=== PATIENT | female | born 1960 | race Two or more races ===

== ENCOUNTER 2024-06-13 15:48 | Outpatient (AMB) | payer MEDICARE, SELFPAY ==
--- NOTE | 2024-06-13 16:17 | A.OFFPC_ITS ---
Vital Signs 06/13/24 16:30 Height 5 ft 3 in Weight 149 lb 8 oz BMI 26.5 BP 120/72 Blood Pressure Location Lt brachial Position Sitting Pulse 75 Pulse Source Pulse Oximeter Pulse Oximetry (%) 99 Oxygen Delivery Method Room Air Intake Visit Reasons: pnp Regular Visit Rib Trim Separator Required: No Accompanied by: Self / Same As Patient Allergies clopidogrel [From Plavix] Allergy (Severe, Verified 06/13/24 16:54) Rash milnacipran [From Savella] Adverse Reaction (Severe, Verified 06/13/24 16:57) tachycardia promethazine [From Phenergan] Adverse Reaction (Severe, Verified 06/13/24 16:56) tachycardia Medication List - Last Reconciled 06/13/24 by Maurilio Burgess MD acetaminophen ER (Tylenol 8 Hour) 650 mg PO Q12H apremilast (Otezla) 30 mg PO BID aspirin 81 mg PO DAILY cetirizine (Zyrtec) 10 mg PO DAILY PRN fluticasone propionate 50 mcg/actuation 1 spray intranasal DAILY memantine 10 mg PO BID metformin 500 mg PO BID nateglinide 120 mg PO TID nortriptyline 10 mg PO BEDTIME PRN pantoprazole 40 mg PO DAILY pravastatin 40 mg PO DAILY pregabalin 75 mg PO BID rimegepant (Nurtec ODT) 75 mg PO Q OTHER DAY simethicone (Gas Relief (simethicone)) 125 mg PO BID-QID PRN tizanidine 4 mg PO BID PRN topiramate 100 mg PO BID tramadol 50 mg PO BID PRN Tobacco use date assessed: 06/13/24 Dental Screening Dental Screen Date: 06/13/24 Did you have a dental visit in the last 12 months?: No Did you have a dental problem in the last 6 months where you did not have access to dental care?: No Was dental information given to patient?: No HPI pnp Regular Visit HPI Details Patient comes in today to establish care - is a new patient to the practice Previous PCP was [place] at [facility] in [place] States that she had to switch doctors because she moved here to [facility] about 3 months ago and now lives here with her son She reports having multiple chronic health conditions, including RA, DM, migraine, chronic anemia, hyperlipidemia, brain aneurysm, psoriasis and chronic pain She is currently on Otezla for her RA and on Pregabalin for her chronic pain She is also on Topiramate and Nortriptyline and although patient is not sure why she is on these, we assume that they are likely for prophylactic Tx of her migraine headaches; she is also on Nurtec ODT for migraine She takes Nateglinide and Metformin for her diabetes She also reports (+) chronic anemia and that she's had a slow bleed in her small intestines that come and go States that there was an attempt to localize and cauterize the bleeding a couple of years ago wherein she was under anesthesia and intubated but no active bleeding was detected at the time of the procedure She also underwent surgery back in 2015 at [facility] in [place], [place] for a brain aneurysm and currently has another aneurysm of about 8 mm in size that was being monitored closely by [place] Dr. [place] until she moved her to [facility] She will currently need a referral to another specialist to help monitor her aneurysm regularly Patient states that she currently feels okay She denies any headaches or dizziness lately Denies any chest pains, no shortness of breath No nausea/vomiting, no abdominal pain No change in bowel habits noted Relates that she has noticed some discharge from her breasts over the past few days that is slightly more prominent on the left side She has not noticed any breast mass or lesions [facility] Medical History (Updated 06/15/24 @ 03:01 by Maurilio Burgess MD) Rheumatoid arthritis Psoriasis Migraine Brain aneurysm Chronic anemia Overweight (BMI 25.0-29.9) Chronic pain Allergic rhinitis GERD without esophagitis Diabetes mellitus Pure hypercholesterolemia Cardiac murmur Surgical History (Updated 06/15/24 @ 00:42 by Maurilio Burgess MD) History of abdominoplasty S/P brachioplasty History of appendectomy History of cholecystectomy History of colon resection History of reduction mammoplasty History of rotator cuff surgery History of gastric bypass History of carpal tunnel surgery of right wrist History of carpal tunnel surgery of left wrist Hx of brain surgery Family History Other Breast cancer Diabetes Schizophrenia Social History Housing: Apartment Patient Tobacco Use Status: Former Tobacco user e-Cigarette/Vaping Use: Never Used Second Hand Smoke Exposure: No service: No Current occupational status: retired Current occupational exposures/hazards: No Cognitive needs: No Hearing needs: No Vision needs: No Questionnaire PHQ-9 Over the last 2 weeks, how often have you been bothered by any of the following problems? 1. Little interest or pleasure in doing things: not at all 2. Feeling down, depressed, or hopeless: several days 3. Trouble falling or staying asleep, or sleeping too much: more than half the days 4. Feeling tired or having little energy: more than half the days 5. Poor appetite or overeating: more than half the days 6. Feeling bad about yourself - or that you are a failure or have let yourself or your family down: more than half the days 7. Trouble concentrating on things, such as reading the newspaper or watching television: more than half the days 8. Moving or speaking so slowly that other people could have noticed. Or the opposite - being so fidgety or restless that you have been moving around a lot more than usual: more than half the days 9. Thoughts that you would be better off or of hurting yourself in some way: not at all Total score: 13 Depression Screening Interpretation: Positive Depression Screening Follow-up: Existing condition and In treatment Depression Screening Done: Yes 30862 - PHQ-9 Billing: Yes Source: Developed by Drs. Johan Espino, Marlen River, Cory De Jesus and colleagues, with an educational corona from [employer]. Thrive Questionnaire Date Thrive assessed: 06/13/24 I am a: Patient What is your living situation today?: I have a steady place to live Within the past 12 months, did the food you bought not last and you didn't have the money to get more?: Sometimes True Within the past 12 months, did you worry whether your food would run out before you got money to buy more?: Sometimes True Do you have trouble paying for medicines?: No Do you have trouble getting transportation to medical appointments?: No Do you have trouble paying your heating and electricity bill?: No Do you have trouble taking care of your child, family member or friend?: No Do you have trouble with day-to-day activities such as bathing, preparing meals, shopping, managing finances, etc.?: No Are you currently unemployed and looking for a job?: No Are you interested in more education?: No Please select the resources that you would like help with: None Currently or been in a relationship where the following occur: No concerns reported THRIVE Score: 2 AUDIT C Alcohol Use Questionnaire (AUDIT-C) 1. How often do you have a drink containing alcohol?: Never 3. How often do you have six or more drinks on one occasion?: Never Total Score: 0 Score Reviewed/Action Taken: Yes CHANA-7 AMB Questionnaire CHANA-7 Date CHANA - 7 assessed: 06/13/24 Feeling nervous, anxious, or on edge: 2 = More than half the days Not being able to stop or control worryin = More than half the days Worrying too much about different things: 2 = More than half the days Trouble relaxin = More than half the days Being so restless that it is hard to sit still: 2 = More than half the days Becoming easily annoyed or irritable: 2 = More than half the days Feeling afraid as if something awful might happen: 0 = Not at all Total CHANA-7 score (0-4 normal; 5-9 mild; 10-14 moderate; 15-21 severe): 12 Source: Developed by Drs. Johan Espino, Marlen River, Cory De Jesus and colleagues, with an educational corona from [employer]. Review of Systems Const Denies chills, Reports fatigue, Denies fever(s) and Denies headache(s) ENT Denies dysphagia, Denies dizziness, Denies otalgia, Denies headache(s), Denies neck pain, Denies odynophagia and Denies sore throat Card Denies chest pain, Denies palpitations and Denies dyspnea Resp Denies chest congestion, Denies cough and Denies dyspnea GI Denies abdominal pain, Denies constipation, Denies dysphagia, Denies heartburn, Denies diarrhea, Denies nausea, Denies odynophagia and Denies vomiting Denies difficulty voiding, Denies nocturia, Reports nipple discharge (bilateral, L>R), Denies dysuria and Denies urinary urgency Musc Denies abnormal gait, Reports arthralgias and Denies neck pain Skin/Breast Details: (+) scaling rash over the extensor surface of both forearms Denies breast pain, Denies breast mass and Reports nipple discharge (bilateral, L>R) Neuro Denies abnormal gait, Denies dizziness and Denies headache(s) Endo Reports fatigue and Denies palpitations Physical exam (Primary Care) Vital Signs: Last Vital Signs Pulse 75 06/13/24 16:30 BP 120/72 06/13/24 16:30 Pulse Ox 99 06/13/24 16:30 Oxygen Delivery Method Room Air 06/13/24 16:30 BMI result Body Mass Index 26.5 Tobacco/Smoking Status: Tobacco use Status Tobacco use date assessed 06/13/24 06/13/24 16:46 Patient Tobacco Use Status Former Tobacco user 06/13/24 16:46 e-Cigarette/Vaping Use Never Used 06/13/24 16:46 PHQ-9: PHQ-9 Score PHQ-9: Total score 13 06/14/24 09:55 Depression Screening Interpretation: Positive Depression Screening Follow-up: Existing condition and In treatment Thrive Assessment: Date of Thrive Assessment Date Thrive assessed 06/13/24 06/13/24 16:46 Currently or been in a relationship where the following occur: No concerns reported Const General: no acute distress and alert HENMT Ears: TM's normal bilaterally and EAC's normal Throat: Yes posterior oropharynx normal and Yes tonsils normal (no TP congestion) Neck Neck: Yes supple and No lymphadenopathy Thyroid: Thyroid normal Resp Auscultation: clear to auscultation bilaterally, no rales and no wheezes Cardio Rate: regular rate Rhythm: regular rhythm Heart sounds: Murmur heart sound present GI Palpation (GI): Soft to palpation and nontender Auscultation: normal bowel sounds General: Yes no CVA tenderness Back/Spine/Pelvis Back: no CVA tenderness Thoracic/Lumbar Spine: No lumbar spinal tenderness Skin Other: (+) scaling rash over the extensor surface of both forearms Extrem General: Yes no clubbing, cyanosis or edema Coding Level of Care Code New Pt Level 5 (16203) Diagnoses Psoriasis L40.9 Rheumatoid arthritis, involving unspecified site, unspecified whether rheumatoid factor present M06.9 Rheumatoid arthritis location: unspecified site Rheumatoid factor presence: unspecified presence Migraine without status migrainosus, not intractable, unspecified migraine type G43.909 Migraine type: unspecified Status migrainosus presence: without status migrainosus Intractability: not intractable Brain aneurysm I67.1 Pure hypercholesterolemia E78.00 Type 2 diabetes mellitus without complication, without long-term current use of insulin E11.9 Diabetes mellitus type: type 2 Diabetes mellitus middle or intermediate school principal insulin use: without middle or intermediate school principal use Diabetes mellitus complication status: without complication Chronic anemia D64.9 Small intestinal hemorrhage K92.2 GERD without esophagitis K21.9 Discharge from breast N64.52 Allergic rhinitis, unspecified seasonality, unspecified trigger J30.9 Allergic rhinitis trigger: unspecified Allergic rhinitis seasonality: unspecified Other chronic pain G89.29 Chronic pain type: other chronic pain Overweight (BMI 25.0-29.9) E66.3 Cervical cancer screening Z12.4 Additional Codes PHQ-9 - 89479 - PHQ-9 Billing: Yes ([id number]) Time Spent (min) 45 Assessment & Plan Assessment & Plan (1) Psoriasis: Code(s): L40.9 - Psoriasis, unspecified Category: Medical Plan: Continue Otezla 30 mg BID Will refer patient to dermatology for continuing management of her psoriasis (2) Rheumatoid arthritis: Code(s): M06.9 - Rheumatoid arthritis, unspecified Category: Medical Qualifiers: Rheumatoid arthritis location: unspecified site Rheumatoid factor presence: unspecified presence Qualified Code(s): M06.9 - Rheumatoid arthritis, unspecified Plan: Will refer her to rheumatology for continuing management of her RA Will recheck her labs, including sed rate, CRP and rheumatoid factor in 3 months (3) Migraine: Code(s): G43.909 - Migraine, unspecified, not intractable, without status migrainosus Category: Medical Qualifiers: Migraine type: unspecified Status migrainosus presence: without status migrainosus Intractability: not intractable Qualified Code(s): G43.909 - Migraine, unspecified, not intractable, without status migrainosus Plan: Discussed avoidance of any potential migraine triggers Continue Topiramate 100 mg BID, Nortriptyline 10 mg Q HS and Nurtec ODT 75 mg every other day Per request, will refer her to neurology for continuing management (4) Brain aneurysm: Comment: s/p surgical repair in 2014 in [place], [place] Code(s): I67.1 - Cerebral aneurysm, nonruptured Category: Medical Plan: Patient currently has another aneurysm of about 8 mm in size that was being monitored closely by [place] Dr[place] until she moved her to [facility] Will refer her to neurosurgery for continuing surveillance and management Patient has had some cognitive impairment ever since her brain surgery in 2014 Continue Memantine 10 mg BID (5) Pure hypercholesterolemia: Code(s): E78.00 - Pure hypercholesterolemia, unspecified Category: Medical Plan: Discussed / reinforced low cholesterol diet Continue Pravastatin 40 mg QD Will recheck her labs and fasting lipids in 3 months (6) Diabetes mellitus: Code(s): E11.9 - Type 2 diabetes mellitus without complications Category: Medical Qualifiers: Diabetes mellitus type: type 2 Diabetes mellitus middle or intermediate school principal insulin use: without [facility] use Diabetes mellitus complication status: without complication Qualified Code(s): E11.9 - Type 2 diabetes mellitus without complications Plan: Discussed diabetic diet - goal is HgbA1c of at least <7.0% Discussed diabetic diet Continue Nateglinide 120 mg TID and Metformin 500 mg BID (7) Chronic anemia: Code(s): D64.9 - Anemia, unspecified Category: Medical Plan: Will recheck her CBC KISHA for follow up Will also recheck her labs in 3 months and continue to monitor her CBC regularly Will refer her as well to hematology for continuing management (8) Small intestinal hemorrhage: Code(s): K92.2 - Gastrointestinal hemorrhage, unspecified Category: Medical Plan: Patient reportedly had a slow bleed in her small intestines that comes and goes for a while now States that there was an attempt to localize and cauterize the bleeding a couple of years ago wherein she was under anesthesia and intubated but no active bleeding was detected at the time of the procedure Will refer her to GI here for continuing management (9) GERD without esophagitis: Code(s): K21.9 - Gastro-esophageal reflux disease without esophagitis Category: Medical Plan: Dietary restrictions discussed Continue Pantoprazole 40 mg QD (10) Discharge from breast: Code(s): N64.52 - Nipple discharge Category: Medical Plan: Will send her for urgent mammography for further evaluation (11) Allergic rhinitis: Code(s): J30.9 - Allergic rhinitis, unspecified Category: Medical Qualifiers: Allergic rhinitis trigger: unspecified Allergic rhinitis seasonality: unspecified Qualified Code(s): J30.9 - Allergic rhinitis, unspecified Plan: Continue Cetirizine 10 mg QD PRN and Fluticasons 50 mcg nasal spray QD PRN (12) Chronic pain: Code(s): G89.29 - Other chronic pain Category: Medical Qualifiers: Chronic pain type: other chronic pain Qualified Code(s): G89.29 - Other chronic pain Plan: Continue Pregabalin 75 mg BID, Tramadol 50 mg TID PRN and Tizanidine 4 mg BID PRN (Rx refilled) (13) Overweight (BMI 25.0-29.9): Code(s): E66.3 - Overweight Category: Medical Plan: Discussed diet/exercise as tolerated/lose weight (14) Cervical cancer screening: Code(s): Z12.4 - Encounter for screening for malignant neoplasm of cervix Category: Medical Plan: Will refer her to [facility] for her annual gynecology exam and pap smear Plan Follow up in 3 months Orders: Orders 2 MM tomosynthesis diagnostic BI 06/13/24 N64.52 - Nipple discharge Comprehensive Berry. Panel Fast 3 Months E78.00 - Pure hypercholesterolemia, uns pecified Lipid Panel 3 Months E78.00 - Pure hypercholesterolemia, unspecified TSH reflex Free T4 3 Months E78.00 - Pure hypercholesterolemia, unspecified Vitamin D 25-OH Total 3 Months E55.9 - Vitamin D deficiency, unspecified Complete Blood Count Auto Diff 06/13/24 D64.9 - Anemia, unspecified IRON PROFILE 06/13/24 D50.9 - Iron deficiency anemia, unspecified, D64.9 - Anemia, unspecified Complete Blood Count Auto Diff 3 Months D64.9 - Anemia, unspecified UA CC w/rflx Micro + Cult 3 Months R30.0 - Dysuria Vitamin B12 and Folate 3 Months E53.8 - Deficiency of other specified B group vitamins Microalbumin, Random (w Creat) 3 Months E11.9 - Type 2 diabetes mellitus without complications Hemoglobin A1c 3 Months E11.9 - Type 2 diabetes mellitus without complications C Reactive Protein 3 Months M06.9 - Rheumatoid arthritis, unspecified Erythrocyte Sedimentation Rate 3 Months M06.9 - Rheumatoid arthritis, unspecified, M79.7 - Fibromyalgia Rheumatoid Factor 3 Months M06.9 - Rheumatoid arthritis, unspecified KARLA Reflex Titer and Pattern 3 Months M06.9 - Rheumatoid arthritis, unspecified Comprehensive Met. Panel 06/13/24 D64.9 - Anemia, unspecified Vitamin B12 and Folate 06/13/24 D64.9 - Anemia, unspecified, E53.8 - Deficiency of other specified B group vitamins Referrals Dermatology Referral L40.9 - Psoriasis, unspecified Neurology Referral G43.909 - Migraine, unspecified, not intractable, without status migrainosus GLASS GRINDER Referral Z12.4 - Encounter for screening for malignant neoplasm of cervix Rheumatology Referral M06.9 - Rheumatoid arthritis, unspecified Neurosurgery Referral I67.1 - Cerebral aneurysm, nonruptured Gastroenterology Referral K92.2 - Gastrointestinal hemorrhage, unspecified Hematology & Oncology Referral D64.9 - Anemia, unspecified Medications: New tizanidine 4 mg PO BID PRN 60 caps 5RF muscle spasms/neck pain
[2024-06-13 16:30] VITALS: BP 120/72; PULSE 75; O2SAT 99; BMI 26.5
--- OUTSIDE RECORDS SUMMARY | 2024-06-13 16:42 | XMS_ITS ---
Author Name [facility] Organization Unknown Results Test Name/Text Value Interpretation Date Range Source IRON BINDING CAPACITY,TOTAL 445ug/dL Normal [id number] 250 - 450 [facility] %SATURATION, IRON 40% Normal [id number] 20 - 55 [facility] IRON 177ug/dL Above high normal [id number] 50 - 170 [facility] FERRITIN 7ng/mL Below low normal [id number] 8 - 252 [facility] WBC 13.6K/uL Above high normal [id number] 3.7 - 10. 3 [facility] ABSOLUTE GRANULOCYTES 11.2K/uL Above high normal [id number] 2.2 - 7.3 [facility] ABSOLUTE BASO 0.1K/uL Normal [id number] 0 - 0.2 [facility] IMMATURE GRANULOCYTES 0% Normal [id number] 0 - 0 .45 [facility] NUCLEATED RBC 0% Normal [id number] 0 - 0.2 [facility] MCH 27PG Normal [id number] 27 - 34 [facility] MONOCYTES 6% Normal [id number] 0 - 12 [facility] ABSOLUTE IMMATURE GRANULOCYTES 0K/uL Normal [id number] 0 - 0.3 [facility] HGB 10.9g/dL Below low normal [id number] 12.1 - 15. 7 [facility] RBC 4.03M/uL Normal [id number] 4 - 5.4 [facility] EOSINOPHILS 1% Normal [id number] 0 - 6 [facility] MPV 12fL Normal [id number] 8 - 12 [facility] ABSOLUTE MONOS 0.8K/uL Normal [id number] 0.2 - 1.5 [facility] BASOPHILS 1% Normal [id number] 0 - 2 [facility] MCV 89fL Normal [id number] 83 - 102 [facility] HCT 35.7% Below low normal [id number] 36 - 46 [facility] ABSOLUTE LYMPHS 1.4K/uL Below low normal [id number] 1.5 - 4.9 [facility] GRANULOCYTES 82% Above high normal [id number] 23 - 7 8 [facility] ABSOLUTE EOS 0.1K/uL Normal [id number] 0 - 0.7 [facility] LYMPHS 10% Below low normal [id number] 16 - 50 [facility] RDW 13.6% Above high normal [id number] 11.1 - 13 .3 [facility] PLATELET COUNT 327K/uL Normal [id number] 150 - 480 [facility] MCHC 30.5g/dL Below low normal [id number] 31 - 36 [facility] ABSOLUTE NUCLEATED RBC 0K/uL Normal [id number] 0 - 0.012 [facility] COMMENT * Normal [id number] [facility] FERRITIN 11ng/mL Normal [id number] 8 - 252 [facility] IRON BINDING CAPACITY,TOTAL 399ug/dL Normal [id number] 250 - 450 [facility] %SATURATION, IRON 25% Normal [id number] 20 - 55 [facility] IRON 100ug/dL Normal [id number] 50 - 170 [facility] WBC 7.5K/uL Normal [id number] 3.7 - 10.3 [facility] ABSOLUTE GRANULOCYTES 5.6K/uL Normal [id number] 2.2 - 7.3 [facility] ABSOLUTE BASO 0K/uL Normal [id number] 0 - 0.2 [facility] IMMATURE GRANULOCYTES 0% Normal [id number] 0 - 0 .45 [facility] NUCLEATED RBC 0% Normal [id number] 0 - 0.2 [facility] MCH 29PG Normal [id number] 27 - 34 [facility] MONOCYTES 6% Normal [id number] 0 - 12 [facility] ABSOLUTE IMMATURE GRANULOCYTES 0K/uL Normal [id number] 0 - 0.3 [facility] HGB 12.2g/dL Normal [id number] 12.1 - 15.7 [facility] MMH RBC 4.23M/uL Normal [id number] 4 - 5.4 [facility] EOSINOPHILS 2% Normal [id number] 0 - 6 [facility] MMH MPV 11fL Normal [id number] 8 - 12 [facility] ABSOLUTE MONOS 0.4K/uL Normal [id number] 0.2 - 1.5 [facility] BASOPHILS 1% Normal [id number] 0 - 2 [facility] MCV 89fL Normal [id number] 83 - 102 [facility] HCT 37.6% Normal [id number] 36 - 46 [facility] ABSOLUTE LYMPHS 1.3K/uL Below low normal [id number] 1.5 - 4.9 [facility] GRANULOCYTES 74% Normal [id number] 23 - 78 [facility] ABSOLUTE EOS 0.2K/uL Normal [id number] 0 - 0.7 [facility] LYMPHS 17% Normal [id number] 16 - 50 [facility] RDW 14.2% Above high normal [id number] 11.1 - 13 .3 [facility] PLATELET COUNT 274K/uL Normal [id number] 150 - 480 [facility] MCHC 32.4g/dL Normal [id number] 31 - 36 [facility] ABSOLUTE NUCLEATED RBC 0K/uL Normal [id number] 0 - 0.012 [facility] COMMENT * Normal [id number] [facility] FERRITIN 157ng/mL Normal [id number] 8 - 252 [facility] IRON BINDING CAPACITY,TOTAL 342ug/dL Normal [id number] 250 - 450 [facility] %SATURATION, IRON 24% Normal [id number] 20 - 55 [facility] IRON 83ug/dL Normal [id number] 50 - 170 [facility] WBC 9.4K/uL Normal [id number] 3.7 - 10.3 [facility] ABSOLUTE GRANULOCYTES 7K/uL Normal [id number] 2.2 - 7.3 [facility] ABSOLUTE BASO 0.1K/uL Normal [id number] 0 - 0.2 [facility] IMMATURE GRANULOCYTES 0% Normal 0 - 0 .45 [facility] NUCLEATED RBC 0% Normal 0 - 0.2 [facility] MCH 27PG Normal 27 - 34 [facility] MONOCYTES 7% Normal [id number] 0 - 12 [facility] ABSOLUTE IMMATURE GRANULOCYTES 0K/uL Normal [id number] 0 - 0.3 [facility] HGB 12.1g/dL Normal 12.1 - 15.7 [facility] COMMENT * Normal [facility] RBC 4.41M/uL Normal [id number] 4 - 5.4 [facility] EOSINOPHILS 2% Normal 0 - 6 [facility] MMH MPV 11fL Normal [id number] 8 - 12 [facility] ABSOLUTE MONOS 0.7K/uL Normal [id number] 0.2 - 1.5 [facility] BASOPHILS 1% Normal 0 - 2 [facility] MCV 87fL Normal 83 - 102 [facility] HCT 38.3% Normal 36 - 46 [facility] ABSOLUTE LYMPHS 1.5K/uL Normal 1.5 - 4.9 [facility] GRANULOCYTES 75% Normal 23 - 78 [facility] ABSOLUTE EOS 0.2K/uL Normal 0 - 0.7 [facility] LYMPHS 16% Normal 16 - 50 [facility] RDW 16.8% Above high normal 11.1 - 13 .3 [facility] PLATELET COUNT 289K/uL Normal 150 - 480 [facility] MCHC 31.6g/dL Normal 31 - 36 [facility] ABSOLUTE NUCLEATED RBC 0K/uL Normal 0 - 0.012 [facility] APTT TIME PPP 32sec Normal [id number] 22 - 35 [facility] FERRITIN 6ng/mL Below low normal [id number] 8 - 252 [facility] IRON BINDING CAPACITY,TOTAL 429ug/dL Normal 250 - 450 [facility] %SATURATION, IRON 14% Below low normal [id number] 20 - 55 [facility] IRON 59ug/dL Normal 50 - 170 [facility] WBC 9.7K/uL Normal 3.7 - 10.3 [facility] ABSOLUTE GRANULOCYTES 7K/uL Normal 2.2 - 7.3 [facility] ABSOLUTE BASO 0K/uL Normal 0 - 0.2 [facility] IMMATURE GRANULOCYTES 0% Normal 0 - 0 .45 [facility] NUCLEATED RBC 0% Normal 0 - 0.2 [facility] MCH 26PG Below low normal 27 - 34 [facility] MONOCYTES 9% Normal 0 - 12 [facility] ABSOLUTE IMMATURE GRANULOCYTES 0K/uL Normal 0 - 0.3 [facility] HGB 10.1g/dL Below low normal 12.1 - 15. 7 [facility] COMMENT * Normal [facility] RBC 3.88M/uL Below low normal 4 - 5.4 [facility] EOSINOPHILS 1% Normal 0 - 6 [facility] MMH MPV 10fL Normal 8 - 12 [facility] ABSOLUTE MONOS 0.8K/uL Normal 0.2 - 1.5 [facility] BASOPHILS 0% Normal 0 - 2 [facility] MCV 85fL Normal 83 - 102 [facility] HCT 33% Below low normal 36 - 46 [facility] ABSOLUTE LYMPHS 1.7K/uL Normal 1.5 - 4.9 [facility] GRANULOCYTES 72% Normal 23 - 78 [facility] ABSOLUTE EOS 0.1K/uL Normal 0 - 0.7 [facility] LYMPHS 18% Normal 16 - 50 [facility] RDW 14.6% Above high normal 11.1 - 13 .3 [facility] PLATELET COUNT 373K/uL Normal 150 - 480 [facility] MCHC 30.6g/dL Below low normal 31 - 36 [facility] ABSOLUTE NUCLEATED RBC 0K/uL Normal 0 - 0.012 [facility] PT TIME PPP 10.5sec Normal 10.5 - 13.3 [facility] INR PPP 0.9 Normal 0.8 - 1.1 [facility] CREAT SERPL MCNC 0.6mg/dL Normal 0.5 - 1 [facility] SODIUM SERPL SCNC 144mmol/L Normal 135 - 145 [facility] GLUCOSE SERPL MCNC 160mg/dL Normal 70 - 199 [facility] Glomerular filtration rate/1.73 sq M. predicted 102 Normal 60 - [facility] CHLORIDE SERPL SCNC 108mmol/L Above high normal 98 - 107 [facility] HCO3 SER SCNC 24mmol/L Normal 24 - 32 [facility] POTASSIUM SERPL SCNC 3.9mmol/L Normal [id number] 3.5 - 5.1 [facility] ANION GAP SERPL SCNC 12mmol/L Normal [id number] 5 - 14 [facility] BUN SERPL MCNC 10mg/dL Normal 7 - 17 [facility] CALCIUM SERPL MCNC 9mg/dL Normal [id number] 8.4 - 10 .2 [facility] DIFFERENTIAL TYPE AUTOMATED Normal [facility] NEUTROPHILS NFR BLD AUTO 73.9% Normal 44 - 74 [facility] BASOPHILS NFR BLD AUTO 0.4% Normal [id number] 0 - 2 [facility] MONOCYTES NFR BLD AUTO 8.1% Normal [id number] 2 - 12 [facility] HCT VFR BLD AUTO 31.6% Below low normal 37 - 47 [facility] MONOCYTES NO. BLD AUTO 0.6K/uL Normal [id number] 0 - 0.8 [facility] RDW RBC AUTO RTO 15.4% Normal [id number] 12.1 - 16. 2 [facility] PLATELET NO. BLD AUTO 349K/uL Normal [id number] 150 - 450 [facility] EOSINOPHIL NO. BLD AUTO 0.1K/uL Normal [id number] 0 - 0.5 [facility] RBC NO. BLD AUTO 3.8M/uL Below low normal [id number] 4.2 - 5.4 [facility] MCH RBC QN AUTO 26.3pg Normal [id number] 25 - 33 [facility] MCHC RBC AUTO MCNC 31.5g/dL Below low normal [id number] 3 2 - 36 [facility] HGB BLD MCNC 10g/dL Below low normal [id number] 12.5 - 16 [facility] BASOPHILS IN BLOOD BY AUTOMATED COUNT 0K/uL Normal [id number] 0 - 0.2 [facility] WBC NO. BLD AUTO 7.9K/uL Normal [id number] 4 - 10.5 [facility] EOSINOPHIL NFR BLD AUTO 1.6% Normal [id number] 0 - 6 [facility] LYMPHOCYTES NFR BLD AUTO 16% Below low normal 20 - 48 [facility] MCV RBC AUTO 83.3fL Normal [id number] 78 - 100 [facility] NEUTROPHILS NO. BLD AUTO 5.8K/uL Normal [id number] 1.8 - 7.8 [facility] LYMPHOCYTES NO. BLD AUTO 1.3K/uL Normal [id number] 1 - 3.2 [facility] PMV BLD AUTO 9.8fL Normal [id number] 7.4 - 11.4 [facility] History of Medication Use Medication Directions Dispensed Refills Start Date End Date Stat Iron Chews 15 mg =, Oral, Daily, 0 Refill(s) 07/09/2023 Ordered nateglinide Oral, TID(AC), 0 Refill(s) 07/09/2023 Ordered fluticasone-vilanter ol (BREO ELLIPTA) 100-25 MCG/INH inhaler Inhale 1 puff daily. 08/30/2022 acti ve Aspirin 81 MG Cap Take by mouth. 08/30/2022 active memantine 10 mg oral tablet 1 tab, Oral, BID, # 60 tab, 0 Refill(s) 07/09/2023 Ordered PANTOprazole (PROTONIX) 40 MG EC tablet Take 1 tablet (40 mg total) by mouth daily. 08/30/2022 active traMADol 50 mg oral tablet 1 tab, Oral, every 12 hr, PRN as needed for pain, 0 Refill(s) 07/09/2023 Ordered Topamax 100 mg oral tablet 1 tab, Oral, BID, # 180 tab, 0 Refill(s) 07/09/2023 Ordered pantoprazole 40 mg oral delayed release tablet 1 tab, Oral, BID, # 60 tab, 0 Refill(s) 07/09/2023 Ordered Otezla 30 mg =, Oral, BID, 0 Refill(s) 07/09/2023 Ordered memantine (NAMENDA) 10 MG tablet TAKE 1 TABLET BY MOUTH TWICE A DAY 08/30/2022 active traMADol (ULTRAM) 50 MG tablet 2 (two) times a day. 100 mg bid 08/30/2022 active furosemide (LASIX) 20 MG tablet Take 1 tablet (20 mg total) by mouth as needed. 02/05/2023 active nortriptyline (PAMELOR) 10 MG capsule 1 cap po qhs x 1 week then increase each week by 1 cap up to 3 caps po qhs 02/08/2023 active Glucophage 500 mg oral tablet 1 tab, Oral, BID, # 180 tab, 0 Refill(s) 07/09/2023 Ordered Apremilast (OTEZLA) 30 MG tablet Take 30 mg by mouth 2 (two) times a day. 12/30/2022 active butalbital-acetamino phen-caffeine (FioriCET, ESGIC) 50-325-40 mg tablet Take 1 tablet by mouth 4 times daily (every 6 hours) as needed for headaches. Max: 6 capsules/tablets in 24 hours 08/30/2022 active furosemide (LASIX) 20 MG tablet Take 1 tablet (20 mg total) by mouth as needed. 02/05/2023 active nortriptyline (PAMELOR) 10 MG capsule 1 cap po qhs x 1 week then increase each week by 1 cap up to 3 caps po qhs 02/08/2023 active Glucophage 500 mg oral tablet 1 tab, Oral, BID, # 180 tab, 0 Refill(s) 07/09/2023 Ordered clobetasol (TEMOVATE) 0.05 % cream Apply topically. 08/30/2022 active benzonatate (TESSALON) 200 MG capsule Take 1 capsule (200 mg total) by mouth 3 (three) times a day as needed for cough. 09/21/2022 active Aspirin 81 MG Cap Take by mouth every morning. 12/30/2022 active nateglinide (STARLIX) 120 MG tablet 2 (two) times a day. 08/30/2022 acti ve acetaminophen (TYLENOL) 650 MG CR tablet Take 650 mg by mouth 3 times daily (every 8 hours) as needed for mild pain. 12/30/2022 active albuterol (Ventolin HFA) 108 (90 Base) MCG/ACT inhaler 2 puffs every 4 (four) hours. 08/30/2022 active metFORMIN (GLUCOPHAGE) 500 MG tablet 2 (two) times a day. 08/30/2022 acti ve tiZANidine (ZANAFLEX) 4 MG tablet TAKE 1 TABLET (4 MG TOTAL) BY MOUTH EVERY 8 (EIGHT) HOURS NEEDED FOR UP TO 30 DAYS. 08/30/2022 active ondansetron (ZOFRAN) 4 MG tablet Take 1 tablet (4 mg total) by mouth 3 times daily (every 8 hours) as needed for nausea or vomiting. 08/30/2022 active Suprep Bowel Prep Kit oral liquid 360 mL, Oral, As Directed, X 1 doses, # 1 EA, 0 Refill(s), Pharmacy: [facility]/pharmacy #[id number] 04/29/2023 Ordered Cetirizine HCl (ZYRTEC ALLERGY PO) Take by mouth every morning. 08/30/2022 active fluticasone-vilanter ol (Breo Ellipta) 100-25 MCG/INH inhaler INHALE 1 PUFF DAILY 08/30/2022 activ e pravastatin (PRAVACHOL) 40 MG tablet every evening after dinner. 08/30/2022 active Suprep Bowel Prep Kit oral liquid 360 mL, Oral, As Directed, X 1 doses, # 1 EA, 0 Refill(s), Pharmacy: [facility]/pharmacy #[id number] 07/09/2023 Ordered rimegepant (Nurtec) 75 mg disintegrating tablet Take 1 tablet (75 mg total) by mouth once as needed for migraine. Maximum: 75 mg/24 hours 02/08/2023 active polyethylene glycol (GoLYTELY) 236 g solution Take as directed for Colonoscopy/GI Procedure. See administration instructions. 01/11/2023 active pregabalin (LYRICA) 75 MG capsule TAKE 1 CAPSULE BY MOUTH TWICE A DAY 08/30/2022 active aspirin 81 mg oral capsule 1 cap, Oral, Daily, do not exceed 48 capsules in 24 hours, # 30 cap, 0 Refill(s) 07/09/2023 Ordered pravastatin 40 mg oral tablet 1 tab, Oral, Daily, # 30 tab, 0 Refill(s) 07/09/2023 Ordered topiramate (TOPAMAX) 100 MG tablet 2 (two) times a day. 08/30/2022 a ctive Lyrica Oral, 0 Refill(s) 07/09/2023 Ord ered tiZANidine 4 mg oral capsule 1 cap, Oral, TID, # 90 cap, 0 Refill(s) 07/09/2023 Ordered fluticasone (FloNASE) 50 mcg/spray nasal spray 1-2 SPRAYS DAILY BY NASAL ROUTE FOR 7 DAYS INDICATIONS: RHINITIS 12/30/2022 active Allergies Allergen Reaction Severity Comment Documented Date Source Statu s SAVELLA Tachycardia (finding) [facility] PHENERGAN Tachycardia (finding) [facility] PLAVIX Eruption of skin (disorder) [facility] Problems Problem Status Onset Date Problem Type Date of Resoluti on Source Depressive disorder (disorder) active ProblemAct [facility] Gastroesophageal reflux disease with esophagitis (disorder) active ProblemAct [facility] Gastroesophageal reflux disease active 2019-04-15 ProblemAct [facility] Anemia (disorder) active ProblemAct [facility] Intracranial aneurysm (disorder) active ProblemAct [facility] Diabetes mellitus type 2 (disorder) active ProblemAct [facility] Fibromyalgia (disorder) active ProblemAct [facility] Nausea & vomiting active 2020-09-08 ProblemAct [facility] Iron deficiency anemia active 2019-04-15 ProblemAct [facility] Personal history of colonic polyps active 2019-04-15 ProblemAct [facility] Rheumatoid arthritis (disorder) active ProblemAct [facility] Hematemesis active 2019-04-15 ProblemAct [facility]
== END 2024-06-13 17:33 | disposition home or self-care (01) ==
PROVIDERS: PCP Internal Medicine; Visit Provider Internal Medicine
DX: E11.9 Type 2 diabetes mellitus without complications (principal); M06.9 Rheumatoid arthritis, unspecified; L40.9 Psoriasis, unspecified; G43.909 Migraine, unspecified, not intractable, without status migrainosus; I67.1 Cerebral aneurysm, nonruptured; E78.00 Pure hypercholesterolemia, unspecified; D64.9 Anemia, unspecified; K92.2 Gastrointestinal hemorrhage, unspecified; K21.9 Gastro-esophageal reflux disease without esophagitis; N64.52 Nipple discharge; J30.9 Allergic rhinitis, unspecified; G89.29 Other chronic pain

== ENCOUNTER → 2024-06-13 15:48 | Outpatient (BNVA) | payer MEDICARE, SELFPAY | PROVIDERS: PCP Internal Medicine; Visit Provider Internal Medicine | DX: L40.9 Psoriasis, unspecified (principal); G43.909 Migraine, unspecified, not intractable, without status migrainosus; I67.1 Cerebral aneurysm, nonruptured; E78.00 Pure hypercholesterolemia, unspecified; E11.9 Type 2 diabetes mellitus without complications; D64.9 Anemia, unspecified; K92.2 Gastrointestinal hemorrhage, unspecified; K21.9 Gastro-esophageal reflux disease without esophagitis; N64.52 Nipple discharge; J30.9 Allergic rhinitis, unspecified; E66.3 Overweight; G89.29 Other chronic pain | CPT/HCPCS: 96127; 99202 ==

== ENCOUNTER 2024-06-16 07:31 | Outpatient (REF) | payer MEDICARE, SELFPAY ==
[2024-06-16 10:22] LABS: MANUAL DIFF FLAG NO
[2024-06-16 10:30] LABS: Basophils Absolute Auto 0.1 X10*3/uL (0.0-0.2); Basophils Percent Auto 0.9 % (0-2); Eosinophils Absolute Auto 0.2 X10*3/uL (0.0-0.4); Eosinophils Percent Auto 2.8 % (0-4); Hematocrit 30.5 % (37.0-47.0); Hemoglobin 8.5 g/dl (12.0-16.0); Imm Gran Abs Auto 0.03 X10*3/uL (0.00-0.03); Imm Gran Pct Auto 0.3 % (0.0-0.4); Lymphocytes Absolute Auto 1.2 X10*3/uL (1.2-4.9); Lymphocytes Percent Auto 13.6 % (20-40); Mean Corpuscular HGB Conc 27.9 g/dl (31.0-35.0); Mean Corpuscular Hemoglobin 21.7 pg (27.0-33.0); Mean Platelet Volume 11.5 fL (9.4-12.3); Monocytes Absolute Auto 0.5 X10*3/uL (0.1-1.2); Monocytes Percent Auto 5.9 % (2-11); Neutrophils Absolute Auto 6.6 x10*3/uL (2.0-8.3); Neutrophils Percent Auto 76.5 % (45-73); Platelet Count 408 X10*3/uL (160-400); Red Blood Count 3.91 X10*6/uL (4.20-5.50); Red Cell Distribution Width 17.5 % (11.0-16.0); White Blood Count 8.7 X10*3/uL (4.8-10.8)
[2024-06-16 11:05] LABS: Alanine Aminotransferase 18 U/L (0-31); Albumin Level 4.4 g/dL (3.5-5.0); Alkaline Phosphatase 115 U/L (39-117); Anion Gap 12 (12-20); Aspartate Amino Transferase 26 U/L (5-31); Bilirubin Total 0.3 mg/dL (0.0-1.0); Blood Urea Nitrogen 10 mg/dL (9-16); Calcium 9.1 mg/dL (8.4-10.2); Carbon Dioxide 23 mmol/L (22-29); Chloride 109 mmol/L (96-108); Estimated Glomerular Filt Rate > 60; Glucose Random 210 mg/dL (60-115); Iron 16 mcg/dL (30-160); Percent Iron Saturation 4 % (15-50); Potassium 3.5 mmol/L (3.3-5.1); Sodium 140 mmol/L (135-145); Total Iron Binding Capacity 356 mcg/dL (228-428); Total Protein 7.5 g/dL (6.5-8.0); Unsaturated Iron Binding 340 ug/dL
[2024-06-16 12:24] LABS: Vitamin B12 453 pg/mL (200-900)
== END 2024-06-16 07:32 | disposition home or self-care (01) ==
LOC: HO.HMGCLDS 07:31
PROVIDERS: PCP Internal Medicine; Visit Provider Internal Medicine
DX: D64.9 Anemia, unspecified (principal); D50.9 Iron deficiency anemia, unspecified; E53.8 Deficiency of other specified B group vitamins
CPT/HCPCS: 36415; 80053; 82607; 82746; 83540; 85025

== ENCOUNTER → 2024-07-09 10:53 | Outpatient (BNV) | payer MEDICARE, SELFPAY | PROVIDERS: PCP Internal Medicine; Referring Provider Internal Medicine; Visit Provider Nurse Practitioner Family | DX: D64.9 Anemia, unspecified (principal) | CPT/HCPCS: 99202; 99204 ==

== ENCOUNTER 2024-07-30 10:14 | Outpatient (REF) | payer MEDICARE, SELFPAY ==
--- NOTE | ~2024-07-30 | MM_ITS ---
EXAMINATION: MM DIAGNOSTIC DIGITAL BREAST TOMOSYNTHESIS, BILATERAL Bilateral Limited ultrasound. CLINICAL INFORMATION: Bilateral brown nipple discharge. Family history of breast cancer including patient's sister age 50. History of bilateral reduction mammoplasty with implants and explantation. COMPARISON: Mammography: Comparison is made with relevant prior exams. TECHNIQUE: Digital breast mammography with tomosynthesis is performed in both the craniocaudal and mediolateral oblique views along with computer-aided detection (CAD). Bilateral Limited ultrasound. FINDINGS: The breasts are heterogeneously dense, which may obscure small masses (ACR BI-RADS breast composition Category c). Left: Focal asymmetry upper outer quadrant anterior middle and posterior depth could represent a patch of dense normal fibroglandular breast tissue. Asymmetry lower breast on MLO view middle depth. No suspicious calcifications or other abnormal findings. Targeted color Doppler ultrasound in the left breast scanning from 9- 3:00 and 3-9 o'clock demonstrates normal fibroglandular breast tissue. There is a hypoechoic oval circumscribed than wide solid mass at 3:00 5 cm from nipple measuring 6 x 5 x 7 mm. Right: Focal asymmetry upper central to slightly outer breast anterior middle depth. No suspicious calcifications or other abnormal findings. Targeted color Doppler ultrasound scanning in the retroareolar region demonstrates normal fibroglandular breast tissue. Targeted color Doppler ultrasound scanning from 9-3 o'clock and 3-9 o'clock demonstrates normal fibroglandular breast tissue. Results are provided to the patient at time of visit by the technologist. MM/MM tomosynthesis diagnostic BI IMPRESSION: Left: 1. Solid mass at 3:00 5 cm from nipple. Recommend histology with ultrasound-guided core needle biopsy at this time. The findings and recommendations were discussed with the patient the procedure will be scheduled. 2. Focal asymmetry in the upper outer breast and lower breast on MLO view without sonographic correlate. Recommend 6 month follow-up mammography for further evaluation of stability. Right: 1. Focal asymmetry in the upper central slightly outer breast without sonographic correlate. Recommend 6 month follow-up for further evaluation of stability. Bilateral brown nipple discharge without retroareolar sonographic findings or mammographic abnormality. Breast MRI should be considered at this time after the recommended biopsy for further evaluation. Breast MRI needs to be ordered by the patient's providing clinician. ASSESSMENT: BI-RADS BI-RADS 4 - Suspicious finding RECOMMENDATION: Biopsy recommended This patient's information was entered into a reminder system with a target due date for their next mammogram. Electronically signed by: Janneth Rosado DO 07/30/2024 11:51 AM SHERRI
--- OUTSIDE RECORDS SUMMARY | 2024-07-30 10:47 | XMS_ITS | Encounter Summary ---
Author Organization [facility] Address [address] [place] [address] Care Team Providers Care Heating Equipment Installer Name Role Phone Sabrina Redd Primary Care Provider [phone] Encounter Details Date Type Department Care Team (Late st Contact Info) Description 07/14/2019 Scanned Document [facility] [address] [facility] [address] [place] [address] Provider, Historical . Social History Tobacco Use Types Packs/Day Years Used Date Smoking Tobacco: Former Cigarettes 1 18 1 - 2012 Smokeless Tobacco: Never Alcohol Use Standard Drinks/Week Comments Yes 0 (1 standard drink = 0.6 oz pur e alcohol) Socially Comments Unknown Sex and Gender Information Value Date Recorded Sex Assigned at Not on file Legal Sex Female 3:01 PM EDT Gender Identity Not on file Sexual Orientation Not on file documented as of this encounter Plan of Treatment Not on file documented as of this encounter Procedures Procedure Name Priority Date/Time Associated Diagnosis Comments IR RESULT SCAN Routine 07/10/2019 documented in this encounter Results * IR Result Scan (07/10/2019) us Historical Provider IMG SCAN REPORTS Final Resul t documented in this encounter Visit Diagnoses Not on filedocumented in this encounter Care Teams Heating Equipment Installer Relationship Specialty Start Date End Date Sabrina Redd PA [address] [place] [address] PCP - General 07/12/22 documented as of this encounter
--- OUTSIDE RECORDS SUMMARY | 2024-07-30 10:47 | XMS_ITS | Patient Health Record ---
Author Organization [employer] Address [address] [place], [place] [id number] Care Team Providers Care Director Of Medical Review Name Role Phone No, PCP Primary Care Provider Ebony Basurto Unavailable [phone] Cinthya Gautam Unavailable [phone] Barron Noel Unavailable [phone] Reason For Referral No Information Social History Sex Assigned At : Social History Observation Description Sex Assigned At Female Encounters Encounter Location Date Provider Diagnosis [facility] [address] [place] [address] [phone] 08/20/2023 Barron Noel [facility] [address] [place] [address] [phone] 08/22/2023 Barron Noel [facility] [address] [place] [address] [phone] 08/31/2023 Barron Noel [facility] [address] [place] [address] [phone] 09/03/2023 Barron Noel [facility] [address] [place] [address] [phone] 09/07/2023 Barron Noel [facility] [address] [place] [address] [phone] 10/10/2023 Barron Noel [facility] [address] [place] [address] [phone] 10/23/2023 Barron Noel [facility] [address] [place] [address] [id number] 01/01/2024 Ebony Reyes [facility] [address] [place] [address] [phone] 01/08/2024 Ebony Reyes [facility] [address] [place] [address] [phone] 01/28/2024 Ebony YooBobo [facility] [address] [place] [address] [phone] 02/04/2024 Ebony Reyes [facility] [address] [place] [address] [id number] 03/04/2024 Ebony Reyes [facility] [address] [place] [address] [phone] 03/25/2024 Ebony YooBobo [facility] [address] [place] [address] [phone] 04/17/2024 Ebony Reyes [facility] [address] [place] [address] [phone] 05/27/2024 Ebony Collins-Bobo [facility] [address] [place] [address] [phone] 05/30/2024 Ebony YooBobo [place] [place], [place] [phone] 08/29/2023 Cinthya Gautam Plan Of Treatment Next Appt Details Provider Name:Ebony Hilliard, 08/12/2024 10:00:00 AM, [facility], [address] [place] [address], [phone], Insurance Providers Payer Name Payer Address Payer Phone Subscriber Number Group Number Insured Name Patient Relationship to Insured Coverage Start Date Coverage End Date [place] Medicare Part A [employer] [facility] [address] [place] [address] [id number] Graciela andres Jazmine Self - patient is the insured 4 [employer] [address] [address] [place], [place] [id number] Graciela andres Jazmine Self - patient is the insured 4
--- OUTSIDE RECORDS SUMMARY | 2024-07-30 10:47 | XMS_ITS | Clinical Summary ---
Author Organization [address] [facility] Address [address] [place] [address] Phone Care Team Providers Care Stripper Apprentice Name Role Phone Maurilio Burgess MD Primary Care Provider Allergies Active Allergy Reactions Criticality Noted Date Comments Clopidogrel Rash Low 11/01/2022 Milnacipran Palpitations,Unknown Medium 02/12/2019 Other Reaction(s): Other (See Comments) Tachycardia Tachicardia Tachycardia Tachicardia Salvella is another name Tachicardia Salvella is another name Promethazine Other,Palpitations,U nkn own Medium 04/10/2012 Other Reaction(s): Other (See Comments) Tachycardia 180/min - she had to be taken to ER. Tachicardia 180/min - she had to be taken to ER. Tachycardia 180/min - she had to be taken to ER. Other reaction(s): Not available Tachicardia 180/min - she had to be taken to ER. Medications traMADoL (ULTRAM) 50 mg tablet Take 1 tablet (50 mg total) by mouth 2 (two) times a day if needed. Active topiramate (TOPAMAX) 100 mg tablet Take 1 tablet (100 mg total) by mouth 2 (two) times a day. Active tiZANidine (ZANAFLEX) 4 mg capsule TAKE 1 CAPSULE BY MOUTH TWICE DAILY NEEDED FOR MUSCLE SPASMS OR NECK PAIN 5 Active Nurtec 75 mg dispersible tablet DISSOLVE 1 TABLET ON THE TONGUE EVERY OTHER DAY NEEDED FOR MIGRAINE HEADACHE Active pregabalin (LYRICA) 75 mg capsule Take 1 capsule (75 mg total) by mouth 2 (two) times a day. Active pravastatin (PRAVACHOL) 40 mg tablet Take 1 tablet (40 mg total) by mouth 1 (one) time each day. 5 Active pantoprazole (PROTONIX) 40 mg EC tablet Take 1 tablet (40 mg total) by mouth 1 (one) time each day. Active nortriptyline (PAMELOR) 10 mg capsule Take 1 capsule (10 mg total) by mouth. at bedtime Active nateglinide (STARLIX) 120 mg tablet TAKE 1 TABLET BY MOUTH DAILY THREE TIMES DAILY BEFORE MEALS Active metFORMIN (GLUCOPHAGE) 500 mg tablet Take 1 tablet (500 mg total) by mouth 2 (two) times a day. Active memantine (NAMENDA) 10 mg tablet Take 1 tablet (10 mg total) by mouth 2 (two) times a day. Active fluticasone propionate (FLONASE) 50 mcg/actuation nasal spray USE 1 SRPAY INTO EACH NOSTRIL DAILY NEEDED FOR ALLERGY SYMPTONS. Active blood-glucose meter (OneTouch Ultra2 Meter) [facility] [place] [place] 0 Active OneTouch Ultra Test test strip USE DIRECTED TO TEST BLOOD SUGAR EVERY DAY Active aspirin 81 mg capsule Take by mouth daily. 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 Gilberto Knox in [place]. 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 She has chronic left eye vision loss and balance difficulty, chronic headaches and memory problems, patient states this has been since her craniotomy. She was seeing Dr. Patricio in neurosurgery at [place], [place]. She has since moved to [place], is looking to get follow-up CTA of the head locally. She denies family history of polycystic kidney disease, aneurysms, denies history of hypertension. She states she stopped smoking >20 years ago, but smoked for approximately 20 years prior to that. She currently is vaping, does not think there is any nicotine products, just THC, her son buys it for her for her diffuse body pains, which she rates 6-8/10. She states she has had pain throughout her body for 30 years. S/p hysterectomy without oophorectomy. Has history of neuropathy from diabetes, rheumatoid arthritis, fibromyalgia. 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 Patient's most recent brain imaging was CTA head with and without contrast 07/10/2023, she had residual 5 x 4 x 4 mm left superior cerebellar artery aneurysm at the site of prior clipping, patent left superficial temporal artery to superior cerebellar bypass. No new aneurysms or vascular malformation noted. Patient had cerebral angiography 07/10/2019 that showed residual mid left superior cerebellar artery aneurysm with slow filling, neck measured 4.5 mm. Ms. Caldera has residual left superior cerebellar artery aneurysm, is due for her 1 year follow-up imaging, will order CTA head with and without contrast and call her with results. Patient was also complaining of shortness of breath, occasionally needing her inhaler, history of asthma, may need referral to pulmonology, will discuss with PCP. She also complained of blurred vision and burning/scratchy sensation left eye, will refer to ophthalmology, she states she is gone for eye exams in the past for prescription glasses, but has not seen an deputy fire chief. All questions answered, will call with any additional questions or concerns. Encounters Date Type Department Care Team Description 07/14/2024 1:18 PM EST - 07/14/2024 11:59 PM EST Hospital Encounter [facility] CT Scan [address] [place] [address] Cerebral aneurysm, nonruptured Discharge Disposition: Home or Self Care 07/09/2024 Telephone Neurosurgery [facility] [address] [place] [address] Laurel David [place] App[facility] [id number] for Head CT scheduled for 07/14/24 @ 1:30pm at [facility]. Pt aware) 07/03/2024 9:30 AM EST Consult Neurosurgery [address] [place] [address] Loan Sidhu PA Cerebral aneurysm, nonruptured (Primary Dx); Blurred vision, left eye from Last 3 Months Surgical History Surgery Date Site/Laterality Comments CEREBRAL ANEURYSM REPAIR 02/2016 :Dr. Knox at [facility] GASTRIC BYPASS 08/30/2009 OTHER SURGICAL HISTORY EXCESSIVE THIGH / HIP / BUTTOCK / FLANK SKIN EXCISION;COMMENT:following gastric bypass COLONOSCOPY 2016 COLONOSCOPY 2014 tubular adenoma HYSTERECTOMY 12/16/2010 UPPER GASTROINTESTINAL ENDOSCOPY 01/02/2018 Dr. Santacruz ([place]) OPEN ANTERIOR SHOULDER RECONSTRUCTION 04/14/2013 left shoulder reconstruction, Dr. Chisholm ([place]) SECTION UPPER GASTROINTESTINAL ENDOSCOPY 05/11/2020 N/A UPPER ENDOSCOPY-EGD; Surgeon: Pito Diaz MD; Location: [facility] END[facility]COPY; Service: Gastroenterology; Laterality: N/A; COLONOSCOPY 05/12/2020 N/A Surgeon: Tino Lang MD; Location: [facility] END[facility]COPY; Service: Gastroenterology; Laterality: N/A; UPPER GASTROINTESTINAL ENDOSCOPY 09/13/2020 N/A EGD Surgeon: Maynor Rojas MD; Location: [facility] END[facility]COPY; Service: Gastroenterology; Laterality: N/A; BREAST SURGERY REDUCTION MAMMAPLASTY;:with lift/ implants COLONOSCOPY 02/02/2021 N/A Surgeon: Tino Lang MD; Location: [facility] END[facility]COPY; Service: Gastroenterology; Laterality: N/A; OTHER SURGICAL HISTORY Patient reports history of colon resection required after gastric bypass, bladder surgery and appendectomy CARPAL TUNNEL RELEASE Bilateral Medical History Medical History Date Comments Aneurysm (CMS/HCC) 2014 GI bleed Tubular adenoma of colon 2014 Syncope completed cardia c work up (tilt table, echo, stress jason, holter) Psoriasis Mild dementia (CMS/HCC) occasion al memory loss Steatosis of liver 12/03/2017 fatty liver s een on US per past records. History of Papanicolaou smear of cervix 10/2017 History of mammogram 01/25/2018 negative Ovarian cyst Fibromyalgia, primary Anemia Anxiety GERD (gastroesophageal reflux disease) Depression Arthritis Migraine headache Visual impairment Obesity s/p GBP Diabetes ([facility]) Hyperlipidemia Asthma Acid reflux Rheumatoid arthritis ([facility]) Family History Medical History Relation Name Comments Arthritis Father Diabetes Father Heart attack Father Diabetes Half-Brother 1 Alvaro Heart disease Half-Brother 1 Alvaro Hyperlipidemia Half-Brother 1 Alvaro No Known Problems Half-Brother 2 No Known Problems Half-Brother 3 Arthritis Half-Sister 1 wilma Depression Half-Sister 1 wilma Diabetes Half-Sister 1 wilma Hyperlipidemia Half-Sister 1 wilma Hypertension Half-Sister 1 wilma Macular degeneration Half-Sister 1 wilma Breast cancer Half-Sister 2 Ovarian cancer Half-Sister 3 No Known Problems Half-Sister 4 No Known Problems Half-Sister 5 Diabetes Mother Heart disease Mother No Known Problems Son Gabriel Relation Name Status Comments Father Half-Brother 1 Alvaro Alive Half-Brother 2 Alive Half-Brother 3 Alive Half-Sister 1 wilma Alive Half-Sister 2 Half-Sister 3 Half-Sister 4 Alive Half-Sister 5 Alive Half-Sister 6 Alive Half-Sister 7 Alive Mother Son Gabriel Alive Social History Tobacco Use Types Packs/Day Years Used Date Smoking Tobacco: Former Cigarettes 1 34 0 06/11/1978 - 06/11/2012 Smokeless Tobacco: Never Tobacco Cessation:Counseling Given: Not Answered Alcohol Use Standard Drinks/Week Comments No 0 (1 standard drink = 0.6 oz pur e alcohol) Comments Unknown Sex and Gender Information Value Date Recorded Sex Assigned at Female 07/10/2024 9:49 AM EST Legal Sex Female 9:13 AM EST Gender Identity Female 07/10/2024 9:49 AM EST Sexual Orientation Straight 07/10/2024 9: 49 AM EST Obstetrics History Last Filed Vital Signs Vital Sign Reading Time Taken Comments Blood Pressure - - Pulse - - Temperature - - Respiratory Rate - - Oxygen Saturation - - Inhaled Oxygen Concentration - - Weight 66.7 kg (147 lb) 07/03/2024 9:53 AM EST Height 157.5 cm (5' 2 ) 07/03/2024 9:53 AM EST Body Mass Index 26.89 07/03/2024 9:53 AM EST Plan of Treatment Upcoming Encounters Date Type Department Care Team (Late st Contact Info) Description 08/26/2024 9:00 AM EDT Office Visit [address] [place] [address] Saleem Quigley MD [address] [facility] [place] [address] Health Maintenance Due Date Last Done Comments DTaP,Tdap,and Td Vaccines (1 - Tdap) 1981 Cervical Cancer Screening: P ap Smear 1983 Pneumococcal Vaccine: 50+ Years (1 of 1 - PCV) 02/20/2012 Zoster Vaccines (1 of 2) 02/20/2012 COVID-19 Vaccine (3 - Modern a risk series) 12/03/2020 11/05/2020, 10/08/2020 Breast Cancer Screening 05/13/2022 05/13/2020 Colorectal Cancer Screening: Colonoscopy 05/14/2022 Depression Screening 05/14/2022 HIV Screening 05/14/2022 Hepatitis C Screening 05/14/2022 Lung Cancer Screening (Low Dose CT) 05/14/2022 Medicare Annual Wellness Visit 05/14/2022 Social Influencers of Health Screening 05/14/2022 Influenza Vaccine (#1) 2024 RSV Immunization Patients 60 + Years Old (1 - 1-dose 75+ series) 2037 HIB Vaccines Aged Out No longer eligi ble based on patient's age to complete this topic HPV Vaccines Aged Out No longer eligi ble based on patient's age to complete this topic Hepatitis A Vaccines Aged Out No long er eligible based on patient's age to complete this topic Hepatitis B Vaccines Aged Out No long er eligible based on patient's age to complete this topic IPV Vaccines Aged Out No longer eligi ble based on patient's age to complete this topic MMR Vaccines Aged Out No longer eligi ble based on patient's age to complete this topic Meningococcal ACWY Vaccine Aged Out N o longer eligible based on patient's age to complete this topic Meningococcal B Vacine Aged Out No lo nger eligible based on patient's age to complete this topic Pneumococcal Vaccine: Pediatrics (0 to 5 Years) and At-Risk Patients (6 to 64 Years) Aged Out No longer eligible b ased on patient's age to complete this topic RSV Immunization Patients Under 20 months Aged Out No longer eligible b ased on patient's age to complete this topic Varicella Vaccines Aged Out No longer eligible based on patient's age to complete this topic Procedures Procedure Name Priority Date/Time Associated Diagnosis Comments CT ANGIO HEAD WO AND/OR W CONTRAST Routine 07/14/2024 2:37 PM EST Cerebral aneurysm, nonruptured MAMMOGRAM SCREENING BILATERAL 3D NICOLLE WITH CAD Routine 05/13/2020 12:24 PM EST Encounter for screening mammogram for malignant neoplasm of breast from Last 3 Months or Most Recently Relevant to Health Maintenance Results * CT Angio Head wo and/or w Contrast (07/14/2024 2:37 PM EST) Anatomical Region Laterality Modality Head and Neck Computed Tomogra phy 07/16/2024 10:1 0 AM EST Impressions 07/16/2024 10:58 AM EST 1. ??Stable 5 x 4 x 4 mm left superior cerebellar artery aneurysm. 2. ??Layering fluid and debris in the maxillary antra. ??This is nonspecific but could represent acute sinusitis in the appropriate clinical setting. -------- FINAL REPORT -------- Dictated By: Alexei Guadalupe Dictated Date: 07/16/2024 10:10 ET Assigned Physician: Alexei Guadalupe Reviewed and Electronically Signed By: Alexei Guadalupe Signed Date: 07/16/2024 10:58 ET Workstation ID: [id number] Transcribed By: Self Edit Transcribed Date: 07/16/2024 10:11 ET Narrative 07/16/2024 10:58 AM EST PROCEDURE: Noncontrast head CT and CT angiogram of the [place]. 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 Gilberto Knox in [place]. 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 COMPARISON: Outside images dated 07/10/2023. TECHNIQUE: Noncontrast head CT followed by contrast-enhanced CT angiogram of the [place], with coronal and sagittal reformats. IV contrast dose: 95 mL ISOVUE-370. Dose length product: 2252 mGy-cm. FINDINGS: Brain: No hemorrhage, edema, mass, or extra-axial fluid collection. ??No CT evidence of an acute large vessel infarct. ??Ventricles and sulci are age commensurate. ??There is an area of encephalomalacia along the inferior left temporal pole. ??Aneurysm clip in the posterior left supraclinoid region. CTA: Visualized portions of both vertebral arteries are normal. ??The basilar artery and both posterior cerebral arteries are widely patent. Saccular aneurysm measuring 5 x 4 x 4 mm arising from the left superior cerebellar artery. ??It is located immediately anteromedial to the above noted aneurysm clip. There is a small caliber left and moderate caliber right posterior communicating artery. Mild atherosclerotic calcifications of the carotid siphons without an associated stenosis. ??The anterior and middle cerebral arteries are widely patent. The dural venous sinuses are patent. Orbits: Normal. Sinuses/mastoids: Mild mucosal thickening and a small amount of layering fluid/debris in both maxillary antra. ??Moderate diffuse mucosal thickening in the ethmoids. ??Trace bubbly debris in the right sphenoid sinus. ??Frontal sinuses are not pneumatized. Calvarium: Mild hyperostosis frontalis interna. ??Left pterional craniotomy changes. Other: The skull base soft tissues are normal. Procedure Note Alexei Guadalupe MD - 07/16/2024 PROCEDURE: Noncontrast head CT and CT angiogram of the [place]. HISTORY: Cerebral aneurysm, follow-up history of unruptured left superior cerebellar artery aneurysm treated bycraniotomy and trapping/bypass on May 05, [address] Gilberto Garzon [place]. 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 COMPARISON: Outside images dated 07/10/2023. TECHNIQUE: Noncontrast head CT followed by contrast-enhanced CT [place]ogramof the [place], with coronal and sagittal reformats. IV contrast dose: 95 mL ISOVUE-370. Dose length product: 2252 mGy-cm. FINDINGS: Brain: No hemorrhage, edema, mass, or extra-axial fluid collection. No CTevidence of an acute large vessel infarct. Ventricles and sulci are agecommensurate. There is an area of encephalomalacia along the inferiorleft temporal pole. Aneurysm clip in the posterior left supraclinoidregion. CTA: Visualized portions of both vertebral arteries are normal. Thebasilar artery and both posterior cerebral arteries are widely patent. Saccular aneurysm measuring 5 x 4 x 4 mm arising from the left superiorcerebellar artery. It is located immediately anteromedial to the abovenoted aneurysm clip. There is a small caliber left and moderate caliber right posteriorcommunicating artery. Mild atherosclerotic calcifications of the carotid siphons without anassociated stenosis. The anterior and middle cerebral arteries are widelypatent. The dural venous sinuses are patent. Orbits: Normal. Sinuses/mastoids: Mild mucosal thickening and a small amount of layeringfluid/debris in both maxillary antra. Moderate diffuse mucosal thickeningin the ethmoids. Trace bubbly debris in the right sphenoid sinus.Frontal sinuses are not pneumatized. Calvarium: Mild hyperostosis frontalis interna. Left pterional craniotomychanges. Other: The skull base soft tissues are normal. IMPRESSION: 1. Stable 5 x 4 x 4 mm left superior cerebellar artery aneurysm. 2. Layering fluid and debris in the maxillary antra. This is nonspecificbut could represent acute sinusitis in the appropriate clinical setting. -------- FINAL REPORT -------- Dictated By: Alexei Guadalupe Dictated Date: 07/16/2024 10:10 ET Assigned Physician: Alexei Guadalupe Reviewed and Electronically Signed By: Alexei Guadalupe Signed Date: 07/16/2024 10:58 ET Workstation ID: [id number] Transcribed By: Self Edit Transcribed Date: 07/16/2024 10:11 ET us Loan LEON IMG CT PROCEDURES Final Re sult * MAMMOGRAM SCREENING BILATERAL 3D NICOLLE WITH CAD (05/13/2020 12:24 PM EST) Anatomical Region Laterality Modality Mammography 04/26/2020 10:0 6 AM EST Narrative 05/13/2020 4:27 PM EST This is a summary report. The complete report is available in the patient's medical record. If you cannot access the medical record, please contact the sending organization for a detailed fax or copy. MAMMOGRAM SCREENING BILATERAL 3D NICOLLE WITH CAD TECHNIQUE: Full field digital mammography synthesized (2-D) and Tomosynthesis (3-D) was performed using standard CC and MLO projections. COMPARISON: None HISTORY: Screening FINDINGS: CC and MLO views of bilateral breasts demonstrate scattered fibroglandular densities within the breast parenchyma (25-50% fibroglandular tissue). ?? No dominant masses, lesions, areas of architectural distortion or suspicious calcifications were identified. Typically benign calcifications present bilaterally. There are no secondary signs for malignancy. CAD was utilized. IMPRESSION: 1. No mammographic evidence of malignancy. 2. Recommend routine mammographic screening in one year. BI-RADS 2: Benign findings. 3342 F The patient has been informed about her breast density by a letter containing a plain language report , as required by [place] [id number]. Session: Separate session. Report reviewed and signed by : Dr. Matthew Serrato MD on 05/13/2020 4:27 PM. Workstation Name - [id number] Procedure Note Matthew Serrato MD - 06/02/2022 This is a summary report. The complete report is available in thepatient's medical record. If you cannot access the medical record, pleasecontact the sending organization for a detailed fax or copy. MAMMOGRAM SCREENING BILATERAL 3D NICOLLE WITH CAD TECHNIQUE: Full field digital mammography synthesized (2-D) andTomosynthesis (3- D) was performed using standard CC and MLO projections. COMPARISON: None HISTORY: Screening FINDINGS: CC and MLO views of bilateral breasts demonstrate scattered fibroglandulardensities within the breast parenchyma (25-50% fibroglandular tissue). No dominant masses, lesions, areas of architectural distortion orsuspicious calcifications were identified. Typically benign calcificationspresent bilaterally. There are no secondary signs for malignancy. CAD wasutilized. IMPRESSION: 1. No mammographic evidence of malignancy. 2. Recommend routine mammographic screening in one year. BI-RADS 2: Benign findings. 3342 F The patient has been informed about her breast density by a lettercontaining a plain language report , as required by [place] [id number]. Session: Separate session. Report reviewed and signed by : Dr. Matthew Serrato MD on 05/13/2020 4:27 PM.Workstation Name - [id number] us Moise Palomino MD IMG BI PROCEDURES Final Resul t from Last 3 Months or Most Recently Relevant to Health Maintenance Insurance [employer] MEDICARE ADVANTAGE MEDICAID - [place] Care Teams Stripper Apprentice Relationship Specialty Start Date End Date Maurilio Burgess MD [address] [place] [address] Cassandra [address] KIMMIE Elkins PCP - General Internal Medicine 06/17/24
--- OUTSIDE RECORDS SUMMARY | 2024-07-30 10:47 | XMS_ITS ---
Author Organization [facility] Address [address] [place], [place] [id number] Care Team Providers Care Surgical Orderly Name Role Phone No, PCP Primary Care Provider Ebony Basurto Unavailable Social History Sex Assigned At : Social History Observation Description Sex Assigned At Female Encounters Encounter Location Date Provider Diagnosis [facility] [address] [place] [phone] 05/30/2024 Ebony Reyes Plan Of Treatment Next Appt Details Provider Name:Ebony Hilliard, 08/12/2024 10:00:00 AM, [facility], [address] [place] [address], [phone], Progress Notes * Jazmine CALDERADOB:[birth year] (64 yo F)Acc No.[id number]:05/30/2024 Case Management Patient:?Jazmine CALDERA Provider:?Ebony Reyes :1960???Age:64 Y???Sex:Female D ate:05/30/2024 Address: [address], [facility] Pcp:PCP No Subjective: * Chief Complaints: * ??? * HPI: ???Social Service:?Date of encounter?Date:05/30/2024.?Referral Source?walk-in, self, returning client.?Interpretation for medical provider?Hygiene items/DENTAL.?Advocacy?Phone call to DTA, Phone call(s) for community resources/ CALLS TO [facility]?.?Follow-up Required:?yes.?Pt comprehension?Pt agrees with plan.?Action taken (old)?Items given to client, item obtained.? Pt new appt provided, no mail today, once again today [facility] explained that i was suppose to receive a listing of dental offices in the area for the Pt, and that i never received it, not in spam either. Computer Programming Manager did check and seen there was a previous call made and apologized for the lack of information requested. Computer Programming Manager resubmitted the information via Email. Printed provided to the Pt, made copy for future reference in file. Informed client to start calling these offices within the next few days and if she runs into issues do not hesitate to contact me again. HAPPY HOLIDAYS!!!. * Medical History:? Objective: * Vitals:? Assessment: Plan: * Treatment: * Images: Billing Information: * Visit Code:? * Procedure Codes:? Care Plan Details* * Sign off status: Completed true * Provider:?Ebony Reyes Date:? Generated for Carri ferrell/Timothy/eTransmmonica on:?07/30/2024 10:47 AM EST History and Physical Notes * HPI (History of Present Illness) Category Sub-Category Detail Notes Social Service Referral Source walk-in, self, r eturning client Interpretation for medical provider Hygi gaye items/DENTAL Action taken (old) Items given to jeremy t, item obtained Advocacy Phone call to David GONZALEZ call(s) for community resources/ CALLS TO [facility] Follow-up Required: yes Pt comprehension Pt agrees with plan Date of encounter Date:05/30/2024
--- OUTSIDE RECORDS SUMMARY | 2024-07-30 10:47 | XMS_ITS | Encounter Summary ---
Author Organization Formerly [facility] Address [address] [place] [address] Care Team Providers Care [employer] Social Science Teacher Name Role Phone Steffi Escalera APRN Primary Care Provider Myesha Hwang MD Unavailable [phone] Encounter Details Date Type Department Care Team (Late st Contact Info) Description 02/06/2023 Scanned Document [facility] [address] [address] [place] [address] Social History Tobacco Use Types Packs/Day Years Used Date Smoking Tobacco: Former Smokeless Tobacco: Never Alcohol Use Standard Drinks/Week Comments Not Currently 0 (1 standard drink = 0.6 oz pur e alcohol) AUDIT-C Answer Date Recorded Q1: How often do you have a drink containing alcohol? Never 01/17/2023 Q2: How many drinks containi ng alcohol do you have on a typical day when you are drinking? Patient does not drink Q3: How often do you have si x or more drinks on one occasion? Never 01/17/2023 PHQ-2 Answer Date Recorded PHQ-2 Total Score 4 02/06/2023 Physical Activity Answer Date Recorded On average, how many days pe r week do you engage in moderate to strenuous exercise (like a brisk walk)? 2 02/06/2023 On average, how many minutes do you exercise per day at this level? 60 02/06/2023 Sex and Gender Information Value Date Recorded Sex Assigned at Female 01/19/2023 6:21 AM EDT Gender Identity Female 01/19/2023 6:21 AM EDT Sexual Orientation Heterosexual (straight) 01/19 6:21 AM EDT documented as of this encounter Plan of Treatment Not on file documented as of this encounter Visit Diagnoses Not on filedocumented in this encounter Care Teams [employer] Social Science Teacher Relationship Specialty Start Date End Date Steffi Escalera APRN [address] [facility] [address] [place] [address] PCP - General 01/15/23 Myesha Hwang MD [address] [place] [address] Gastroenterology 04/09/23 documented as of this encounter
--- OUTSIDE RECORDS SUMMARY | 2024-07-30 10:47 | XMS_ITS | Encounter Summary ---
Author Organization [facility] Address [address] [place] [address] Care Team Providers Care Vinyl Dipper Name Role Phone Marina Reddy TURNER Primary Care Provider [phone] Lucas Wen APRN Primary Care Provider + Steffi Escalera APRN Primary Care Provider Myesha Hwang MD Unavailable [phone] Encounter Details Date Type Department Care Team (Late st Contact Info) Description 09/29/2022 Scanned Document [facility] [address] [place] [id number] Chris Sood MD [address] [place] [address] [address] [place], [place] [id number] Social History Tobacco Use Types Packs/Day Years Used Date Smoking Tobacco: Former Smokeless Tobacco: Never Alcohol Use Standard Drinks/Week Comments Not Currently 0 (1 standard drink = 0.6 oz pur e alcohol) Sex and Gender Information Value Date Recorded Sex Assigned at Female 01/19/2023 6:21 AM EDT Gender Identity Female 01/19/2023 6:21 AM EDT Sexual Orientation Heterosexual (straight) 01/19 6:21 AM EDT COVID-19 Exposure Response Date Recorded In the last 10 days, have yo u been in contact with someone who was confirmed or suspected to have Coronavirus/COVID-19? Unable to assess 09/19/2022 1:10 PM EDT documented as of this encounter Plan of Treatment Not on file documented as of this encounter Visit Diagnoses Not on filedocumented in this encounter Care Teams Vinyl Dipper Relationship Specialty Start Date End Date Marina Reddy APRN [address] [phone] PCP - General Adult Health - PA/APNP/CONSUMER ELECTRONICS MERCHANDISER/DEPUTY FIRE MARSHAL 03/03/19 10/19/22 Lucas Wen APRN [address] [id number] PCP - General Adult Health - PA/APNP/CONSUMER ELECTRON[employer] MERCHANDISER/DEPUTY FIRE MARSHAL 10/20/22 01/14/23 Steffi Escalera APRN [address] [address] PCP - General 01/15/23 Myesha Hwang MD [address] [place] [address] Gastroenterology 04/09/23 documented as of this encounter
--- OUTSIDE RECORDS SUMMARY | 2024-07-30 10:47 | XMS_ITS | Encounter Summary ---
Author Organization [facility] Address [address] [place] [address] Care Team Providers Care [employer] Stores [employer] Supervisor Name Role Phone Sabrina Redd Primary Care Provider [phone] Encounter Details Date Type Department Care Team (Late st Contact Info) Description 06/20/2019 Scanned Document [facility] [address] [place] [address] Antoni Patricio MD [address] [place] [phone] Social History Tobacco Use Types Packs/Day Years [...] on filedocumented in this encounter Care Teams [employer] Supervisor Relationship Specialty Start Date End Date Sabrina Redd PA [address] [place] [address] PCP - General 07/12/22 documented as of this encounter
--- OUTSIDE RECORDS SUMMARY | 2024-07-30 10:47 | XMS_ITS | Encounter Summary ---
Author Organization [facility] Address [address] [place] [address] Care Team Providers Care Dictionary Editor Name Role Phone Maurilio Burgess MD Primary Care Provider [phone] Reason for Referral * Imaging (Routine) - Authorized Specialty Diagnoses / Procedures Referred By Scott montero Referred To Contact Radiology Diagnoses Cerebral aneurysm, nonruptured Procedures CT Angio Head wo and/or w Contrast Loan Sidhu PA [address] [facility], [address] [place] [address] Phone: tel: fax: [facility] CT Scan [address] [place] [address] Phone: tel: Referral ID Status Reason Start Date Expiration Date V isits Requested Visits Authorized [id number] Authorized 07/03/2024 07/03/2025 1 1 * Consultation (Routine) - Pending Review Specialty Diagnoses / Procedures Referred By Scott montero Referred To Contact Ophthalmology Diagnoses Blurred vision, left eye Loan Sidhu PA [address] [facility], [address] [place] [address] Phone: tel: fax: Referral ID Status Reason Start Date Expiration Date Visits Requested Visits Authorized [id number] Pending Review Specialty Services Required 07/03/2024 07/03/2025 1 1 Reason for Visit * Reason Comments Brain Aneurysm * Consultation (Routine) - Closed Specialty Diagnoses / Procedures Referred By Scott t Referred To Contact Neurosurgery Diagnoses Cerebral aneurysm, nonruptured Maurilio Burgess MD [address] [place] [address] Phone: tel: Sangeeta Garcia MD [address] [place] [address] Phone: tel: fax: Referral ID Status Reason Start Date Expiration Date V isits Requested Visits Authorized [id number] Closed Specialty Services Required 06/17/2024 06/17/2025 1 1 Encounter Details Date Type Department Care Team ([facility] Contact Info) Description 07/03/2024 9:30 AM EST Consult Neurosurgery [place] [facility] [address] [phone] Loan Sidhu PA [address] [facility], [address] [address] Cerebral aneurysm, nonruptured (Primary Dx); Blurred vision, left eye Social History Tobacco Use Types Packs/Day Years [...] Orientation Straight 07/10/2024 9: 49 AM EST documented as of this encounter Last Filed Vital Signs Vital Sign Reading Time Taken Comments Blood Pressure - - Pulse - - Temperature - - Respiratory Rate - - Oxygen Saturation - - Inhaled Oxygen Concentration - - Weight 66.7 kg (147 lb) 07/03/2024 9:53 AM EST Height 157.5 cm (5' 2 ) 07/03/2024 9:53 AM EST Body Mass Index 26.89 07/03/2024 9:53 AM EST documented in this encounter Progress Notes * EDWARD Hylton - 07/03/2024 1:06 PM ESTAssociated Problem(s): Cerebral aneurysm, nonruptured Patient has 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 Gilberto Knox in [place]. 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 She has chronic left eye vision loss and balance difficulty, chronic headaches and memory problems, patient states this has been sinceher craniotomy. She was seeing Dr. Patricio in neurosurgery at [place], [place]. She has since moved to [place], is looking to get follow-up CTA of [...] at the site of prior clipping, patent leftsuperficial temporal artery to superior cerebellar bypass. No [...] and call her with results. Patient was alsocomplaining of shortness of breath, occasionally needing her inhaler, history of asthma, may need referral to pulmonology, will discuss with PCP. She also complained of blurred vision and burning/scratchy sensation left eye, will refer to ophthalmology, she states she is gone for eye exams in the past for prescription glasses, but has not seen an hat binder. All questions answered, will callwith any additional questions or concerns. * EDWARD Hylton - 07/03/2024 9:30 AM EST NEW PATIENT CONSULTATION Date of Visit: 07/03/2024 Referring Physician: Maurilio Burgess MD Primary Care Physician: Maurilio Burgess MD RE: Jazmine Caldera : 1960 Chief Complaint Patient presents with Brain Aneurysm Dear Maurilio Bemrudez MD Thank you for referring Verenice to our office today. Jazmine Caldera is a 64 y.o. 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 Gilberto Knox in [place]. She had residual 6mm left superior cerebellar artery aneurysm that was followed with imaging. She has chronic left eye vision loss and balance difficulty, chronic headaches and memory problems, patient states this hasbeen since her craniotomy. She was seeing Dr. Patricio in neurosurgery at [place], [place]. She has since moved to [place], is looking to get follow-up CTA of [...] her diffuse body pains, which she rates 6- 8/10. She states she has had pain throughout her body for 30 years. S/p hysterectomy without oophorectomy. Has history of neuropathy from diabetes, rheumatoid arthritis, fibromyalgia. 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 While patient was here, she got teary describing some of her social/housing situation, she cannot stay in her current apartment with her 2 dogs, cannot find a new place to live. She is [facility] today at 2:00 to try to help her find housing. Her 22-year-old son currently is living and working in [place]. Past Medical History: Diagnosis Date Acid reflux Anemia Aneurysm (CMS/HCC) 2015 Anxiety Arthritis Asthma Depression Diabetes (CMS/HCC) Fibromyalgia, primary GERD (gastroesophageal reflux disease) GI bleed History of mammogram 01/25/2018 negative History of Papanicolaou smear of cervix 10/2017 Hyperlipidemia Migraine headache Mild dementia (CMS/HCC) occasional memory loss Obesity s/p GBP Ovarian cyst Psoriasis Rheumatoid arthritis (CMS/HCC) Steatosis of liver 12/03/2017 fatty liver seen on US per past records. Syncope completed cardiac work up (tilt table, echo, stress jason, holter) Tubular adenoma of colon 2015 Visual impairment Past Surgical History: Procedure Laterality Date BREAST SURGERY REDUCTION MAMMAPLASTY;:with lift/ implants CARPAL TUNNEL RELEASE Bilateral CEREBRAL ANEURYSM REPAIR 02/2016 :Dr. Knox at [facility] SECTION COLONOSCOPY 2016 COLONOSCOPY 2014 tubular adenoma COLONOSCOPY N/A 05/12/2020 Surgeon: Tino Lang MD; Location: [facility]; Service: Gastroenterology; Laterality: N/A; COLONOSCOPY N/A 02/02/2021 Surgeon: Tino Lang MD; Location: [facility]; Service: Gastroenterology; Laterality: N/A; GASTRIC BYPASS 08/30/2009 HYSTERECTOMY 12/16/2010 OPEN ANTERIOR SHOULDER RECONSTRUCTION 04/14/2013 left shoulder reconstruction, Dr. Chisholm ([place]) OTHER SURGICAL HISTORY EXCESSIVE THIGH / HIP / BUTTOCK / FLANK SKIN EXCISION;COMMENT:following gastric bypass OTHER SURGICAL HISTORY Patient reports history of colon resection required after gastric bypass, bladder surgery and appendectomy UPPER GASTROINTESTINAL ENDOSCOPY 01/02/2018 Dr. Santacruz ([place]) UPPER GASTROINTESTINAL ENDOSCOPY N/A 05/11/2020 UPPER ENDOSCOPY-EGD; Surgeon: Pito Diaz MD; Location: [facility]; Service: Gastroenterology; Laterality: N/A; UPPER GASTROINTESTINAL ENDOSCOPY N/A 09/13/2020 EGD Surgeon: Maynor Rojas MD; Location: [facility]; Service: Gastroenterology; Laterality: N/A; Allergies Allergen Reactions Milnacipran Palpitations and Unknown Other Reaction(s): Other (See Comments) Tachycardia Tachicardia Tachycardia Tachicardia Salvella is another name Tachicardia Salvella is another name Promethazine Other, Palpitations and Unknown Other Reaction(s): Other (See Comments) Tachycardia 180/min - she had to be taken to ER. Tachicardia 180/min - she had to be taken to ER. Tachycardia 180/min - she had to be taken to ER. Other reaction(s): Not available Tachicardia 180/min - she had to be taken to ER. Clopidogrel Rash Current Outpatient Medications Medication Instructions albuterol HFA (PROAIR HFA ; PROVENTIL HFA ; VENTOLIN HFA) 90 mcg/actuation inhaler INHALE 1 PUFF INTO THE LUNGS EVERY 4 HOURS NEEDED aspirin 81 mg capsule oral, Daily blood-glucose meter (MaistorPlusTouch Ultra2 Meter) misc fluticasone propionate (FLONASE) 50 mcg/actuation nasal spray USE 1 SRPAY INTO EACH NOSTRIL DAILY NEEDED FOR ALLERGY SYMPTONS. memantine (NAMENDA) 10 mg, oral, 2 times daily metFORMIN (GLUCOPHAGE) 500 mg, oral, 2 times daily nateglinide (STARLIX) 120 mg tablet TAKE 1 TABLET BY MOUTH DAILY THREE TIMES DAILY BEFORE MEALS nortriptyline (PAMELOR) 10 mg Nurtec 75 mg dispersible tablet DISSOLVE 1 TABLET ON THE TONGUE EVERY OTHER DAY NEEDED FOR MIGRAINE HEADACHE OneTouch Ultra Test test strip USE DIRECTED TO TEST BLOOD SUGAR EVERY DAY Otezla 30 mg tablet TAKE 1 BY MOUTH TWICE DAILY pantoprazole (PROTONIX) 40 mg, oral, Daily pravastatin (PRAVACHOL) 40 mg, oral, Daily pregabalin (LYRICA) 75 mg, oral, 2 times daily tiZANidine (ZANAFLEX) 4 mg capsule TAKE 1 CAPSULE BY MOUTH TWICE DAILY NEEDED FOR MUSCLE SPASMS OR NECK PAIN topiramate (TOPAMAX) 100 mg, oral, 2 times daily traMADoL (ULTRAM) 50 mg, oral, 2 times daily PRN Social History Tobacco Use Smoking status: Former Current packs/day: 0.00 Average packs/day: 1 pack/day for 34.0 years (34.0 ttl pk-yrs) Types: Cigarettes Start date: 06/11/1978 Quit date: 06/11/2012 Years since quittin.0 Smokeless tobacco: Never Substance Use Topics Alcohol use: No Drug use: Yes Types: Marijuana/Cannabis Social History Social History Narrative Living at home with her half brother and 16yr old son. 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 Family History Problem Relation Name Age of Onset Diabetes Mother Heart disease Mother Diabetes Father Heart attack Father Arthritis Father Depression Half-Sister wilma Diabetes Half-Sister wilma Macular degeneration Half-Sister wilma Arthritis Half-Sister wilma Hyperlipidemia Half-Sister wilma Hypertension Half-Sister wilma Heart disease Half-Brother Alvaro Hyperlipidemia Half-Brother Alvaro Diabetes Half-Brother Alvaro Breast cancer Half-Sister Ovarian cancer Half-Sister No Known Problems Half-Sister No Known Problems Half-Sister No Known Problems Half-Brother No Known Problems Half-Brother No Known Problems Son Gabriel Review of Systems + Memory concentration and balance issues, depression, anemia, bleeding tendencies, diabetes, excessive urination, joint pain, diffuse body pain and arthritis (RA), wears glasses, cataracts, hearing loss, epistaxis, inability to smell, sinus problems, heart murmur, shortness of breath with exertion, asthma, abdominal pain, psoriasis, breast pain. Physical Exam Pt is awake and alert. Speech and comprehension is intact. Respirations are unlabored, heart has regular rate. Motor exam reveals 5/5 strength to resistence bilaterally in UE's and Le's with exception mild decreased left shoulder range of motion s/p left shoulder surgery, no pronator drift,. Cranial nerves grossly intact with exception left facial sensation decreased/numbness to light touch compared with the right in V1, V2, V3 distributions. Pt reports chronic left eye vision loss postop. Reflexes are WNL, no hyperreflexia, Gee's or clonus. Pt is ambulating independently. Imaging Full report scanned into media section, see below. 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 Gilberto Knox in [place]. 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 She has chronic left eye vision loss and balance difficulty, chronic headaches and memory problems, patient states this has been sinceher craniotomy. She was seeing Dr. Patricio in neurosurgery at [place], [place]. She has since moved to [place], is looking to get follow-up CTA of [...] at the site of prior clipping, patent leftsuperficial temporal artery to superior cerebellar bypass. No [...] and call her with results. Patient was alsocomplaining of shortness of breath, occasionally needing her inhaler, history of asthma, may need referral to pulmonology, will discuss with PCP. She also complained of blurred vision and burning/scratchy sensation left eye, will refer to ophthalmology, she states she is gone for eye exams in the past for prescription glasses, but has not seen an hat binder. All questions answered, will callwith any additional questions or concerns. Relevant Orders CT Angio Head wo and/or w Contrast Other Visit Diagnoses Blurred vision, left eye Relevant Orders Ambulatory referral to Ophthalmology Thank you for allowing us to care for your patient. The total time spent was 60 minutes, time spent includes reviewing history, outside notes, imaging,plan, patient counseling. We talked about other medical issues, including possible musculoskeletal syndrome of menopause. EDWARD Hylton on 07/03/2024 at 1:25 PM EST CC: Maurilio Burgess MD Kenneth Aquilino, MD [facility] Neurosurgical [place] documented in this encounter Plan of Treatment Upcoming Encounters Date Type Department Care Team (Late st Contact Info) Description 08/26/2024 9:00 AM EDT Office Visit Neurosurgery [place] [address] [place] [phone] Saleem Quigley MD [address] [place] [address] Scheduled Referrals Name Type Priority Associated Diagnoses Order Schedule Ambulatory referral to Ophthalmology Outpatient Referral Routine Blurred vision, left eye Expected: 07/03/2024, Expires: 07/03/2025 documented as of this encounter Results * CT Angio Head wo and/or [...] Signed Date: 07/16/2024 10:58 ET Workstation ID: [id number] Transcribed By: Self Edit Transcribed Date: 07/16/2024 10:11 ET Narrative 07/16/2024 10:58 AM EST PROCEDURE: Noncontrast head CT and CT angiogram of [place]. 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 Gilberto Knox in [place]. 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 COMPARISON: Outside images dated 07/10/2023. TECHNIQUE: Noncontrast head CT followed by contrast-enhanced CT angiogram of [place], with coronal and sagittal reformats. [...] head CT and CT angiogram of [place]. HISTORY: Cerebral aneurysm, follow-up history of unruptured left superior cerebellar artery aneurysm treated bycraniotomy and trapping/bypass on May 05, [address] Gilberto Dao. 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 COMPARISON: Outside images dated 07/10/2023. TECHNIQUE: Noncontrast head CT followed by contrast-enhanced [place], with coronal and sagittal reformats. [...] Signed Date: 07/16/2024 10:58 ET Workstation ID: [id number] Transcribed By: Self Edit Transcribed Date: 07/16/2024 10:11 ET [address] IMG CT PROCEDURES Final Re sult documented in this encounter Visit Diagnoses Diagnosis Cerebral aneurysm, nonruptured- Primary Blurred vision, left eye Other specified visual disturbances Cerebral aneurysm, nonruptured documented in this encounter Historical Medications * This list may reflect changes made after this encounter. Otezla 30 mg tablet TAKE 1 BY MOUTH TWICE DAILY albuterol HFA (PROAIR HFA ; PROVENTIL HFA ; VENTOLIN HFA) 90 mcg/actuation inhaler INHALE 1 PUFF INTO THE LUNGS EVERY 4 HOURS NEEDED aspirin 81 mg capsule Take by mouth daily. OneTouch Ultra Test test strip USE DIRECTED TO TEST BLOOD SUGAR EVERY DAY blood-glucose meter (OneTouch Ultra2 Meter) [facility] 04/29/2020 fluticasone propionate (FLONASE) 50 mcg/actuation nasal spray USE 1 SRPAY INTO EACH NOSTRIL DAILY NEEDED FOR ALLERGY SYMPTONS. memantine (NAMENDA) 10 mg tablet Take 1 tablet (10 mg total) by mouth 2 (two) times a day. metFORMIN (GLUCOPHAGE) 500 mg tablet Take 1 tablet (500 mg total) by mouth 2 (two) times a day. nateglinide (STARLIX) 120 mg tablet TAKE 1 TABLET BY MOUTH DAILY THREE TIMES DAILY BEFORE MEALS nortriptyline (PAMELOR) 10 mg capsule Take 1 capsule (10 mg total) by mouth. at bedtime pantoprazole (PROTONIX) 40 mg EC tablet Take 1 tablet (40 mg total) by mouth 1 (one) time each day. pravastatin (PRAVACHOL) 40 mg tablet Take 1 tablet (40 mg total) by mouth 1 (one) time each day. 06/24/2024 pregabalin (LYRICA) 75 mg capsule Take 1 capsule (75 mg total) by mouth 2 (two) times a day. Nurtec 75 mg dispersible tablet DISSOLVE 1 TABLET ON THE TONGUE EVERY OTHER DAY NEEDED FOR MIGRAINE HEADACHE tiZANidine (ZANAFLEX) 4 mg capsule TAKE 1 CAPSULE BY MOUTH TWICE DAILY NEEDED FOR MUSCLE SPASMS OR NECK PAIN 06/13/2024 topiramate (TOPAMAX) 100 mg tablet Take 1 tablet (100 mg total) by mouth 2 (two) times a day. traMADoL (ULTRAM) 50 mg tablet Take 1 tablet (50 mg total) by mouth 2 (two) times a day if needed. added in this encounter Orders Outpatient Referral Count Last Ordered Date st Ordered Date AMB REFERRAL TO NEUROSURGERY 1 07/03/2024 documented in this encounter Care Teams Dictionary Editor Relationship Specialty Start Date End Date Maurilio Burgess MD [address] [place] [address] Dr [address] KIMMIE Elkins PCP - General Internal Medicine 06/17/24 documented as of this encounter
--- OUTSIDE RECORDS SUMMARY | 2024-07-30 10:47 | XMS_ITS | Encounter Summary ---
Author Organization [facility] Address [address] [place] [address] Care Team Providers Care Maintenance Technician Name Role Phone Maurilio Burgess MD Primary Care Provider [phone] Reason for Visit * Reason Onset Date Comments Appointment 07/09/2024 [facility] Auth # [id number] for Head CT scheduled for 07/14/24 @ 1:30pm at [facility]. Pt aware Encounter Details Date Type Department Care Team (Late st Contact Info) Description 07/09/2024 Telephone Neurosurgery [place] [address] [place] [address] Laurel David [place] Appointment [facility] # [id number] for Head CT scheduled for 07/14/24 @ 1:30pm at [facility]. Pt aware) Social History Tobacco Use Types Packs/Day Years Used Date Smoking Tobacco: Former Cigarettes 1 34 0 06/11/1978 - 06/11/2012 Smokeless Tobacco: Never Alcohol Use Standard Drinks/Week Comments No 0 (1 standard drink = 0.6 oz pur e alcohol) Comments Unknown Sex and Gender Information Value Date Recorded Sex Assigned at Female 07/10/2024 9:49 AM EST Legal Sex Female 9:13 AM EST Gender Identity Female 07/10/2024 9:49 AM EST Sexual Orientation Straight 07/10/2024 9: 49 AM EST documented as of this encounter Plan of Treatment Upcoming Encounters Date Type Department Care Team (Late st Contact Info) Description 08/26/2024 9:00 AM EDT Office Visit Neurosurgery [place] [facility] [address] [facility] [address] [place] [address] Saleem Quigley MD [address] [facility] [address] [place] [address] documented as of this encounter Visit Diagnoses Not on filedocumented in this encounter Care Teams Maintenance Technician Relationship Specialty Start Date End Date Maurilio Burgess MD [address] [place] [address] [address] [place], [place] PCP - General Internal Medicine 06/17/24 documented as of this encounter
--- OUTSIDE RECORDS SUMMARY | 2024-07-30 10:47 | XMS_ITS | Encounter Summary ---
Author Organization [facility] Address [address] [place] [address] Care Team Providers Care Accountant Controller Name Role Phone Sabrina Redd Primary Care Provider [phone] Encounter Details Date Type Department Care Team (Late st Contact Info) Description 07/13/2019 Abstract [facility] [address] [place] [address] Antoni Patricio MD [address] [place] [phone] Social History Tobacco Use Types Packs/Day Years [...] on filedocumented in this encounter Care Teams Accountant Controller Relationship Specialty Start Date End Date Sabrina Redd PA [address] [place] [address] PCP - General 07/12/22 documented as of this encounter
--- OUTSIDE RECORDS SUMMARY | 2024-07-30 10:47 | XMS_ITS | Encounter Summary ---
Author Organization [facility] Address [address] [place] [address] Care Team Providers Care Community Education Coordinator Name Role Phone Lucas Wen APRN Primary Care Provider + Steffi Escalera APRN Primary Care Provider Myesha Hwang MD Unavailable [phone] Encounter Details Date Type Department Care Team (Late st Contact Info) Description 10/26/2022 Scanned Document [facility] - [address] [phone] Chris Sood MD [address] [place] [address] Social History Tobacco Use Types Packs/Day Years [...] on filedocumented in this encounter Care Teams Community Education Coordinator Relationship Specialty Start Date End Date Lucas Wen APRN PCP - General Adult Health - EDWARD/SABAS/PSYCHIATRIC SOCIAL WORKER/ANIMAL WARDEN 10/20/22 01/14/23 Steffi Escalera APRN [address] [address] PCP - General 01/15/23 Myesha Hwang MD [address] [place] [address] Gastroenterology 04/09/23 documented as of this encounter
--- OUTSIDE RECORDS SUMMARY | 2024-07-30 10:47 | XMS_ITS | Encounter Summary ---
Author Organization [facility] Address [address] [place] [address] Care Team Providers Care Golf Course Manager Name Role Phone Steffi Escalera APRN Primary Care Provider Myesha Hwang MD Unavailable [phone] Encounter Details Date Type Department Care Team ([facility] st Contact Info) Description 02/01/2023 Scanned Document [facility] 113 [facility] [address] [place] [phone] Marina Davis PA 113 [facility] 301 [place] [address] Social History Tobacco Use Types Packs/Day Years [...] more drinks on one occasion? Never 01/17/2023 Sex and Gender Information Value Date Recorded Sex Assigned at Female 01/19/2023 6:21 AM EDT Gender Identity Female 01/19/2023 6:21 AM EDT Sexual Orientation Heterosexual (straight) 01/19 6:21 AM EDT documented as of this encounter Plan of Treatment Not on file documented as of this encounter Visit Diagnoses Not on filedocumented in this encounter Care Teams Golf Course Manager Relationship Specialty Start Date End Date Steffi Escalera APRN 12 [address] [facility] 110 [place] [address] PCP - General 01/15/23 Myesha Hwang MD [address] [place] [address] Gastroenterology 04/09/23 documented as of this encounter
--- OUTSIDE RECORDS SUMMARY | 2024-07-30 10:47 | XMS_ITS | Encounter Summary ---
Author Organization [facility] and [facility] Address [address] [place] [address] Care Team Providers Care Rn Residential Name Role Phone Sabrina Redd Primary Care Provider [phone] Encounter Details Date Type Department Care Team (Late st Contact Info) Description 07/12/2020 Scanned Document [facility] [address] [place], [place] [address] Antoni Patricio MD [address] [place] [address] Social History Tobacco Use Types Packs/Day Years Used Date Smoking Tobacco: Former Cigarettes 1 18 1 5 - 2012 Smokeless Tobacco: Never Alcohol Use [...] on filedocumented in this encounter Care Teams Rn Residential Relationship Specialty Start Date End Date Sabrina Redd PA [address] [place] [address] PCP - General 07/12/22 documented as of this encounter
--- OUTSIDE RECORDS SUMMARY | 2024-07-30 10:47 | XMS_ITS | Encounter Summary ---
Author Organization [facility] and [facility] Address [address] [place] [address] Care Team Providers Care Vb Developer Name Role Phone Sabrina Redd Primary Care Provider [phone] Encounter Details Date Type Department Care Team (Late st Contact Info) Description 04/11/2019 Scanned Document [facility] [address] [facility] 800 [facility] [place] [address] Provider, Historical . Social History Tobacco Use Types Packs/Day Years Used Date Smoking Tobacco: Never Assessed Comments Unknown Sex and Gender Information Value Date Recorded Sex Assigned at Not on file Legal Sex Female 3:01 PM EDT Gender Identity Not on file Sexual Orientation Not on file documented as of this encounter Plan of Treatment Not on file documented as of this encounter Procedures Procedure Name Priority Date/Time Associated Diagnosis Comments CT RESULT SCAN Routine 06/03/2018 documented in this encounter Results * CT Result Scan (06/03/2018) us Historical Provider IMG SCAN REPORTS Final Resul t documented in this encounter Visit Diagnoses Not on filedocumented in this encounter Care Teams Vb Developer Relationship Specialty Start Date End Date Sabrina Redd PA [address] [place] [address] PCP - General 07/12/22 documented as of this encounter
--- OUTSIDE RECORDS SUMMARY | 2024-07-30 10:47 | XMS_ITS | Encounter Summary ---
Author Organization [facility] Address [address] [place] [address] Care Team Providers Care Buccaro Name Role Phone Marina Reddy APRN Primary Care Provider [phone] Lucas Wen APRN Primary Care Provider + Steffi Escalera APRN Primary Care Provider Myesha Hwang MD Unavailable [phone] Reason for Visit * Reason Comments Medication Refill Encounter Details Date Type Department Care Team (Late st Contact Info) Description 08/25/[address] [facility]ARE [address] [address] Dominic Narvaez MD [address] [place] [address] Social History Tobacco Use Types Packs/Day Years [...] on filedocumented in this encounter Care Teams Buccaro Relationship Specialty Start Date End Date Marina Reddy APRN 15 [facility] 13 [place] [address] PCP - General Adult Health - PA/APNP/SPINNING LATHE OPERATOR/SALES APPOINTMENT COORDINATOR 03/03/19 10/19/22 Lucas Wen APRN 15 [facility] 13 [place] [id number] PCP - General Adult Health - PA/APNP/SPINNING LATHE OPERATOR/SALES APPOINTMENT COORDINATOR 10/20/22 01/14/23 Steffi Escalera APRN [address] [place] [address] PCP - General 01/15/23 Myesha Hwang MD [address] [place] [id number] Gastroenterology 04/09/23 documented as of this encounter
--- OUTSIDE RECORDS SUMMARY | 2024-07-30 10:47 | XMS_ITS | Encounter Summary ---
Author Organization [facility] Address [address] [place] [address] Care Team Providers Care Library Media Assistant Name Role Phone Steffi Escalera APRN Primary Care Provider Myesha Hwang MD Unavailable [phone] Encounter Details Date Type Department Care Team (Late st Contact Info) Description 02/06/2023 Scanned Document [facility] [address] [address] [place] [address] Social History Tobacco Use Types [...] on filedocumented in this encounter Care Teams Library Media Assistant Relationship Specialty Start Date End Date Steffi Escalera APRN 12 [address] [facility] 110 [place] [address] PCP - General 01/15/23 Myesha Hwang MD [address] [place] [address] Gastroenterology 04/09/23 documented as of this encounter
--- OUTSIDE RECORDS SUMMARY | 2024-07-30 10:47 | XMS_ITS | Encounter Summary ---
Author Organization [facility] and [facility] Address [address] [place] [address] Care Team Providers Care Director Hydrogen Storage Engineering Name Role Phone Sabrina Redd Primary Care Provider [phone] Encounter Details Date Type Department Care Team (Late st Contact Info) Description 04/09/2019 Abstract [facility] [address] [facility] [address] [facility] [place] [address] Antoni Patricio MD [address] [place] [phone] Social History Tobacco Use Types Packs/Day Years [...] on filedocumented in this encounter Care Teams Director Hydrogen Storage Engineering Relationship Specialty Start Date End Date Sabrina Redd PA [address] [place] [address] PCP - General 07/12/22 documented as of this encounter
--- OUTSIDE RECORDS SUMMARY | 2024-07-30 10:47 | XMS_ITS | Encounter Summary ---
Author Organization [facility] Address [address] [place] [address] Care Team Providers Care Surgery Consultant Name Role Phone Marina Reddy APRN Primary Care Provider [phone] Lucas Wen APRN Primary Care Provider + Steffi Escalera APRN Primary Care Provider Myesha Hwang MD Unavailable [phone] Reason for Visit * Reason Comments Medication Refill Encounter Details Date Type Department Care Team (Late st Contact Info) Description 10/06/2020 Refill [facility] URGENT CARE [address] [address] Dominic Narvaez MD [address] [place] [address] Social History Tobacco Use Types Packs/Day Years [...] on filedocumented in this encounter Care Teams Surgery Consultant Relationship Specialty Start Date End Date Marina Reddy APRN 15 [facility] 13 [place] [address] PCP - General Adult Health - PA/APNP/DIRECTOR OF TESTING/CURRICULUM WRITER 03/03/19 10/19/22 Lucas Wen APRN 15 [facility] 13 [place] [phone] PCP - General Adult Health - PA/APNP/DIRECTOR OF TESTING/CURRICULUM WRITER 10/20/22 01/14/23 Steffi Escalera APRN [address] [place] [address] PCP - General 01/15/23 Myesha Hwang MD [address] [place] [phone] Gastroenterology 04/09/23 documented as of this encounter
--- OUTSIDE RECORDS SUMMARY | 2024-07-30 10:47 | XMS_ITS | Encounter Summary ---
Author Organization [facility] and [facility] Address [address] [place] [address] Care Team Providers Care Tours Captain Name Role Phone Sabrina Redd Primary Care Provider [phone] Encounter Details Date Type Department Care Team (Late st Contact Info) Description 06/17/2019 Scanned Document [facility] [address] [place] [address] Provider, [facility] [place] . Social History Tobacco Use Types Packs/Day Years Used Date Smoking Tobacco: Former Cigarettes 2012 Smokeless Tobacco: Never Alcohol Use Standard [...] Associated Diagnosis Comments CT RESULT SCAN Routine 02/25/2016 CT RESULT SCAN Routine 08/27/2015 documented in this encounter Results * CT Result Scan (02/25/2016) Historical Provider IMG SCAN REPORTS Final Resul t * CT Result Scan (08/27/2015) Historical Provider IMG SCAN REPORTS Final Resul t documented in this encounter Visit Diagnoses Not on filedocumented in this encounter Care Teams Tours Captain Relationship Specialty Start Date End Date Sabrina Redd PA [address] [place] [address] PCP - General 07/12/22 documented as of this encounter
--- OUTSIDE RECORDS SUMMARY | 2024-07-30 10:47 | XMS_ITS | Encounter Summary ---
Author Organization [facility] Address [address] [place] [address] Care Team Providers Care Bricklayer Name Role Phone Sabrina Redd Primary Care Provider [phone] Encounter Details Date Type Department Care Team (Late st Contact Info) Description 07/02/2019 Scanned Document [facility] [address] [place] [address] Antoni Patricio MD [address] [place] [phone] Social History Tobacco Use Types Packs/Day Years [...] on filedocumented in this encounter Care Teams Bricklayer Relationship Specialty Start Date End Date Sabrina Redd PA [address] [place] [address] PCP - General 07/12/22 documented as of this encounter
--- OUTSIDE RECORDS SUMMARY | 2024-07-30 10:47 | XMS_ITS | Encounter Summary ---
Author Organization [facility] Address [address] [place] [address] Care Team Providers Care Ice Cream Server Name Role Phone Sabrina Redd Primary Care Provider [phone] Encounter Details Date Type Department Care Team (Late st Contact Info) Description 06/27/2019 Scanned Document [facility] [address] [place] [address] Antoni Patricio MD [address] [place] [phone] Social History Tobacco Use Types Packs/Day Years [...] on filedocumented in this encounter Care Teams Ice Cream Server Relationship Specialty Start Date End Date Sabrina Redd PA [address] [place] [address] PCP - General 07/12/22 documented as of this encounter
--- OUTSIDE RECORDS SUMMARY | 2024-07-30 10:47 | XMS_ITS | Encounter Summary ---
Author Organization [facility] Address [address] [place] [address] Care Team Providers Care Rn Postpartum Name Role Phone Maurilio Burgess MD Primary Care Provider [phone] Reason for Referral * Imaging (Routine) - Authorized Specialty Diagnoses / Procedures Referred By Scott montero Referred To Contact Radiology Diagnoses Cerebral aneurysm, nonruptured Procedures CT Angio Head wo and/or w Contrast Loan Sidhu PA 175 [facility], [address] [address] Phone: tel: fax: [facility] CT Scan [address] [place] [address] Phone: tel: Referral ID Status Reason Start Date Expiration Date V isits Requested Visits Authorized [id number] Authorized 07/03/2024 07/03/2025 1 1 Reason for Visit * Imaging (Routine) - Authorized Specialty Diagnoses / Procedures Referred By Scott montero Referred To Contact Radiology Diagnoses Cerebral aneurysm, nonruptured Procedures CT Angio Head wo and/or w Contrast Loan Sidhu PA 175 [facility], [address] [place] [address] Phone: tel: fax: [facility] CT Scan [address] [place] [address] Phone: tel: Referral ID Status Reason Start Date Expiration Date V isits Requested Visits Authorized [id number] Authorized 07/03/2024 07/03/2025 1 1 Encounter Details Date Type Department Care Team (Latest Contact Info) Description 07/14/2024 1:18 PM EST - 07/14/2024 11:59 PM EST Hospital Encounter [facility] CT Scan [address] [place] [address] Cerebral aneurysm, nonruptured Discharge Disposition: Home or Self Care Social History Tobacco Use Types Packs/Day Years [...] AM EST documented as of this encounter Medications at Time of Discharge albuterol HFA (PROAIR HFA ; PROVENTIL HFA ; VENTOLIN HFA) 90 mcg/actuation inhaler INHALE 1 PUFF INTO THE LUNGS EVERY 4 HOURS NEEDED aspirin 81 mg capsule Take by mouth daily. blood-glucose meter (OneTouch Ultra2 Meter) [facility] 04/29/2020 fluticasone propionate (FLONASE) 50 mcg/actuation nasal [...] (10 mg total) by mouth. at bedtime Nurtec 75 mg dispersible tablet DISSOLVE 1 TABLET ON THE TONGUE EVERY OTHER DAY NEEDED FOR MIGRAINE HEADACHE OneTouch Ultra Test test strip USE DIRECTED TO TEST BLOOD SUGAR EVERY DAY Otezla 30 mg tablet TAKE 1 BY MOUTH TWICE DAILY pantoprazole (PROTONIX) 40 mg EC tablet Take 1 tablet (40 mg total) by mouth 1 (one) time each day. pravastatin (PRAVACHOL) 40 mg tablet Take 1 tablet (40 mg total) by mouth 1 (one) time each day. 06/24/2024 pregabalin (LYRICA) 75 mg capsule Take 1 capsule (75 mg total) by mouth 2 (two) times a day. tiZANidine (ZANAFLEX) 4 mg capsule TAKE 1 CAPSULE BY MOUTH TWICE DAILY NEEDED FOR MUSCLE SPASMS OR NECK PAIN 06/13/2024 topiramate (TOPAMAX) 100 mg tablet Take 1 tablet (100 mg total) by mouth 2 (two) times a day. traMADoL (ULTRAM) 50 mg tablet Take 1 tablet (50 mg total) by mouth 2 (two) times a day if needed. documented as of this encounter Discharge Disposition Disposition Code Departure Means Destination Home or Self Care documented in this encounter Plan of Treatment Upcoming Encounters Date Type Department Care Team (Late st Contact Info) Description 08/26/2024 9:00 AM EDT Office Visit Neurosurgery [address] [place] [address] Saleem [facility]igley MD [facility] [address] [place] [address] documented as of this encounter Procedures Procedure Name Priority Date/Time Associated Diagnosis Comments CT ANGIO HEAD WO AND/OR W CONTRAST Routine 07/14/2024 2:37 PM EST Cerebral aneurysm, nonruptured documented in this encounter Results * CT Angio Head [...] Signed Date: 07/16/2024 10:58 ET Workstation ID: [id number] Transcribed By: Self Edit Transcribed Date: 07/16/2024 10:11 ET Narrative 07/16/2024 10:58 AM EST PROCEDURE: Noncontrast head CT and CT angiogram of [place]. 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 Gilberto Knox in [place]. 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 COMPARISON: Outside images dated 07/10/2023. TECHNIQUE: Noncontrast head CT followed by contrast-enhanced CT angiogram of [place], with coronal and sagittal reformats. [...] and CT angiogram of [place]. HISTORY: Cerebral aneurysm, follow-up history of unruptured left superior cerebellar artery aneurysm treated bycraniotomy and trapping/bypass on May 05, [address] Gilberto Dao. 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 COMPARISON: Outside images dated 07/10/2023. TECHNIQUE: Noncontrast head CT followed by contrast-enhanced CT [place], with coronal and sagittal reformats. [...] Signed Date: 07/16/2024 10:58 ET Workstation ID: [id number] Transcribed By: Self Edit Transcribed Date: 07/16/2024 10:[address] PROCEDURES Final Re sult documented in this encounter Visit Diagnoses Diagnosis Cerebral aneurysm, nonruptured documented in this encounter Administered Medications Inactive Administered Medications - up to 3 most recent administrations Medication Order MAR Action Action Date Dose Rate Site iopamidoL (ISOVUE-370) 370 mg iodine /mL (76 %) injection 100 mL 100 mL, intravenous, Once in imaging, Starting on Sun07/14/24 at 1406, For 1 dose Given 07/14/2024 2:08 PM EST 95 mL sodium chloride 0.9 % flush 10 mL 10 mL, intravenous, Once, On Sun07/14/24 at 1430, For 1 dose Given 07/14/2024 2:08 PM EST 10 mL documented in this encounter Care Teams Rn Postpartum Relationship Specialty Start Date End Date Maurilio Burgess MD [address] [address] [address] [place], [place] PCP - General Internal Medicine 06/17/24 documented as of this encounter
--- OUTSIDE RECORDS SUMMARY | 2024-07-30 10:48 | XMS_ITS | Encounter Summary ---
Author Organization [facility] Address [address] [place] [address] Care Team Providers Care Frog Catcher Name Role Phone Steffi Escalera APRN Primary Care Provider Myesha Hwang MD Unavailable [phone] Encounter Details Date Type Department Care Team (Late st Contact Info) Description 05/22/2024 Telephone [facility] [address] [place] [phone] Rafiq Rice [address] [place], [place] [phone] Social History Tobacco Use Types Packs/Day Years [...] AM EDT documented as of this encounter Miscellaneous Notes * Telephone Encounter - Rafiq Rice - 05/22/2024 11:07 AM EST Left voice mail documented in this encounter Plan of Treatment Not on file documented as of this encounter Visit Diagnoses Not on filedocumented in this encounter Care Teams Frog Catcher Relationship Specialty Start Date End Date Steffi Escalera APRN [address] [address] PCP - General 01/15/23 Myesha Hwang MD [address] [place] [address] Gastroenterology 04/09/23 documented as of this encounter
--- OUTSIDE RECORDS SUMMARY | 2024-07-30 10:48 | XMS_ITS | Encounter Summary ---
Author Organization [facility] Address [address] [place] [address] Care Team Providers Care Medical Accounts Receivable Specialist Name Role Phone Steffi Escalera APRN Primary Care Provider Myesha Hwang MD Unavailable [phone] Encounter Details Date Type Department Care Team (Late st Contact Info) Description 07/16/2023 Telephone [facility]GI [facility] [address] [facility] [place] [address] Tino Lang MD [address] [facility] [address] [place] [address] Social History Tobacco Use Types Packs/Day Years [...] encounter Miscellaneous Notes * Telephone Encounter - Glory Grey MA - 07/17/2023 10:13 AM EST I left pt message to call me back at my ext * Telephone Encounter - Chiquita Sultana - 07/16/2023 1:29 PM EST Patient called looking for a call regarding the results of her double balloon procedure. I advised that this was done through a different specialist, but patient states she was told to contact us regarding the procedure, and would like someone from Dr. Lang's team to call her to discuss. Pt is unable to make an OV at this time, as she is moving next month and there is not availability in that time frame. Please contact Jazmine at [phone] documented in this encounter Plan of Treatment Not on file documented as of this encounter Visit Diagnoses Not on filedocumented in this encounter Care Teams Medical Accounts Receivable Specialist Relationship Specialty Start Date End Date Steffi Escalera APRN [address] [facility] [address] [place] [address] PCP - General 01/15/23 Myesha Hwang MD [address] [place] [id number] Gastroenterology 04/09/23 documented as of this encounter
--- OUTSIDE RECORDS SUMMARY | 2024-07-30 10:48 | XMS_ITS | Clinical Summary ---
Author Organization [facility] Address [address] [place] [address] Care Team Providers Care Farm Operations Manager Name Role Phone Steffi Escalera APRN Primary Care Provider Myesha Hwang MD Unavailable [phone] Allergies Active Allergy Reactions Criticality Noted Date Comments Milnacipran Palpitations,Unknown /Pat ient and Family Unable to Define Medium 02/12/2019 Tachicardia Salvella is another name Clopidogrel Rash/Dermatitis Low 01/17/2023 Promethazine Unknown/Patient and Family Unable to Define,Other (See Comments),Palpitations Medium 04/10/2012 Tachicardia 180/min - she had to be taken to ER. Medications Medication Sig Dispensed Refills Start Date End Date Status metFORMIN (GLUCOPHAGE) 500 MG tablet 2 (two) times a day. 04/07/2019 Active nateglinide (STARLIX) 120 MG tabletIndications:Ty pe 2 Diabetes Mellitus 2 (two) times a day. 04/07/2019 Active pravastatin (PRAVACHOL) 40 MG tablet every evening after dinner. 03/14/2019 Active traMADol (ULTRAM) 50 MG tablet 2 (two) times a day. 100 mg bid 03/14/2019 Active topiramate (TOPAMAX) 100 MG tablet 2 (two) times a day. 04/07/2019 Active butalbital-acetamino phen-caffeine (FioriCET, ESGIC) 50-325-40 mg tablet Take 1 tablet by mouth 4 times daily (every 6 hours) as needed for headaches. Max: 6 capsules/tablets in 24 hours Active ondansetron (ZOFRAN) 4 MG tabletIndications:Na usea, vomiting, and diarrhea Take 1 tablet (4 mg total) by mouth 3 times daily (every 8 hours) as needed for nausea or vomiting. 12 tablet 12/31/2019 Active PANTOprazole (PROTONIX) 40 MG EC tabletIndications:Ga stroesophageal reflux disease, unspecified whether esophagitis present Take 1 tablet (40 mg total) by mouth daily. 90 tablet 3 10/05/2020 Active Additional Information Patient taking differently:40 mg OralEvery morning, Reason: Other, Informant: Self, Reported on 04/06/2023 Aspirin 81 MG Cap Take by mouth every morning. Active albuterol (Ventolin HFA) 108 (90 Base) MCG/ACT inhaler 2 puffs every 4 (four) hours. Active clobetasol (TEMOVATE) 0.05 % cream Apply topically. 12/23/2020 Active memantine (NAMENDA) 10 MG tablet TAKE 1 TABLET BY MOUTH TWICE A DAY 01/16/2021 Active tiZANidine (ZANAFLEX) 4 MG tablet TAKE 1 TABLET (4 MG TOTAL) BY MOUTH EVERY 8 (EIGHT) HOURS NEEDED FOR UP TO 30 DAYS. 02/13/2021 Active pregabalin (LYRICA) 75 MG capsule TAKE 1 CAPSULE BY MOUTH TWICE A DAY 03/27/2021 Active Apremilast (OTEZLA) 30 MG tablet Take 30 mg by mouth 2 (two) times a day. Active fluticasone (FloNASE) 50 mcg/spray nasal spray 1-2 SPRAYS DAILY BY NASAL ROUTE FOR 7 DAYS INDICATIONS: RHINITIS 04/18/2022 Active Cetirizine HCl (ZYRTEC ALLERGY PO) Take by mouth every morning. Active furosemide (LASIX) 20 MG tablet Take 1 tablet (20 mg total) by mouth as needed. 11/15/2022 Active nortriptyline (PAMELOR) 10 MG capsuleIndications:C hronic migraine without aura with status migrainosus, not intractable 1 cap po qhs x 1 week then increase each week by 1 cap up to 3 caps po qhs 90 capsule 3 02/06/2023 Active rimegepant (Nurtec) 75 mg disintegrating tabletIndications:Mi graine with aura and with status migrainosus, not intractable Take 1 tablet (75 mg total) by mouth once as needed for migraine. Maximum: 75 mg/24 hours 18 tablet 5 05/09/2023 Active Custom CompoundIndications: Migraine with aura and with status migrainosus, not intractable Lidocaine 4% nasal spray instill 1-2 sprays intranasally every 4-6 hours if needed for headache 120 mL 3 05/09/2023 Active Active Problems Problem Noted Date Diagnosed Date Chronic migraine without aur a with status migrainosus, not intractable 05/09/2023 Migraine with aura and with status migrainosus, not intractable 05/09/2023 Adjustment disorder with depressed mood 05/09/20 23 Nausea & vomiting 09/08/2020 Assessment & Plan (03/30/2021 7:38 AM EDT): Now resolved s/p EGD in 09/2020, large bezoar removed at that time Continue to eat small meals/pieces of food Follow clinically Assessment & Plan (12/27/2020 1:27 PM EDT): Now resolved s/p EGD in 09/2020, large bezoar removed at that time Continue to eat small meals/pieces of food Follow clinically Assessment & Plan (10/05/2020 4:34 PM EDT): Has nearly resolved since having EGD on 09/09 Pt to follow-up with bariatric surgery next month to discuss further due to recent food bezoar removal from stomach Follow up in 3 months Assessment & Plan (09/08/2020 4:23 PM EDT): Prior history of nausea and vomiting s/p gastric bypass surgery >10 years ago Recent EGD performed in 05/2020 positive for dev treated with fluconazole Will schedule repeat EGD due to significant nausea/vomiting/weight loss Continue with zofan as needed for nausea. Will recheck BMP for electrolyte imbalances due to nausea/vomiting for several weeks prior to scheduling procedure. Future consideration of CT scan of abdomen/pelvis pending above. Follow-up after endoscopy and lab studies. Gastroesophageal reflux disease 04/15/2019 Assessment & Plan (12/28/2022 12:43 PM EDT): Continue pantoprazole 40 mg daily Avoid/limit tobacco, alcohol, chocolate, peppermint, caffeine, greasy foods, spicy foods, and acidic foods such as citrus and tomato. Eat smaller, more frequent meals, and do not eat within 2 hours of bedtime. If you have night-time symptoms, elevate the head of the bed 6 to 12 inches. Assessment & Plan (03/30/2021 7:37 AM EDT): Continue pantoprazole 40 mg daily Avoid/limit tobacco, alcohol, chocolate, peppermint, caffeine, greasy foods, spicy foods, and acidic foods such as citrus and tomato. Eat smaller, more frequent meals, and do not eat within 2 hours of bedtime. If you have night-time symptoms, elevate the head of the bed 6 to 12 inches. We discussed the minimal potential risk with emt intermediate PPI use. Based on AGA expert review the quality of evidence behind fci kidney disease, dementia, bone fractures, and infection with PPI use is low. The current data suggests that fci PPI use does not require routine screening or monitoring of bone density, kidney function, magnesium, or vitamin B levels. There is no clinical evidence to suggest routine intake of calcium, vitamin b12 or magnesium, with PPI use, beyond recommended dietary allowance. Assessment & Plan (12/27/2020 1:26 PM EDT): Continue pantoprazole 40 mg daily Avoid/limit tobacco, alcohol, chocolate, peppermint, caffeine, greasy foods, spicy foods, and acidic foods such as citrus and tomato. Eat smaller, more frequent meals, and do not eat within 2 hours of bedtime. If you have night-time symptoms, elevate the head of the bed 6 to 12 inches. We discussed the minimal potential risk with emt intermediate PPI use. Based on AGA expert review the quality of evidence behind emt intermediate kidney disease, dementia, bone fractures, and infection with PPI use is low. The current data suggests that fci PPI use does not require routine screening or monitoring of bone density, kidney function, magnesium, or vitamin B levels. There is no clinical evidence to suggest routine intake of calcium, vitamin b12 or magnesium, with PPI use, beyond recommended dietary allowance. Assessment & Plan (10/05/2020 4:34 PM EDT): During hospital admission, pt was changed to pantoprazole 40 mg daily. Will continue. Continue to eat/drink foods as tolerated--emphasized eating small pieces of food. Avoid/limit tobacco, alcohol, chocolate, peppermint, caffeine, greasy foods, spicy foods, and acidic foods such as citrus and tomato. Eat smaller, more frequent meals, and do not eat within 2 hours of bedtime. If you have night-time symptoms, elevate the head of the bed 6 to 12 inches. Assessment & Plan (09/08/2020 3:01 PM EDT): Continue with omeprazole 40 mg daily. Continue to eat/drink foods as tolerated with nausea/vomiting. Avoid/limit tobacco, alcohol, chocolate, peppermint, caffeine, greasy foods, spicy foods, and acidic foods such as citrus and tomato. Eat smaller, more frequent meals, and do not eat within 2 hours of bedtime. If you have night-time symptoms, elevate the head of the bed 6 to 12 inches. Assessment & Plan (04/15/2019 2:58 PM EST): LSM / diet re GERD. Controlled with omeprazole 20mg daily daily, continue this. We discussed the minimal potential risk with fci PPI use. Based on AGA expert review the quality of evidence behind emt intermediate kidney disease, dementia, bone fractures, and infection with PPI use is low. The current data suggests that emt intermediate PPI use does not require routine screening or monitoring of bone density, kidney function, magnesium, or vitamin B levels. There is no clinical evidence to suggest routine intake of calcium, vitamin b12 or magnesium, with PPI use, beyond recommended dietary allowance. Follow clinically. Personal history of colonic polyps 04/15/2019 Assessment & Plan (04/06/2023 10:29 AM EDT): Colon 02/2022 ([place] - no polyps noted Would due recall exam in 2026 given prior hx of polyps Assessment & Plan (12/28/2022 12:44 PM EDT): Colon 02/2022 ([place]) - no polyps noted Assessment & Plan (03/30/2021 7:39 AM EDT): High fiber diet. Adenoma-carcinoma sequence discussed. Last colon: 01/2021--fair prep, 3 year recall Recall colonoscopy due:01/2024 Assessment & Plan (12/27/2020 8:03 AM EDT): High fiber diet. Adenoma-carcinoma sequence discussed. Last colon: 05/12/2020--poor prep despite 2 day prep, 3 year recall, no abnormalities found Recall colonoscopy due: 05/2023 Assessment & Plan (10/05/2020 4:34 PM EDT): High fiber diet. Adenoma-carcinoma sequence discussed. Last colon: 05/12/2020--poor prep despite 2 day prep, 3 year recall, no abnormalities found Recall colonoscopy due: 05/2023 Assessment & Plan (09/08/2020 2:59 PM EDT): High fiber diet. Adenoma-carcinoma sequence discussed. Last colon: 05/12/2020--poor prep despite 2 day prep, 3 year recall, no abnormalities found Recall colonoscopy due: 05/2023 Assessment & Plan (04/15/2019 2:59 PM EST): Adenoma carcinoma sequence discussed High fiber diet Last colon: 2016 per pcp Await formal records for review Recall colonoscopy due: likely due 2021 Hematemesis 04/15/2019 Assessment & Plan (04/15/2019 3:01 PM EST): No recent episodes, none in last year No reports of melena Continue PPI Call with recurrent symtpoms Will get old records from prior GI Iron deficiency anemia 04/15/2019 Assessment & Plan (04/06/2023 10:31 AM EDT): 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 Plan: 1. Will have patient see Dr. Hwang in [place] for double balloon enteroscopy- this was recommended after 2021 capsule in [place] and recent capsule also suggests that best chance to evaluate the AVMs will be via double balloon. 2. 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 She is following up with Hematology again in April. Will place empiric set of AYAKA labs for 06/2023 prior to our next follow up. 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 No overt GI bleeding, has needed multiple transfusions as well as iron infusions Work up here in 2020, then recently in [place] with unremarkable EGD/Colon 02/2022 - unclear what pill cam showed Will order updated CBC and iron panel If lower H/H consider pillcam with placement due to history of gastric bypass for further evaluation due to continued iron deficiency anemia and heme positive stool If H/H low to where she needs transfusion, suggested her go to tertiary care center where m2a +/- spiral enteroscopy could be performed as needed Otherwise she should follow closely with hematology for routine blood work Plan pending labs Assessment & Plan (03/30/2021 7:40 AM EDT): Currently followed by hematology S/p iron infusion on 03/11/21 Will order updated CBC and iron panel Last H&H on 02/16 was 9.9/31.9 Recent colonoscopy negative for signs of bleeding EGD in 09/2020 negative for signs of bleeding with large food bezoar removed Will order pillcam with placement due to history of gastric bypass for further evaluation due to continued iron deficiency anemia and heme positive stool Assessment & Plan (12/27/2020 1:28 PM EDT): Recent H&H of 7.8/26.4 on 12/16 Will order updated CBC and iron panel Pt trying to schedule follow-up with hematology this week Pt denies having black stools or rectal bleeding Follow-up in 3 months Assessment & Plan (04/15/2019 3:02 PM EST): Continue oral iron Need old records for review Pt was followed by [facility] in [place], will need f/u care here also Encounters Date Type Department Care Team Description 05/22/2024 Telephone [facility] [address] [place] [address] Rafiq Rice from Last 3 Months Family History Medical History Relation Name Comments Hypertension Brother Arthritis Father Diabetes Father Heart attack Father Hypertension Father Diabetes Mother Heart disease Mother Breast cancer Sister 1 Cancer Sister 1 Colon cancer Sister 2 Relation Name Status Comments Brother Father Mother Sister 1 Sister 2 Social History Tobacco Use Types Packs/Day Years Used Date Smoking Tobacco: Former Smokeless Tobacco: Never Tobacco Cessation:Counseling Given: Not Answered Alcohol Use Standard Drinks/Week Comments Not Currently [...] Orientation Heterosexual (straight) 01/19 6:21 AM EDT Last Filed Vital Signs Vital Sign Reading Time Taken Comments Blood Pressure 140/78 11/27/2023 3:09 PM EDT Pulse 88 11/27/2023 3:09 PM EDT Temperature 36.1 ??C (97 ??F) 04/06/2023 10:00 AM EDT Respiratory Rate 14 05/09/2023 11:11 AM EST Oxygen Saturation 94% 05/09/2023 11:11 AM EST Inhaled Oxygen Concentration - - Weight 65.8 kg (145 lb) 11/27/2023 3:09 PM EDT Height 160 cm (5' 3 ) 11/27/2023 3:09 PM EDT Body Mass Index 25.69 11/27/2023 3:09 PM EDT Plan of Treatment Health Maintenance Due Date Last Done Comments Hepatitis C Virus Screening 1960 Pneumococcal Vaccine: Pediatric (0-5 Years) and At-Risk Patients (6 to 49 Years) (1 of 2 - PCV) 02/20/1968 HIV Screening 1975 DTaP/Tdap/Td Vaccines (1 - Tdap) 1981 Pneumococcal Vaccines 50+ (1 of 2 - PCV) 1981 Zoster (Shingles) Vaccine (1 of 2) 1981 Pap Smear (Ages 21-65) 1983 Mammogram 2002 RSV Vaccine 60 years and older and Patients (1 - Risk 60-74 years 1-dose series) 2022 Influenza Vaccine 01/10/2024 COVID-19 Vaccine ( season) 2024 08/01/2023, 05/31/2021, 11/05/2020, Additional history exists Colonoscopy 02/02/2031 02/02/2021, 09/13/2020 Hemoglobin A1C Discontinued 01/26/2023, 08/09, 09/09/2020, Additional history exists Hepatitis B Vaccines Aged Out No long er eligible based on patient's age to complete this topic Procedures Procedure Name Priority Date/Time Associated Diagnosis Comments COLONOSCOPY (CC) Routine 09/13/2020 from Last 3 Months or Most Recently Relevant to Health Maintenance Results * COLONOSCOPY (CC) (09/13/2020) Nihal Rojas MD AMB ORDERABLE PERFOR LEOPOLDO from Last 3 Months or Most Recently Relevant to Health Maintenance Care Teams Farm Operations Manager Relationship Specialty Start Date End Date Steffi Escalera APRN [address] [facility] [address] [place] [address] PCP - General 01/15/23 Myesha Hwang MD [address] [place] [address] Gastroenterology 04/09/23
--- OUTSIDE RECORDS SUMMARY | 2024-07-30 10:48 | XMS_ITS | Clinical Summary ---
Author Organization [facility] [address] [employer] Address [address] [place] [address] Care Team Providers Care Enrichment Director Name Role Phone Sabrina Redd Primary Care Provider [phone] Allergies Active Allergy Reactions Criticality Noted Date Comments Aluminum Aspirin Unknown 08/29/2007 Clopidogrel Rash Low 11/01/2022 Milnacipran Unknown,Palpitations Medium 02/12/2019 Tachicardia Tachycardia Tachicardia Salvella is another name Promethazine Other (See Comments),Unknown,Tachy cardia,Palpitations Medium 04/10/2012 Tachicardia 180/min - she had to be taken to ER. Tachycardia 180/min - she had to be taken to ER. Other reaction(s): Not available Medications butalbital-acet aminophen-caffe ine (FIORICET, ESGIC) 50-325-40 mg per tablet Take 1 tablet by mouth Every 6 hours as needed. Active aspirin 81 mg EC delayed release tablet Take 1 tablet (81 mg total) by mouth daily. Active albuterol sulfate 90 mcg/actuation HFA aerosol inhaler Inhale 1 puff into the lungs every 4 (four) hours as needed. 0 Active ONETOUCH ULTRA BLUE TEST STRIP test strips 1 Active ONETOUCH ULTRA2 METER device 0 Active pantoprazole (PROTONIX) 40 mg tablet 0 Active pregabalin (LYRICA) 75 mg capsule 1 Active memantine (NAMENDA) 10 mg immediate release tablet TAKE 1 TABLET BY MOUTH TWICE A DAY 0 Active metFORMIN (GLUCOPHAGE) 500 mg Immediate Release tablet TAKE 1 TABLET BY MOUTH TWICE A DAY WITH MEALS 1 Active nateglinide (STARLIX) 120 mg tablet TAKE 1 TABLET BY MOUTH 2 TIMES A DAY. 1 Active tiZANidine (ZANAFLEX) 4 mg tablet TAKE 1 TABLET BY MOUTH EVERY DAY 1 Active topiramate (TOPAMAX) 100 mg tablet TAKE 1 TABLET BY MOUTH TWICE A DAY 0 Active traMADoL (ULTRAM) 50 mg tablet TAKE 1 TABLET BY MOUTH TWICE A DAY 1 Active fluticasone propionate (FLONASE) 50 mcg/actuation nasal spray 1-2 SPRAYS DAILY BY NASAL ROUTE FOR 7 DAYS INDICATIONS: RHINITIS 2 Active simvastatin (ZOCOR) 40 mg tablet TAKE 1 TABLET BY MOUTH EVERY DAY IN THE EVENING 2 Active apremilast (OTEZLA) 30 mg tablet Take 1 tablet (30 mg total) by mouth 2 (two) times daily (0800, 1800). Active multivitamin with iron-mineral tablet Take by mouth. Activ e nortriptyline (PAMELOR) 10 mg capsule PLEASE SEE ATTACHED FOR DETAILED DIRECTIONS 3 Active pravastatin (PRAVACHOL) 40 mg tablet Take 1 tablet (40 mg total) by mouth daily. 4 Active NURTEC ODT 75 mg TbDL TAKE 1 TABLET (75 MG TOTAL) BY MOUTH NEEDED FOR MIGRANE MAX 75MG/24 HOURS 4 Active Active Problems Problem Noted Date Diagnosed Date Adjustment disorder with depressed mood 05/09/2007/20/2023 Migraine with aura and with status migrainosus, not intractable 05/09/2023 07/20/2023 Absolute anemia 12/29/2020 Nausea & vomiting 01/03/2020 Overview (08/11/2022): Last Assessment & Plan: Now resolved s/p EGD in 09/2020, large bezoar removed at that time Continue to eat small meals/pieces of food Follow clinically Last Assessment & Plan: Prior history of nausea and vomiting s/p [...] above. Follow-up after endoscopy and lab studies. Last Assessment & Plan: Has nearly resolved since having EGD on 09/09 Pt to follow-up with bariatric surgery next month to discuss further due to recent food bezoar removal from stomach Follow up in 3 months Psoriatic arthritis 12/25/2019 Moderate persistent asthma with acute exacerbati on 09/02/2019 Personal history of colonic polyps 04/15/2019 Overview (03/11/2024): Last Assessment & Plan: Adenoma carcinoma sequence discussed High fiber diet Last colon: 2017 per pcp Await formal records for review Recall colonoscopy due: likely due 2021 Last Assessment & Plan: Adenoma carcinoma sequence discussed High fiber diet Last colon: 2017 per pcp Await formal records for review Recall colonoscopy due: likely due 2021 Last Assessment & Plan: High fiber diet. Adenoma-carcinoma sequence discussed. Last colon: 01/2021--fair prep, 3 year recall Recall colonoscopy due:01/2024 Last Assessment & Plan: Adenoma carcinoma sequence discussed High fiber diet Last colon: 2016 per pcp Await formal records for review Recall colonoscopy due: likely due 2021 Overview: Last Assessment & Plan: Adenoma carcinoma sequence discussed High fiber diet Last colon: 2017 per pcp Await formal records for review Recall colonoscopy due: likely due 2021 Last Assessment & Plan: Adenoma carcinoma sequence discussed High fiber diet Last colon: 2017 per pcp Await formal records for review Recall colonoscopy due: likely due 2021 Last Assessment & Plan: High fiber diet. Adenoma-carcinoma sequence discussed. Last colon: 01/2021--fair prep, 3 year recall Recall colonoscopy due:01/2024 Last Assessment & Plan: High fiber diet. Adenoma-carcinoma sequence discussed. Last colon: 05/12/2020--poor prep despite 2 day prep, 3 year recall, no abnormalities found Recall colonoscopy due: 05/2023 Last Assessment & Plan: High fiber diet. Adenoma-carcinoma sequence discussed. Last colon: 05/12/2020--poor prep despite 2 day prep, 3 year recall, no abnormalities found Recall colonoscopy due: 05/2023 Last Assessment & Plan: Colon 02/2022 ([place]) - no polyps noted Would due recall exam in 2026 given prior hx of polyps Replacement diagnosis for those inactivated after 03/11 regulatory import Chronic migraine without aur a with status migrainosus, not intractable 02/12/2019 Anemia 02/12/2019 Recurrent major depressive d isorder, in full remission (HC Code) (HC CODE) 02/12/2019 Reflux esophagitis 02/12/2019 S/P gastric bypass 02/12/2019 Type 2 diabetes mellitus wit hout complication, without long-term current use of insulin (HC Code) (HC CODE) 02/12/2019 Overview (07/19/2020): 07/2018: A1c 6.7% Cerebral aneurysm, nonruptured 02/12/2019 Overview (07/19/2020): CTA of brain 05/2018: stable 4mm aneurysm left superior cerebral artery. Stable possible 1mm aneurysm at the lateral margin of the left cavernous carotid artery. Left temporal to superior cerebral artery bypass graft distal to the aneurysm and aneurysm clip appears to be patent. Overview: unruptured left SCA aneurysm s/p trapping/bypass by Dr. Colin in [place] in 04/2015 Cobalamin deficiency 10/26/2018 History of GI bleed 10/26/2018 Tubular adenoma of colon 10/26/2018 Overview (07/20/2023): colonoscopy in 2015: Hyperplastic polyps COLON POLYPS 9 : ADENOMATOUS POLYP .. History of syncope 10/24/2018 Overview (07/20/2023): SYNCOPE MULTIPLE 3 EPISODES IN MAY 2010 AND HAD MRI BRAIN , STRESS TEST , EEG AND TILT TABLE WERE NL. WEL NICS AND ECHO. EPISODE 5-2010 / ECHO , HOLTER NL EVENT MONITOR -2011 NL ( DR ROBERSON) / NICS R INTERNAL 1-15%, L INTERNAL 16-49% (12/2014). Eczema 04/01/2018 Psoriasis 04/01/2018 Upper gastrointestinal bleeding 01/02/2018 Overview (07/20/2023): Last Assessment & Plan: No recent episodes, none in last year No reports of melena Continue PPI Call with recurrent symtpoms Will get old records from prior GI Last Assessment & Plan: No recent episodes, none in last year No reports of melena Continue PPI Call with recurrent symtpoms Will get old records from prior GI Last Assessment & Plan: No recent episodes, none in last year No reports of melena Continue PPI Call with recurrent symtpoms Will get old records from prior GI Overview: Last Assessment & Plan: No recent episodes, none in last year No reports of melena Continue PPI Call with recurrent symtpoms Will get old records from prior GI Last Assessment & Plan: No recent episodes, none in last year No reports of melena Continue PPI Call with recurrent symtpoms Will get old records from prior GI Last Assessment & Plan: No recent episodes, none in last year No reports of melena Continue PPI Call with recurrent symtpoms Will get old records from prior GI Headache 12/21/2017 Overview (07/20/2023): On topiramate. Generalized anxiety disorder 12/21/2017 History of surgery for cerebral aneurysm 018 Overview (07/20/2023): CEREBELLAR ARTERY ANEURYSM S/P CEREBELLAR ARTERY BYPASS / CTA CEREBRAL IN FEB 2016 (DR BROWNING, [facility]) Proximal left superior cerebellar artery aneurysm decrease in size from prior exam status post clipping. No additional aneurysms of the [place] of [place] identified. 2. Post surgcal changes consistent with left superficial temporal artery to superior cerebellar artery bypass. The graft is patent.CTA of brain 11/2017 and 0.5 cm proximal left superior cerebellar artery aneurysm. Moderate major depression (HC Code) (HC CODE) Overview (07/20/2023): Dr Harjit López in [place] Mild dementia 12/21/2017 Overview (07/20/2023): symptoms worse since aneurysm clipping in 2014 forgets names and condensation have slowly progressed. Steatosis of liver 12/03/2017 Overview (07/20/2023): fatty liver seen on ultrasound 11/2017 Diabetic sensory polyneuropathy (HC Code) (HC CO DE) 07/29/2017 Overview (07/20/2023): decrease sensation to mid forefoot b/L Gastroesophageal reflux disease 07/29/2017 Overview (07/20/2023): Last Assessment & Plan: LSM / diet re GERD. Controlled with omeprazole 20mg daily daily, continue this. We discussed the minimal potential risk with supervisor intermediates PPI use. Based on AGA expert review the quality of evidence behind senior care kidney disease, dementia, bone fractures, and infection with PPI use is low. The current data suggests that senior care PPI use does not require routine screening or monitoring of bone density, kidney function, magnesium, or vitamin B levels. There is no clinical evidence to suggest routine intake of calcium, vitamin b12 or magnesium, with PPI use, beyond recommended dietary allowance. Follow clinically. Last Assessment & Plan: LSM / diet re GERD. Controlled with omeprazole 20mg daily daily, continue this. We discussed the minimal potential risk with supervisor intermediates PPI use. Based on AGA expert review the quality of evidence behind senior care kidney disease, dementia, bone fractures, and infection with PPI use is low. The current data suggests that supervisor intermediates PPI use does not require routine screening or monitoring of bone density, kidney function, magnesium, or vitamin B levels. There is no clinical evidence to suggest routine intake of calcium, vitamin b12 or magnesium, with PPI use, beyond recommended dietary allowance. Follow clinically. Last Assessment & Plan: Continue pantoprazole 40 mg daily Avoid/limit tobacco, alcohol, chocolate, peppermint, caffeine, greasy foods, spicy foods, and acidic foods such as citrus and tomato. Eat smaller, more frequent meals, and do not eat within 2 hours of bedtime. If you have night-time symptoms, elevate the head of the bed 6 to 12 inches. We discussed the minimal potential risk with supervisor intermediates PPI use. Based on AGA expert review the quality of evidence behind senior care kidney disease, dementia, bone fractures, and infection with PPI use is low. The current data suggests that supervisor intermediates PPI use does not require routine screening or monitoring of bone density, kidney function, magnesium, or vitamin B levels. There is no clinical evidence to suggest routine intake of calcium, vitamin b12 or magnesium, with PPI use, beyond recommended dietary allowance. Last Assessment & Plan: LSM / diet re GERD. Controlled with omeprazole 20mg daily daily, continue this. We discussed the minimal potential risk with senior care PPI use. Based on AGA expert review the quality of evidence behind senior care kidney disease, dementia, bone fractures, and infection with PPI use is low. The current data suggests that senior care PPI use does not require routine screening or monitoring of bone density, kidney function, magnesium, or vitamin B levels. There is no clinical evidence to suggest routine intake of calcium, vitamin b12 or magnesium, with PPI use, beyond recommended dietary allowance. Follow clinically. Overview: Last Assessment & Plan: LSM / diet re GERD. Controlled with omeprazole 20mg daily daily, continue this. We discussed the minimal potential risk with senior care PPI use. Based on AGA expert review the quality of evidence behind supervisor intermediates kidney disease, dementia, bone fractures, and infection with PPI use is low. The current data suggests that senior care PPI use does not require routine screening or monitoring of bone density, kidney function, magnesium, or vitamin B levels. There is no clinical evidence to suggest routine intake of calcium, vitamin b12 or magnesium, with PPI use, beyond recommended dietary allowance. Follow clinically. Last Assessment & Plan: LSM / diet re GERD. Controlled with omeprazole 20mg daily daily, continue this. We discussed the minimal potential risk with supervisor intermediates PPI use. Based on AGA expert review the quality of evidence behind senior care kidney disease, dementia, bone fractures, and infection with PPI use is low. The current data suggests that senior care PPI use does not require routine screening or monitoring of bone density, kidney function, magnesium, or vitamin B levels. There is no clinical evidence to suggest routine intake of calcium, vitamin b12 or magnesium, with PPI use, beyond recommended dietary allowance. Follow clinically. Last Assessment & Plan: Continue with omeprazole 40 mg daily. Continue to eat/drink foods as tolerated with nausea/vomiting. Avoid/limit tobacco, alcohol, chocolate, peppermint, caffeine, greasy foods, spicy foods, and acidic foods such as citrus and tomato. Eat smaller, more frequent meals, and do not eat within 2 hours of bedtime. If you have night-time symptoms, elevate the head of the bed 6 to 12 inches. Last Assessment & Plan: During hospital admission, pt was changed to [...] of the bed 6 to 12 inches. Last Assessment & Plan: Continue pantoprazole 40 mg daily Avoid/limit tobacco, alcohol, chocolate, peppermint, caffeine, greasy foods, spicy foods, and acidic foods such as citrus and tomato. Eat smaller, more frequent meals, and do not eat within 2 hours of bedtime. If you have night-time symptoms, elevate the head of the bed 6 to 12 inches. EGD -2008 : MILD GASTRITIS 2010 EGD : DR MENDIOLA. Iron deficiency anemia 07/29/2017 Overview (07/20/2023): Last Assessment & Plan: Continue oral iron Need old records for review Pt was followed by heme in [place], will need f/u care here also Last Assessment & Plan: Continue oral iron Need old records for review Pt was followed by heme in [place], will need f/u care here also Last Assessment & Plan: Currently followed by hematology S/p iron infusion [...] iron deficiency anemia and heme positive stool Last Assessment & Plan: Continue oral iron Need old records for review Pt was followed by heme in [place], will need f/u care here also Overview: Last Assessment & Plan: Continue oral iron Need old records for review Pt was followed by heme in [place], will need f/u care here also Last Assessment & Plan: Continue oral iron Need old records for review Pt was followed by heme in [place], will need f/u care here also Last Assessment & Plan: Continue oral iron Need old records for review Pt was followed by heme in [place], will need f/u care here also Last Assessment & Plan: Longstanding AYAKA in setting of gastric bypass No overt GI bleeding, has needed multiple transfusions as well as iron infusions Work up here in 2020, then in [place] with unremarkable EGD/Colon 02/2022 Repeat capsule done [...] Will have patient see Dr. Hwang in [place] for double balloon enteroscopy- this was recommended after 2021 capsule in [place] and recent capsule also suggests that best [...] 06/2023 prior to our next follow up. requiring intermittent IV iron infusion completed 6 cycles of IV InFeD in April 2017 and is on oral iron supplementation at this time ( Dr Castano hematology) ANEMIA POSS DUE TO COLONIC AVMs ? COLONOSCOPY ( DR TOSCANO) / FE INFUSSION X 6 DOSES 08/2014 ( DR CASTANO) Mixed hyperlipidemia 07/29/2017 History of gastric bypass 07/29/2017 Overview (07/20/2023): GASTRITIS S-P GASTRIC BYPASS Hubertus EGD NL , H PYELORI NEG, ANASTAMOSIS NL. Uncontrolled type 2 diabetes mellitus 07/29/2017 Inflammatory polyarthropathy (HC Code) (HC CODE) 07/29/2017 07/20/2023 Leukocytosis 07/29/2017 07/20/2023 Overview (07/20/2023): CHR LEUCOCYTOSIS initially seen by Dr. Bland on 01/05/09 for evaluation of leukocytosis, When Dr. Bland saw her on 01/05/09 he noted that she had chronic leukocytosis, dating at least to 7 years prior. WBC count had been in the 14,000 range and it was down to 12,000 (9800 neutrophils) on day of evaluation. She had a complete workup that was negative for malignancy. FISH bcr/abl on 03/30/09 was negative. It was felt the leukocytosis was related to smoking and hydradenitis. Her WBC was normal on most recent labs from Dr. Lopez on 02/11/16. WBC normal today 8.O. . Mental disorder 01/25/2017 07/20/2023 Intracranial aneurysm 02/18/2015 Overview (07/20/2023): CTA brain 05/2018: Stable 4 mm aneurysm of the left superior cerebellar artery, stable possible 1 mm aneurysm at the lateral margin of the left cavernous carotid artery, left temporal to superior cerebellar artery bypass graft distal to the aneurysm and appears to be patent. CEREBRAL ANEURYSM LEFT SUPERIOR CEREBELLAR ART 9MM X 8 MM ( ). Memory impairment 11/24/2014 Acute on chronic cholecystitis 06/20/2013 0 07/20/2023 Abdominal pain 06/20/2013 07/20/2023 Fibromyalgia 04/24/2013 Primary fibromyalgia syndrome 04/24/2013 Overview (07/20/2023): FIBROMYALGIA KARLA RA ANTI SM ANTI SSA ANTI CLOTH SHEARER AB NEG SR / CRP NL ( ) DR HERNANDEZ. History of hysterectomy 12/16/2010 Pain in pelvis 09/11/2007 07/20/2023 Diabetes mellitus 08/29/2007 07/20/2023 Cerebral aneurysm, nonruptured Overview (05/26/2019): unruptured left SCA aneurysm s/p trapping/bypass by Dr. Colin in [place] in 04/2015 Encounters Date Type Department Care Team Description 06/24/2024 Telephone [facility] at [address] [phone] Antoni Patricio MD Other from Last 3 Months Family History Medical History Relation Name Comments Diabetes Brother Heart disease Brother High cholesterol Brother Arthritis Father Diabetes Father Heart attack Father Diabetes Mother Heart disease Mother Arthritis Sister Breast cancer Sister Depression Sister Diabetes Sister High cholesterol Sister Hypertension Sister Macular degen Sister Ovarian cancer Sister Relation Name Status Comments Brother Father Mother Sister Social History Tobacco Use Types Packs/Day Years Used Date Smoking Tobacco: Former Cigarettes 1 18 1 2012 Smokeless Tobacco: Never Alcohol Use Standard Drinks/Week Comments Yes 0 (1 standard drink = 0.6 oz pur e alcohol) Socially Interpersonal Safety Answer Date Record ed Is there anyone in your life that is hurting or threatening you in anyway? Not on file 08/11/2022 Physical Indicators of Abuse No evidence of phys ical abuse 08/11/2022 Comments No Sex and Gender Information Value Date Recorded Sex Assigned at Not on file Legal Sex Female 3:01 PM EDT Gender Identity Not on file Sexual Orientation Not on file Last Filed Vital Signs Vital Sign Reading Time Taken Comments Blood Pressure 133/74 07/20/2023 1:37 PM EST Pulse 96 07/20/2023 1:37 PM EST Temperature 36.4 ??C (97.6 ??F) 07/20/2023 1:37 PM ES T Respiratory Rate - - Oxygen Saturation 97% 07/20/2023 1:37 PM EST Inhaled Oxygen Concentration - - Weight 65.3 kg (144 lb) 07/20/2023 1:37 PM EST Height 157.5 cm (5' 2 ) 07/20/2023 1:37 PM EST Body Mass Index 26.34 07/20/2023 1:37 PM EST Plan of Treatment Health Maintenance Due Date Last Done Comments Pneumococcal Vaccine (2 - 49 years) (1 of 2 - PCV) 02/20/1968 Pneumococcal Vaccine (50+ years) (1 of 2 - PCV) 02/20/1968 Diabetic eye exam 02/20/1972 LDL monitoring 02/20/1972 Urine Microalbumin 02/20/1972 HIV screening 1975 Hepatitis C screening 02/20/1980 Tetanus adult (Td q 10,TDAP once) 1982 Cervical cancer screening 1983 Shingles vaccine (Shingrix) (1 of 2 - Shingrix (RZV) 2 Dose Standard Series) 02/20/2012 Diabetic foot exam 04/01/2019 04/01/2018, 04/01/2018 RSV Discussion (1 - Risk 60-74 years 1-dose series) 2022 Hemoglobin A1C 07/29/2023 01/26/2023, 0312/2022, 12/27/2020, Additional history exists Influenza vaccine 01/10/2024 Covid-19 vaccine series ( season) 2024 11/05/2020, 10/08/2020 Colon cancer screening, Colonoscopy 02/02/2031 02/02/2021, 05/12/2020 Meningococcal Vaccine Aged Out No chaya wesley eligible based on patient's age to complete this topic Insurance [place]ID [place] [employer] [facility] [place] Care Teams Enrichment Director Relationship Specialty Start Date End Date Sabrina Redd PA [address] [facility] [place] [address] PCP - General 07/12/22
--- OUTSIDE RECORDS SUMMARY | 2024-07-30 10:48 | XMS_ITS | Encounter Summary ---
Author Organization [facility] Address [address] [place] [address] Care Team Providers Care Qa Reviewer Name Role Phone Steffi Escalera APRN Primary Care Provider Myesha Hwang MD Unavailable [phone] Encounter Details Date Type Department Care Team (Late st Contact Info) Description 08/23/2023 Scanned Document [facility] NEUROLOGY SCAN Neurology, Scan Social History Tobacco Use Types Packs/Day Years [...] on filedocumented in this encounter Care Teams Qa Reviewer Relationship Specialty Start Date End Date Steffi Escalera APRN [address] [address] PCP - General 01/15/23 Myesha Hwang MD [address] [place] [id number] Gastroenterology 04/09/23 documented as of this encounter
--- OUTSIDE RECORDS SUMMARY | 2024-07-30 10:48 | XMS_ITS ---
Author Organization [facility] Address [address], [place] [id number] Care Team Providers Care Job Estimator Name Role Phone No, PCP Primary Care Provider Ebony Basurto Unavailable Social History Sex Assigned At : Social History Observation Description Sex Assigned At Female Encounters Encounter Location Date Provider Diagnosis [facility] [address] [place] [phone] 05/27/2024 Ebony Reyes Plan Of Treatment Next Appt Details Provider Name:Ebony Hilliard, 08/12/2024 10:00:00 AM, [facility], [address] [place] [address], [phone], Progress Notes * Jazmine CALDERADOB:[birth year] (64 yo F)Acc No.[id number]:05/27/2024 Case Management Patient:?Jazmine CALDERA Provider:?Ebony Reyes :1960???Age:64 Y???Sex:Female D ate:05/27/2024 Address:[address], [facility] Pcp:PCP No Subjective: * Chief Complaints: * ??? * HPI: ???Social Service:?Date of encounter?Date:05/27/2024.?Referral Source?walk-in, self, returning client.?Interpretation for medical provider?Mail flower buncher or picker, Benefits/DENTAL.?Action Taken?[facility]?Access to healthcare Called to speak to auto service representative regarding dental offices in Pt area..?Advocacy?Phone call to DTA.?Follow-up Required:?yes.?Pt comprehension?Pt agrees with plan.?Action taken (old)?item obtained.? Pt needs immediate attention for dental, she has several teeth that are actually implants and they are loose, and one seems infected with puffiness around the tooth is very red, and is causing bad pain. I contacted [facility] for dental. I spoke to auto service representative Augusta, explained the situation, had the Pt on line, requested assistance where Pt can get immediate care. Augusta stated the Pt has [employer] Program, and has information for General dentistry along with the Oral surgeons as well. Pt is housed in [facility], needs dental care [facility]. Ms. Deras is sending email with the nearby offices for Pt to call/contact and ask for appointment. If she has any issues to call back and infrom them. * Medical History:? Objective: * Vitals:? Assessment: Plan: * Treatment: * Images: Billing Information: * Visit Code:? * Procedure Codes:? Care Plan Details* * Sign off status: Completed true * Provider:?Ebony Reyes Date:? Generated for Carri ferrell/Timothy/Ericasmitting on:?07/30/2024 10:48 AM EST History and Physical Notes * HPI (History of Present Illness) Category Sub-Category Detail Notes Social Service Referral Source walk-in, self, r eturning client Interpretation for medical provider Mail flower buncher or picker, Benefits/DENTAL Action taken (old) item obtained Advocacy Phone call to DTA Follow-up Required: yes Pt comprehension Pt agrees with plan Action Taken [facility] : Access to healthcare Called to speak to auto service representative regarding dental offices in Pt area. Date of encounter Date:05/27/2024
--- OUTSIDE RECORDS SUMMARY | 2024-07-30 10:48 | XMS_ITS | Clinical Summary ---
Author Organization [facility] Address [address] [place] [address] Care Team Providers Care Centrifugal Separator Name Role Phone Lucas Wen APRN Primary Care Provider Sina lopez Allergies Active Allergy Reactions Criticality Noted Date Comments Milnacipran Palpitations,Other ( See Comments) Medium 02/12/2019 Tachycardia Clopidogrel Rash Low 11/01/2022 Promethazine Palpitations,Other ( See Comments) Medium 04/10/2012 Tachycardia 180/min - she had to be taken to ER. Medications Medication Sig Dispensed Refills Start Date End Date Status SfYvz-KrSapr-BR-B Cmp-C-Biot (INTEGRA PLUS) CAPS Take 1 tablet by mouth daily. 90 capsule 1 08/06/2019 Active albuterol (PROVENTIL HFA;VENTOLIN HFA) 108 (90 Base) MCG/ACT inhaler Inhale 1 puff into the lungs every 4 (four) hours as needed. 0 01/11/2020 Active Lancets (ONETOUCH ULTRASOFT) lancetsIndications:Ty pe 2 diabetes mellitus without complication, without long-term current use of insulin (HCC) Test one to two times daily as directed 100 each 3 04/29/2020 Active glucose blood test stripIndications:Type 2 diabetes mellitus without complication, without long-term current use of insulin ([facility]) Test one to two times daily as directed 100 each 3 04/29/2020 Active Apremilast (OTEZLA PO) Take 1 tablet by mouth 2 (two) times a day. 0 Active ondansetron (ZOFRAN-ODT) 4 MG disintegrating tablet Take 1 tablet (4 mg total) by mouth every 8 (eight) hours as needed for nausea. 15 tablet 0 08/03/2020 Active pantoprazole (PROTONIX) 40 MG tablet Take 1 tablet (40 mg total) by mouth every morning on an empty stomach. 30 tablet 1 09/13/2020 Active butalbital-acetaminop hen-caffeine 50-325-40 MG per tabletIndications:Chr onic migraine without aura without status migrainosus, not intractable Take 1 tablet by mouth every 4 (four) hours as needed for headaches. 30 tablet 1 09/28/2020 Active Glucose Blood (OneTouch Ultra) STRPIndications:Type 2 diabetes mellitus without complication, without long-term current use of insulin (HCC) 1 EACH BY IN VITRO ROUTE 2 (TWO) TIMES A DAY. TEST ONE TO TWO TIMES DAILY 100 strip 3 11/19/2020 Active clobetasol (TEMOVATE) 0.05 % cream Apply topically 2 (two) times a day. 30 g 2 12/23/2020 Active traMADol (ULTRAM) 50 MG tabletIndications:Art hritis,Fibromyalgia TAKE 1 TABLET BY MOUTH TWICE A DAY 60 tablet 0 03/27/2021 Active pregabalin (LYRICA) 75 MG capsule TAKE 1 CAPSULE BY MOUTH TWICE A DAY 60 capsule 0 03/27/2021 Active topiramate (TOPAMAX) 100 MG tabletIndications:Chr onic migraine without aura without status migrainosus, not intractable Take 1 tablet (100 mg total) by mouth 2 (two) times a day. 180 tablet 0 04/05/2021 Active pravastatin (PRAVACHOL) tablet 40 mg Take 1 tablet (40 mg total) by mouth daily. 90 tablet 0 04/05/2021 Active nateglinide (STARLIX) tablet 120 mgIndications:Type 2 diabetes mellitus without complication, without long-term current use of insulin (HCC) Take 1 tablet (120 mg total) by mouth 2 (two) times a day. 180 tablet 0 04/05/2021 Active metFORMIN (GLUCOPHAGE) tablet 500 mgIndications:Type 2 diabetes mellitus without complication, without long-term current use of insulin (HCC) Take 1 tablet (500 mg total) by mouth 2 (two) times a day with meals. 180 tablet 0 04/05/2021 Active memantine (NAMENDA) 10 MG tabletIndications:Mem ory difficulty Take 1 tablet (10 mg total) by mouth 2 (two) times a day. 180 tablet 0 04/05/2021 Active fluticasone-vilantero l (Breo Ellipta) 100-25 MCG/INH inhalerIndications:Mo derate persistent asthma with (acute) exacerbation INHALE 1 PUFF DAILY 1 each 1 04/05/2021 Active tiZANidine (ZANAFLEX) 4 MG tabletIndications:Fib romyalgia TAKE 1 TABLET (4 MG TOTAL) BY MOUTH EVERY 8 (EIGHT) HOURS NEEDED FOR UP TO 30 DAYS. 90 tablet 1 06/22/2021 Active Active Problems Problem Noted Date Diagnosed Date Anemia 11/01/2022 Absolute anemia 12/29/2020 Nausea & vomiting 01/03/2020 Overview: Last Assessment & Plan: Prior history of [...] persistent asthma with acute exacerbati on 09/02/2019 History of colonic polyps 04/15/2019 Overview: Last Assessment & Plan: Adenoma carcinoma [...] prep, 3 year recall Recall colonoscopy due:01/2024 Iron deficiency anemia 04/15/2019 Overview: Last Assessment & Plan: Continue oral iron Need old records for review Pt was followed by [facility] in [place], will need f/u care here also Overview: Last Assessment & Plan: Continue oral iron Need old records for review Pt was followed by [facility] in [place], will need f/u care here also Last Assessment & Plan: Continue oral iron Need old records for review Pt was followed by [facility] in [place], will need f/u care here also Last Assessment & Plan: Continue oral iron Need old records for review Pt was followed by [facility] in [place], will need f/u care here also Hematemesis 04/15/2019 Overview: Last Assessment & Plan: No recent [...] Will get old records from prior GI Gastroesophageal reflux disease 04/15/2019 Overview: Last Assessment & Plan: LSM / diet re GERD. Controlled with omeprazole 20mg daily daily, continue this. We discussed the minimal potential risk with terminal carman PPI use. Based on AGA expert review the quality of evidence behind mcc kidney disease, dementia, bone fractures, and infection with PPI use is low. The current data suggests that mcc PPI use does not require routine screening [...] We discussed the minimal potential risk with mcc PPI use. Based on AGA expert review the quality of evidence behind mcc kidney disease, dementia, bone fractures, and infection with PPI use is low. The current data suggests that mcc PPI use does not require routine screening [...] We discussed the minimal potential risk with terminal carman PPI use. Based on AGA expert review the quality of evidence behind terminal carman kidney disease, dementia, bone fractures, and infection with PPI use is low. The current data suggests that mcc PPI use does not require routine screening [...] of the bed 6 to 12 inches. History of colonic polyps 04/15/2019 Overview: Last Assessment & Plan: High fiber diet. Adenoma-carcinoma sequence discussed. Last colon: 05/12/2020--poor prep despite 2 day prep, 3 year recall, no abnormalities found Recall colonoscopy due: 05/2023 Last Assessment & Plan: High fiber diet. Adenoma-carcinoma sequence discussed. Last colon: 05/12/2020--poor prep despite 2 day prep, 3 year recall, no abnormalities found Recall colonoscopy due: 05/2023 Type 2 diabetes mellitus wit hout complication, without long-term current use of insulin 02/12/2019 Overview: 07/2018: A1c 6.7% Fibromyalgia 02/12/2019 Cerebral aneurysm, nonruptured 02/12/2019 Overview: CTA of brain 05/2018: stable 4mm aneurysm left superior cerebral artery. Stable possible 1mm aneurysm at the lateral margin of the left cavernous carotid artery. Left temporal to superior cerebral artery bypass graft distal to the aneurysm and aneurysm clip appears to be patent. Overview: unruptured left SCA aneurysm s/p trapping/bypass by Dr. Colin in [place] in 04/2015 Chronic migraine without aur a without status migrainosus, not intractable 02/12/2019 Recurrent major depressive disorder, in full rem ission 02/12/2019 Chronic anemia 02/12/2019 Memory difficulty 02/12/2019 History of gastric bypass 02/12/2019 History of GI bleed 02/12/2019 Mixed hyperlipidemia 02/12/2019 Reflux esophagitis 02/12/2019 BMI 28.0-28.9,adult 02/12/2019 Cobalamin deficiency 10/26/2018 Tubular adenoma of colon 10/26/2018 History of syncope 10/24/2018 Eczema 04/01/2018 Psoriasis 04/01/2018 Generalized anxiety disorder 12/21/2017 History of surgery for cerebral aneurysm 018 Moderate major depression 12/21/2017 Steatosis of liver 12/03/2017 Diabetic sensory polyneuropathy 07/29/2017 Uncontrolled type 2 diabetes mellitus 07/29/2017 Primary fibromyalgia syndrome 04/24/2013 History of hysterectomy 12/16/2010 Resolved Problems Problem Noted Date Diagnosed Date Resolved Date Gastric outlet obstruction 09/28/2020 0 09/28/2020 Nausea & vomiting 09/11/2020 09/28/2020 Vomiting 09/09/2020 09/28/2020 Immunizations Name Administration Dates Next Due Covid-19 (Moderna 12+) 100mcg/0.5mL dosage 11/05,10/08/2020 Family History Medical History Relation Name Comments Arthritis Father Diabetes Father Heart attack Father Diabetes Half-Brother 1 Alvaro Heart disease Half-Brother 1 Alvaro Hyperlipidemia Half-Brother 1 Alvaro No Sig Med Hx Half-Brother 2 No Sig Med Hx Half-Brother 3 Arthritis Half-Sister 1 wilma Depression Half-Sister 1 wilma Diabetes Half-Sister 1 wilma Hyperlipidemia Half-Sister 1 wilma Hypertension Half-Sister 1 wilma Macular degeneration Half-Sister 1 wilma Breast cancer Half-Sister 2 Ovarian cancer Half-Sister 3 No Sig Med Hx Half-Sister 4 No Sig Med Hx Half-Sister 5 Diabetes Mother Heart disease Mother No Sig Med Hx Son Gabriel Relation Name Status Comments Father Half-Brother 1 Alvaro Alive Half-Brother 2 Alive Half-Brother 3 Alive Half-Sister 1 wilma Alive Half-Sister 2 Half-Sister 3 Half-Sister 4 Alive Half-Sister 5 Alive Half-Sister 6 Alive Half-Sister 7 Alive Mother Son Gabriel Alive Social History Tobacco Use Types Packs/Day Years Used Date Smoking Tobacco: Former Cigarettes 1 18 2012 Smokeless Tobacco: Never Alcohol Use Standard Drinks/Week Comments No 0 (1 standard drink = 0.6 oz pur e alcohol) Sex and Gender Information Value Date Recorded Sex Assigned at Female 02/17/2019 2:37 PM EDT Gender Identity Female 08/03/2020 2:18 PM EST Sexual Orientation Not on file Job Start Date Occupation Industry Not on file Not on file Not on file Last Filed Vital Signs Vital Sign Reading Time Taken Comments Blood Pressure 116/57 11/02/2022 7:20 AM EDT Pulse 71 11/02/2022 7:20 AM EDT Temperature 37 ??C (98.6 ??F) 11/02/2022 7:20 AM EDT Respiratory Rate 18 11/02/2022 7:20 AM EDT Oxygen Saturation 100% 11/02/2022 7:20 AM EDT Inhaled Oxygen Concentration - - Weight 60.3 kg (133 lb) 11/01/2022 7:40 PM EDT Height 160 cm (5' 3 ) 11/01/2022 7:40 PM EDT Body Mass Index 23.56 11/01/2022 7:40 PM EDT Plan of Treatment Health Maintenance Due Date Last Done Comments Pneumococcal Vaccine (1 of 2 - PCV) 02/20/1968 Diabetes: Foot Exam 02/20/1980 Shingrix-Zoster Vaccine (2 of 2) 05/12/2019 03/17/2019 (Declined) Diabetes: Microalbumin Test 03/03/2020 03/03/2019 Depression Screening 08/07/2020 08/07/2019 Cervical Cancer Screening (Pap Smear) 10/09/2020 10/09/2017 Diabetes: Eye Exam (No Retinopathy) 03/17/2021 03/17/2019 (Pt Reported - Need documentation) Preventative Health Evaluation 07/27/2021 07/27/2020, 08/07/2019, 08/07/2019 BMI Counseling 09/16/2021 09/16/2020, 04/11, 01/22/2020, Additional history exists Breast Cancer Screening (Mammogram) 05/13/2022 05/13/2020, 01/25/2018 Hemoglobin A1C Due 07/29/2023 01/26/2023, 0 08/25/2022, 12/27/2020, Additional history exists Colon Cancer Screening (Colonoscopy) 02/03/2024 02/02/2021, 07/30/2014 COVID-19 Vaccine ( season) 2024 11/05/2020, 10/08/2020 Influenza Vaccine (#1) 2024 DTap / Tdap / Td (2 - Td or Tdap) 03/17/2029 03/17/2019 (Declined) RSV Adult > 60+ Yrs or (1 - 1-dose 75+ series) 2037 Hepatitis C Screening Completed 03/03/2019 Hepatitis B Vaccines Aged Out No long er eligible based on patient's age to complete this topic RSV Ped < 20 months Aged Out No longe r eligible based on patient's age to complete this topic Goals Goal Patient Goal Type Associated Problems Recent Progress Patient-Stated? Author Patient will be complaint with medical appointments and orders Chronic Care Management No Johan Bang, RN Patient will adhere to treatment plan Chronic Care Management No Johan Bang RN Advance Directives For more information, please contact: [phone] Latest Code Status on File Code Status Date Activated Date Inactivated Comments Full Code 11/01/2022 7:14 PM 11/02/2022 8:52 PM This code status was ascertained in the following way: TBD . Code Status History Code Status Date Activated Date Inactivated Comments Full Code 09/09/2020 2:35 PM 09/13/2020 11:32 PM This c ode status was ascertained in the following way: Paitent. . Full Code 05/11/2020 9:41 AM 05/11/2020 8:37 PM This code status was ascertained in the following way: discussion with patient. Full Code 01/03/2020 7:25 PM 01/06/2020 7:55 PM Care Teams Centrifugal Separator Relationship Specialty Start Date End Date Lucas Wen APRN PCP - General Cardiology 11/01/22
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
--- OUTSIDE RECORDS SUMMARY | 2024-07-30 10:48 | XMS_ITS ---
Author Organization [facility] Address [address], [place] [id number] Care Team Providers Care Medical Sales Representative Name Role Phone No, PCP Primary Care Provider Ebony Basurto Unavailable Social History Sex Assigned At : Social History Observation Description Sex Assigned At Female Encounters Encounter Location Date Provider Diagnosis [facility] [address] [place] [phone] 04/17/2024 Ebony Reyes Plan Of Treatment Next Appt Details Provider Name:Ebony Hilliard, 08/12/2024 10:00:00 AM, [facility], [address] [place] [address], [phone], Progress Notes * Jazmine CALDERADOB:[birth year] (64 yo F)Acc No.[id number]:04/17/2024 Case Management Patient:?Jazmine CALDERA Provider:?Ebony Reyes :1960???Age:64 Y???Sex:Female D ate:04/17/2024 Address:[address], [facility] Pcp:PCP No Subjective: * Chief Complaints: * ??? * HPI: ???Social Service:?Date of encounter?Date:, 04/17/2024.?Referral Source?walk-in, self, returning client.?Interpretation for medical provider?housing, Mail orange picker.?Action Taken?Housing?Application [employer] application filled out, copies made for Pt/ and file as well, (mailed out today)[employer] application filled out, copy in file and provided to client (mailed out today).?Follow-up Required:?yes.?Pt comprehension Pt agrees with plan.?Action taken (old)?form completion, Items given to client.?New appointment provided to client, client maybe moving out of state, not sure as of yet but will keep me posted. Mail orange picker and given to pt. * Medical History:? Objective: * Vitals:? Assessment: Plan: * Treatment: * Images: Billing Information: * Visit Code:? * Procedure Codes:? Care Plan Details* * Sign off status: Completed true * Provider:?Ebony Reyes Date:? Generated for Carri ferrell/Timothy/eTransmitting on:?07/30/2024 10:48 AM EST History and Physical Notes * HPI (History of Present Illness) Category Sub-Category Detail Notes Social Service Referral Source walk-in, self, r eturning client Interpretation for medical provider housing, Mail orange picker Action taken (old) form completion, Ite ms given to client Follow-up Required: yes Pt comprehension Pt agrees with plan Action Taken Housing: Application [employer] application filled out, copies made for Pt/ and file as well, (mailed out today) [employer] application filled out, copy in file and provided to client (mailed out today) Date of encounter Date:, 04/17/2024
== END 2024-07-30 10:15 | disposition home or self-care (01) ==
LOC: HO.MAMMO 10:14
PROVIDERS: PCP Internal Medicine; Visit Provider Internal Medicine
DX: N64.52 Nipple discharge (principal); N64.89 Other specified disorders of breast; R92.323 Mammographic fibroglandular density, bilateral breasts; N63.21 Unspecified lump in the left breast, upper outer quadrant
CPT/HCPCS: 76642; 77062; 77066

== ENCOUNTER → 2024-07-30 10:30 | Outpatient (BNV) | payer MEDICARE, SELFPAY | PROVIDERS: PCP Internal Medicine; Visit Provider Internal Medicine | DX: N64.52 Nipple discharge (principal) | CPT/HCPCS: 76642; 77066; G0279 ==

== ENCOUNTER 2024-08-12 08:29 | Outpatient (AMB) | payer MEDICARE, MEDICAID, SELFPAY ==
--- NOTE | 2024-08-12 08:33 | MHC.OFFVIS ---
Vital Signs 08/12/24 08:48 Height 5 ft 3 in Weight 143 lb 4 oz BMI 25.4 BP 142/64 H Blood Pressure Location Lt brachial Position Sitting Pulse 80 Intake Visit Reasons: Lt Breast Ultrasound Biopsy Intake Note: Patient is seen in office for ultrasound biopsy CONSULT, left breast 3 o'clock mass. Pt c/o: reports she feels lump left breast, reports bilateral nipple discharge, reports no change in size or shape of the breasts. Bx sched:08/27/24 @ 8am Bulbs Farmworker Required: No Accompanied by: Self / Same As Patient Allergies clopidogrel [From Plavix] Allergy (Severe, Verified 08/12/24 08:49) Rash milnacipran [From Savella] Adverse Reaction (Severe, Verified 08/12/24 08:49) tachycardia promethazine [From Phenergan] Adverse Reaction (Severe, Verified 08/12/24 08:49) tachycardia HPI Comments Details: 64-year-old female patient presenting following a recent diagnostic mammogram performed on 07/30/2024 along with a left breast ultrasound. This revealed a left breast solid oval circumscribed mass in the 03:00 o'clock location approximately 5 cm from the nipple. The lesion measured 6 x 5 x 7 mm by ultrasound. Lesion was felt to be suspicious for malignancy an ultrasound-guided core biopsy is recommended. She is scheduled for this biopsy at the [facility] on 08/27/2024. She previously underwent a bilateral breast reduction following gastric bypass surgery. Her family history is significant for a sister with breast cance at the age of 53; she the following year of the disease. The patient denies any palpable mass but did recently no discharge from the nipples. Her menarche was age 14, she is with 1 miscarriage. Her 1st child was born when she was 42. She denied hormone replacement therapy. She denies any previous breast biopsies. Her breast density score was C. PFSH Medical History Rheumatoid arthritis Psoriasis Migraine Brain aneurysm Chronic anemia Overweight (BMI 25.0-29.9) Chronic pain Allergic rhinitis GERD without esophagitis Diabetes mellitus Pure hypercholesterolemia Cardiac murmur Surgical History History of abdominoplasty S/P brachioplasty History of appendectomy History of cholecystectomy History of colon resection History of reduction mammoplasty History of rotator cuff surgery History of gastric bypass History of carpal tunnel surgery of right wrist History of carpal tunnel surgery of left wrist Hx of brain surgery Family History Sister Breast cancer Other Diabetes Schizophrenia Social History Housing: Apartment Patient Tobacco Use Status: Former Tobacco user e-Cigarette/Vaping Use: Never Used Second Hand Smoke Exposure: No service: No Current occupational status: retired Current occupational exposures/hazards: No Cognitive needs: No Hearing needs: No Vision needs: No Female Reproductive History Menstrual Age of Menarche: 14 Total pregnancies: 2 Number of Living Children: 1 Review of Systems Const All systems reviewed & are unremarkable except as noted in HPI and below Denies chills, Denies fever(s), Denies headache(s), Denies poor appetite and Denies weakness ENT Denies headache(s) Card Denies chest pain, Denies irregular heart rhythm, Denies palpitations and Denies dyspnea Resp Denies cough, Denies excessive phlegm production and Denies dyspnea GI Denies abdominal pain, Denies bloating, Denies change in bowel habits, Denies constipation, Denies heartburn, Denies diarrhea, Denies nausea and Denies vomiting Denies urinary frequency Musc Denies back pain, Denies muscle weakness and Denies numbness Skin/Breast Denies changing lesions and Denies unusual bruising Neuro Denies headache(s), Denies numbness, Denies paresthesias and Denies weakness Psych Denies anxiety and Denies depression Endo Denies palpitations Keyon/Lymph Denies lymphadenopathy Physical Exam Const General: cooperative and no acute distress Nutritional Appearance: well nourished Orientation/consciousness: patient oriented x3 Limitations: no limitations HEENT Other: Left side craniotomy incision Ears: hearing grossly normal bilaterally Chest Other: Left breast: No skin change, no nipple retraction, no nipple discharge, no palpable mass, no enlarged lymph nodes. Right breast: No skin change, no nipple retraction, no nipple discharge, no palpable mass, no enlarged lymph nodes Resp Effort & Inspection: normal respiratory effort, no audible wheezes, no cough and no respiratory distress Cardio Jugular venous distension: no JVD GI Inspection: Yes normal to inspection Skin Other: Warm, dry, no rash Neuro General: patient oriented x3 Extrem General: Yes no clubbing, cyanosis or edema Assessment & Plan Assessment & Plan (1) Abnormal ultrasound of breast: Code(s): R92.8 - Other abnormal and inconclusive findings on diagnostic imaging of breast Category: Medical (2) Discharge from breast: Code(s): N64.52 - Nipple discharge Category: Medical Plan 64-year-old female patient presenting with a recent history of bilateral nipple discharge found on a diagnostic mammogram to have a density in the left breast at the 3 o'clock position approximately 5 cm from the nipple. This was felt to be suspicious for malignancy an ultrasound-guided core biopsy recommended. She is scheduled for this procedure on 08/27/2024. Examination today revealed no suspicious findings throughout the breast although there is thickened breast tissue in the upper outer quadrants of both breasts. She also has previously undergone bilateral breast reductions and this may be the result of subsequent scar tissue. I recommended she return approximately 1 week following the biopsy to review the pathology results and discuss treatment options. Orders: Orders US breast ndl core biopsy LT Today N64.52 - Nipple discharge, R92.8 - Other abnormal and inconclusive findings on diagnostic imaging of breast Coding Level of Care Code New Pt Level 4 (49213) Diagnoses Abnormal ultrasound of breast R92.8 Discharge from breast N64.52
[2024-08-12 08:48] VITALS: BP 142/64; PULSE 80; BMI 25.4
--- OUTSIDE RECORDS SUMMARY | 2024-08-12 08:54 | XMS_ITS | Encounter Summary ---
Author Organization [facility] Address [address] [place] [address] Care Team Providers Care Merchandising Stock Associate Name Role Phone Sabrina Redd Primary Care Provider [phone] Encounter Details Date Type Department Care Team (Late st Contact Info) Description 04/09/2019 Abstract [facility] [address] [facility] [address] [facility] [place] [address] Antoni Patricio MD [address] [place] [id number] Social History Tobacco Use Types Packs/Day Years [...] on filedocumented in this encounter Care Teams Merchandising Stock Associate Relationship Specialty Start Date End Date Sabrina Redd PA [address] [place] [address] PCP - General 07/12/22 documented as of this encounter
--- OUTSIDE RECORDS SUMMARY | 2024-08-12 08:54 | XMS_ITS ---
Author Organization [facility] Address [address] [place], [place] [id number] Care Team Providers Care Pit Laborer Name Role Phone No, PCP Primary Care Provider Ebony Basurto Unavailable Social History Sex Assigned At : Social History Observation Description Sex Assigned At Female Encounters Encounter Location Date Provider Diagnosis [facility] [address] [place] [phone] 05/30/2024 Ebony Reyes Plan Of Treatment Next Appt Details Provider Name:Ebony Hilliard, 08/19/2024 09:00:00 AM, [facility] It Application Development Manager, [address] [place] [address], [phone], Progress Notes * Jazmine CALDERADOB:[birth year] (64 yo F)Acc No.[id number]:05/30/2024 Case Management Patient:?Jazmine CALDERA Provider:?Ebony Reyes :1960???Age:64 Y???Sex:Female D ate:05/30/2024 Address: [address], [facility] Pcp:PCP No Subjective: * Chief Complaints: * ??? * HPI: ???Social Service:?Date of encounter?Date:05/30/2024.?Referral Source?walk-in, self, returning client.?Interpretation for medical provider?Hygiene items/DENTAL.?Advocacy?Phone call to DTA, Phone call(s) for community resources/ CALLS TO ALICE App PROGRAM?.?Follow-up Required:?yes.?Pt comprehension?Pt agrees with plan.?Action taken (old)?Items given to client, item obtained.? Pt new appt provided, no mail today, once again today [facility] explained that i was suppose to receive a listing of dental offices in the area for the Pt, and that i never received it, not in spam either. Assembly Riveter did check and seen there was a previous call made and apologized for the lack of information requested. Assembly Riveter resubmitted the information via Email. Printed provided [...] * Provider:?Ebony Reyes Date:? Generated for Carri ferrell/Timothy/eTreba on:?08/12/2024 08:54 AM EST History and Physical Notes * HPI (History of Present Illness) Category Sub-Category Detail Notes Social Service Referral Source walk-in, self, r eturning client Interpretation for medical provider Hygi gaye items/DENTAL Action taken (old) Items given to jeremy t, item obtained Advocacy Phone call to David GONZALEZ call(s) for community resources/ CALLS TO ALICE App PROGRAM Follow-up Required: yes Pt comprehension Pt agrees with plan Date of encounter Date:05/30/2024
--- OUTSIDE RECORDS SUMMARY | 2024-08-12 08:54 | XMS_ITS | Encounter Summary ---
Author Organization [facility] Address [address] [place] [address] Care Team Providers Care Apprentice Embalmer Name Role Phone Steffi Escalera APRN Primary Care Provider Myesha Hwang MD Unavailable [phone] Encounter Details Date Type Department Care Team ([facility] st Contact Info) Description 02/01/2023 Scanned Document [facility] [address] [facility] [address] [place] [phone] Marina Davis PA 113 [facility] [address] [place] [address] Social History Tobacco Use Types Packs/Day Years [...] on filedocumented in this encounter Care Teams Apprentice Embalmer Relationship Specialty Start Date End Date Steffi Escalera APRN [address] [facility] [address] [place] [address] PCP - General 01/15/23 Myesha Hwang MD [address] [place] [address] Gastroenterology 04/09/23 documented as of this encounter
--- OUTSIDE RECORDS SUMMARY | 2024-08-12 08:54 | XMS_ITS | Patient Health Record ---
Author Organization [facility] Address [address] [place], [place] [id number] Care Team Providers Care Senior Writer Name Role Phone No, PCP Primary Care Provider Ebony Basurto Unavailable [phone] Cinthya Gautam Unavailable [phone] Barron Noel Unavailable [phone] Reason For Referral No Information Social History Sex Assigned At : Social History Observation Description Sex Assigned At Female Encounters Encounter Location Date Provider Diagnosis [facility] [address] [place] [id number] 08/20/2023 Barron Noel [facility] [address] [place] [address] [id number] 08/22/2023 Barron Noel [facility] [address] [place] [address] [id number] 08/31/2023 Barron Noel [facility] [address] [place] [address] [id number] 09/03/2023 Barron Noel [facility] [address] [place] [address] [id number] 09/07/2023 Barron Noel [facility] [address] [place] [address] [id number] 10/10/2023 Barron Noel [facility] [address] [place] [address] [id number] 10/23/2023 Barron Noel [facility] [address] [place] [address] [id number] 01/01/2024 Ebony Reyes [facility] [address] [place] [address] [id number] 01/08/2024 Ebony Reyes [facility] [address] [place] [address] [id number] 01/28/2024 Ebony Reyes [facility] [address] [place] [address] [id number] 02/04/2024 Ebony Reyes [facility] [address] [place] [address] [id number] 03/04/2024 Ebony Reyes [facility] [address] [place] [address] [id number] 03/25/2024 Ebony YooBobo [facility] [address] [place] [address] [id number] 04/17/2024 Ebony Reyes [facility] [address] [place] [address] [id number] 05/27/2024 Ebony YooBobo [facility] [address] [place] [address] [id number] 05/30/2024 Ebony YooBobo [place] [id number] [place] [id number] 08/29/2023 Cinthya Gautam Plan Of Treatment Next Appt Details Provider Name:Ebony Hilliard, 08/19/2024 09:00:00 AM, [facility], [address] [place] [address], [id number], Insurance Providers Payer Name Payer Address Payer Phone Subscriber Number Group Number Insured Name Patient Relationship to Insured Coverage Start Date Coverage End Date [place] Medicare [place] En[employer] Services [facility] [address] [place] [address] [id number] Graciela andres Jazmine Self - patient is the insured 4 [employer] [address] [address] [place], [place] [id number] Graciela andres Jazmine Self - patient is the insured 4
--- OUTSIDE RECORDS SUMMARY | 2024-08-12 08:54 | XMS_ITS | Encounter Summary ---
Author Organization [facility] Address [address] [place] [address] Care Team Providers Care Manager Perioperative Name Role Phone Steffi Escalera APRN Primary Care Provider Myesha Hwang MD Unavailable [phone] Encounter Details Date Type Department Care Team (Late st Contact Info) Description 02/06/2023 Scanned Document [facility] [address] [address] [place] [address] Social History Tobacco Use Types [...] on filedocumented in this encounter Care Teams Manager Perioperative Relationship Specialty Start Date End Date Steffi Escalera APRN [address] [facility] [address] [place] [address] PCP - General 01/15/23 Myesha Hwang MD [address] [place] [address] Gastroenterology 04/09/23 documented as of this encounter
--- OUTSIDE RECORDS SUMMARY | 2024-08-12 08:54 | XMS_ITS | Encounter Summary ---
Author Organization [facility] Address [address] [place] [address] Care Team Providers Care Diagrammer Name Role Phone Sabrina Redd Primary Care Provider [phone] Encounter Details Date Type Department Care Team (Late st Contact Info) Description 04/11/2019 Scanned Document [facility] [address] [facility] [address] [facility] [place] [address] Provider, Historical . Social History Tobacco Use [...] on filedocumented in this encounter Care Teams Diagrammer Relationship Specialty Start Date End Date Sabrina Redd PA [address] [place] [address] PCP - General 07/12/22 documented as of this encounter
--- OUTSIDE RECORDS SUMMARY | 2024-08-12 08:54 | XMS_ITS | Encounter Summary ---
Author Organization [facility] Address [address] [place] [address] Care Team Providers Care Prefitter Name Role Phone Maurilio Burgess MD Primary Care Provider [phone] Reason for Referral * Imaging (Routine) - Authorized Specialty Diagnoses / Procedures Referred By Scott montero Referred To Contact Radiology Diagnoses Cerebral aneurysm, nonruptured Procedures CT Angio Head wo and/or w Contrast Loan Sidhu PA [address] [facility], [address] [address] Phone: tel: fax: [facility] CT Scan [address] [place] [address] Phone: tel: Referral ID Status Reason Start Date Expiration Date V isits Requested Visits Authorized [id number] Authorized 07/03/2024 07/03/2025 1 1 Reason for Visit * Imaging (Routine) - Authorized Specialty Diagnoses / Procedures Referred By Scott montero Referred To Contact Radiology Diagnoses Cerebral aneurysm, nonruptured Procedures CT Angio Head wo and/or w Contrast Loan Sidhu PA [address] [facility], [address] [place] [address] Phone: tel: fax: [facility] CT Scan [address] [place] [address] Phone: tel: Referral ID Status Reason Start Date Expiration Date V isits Requested Visits Authorized [id number] Authorized 07/03/2024 07/03/2025 1 1 Encounter Details Date Type Department Care Team (Latest Contact Info) Description 07/14/2024 1:18 PM EST - 07/14/2024 11:59 PM EST Hospital Encounter [facility] CT Scan [address] [place] [address] Cerebral aneurysm, nonruptured Discharge Disposition: [...] mouth daily. blood-glucose meter (OneTouch Ultra2 Meter) [facility] 04/29/2020 fluticasone propionate (FLONASE) 50 mcg/actuation nasal [...] 08/26/2024 9:00 AM EDT Office Visit Neurosurgery [address] [place] [address] Saleem Quigley MD [facility] [address] [place] [address] documented as of this encounter Procedures Procedure [...] Signed Date: 07/16/2024 10:58 ET Workstation ID: [id number] Transcribed By: Self Edit Transcribed Date: 07/16/2024 10:11 ET Narrative 07/16/2024 10:58 AM EST PROCEDURE: Noncontrast head CT and CT angiogram of the [place]. 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 Gilberto Knox in [place]. 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 COMPARISON: Outside images dated 07/10/2023. TECHNIQUE: Noncontrast head CT followed by contrast-enhanced CT angiogram of the [place], with coronal and sagittal reformats. [...] head CT and CT angiogram of the [place]. HISTORY: Cerebral aneurysm, follow-up history of unruptured left superior cerebellar artery aneurysm treated bycraniotomy and trapping/bypass on May 05, [address] Gilberto Dao. 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 COMPARISON: Outside images dated 07/10/2023. TECHNIQUE: Noncontrast head CT followed by contrast-enhanced CT angiogramof the [place], with coronal and sagittal reformats. [...] Signed Date: 07/16/2024 10:58 ET Workstation ID: [id number] Transcribed By: Self Edit Transcribed Date: 07/16/2024 [...] mL documented in this encounter Care Teams Prefitter Relationship Specialty Start Date End Date Maurilio Burgess MD [address] [place] [address] Dr [address] [place], [place] PCP - General Internal Medicine 06/17/24 documented as of this encounter
--- OUTSIDE RECORDS SUMMARY | 2024-08-12 08:54 | XMS_ITS | Encounter Summary ---
Author Organization [facility] Address [address] [place] [address] Care Team Providers Care Director Of Public Safety Name Role Phone Lucas Wen APRN Primary Care Provider + Steffi Escalera APRN Primary Care Provider Myesha Hwang MD Unavailable [phone] Encounter Details Date Type Department Care Team (Late st Contact Info) Description 10/26/2022 Scanned Document [facility] - [address] [phone] Chris Sood MD [address] [place] [address] Social History Tobacco Use Types Packs/Day Years [...] filedocumented in this encounter Care Teams Director Of Public Safety Relationship Specialty Start Date End Date Lucas Wen APRN PCP - General Adult Health - EDWARD/SABAS/CLOTH DRIER/SLIVER LAP TENDER 10/20/22 01/14/23 Steffi Escalera APRN [address] [address] PCP - General 01/15/23 Myesha Hwang MD [address] [place] [address] Gastroenterology 04/09/23 documented as of this encounter
--- OUTSIDE RECORDS SUMMARY | 2024-08-12 08:54 | XMS_ITS | Encounter Summary ---
Author Organization [facility] Address [address] [place] [address] Care Team Providers Care Airline Attendant Name Role Phone Steffi Escalera APRN Primary Care Provider Myesha Hwang MD Unavailable [phone] Encounter Details Date Type Department Care Team (Late st Contact Info) Description 02/06/2023 Scanned Document [facility] [place] [facility] [address] [address] [place] [address] Social History Tobacco Use Types [...] on filedocumented in this encounter Care Teams Airline Attendant Relationship Specialty Start Date End Date Steffi Escalrea APRN [address] [facility] [address] [place] [address] PCP - General 01/15/23 Myesha Hwang MD [address] [place] [address] Gastroenterology 04/09/23 documented as of this encounter
--- OUTSIDE RECORDS SUMMARY | 2024-08-12 08:54 | XMS_ITS | Encounter Summary ---
Author Organization [facility] Address [address] [place] [address] Care Team Providers Care President And Chief Operating Officer Name Role Phone Sabrina Redd Primary Care Provider [phone] Encounter Details Date Type Department Care Team (Late st Contact Info) Description 07/14/2019 Scanned Document [facility] [address] [place] [address] Provider, Historical . Social History Tobacco Use [...] on filedocumented in this encounter Care Teams President And Chief Operating Officer Relationship Specialty Start Date End Date Sabrina Redd PA [address] [place] [address] PCP - General 07/12/22 documented as of this encounter
--- OUTSIDE RECORDS SUMMARY | 2024-08-12 08:55 | XMS_ITS ---
Author Organization [facility] Address [address] [place], [place] [id number] Care Team Providers Care Paint Grinder Name Role Phone No, PCP Primary Care Provider Ebony Basurto Unavailable REASON FOR VISIT housing Social History Sex Assigned At : Social History Observation Description Sex Assigned At Female Encounters Encounter Location Date Provider Diagnosis [facility] [address] [place] [id number] 08/12/2024 Ebony Reyes Plan Of Treatment Next Appt Details Provider Name:Ebony Hilliard, 08/19/2024 09:00:00 AM, [facility] Senior Staff Psychologist, [address] [place] [address], [phone], Progress Notes * Jazmine CALDERADOB:[birth year] (64 yo F)Acc No.[id number]:08/12/2024 Case Management Patient:?Jazmine CALDERA Provider:?Ebony Reyes :1960???Age:64 Y???Sex:Female D ate:08/12/2024 Address:[address], [facility] Pcp:PCP No Subjective: * Chief Complaints: * ???1. Housing. * Medical History:? Objective: Assessment: Plan: * Treatment: * Images: Billing Information: * Visit Code:? * Procedure Codes:? Care Plan Details* * Electronic signature of Jeffrey Reyes on 08/12/2024 at 08:54 AM EST Sign off status: Pending * Provider:?Ebony Reyes Date:? Generated for Carri ferrell/Timothy/Beny on:?08/12/2024 08:54 AM EST
--- OUTSIDE RECORDS SUMMARY | 2024-08-12 08:55 | XMS_ITS | Encounter Summary ---
Author Organization [facility] Address [address] [place] [address] Care Team Providers Care Interventional Technologist Name Role Phone Sabrina Redd Primary Care Provider [phone] Reason for Referral * Imaging (Routine) - Closed Specialty Diagnoses / Procedures Referred By Contac t Referred To Contact Diagnostic Radiology Procedures CTA Head w and/or wo IV Contrast Antoni Patricio MD [address] [place] [address] Phone: tel: fax: Referral ID Status Reason Start Date Expiration Date Visits Re quested Visits Authorized [id number] Closed 07/11/2023 07/10/2024 1 1 Encounter Details Date Type Department Care Team (Late st Contact Info) Description 07/11/2023 Scanned Document [facility] SCHEDULING [address] [place], [place] [phone] Antoni Patricio MD [address] [place] [address] Social History Tobacco Use Types [...] on filedocumented in this encounter Care Teams Interventional Technologist Relationship Specialty Start Date End Date Sabrina Redd PA [address] [place] [address] PCP - General 07/12/22 documented as of this encounter
--- OUTSIDE RECORDS SUMMARY | 2024-08-12 08:55 | XMS_ITS | Encounter Summary ---
Author Organization [facility] and [facility] Address [address] [place] [address] Care Team Providers Care Wool Washing Machine Operator Name Role Phone Sabrina Redd Primary Care Provider [phone] Encounter Details Date Type Department Care Team (Late st Contact Info) Description 07/13/2019 Abstract [facility] [address] [place] [address] Antoni Patricio MD [address] [place] [phone] Social History Tobacco Use Types Packs/Day Years [...] on filedocumented in this encounter Care Teams Wool Washing Machine Operator Relationship Specialty Start Date End Date Sabrina Redd PA [address] [place] [address] PCP - General 07/12/22 documented as of this encounter
--- OUTSIDE RECORDS SUMMARY | 2024-08-12 08:55 | XMS_ITS | Encounter Summary ---
Author Organization [facility] Address [address] [place] [address] Care Team Providers Care Embalmer Apprentice Name Role Phone Marina Reddy APRN Primary Care Provider [phone] Lucas Wen APRN Primary Care Provider + Steffi Escalera APRN Primary Care Provider Myesha Hwang MD Unavailable [phone] Reason for Visit * Reason Comments Medication Refill Encounter Details Date Type Department Care Team (Late st Contact Info) Description 10/06/2020 Refill [facility] [address] [address] Dominic Narvaez MD [address] [place] [address] Social History Tobacco Use Types Packs/Day Years [...] on filedocumented in this encounter Care Teams Embalmer Apprentice Relationship Specialty Start Date End Date Marina Reddy APRN [facility] 13 [place] [address] PCP - General Adult Health - PA/APNP/AUDIOLOGY DIRECTOR/PRODUCTION MACHINE SHOP SUPERVISOR 03/03/19 10/19/22 Lucas Wen APRN 15 [facility] 13 [place] [phone] PCP - General Adult Health - PA/APNP/AUDIOLOGY DIRECTOR/PRODUCTION MACHINE SHOP SUPERVISOR 10/20/22 01/14/23 Steffi Escalera APRN [address] [place] [address] PCP - General 01/15/23 Myesha Hwang MD [address] [place] [phone] Gastroenterology 04/09/23 documented as of this encounter
--- OUTSIDE RECORDS SUMMARY | 2024-08-12 08:55 | XMS_ITS | Encounter Summary ---
Author Organization [facility] Address [address] [place] [address] Care Team Providers Care Authorization Rep Name Role Phone Sabrina Redd Primary Care Provider [phone] Encounter Details Date Type Department Care Team (Late st Contact Info) Description 06/17/2019 Scanned Document [facility] [address] [place] [address] Provider, [facility] . Social History Tobacco Use Types Packs/Day [...] on filedocumented in this encounter Care Teams Authorization Rep Relationship Specialty Start Date End Date Sabrina Redd PA [address] [place] [address] PCP - General 07/12/22 documented as of this encounter
--- OUTSIDE RECORDS SUMMARY | 2024-08-12 08:55 | XMS_ITS ---
Author Organization [facility] Address [address] [place], [place] [address] Care Team Providers Care Book Sorter Name Role Phone No, PCP Primary Care Provider Ebony Basurto Unavailable Social History Sex Assigned At : Social History Observation Description Sex Assigned At Female Encounters Encounter Location Date Provider Diagnosis [facility] [address] [place] [phone] 05/27/2024 Ebony Reyes Plan Of Treatment Next Appt Details Provider Name:Ebony Hilliard, 08/19/2024 09:00:00 AM, [facility] Offset Platemaker, [address] [place] [address], [phone], Progress Notes * Jazmine CALDERADOB:[birth year] (64 yo F)Acc No.[id number]:05/27/2024 Case Management Patient:?Jazmine CALDERA Provider:?Ebony Reyes :1960???Age:64 Y???Sex:Female D ate:05/27/2024 Address:[address], [facility] Pcp:PCP No Subjective: * Chief Complaints: * ??? * HPI: ???Social Service:?Date of encounter?Date:05/27/2024.?Referral Source?walk-in, self, returning client.?Interpretation for medical provider?Mail machine operator picker, Benefits/DENTAL.?Action Taken?[facility]?Access to healthcare Called to speak to airline security representative regarding dental offices in Pt area..?Advocacy?Phone call to DTA.?Follow-up Required:?yes.?Pt comprehension?Pt agrees with plan.?Action taken (old)?item obtained.? Pt needs immediate attention for dental, she has several teeth that are actually implants and they are loose, and one seems infected with puffiness around the tooth is very red, and is causing bad pain. I contacted [facility] for dental. I spoke to airline security representative Augusta, explained the situation, had the Pt on line, requested assistance where Pt can get immediate care. Augusta stated the Pt has [employer] Safety Net Program, and has information for General dentistry along with the Oral surgeons as well. Pt is housed in [facility], needs dental care [facility]. Ms. Deras is sending email with the [...] * Provider:?Ebony Reyes Date:? Generated for Carri ferrell/Timothy/Mónicaitting on:?08/12/2024 08:55 AM EST History and Physical Notes * HPI (History of Present Illness) Category Sub-Category Detail Notes Social Service Referral Source walk-in, self, r eturning client Interpretation for medical provider Mail machine operator picker, Benefits/DENTAL Action taken (old) item obtained Advocacy Phone call to DTA Follow-up Required: yes Pt comprehension Pt agrees with plan Action Taken [facility] : Access to healthcare Called to speak to airline security representative regarding dental offices in Pt area. Date of encounter Date:05/27/2024
--- OUTSIDE RECORDS SUMMARY | 2024-08-12 08:55 | XMS_ITS | Encounter Summary ---
Author Organization [facility] Address [address] [place] [address] Care Team Providers Care Event Sales Manager Name Role Phone Sabrina Redd Primary Care Provider [phone] Encounter Details Date Type Department Care Team (Late st Contact Info) Description 06/20/2019 Scanned Document [facility] [address] [place] [address] Antoni Patricio MD [address] [place] [phone] Social History Tobacco Use Types Packs/Day Years [...] on filedocumented in this encounter Care Teams Event Sales Manager Relationship Specialty Start Date End Date Sabrina Redd PA [address] [place] [address] PCP - General 07/12/22 documented as of this encounter
--- OUTSIDE RECORDS SUMMARY | 2024-08-12 08:55 | XMS_ITS | Encounter Summary ---
Author Organization [facility] Address [address] [place] [address] Care Team Providers Care Counter Former Name Role Phone Marina Reddy APRN Primary Care Provider [phone] Lucas Wen APRN Primary Care Provider + Steffi Escalera APRN Primary Care Provider Myesha Hwang MD Unavailable [phone] Reason for Visit * Reason Comments Medication Refill Encounter Details Date Type Department Care Team (Late st Contact Info) Description 08/25/2020 Refill [facility] [address] [address] Dominic Narvaez MD [address] [place] [address] Social History Tobacco Use Types Packs/Day Years [...] on filedocumented in this encounter Care Teams Counter Former Relationship Specialty Start Date End Date Marina Reddy APRN 15 [facility] 13 [place] [address] PCP - General Adult Health - PA/APNP/LABORER SYRUP MACHINE/ROLL SCALE WORKER 03/03/19 10/19/22 Lucas Wen APRN 15 [facility] 13 [place] [phone] PCP - General Adult Health - PA/APNP/LABORER SYRUP MACHINE/ROLL SCALE WORKER 10/20/22 01/14/23 Steffi Escalera APRN [address] [place] [address] PCP - General 01/15/23 Myesha Hwang MD [address] [place] [phone] Gastroenterology 04/09/23 documented as of this encounter
--- OUTSIDE RECORDS SUMMARY | 2024-08-12 08:55 | XMS_ITS | Clinical Summary ---
Author Organization [facility] Address [address] [place] [address] Care Team Providers Care Rn First Assistant Name Role Phone Lucas Wen APRN Primary Care Provider Sina lopez Allergies Active Allergy Reactions Criticality Noted Date Comments Milnacipran Palpitations,Other ( See Comments) Medium 02/12/2019 Tachycardia Clopidogrel Rash Low 11/01/2022 Promethazine Palpitations,Other ( See Comments) Medium 04/10/2012 Tachycardia 180/min - she had to be taken to ER. Medications Medication Sig Dispensed Refills Start Date End Date Status KqEyu-[id number]-[id number] Cmp-C-Biot (INTEGRA PLUS) CAPS Take 1 tablet [...] complication, without long-term current use of insulin ([facility]) Test one to two times daily as [...] records for review Pt was followed by [facility] in [place], will need f/u care here also Overview: Last Assessment & Plan: Continue oral iron Need old records for review Pt was followed by [facility] in [place], will need f/u care here also Last Assessment & Plan: Continue oral iron Need old records for review Pt was followed by [facility] in [place], will need f/u care here also Last Assessment & Plan: Continue oral iron Need old records for review Pt was followed by [facility] in [place], will need f/u care here also Hematemesis [...] We discussed the minimal potential risk with racecourse barrier attendant PPI use. Based on AGA expert review the quality of evidence behind mcc kidney disease, dementia, bone fractures, and infection with PPI use is low. The current data suggests that racecourse barrier attendant PPI use does not require routine screening [...] is low. The current data suggests that racecourse barrier attendant PPI use does not require routine screening [...] aneurysm s/p trapping/bypass by Dr. Colin in [place] in 04/2015 Chronic migraine without aur a [...] Advance Directives For more information, please contact: [phone] Latest Code Status on File Code Status [...] 7:25 PM 01/06/2020 7:55 PM Care Teams Rn First Assistant Relationship Specialty Start Date End Date Lucas Wen APRN PCP - General Cardiology 11/01/22
--- OUTSIDE RECORDS SUMMARY | 2024-08-12 08:55 | XMS_ITS | Clinical Summary ---
Author Organization [facility] Address [address] [place] [address] Phone Care Team Providers Care Inspector Machine Parts Name Role Phone Maurilio Burgess MD Primary [...] SYMPTONS. Active blood-glucose meter (OneTouch Ultra2 Meter) [facility] 0 Active OneTouch Ultra Test test strip [...] 05, [address] Gilberto Knox in [place]. 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 She has chronic left eye vision loss and balance difficulty, chronic headaches and memory problems, patient states this has been since her craniotomy. She was seeing Dr. Patricio in neurosurgery at [place], [place]. She has since moved to [place], is looking to get follow-up CTA of [...] prescription glasses, but has not seen an stucco mason. All questions answered, will call with any additional questions or concerns. Encounters Date Type Department Care Team Description 07/14/2024 1:18 PM EST - 07/14/2024 11:59 PM EST Hospital Encounter [facility] CT Scan [address] [place] [address] Cerebral aneurysm, nonruptured Discharge Disposition: Home or Self Care 07/09/2024 Telephone Neurosurgery [facility] [address] [facility] [address] [place] [address] Laurel David [place] Appointment ([facility] Auth # [id number] for Head CT scheduled for 07/14/24 @ 1:30pm at [facility]. Pt aware) 07/03/2024 9:30 AM EST Consult Neurosurgery [address] [place] [address] Loan Sidhu PA Cerebral aneurysm, nonruptured (Primary Dx); Blurred vision, left eye from Last 3 Months Surgical History Surgery Date Site/Laterality Comments CEREBRAL ANEURYSM REPAIR 02/2016 :Dr. Knox at [facility] GASTRIC BYPASS 08/30/2009 OTHER SURGICAL HISTORY EXCESSIVE THIGH / HIP / BUTTOCK / FLANK SKIN EXCISION;COMMENT:following gastric bypass COLONOSCOPY 2016 COLONOSCOPY 2014 tubular adenoma HYSTERECTOMY 12/16/2010 UPPER GASTROINTESTINAL ENDOSCOPY 01/02/2018 Dr. Santacruz ([place]) OPEN ANTERIOR SHOULDER RECONSTRUCTION 04/14/2013 left shoulder reconstruction, Dr. Chisholm ([place]) SECTION UPPER GASTROINTESTINAL ENDOSCOPY 05/11/2020 N/A UPPER ENDOSCOPY-EGD; Surgeon: Pito Diaz MD; Location: [facility] END[facility]; Service: Gastroenterology; Laterality: N/A; COLONOSCOPY 05/12/2020 N/A Surgeon: Tino Lang MD; Location: [facility] END[facility]; Service: Gastroenterology; Laterality: N/A; UPPER GASTROINTESTINAL ENDOSCOPY 09/13/2020 N/A EGD Surgeon: Maynor Rojas MD; Location: [facility]; Service: Gastroenterology; Laterality: N/A; BREAST SURGERY REDUCTION MAMMAPLASTY;:with lift/ implants COLONOSCOPY 02/02/2021 N/A Surgeon: Tino Lang MD; Location: [facility] END[facility]; Service: Gastroenterology; Laterality: N/A; OTHER SURGICAL [...] headache Visual impairment Obesity s/p GBP Diabetes ([facility]) Hyperlipidemia Asthma Acid reflux Rheumatoid arthritis ([facility]) Family History Medical History Relation Name Comments [...] Description 08/26/2024 9:00 AM EDT Office Visit [address] [place] [address] Saleem Quigley MD [address] [facility] [place] [address] Health Maintenance Due Date Last Done Comments [...] Signed Date: 07/16/2024 10:58 ET Workstation ID: [id number] Transcribed By: Self Edit Transcribed Date: 07/16/2024 10:11 ET Narrative 07/16/2024 10:58 AM EST PROCEDURE: Noncontrast head CT and CT angiogram of the [place]. 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 Gilberto Knox in [place]. 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 COMPARISON: Outside images dated 07/10/2023. TECHNIQUE: Noncontrast head CT followed by contrast-enhanced CT angiogram of the [place], with coronal and sagittal reformats. [...] head CT and CT angiogram of the [place]. HISTORY: Cerebral aneurysm, follow-up history of unruptured left superior cerebellar artery aneurysm treated bycraniotomy and trapping/bypass on May 05, [address] Gilberto Garzon [place]. 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 COMPARISON: Outside images dated 07/10/2023. TECHNIQUE: Noncontrast head CT followed by contrast-enhanced CT [place]ogram[place] the [place], with coronal and sagittal reformats. [...] Signed Date: 07/16/2024 10:58 ET Workstation ID: [id number] Transcribed By: Self Edit Transcribed Date: 07/16/2024 [...] plain language report , as required by [place] [id number]. Session: Separate session. Report reviewed and signed by : Dr. Matthew Serrato MD on 05/13/2020 4:27 PM. Workstation Name - [id number] Procedure Note Matthew Serrato MD - 06/02/2022 [...] plain language report , as required by [place] [id number]. Session: Separate session. Report reviewed and signed by : Dr. Matthew Serrato MD on 05/13/2020 4:27 PM.Workstation Name - [id number] us Moise Palomino MD IMG BI PROCEDURES Final Resul t from Last 3 Months or Most Recently Relevant to Health Maintenance Insurance [employer] MEDICARE ADVANTAGE MEDICAID - [place] Care Teams Inspector Machine Parts Relationship Specialty Start Date End Date Maurilio Burgess MD [address] [place] [address] [address]IMMI[address] [place] PCP - General Internal Medicine 06/17/24
--- OUTSIDE RECORDS SUMMARY | 2024-08-12 08:55 | XMS_ITS | Encounter Summary ---
Author Organization [facility] Address [address] [place] [address] Care Team Providers Care Lidar Technician Name Role Phone Sabrina Redd Primary Care Provider [phone] Encounter Details Date Type Department Care Team (Late st Contact Info) Description 07/12/2020 Scanned Document [facility] [address] [place], [place] [address] Antoni Patricio MD [address] [place] [address] Social History Tobacco Use Types [...] on filedocumented in this encounter Care Teams Lidar Technician Relationship Specialty Start Date End Date Sabrina Redd PA [address] [place] [address] PCP - General 07/12/22 documented as of this encounter
--- OUTSIDE RECORDS SUMMARY | 2024-08-12 08:55 | XMS_ITS | Encounter Summary ---
Author Organization [facility] Address [address] [place] [address] Care Team Providers Care Warehouse And Receiving Supervisor Name Role Phone Marina Reddy TURNER Primary Care Provider [phone] Lucas Wen APRN Primary Care Provider + Steffi Escalera APRN Primary Care Provider Myesha Hwang MD Unavailable [phone] Encounter Details Date Type Department Care Team (Late st Contact Info) Description 09/29/2022 Scanned Document [facility] - [address] [place] [address] Chris Sood MD [address] [place] [address] [address] [place], [place] [phone] Social History Tobacco Use Types Packs/Day Years [...] on filedocumented in this encounter Care Teams Warehouse And Receiving Supervisor Relationship Specialty Start Date End Date Marina Reddy APRN [address] [place] [phone] PCP - General Adult Health - PA/APNP/COTTONSEED MEAT PRESSER/ENGINEERING LAB TECHNICIAN 03/03/19 10/19/22 Lucas Wen APRN [address] [place] [phone] PCP - General Adult Health - PA/APNP/COTTONSEED MEAT PRESSER/ENGINEERING LAB TECHNICIAN 10/20/22 01/14/23 Steffi Escalera APRN [address] [address] PCP - General 01/15/23 Myesha Hwang MD [address] [place] [address] Gastroenterology 04/09/23 documented as of this encounter
--- OUTSIDE RECORDS SUMMARY | 2024-08-12 08:55 | XMS_ITS | Encounter Summary ---
Author Organization [facility] Address [address] [place] [address] Care Team Providers Care Roller Name Role Phone Sabrina Redd Primary Care Provider [phone] Encounter Details Date Type Department Care Team (Late st Contact Info) Description 07/02/2019 Scanned Document [facility] [address] [place] [address] Antoni Patricio MD [address] [place] [address] Social History Tobacco Use Types Packs/Day Years [...] on filedocumented in this encounter Care Teams Roller Relationship Specialty Start Date End Date Sabrina Redd PA [address] [place] [address] PCP - General 07/12/22 documented as of this encounter
--- OUTSIDE RECORDS SUMMARY | 2024-08-12 08:55 | XMS_ITS | Encounter Summary ---
Author Organization [facility] Address [address] [place] [address] Care Team Providers Care Document Improvement Specialist Name Role Phone Sabrina Redd Primary Care Provider [phone] Encounter Details Date Type Department Care Team (Late st Contact Info) Description 06/27/2019 Scanned Document [facility] [address] [place] [address] Antoni Patricio MD [address] [place] [address] Social History Tobacco Use Types Packs/Day Years [...] on filedocumented in this encounter Care Teams Document Improvement Specialist Relationship Specialty Start Date End Date Sabrina Redd PA [address] [place] [address] PCP - General 07/12/22 documented as of this encounter
--- OUTSIDE RECORDS SUMMARY | 2024-08-12 08:56 | XMS_ITS | Encounter Summary ---
Author Organization [facility] Address [address] [place] [address] Care Team Providers Care Tack Cutter Name Role Phone Steffi Escalera APRN Primary Care Provider Myesha Hwang MD Unavailable [phone] Encounter Details Date Type Department Care Team (Late st Contact Info) Description 05/22/2024 Telephone [facility] [address] [place] [phone] Rafiq Rice [address] [place], [place] [phone] Social History Tobacco Use Types Packs/Day Years [...] on filedocumented in this encounter Care Teams Tack Cutter Relationship Specialty Start Date End Date Steffi Escalera APRN [address] [address] PCP - General 01/15/23 Myesha Hwang MD [address] [place] [address] Gastroenterology 04/09/23 documented as of this encounter
--- OUTSIDE RECORDS SUMMARY | 2024-08-12 08:56 | XMS_ITS | Clinical Summary ---
Author Organization [facility] Address [address] [place] [address] Care Team Providers Care Vocal Music Instructor Name Role Phone Steffi Escalera APRN Primary Care Provider Myesha Hwang MD Unavailable [phone] Allergies Active Allergy Reactions Criticality Noted Date [...] We discussed the minimal potential risk with longterm PPI use. Based on AGA expert review the quality of evidence behind longterm kidney disease, dementia, bone fractures, and infection with PPI use is low. The current data suggests that longterm PPI use does not require routine screening [...] We discussed the minimal potential risk with longterm PPI use. Based on AGA expert review the quality of evidence behind termite technician kidney disease, dementia, bone fractures, and infection with PPI use is low. The current data suggests that longterm PPI use does not require routine screening [...] We discussed the minimal potential risk with termite technician PPI use. Based on AGA expert review the quality of evidence behind termite technician kidney disease, dementia, bone fractures, and infection with PPI use is low. The current data suggests that termite technician PPI use does not require routine screening or monitoring of bone density, kidney function, magnesium, or vitamin B levels. There is no clinical evidence to suggest routine intake of calcium, vitamin b12 or magnesium, with PPI use, beyond recommended dietary allowance. Follow clinically. Personal history of colonic polyps 04/15/2019 Assessment & Plan (04/06/2023 10:29 AM EDT): Colon 02/2022 ([place]) - no polyps noted Would due recall exam in 2026 given prior hx of polyps Assessment & Plan (12/28/2022 12:44 PM EDT): Colon 02/2022 ([place]) - no polyps noted Assessment & Plan [...] Work up here in 2020, then in [place] with unremarkable EGD/Colon 02/2022 Repeat capsule done [...] Will have patient see Dr. Hwang in [place] for double balloon enteroscopy- this was recommended after 2021 capsule in [place] and recent capsule also suggests that best [...] up here in 2020, then recently in [place] with unremarkable EGD/Colon 02/2022 - unclear what [...] review Pt was followed by [facility] in [place], will need f/u care here also Encounters Date Type Department Care Team Description 05/22/2024 Telephone [facility]GI [facility] [address] [place] [address] Rafiq Rice from Last 3 [...] Recently Relevant to Health Maintenance Care Teams Vocal Music Instructor Relationship Specialty Start Date End Date Steffi Escalera APRN [address] [facility] [address] [place] [address] PCP - General 01/15/23 Myesha Hwang MD [address] [place] [address] Gastroenterology 04/09/23
--- OUTSIDE RECORDS SUMMARY | 2024-08-12 08:56 | XMS_ITS | Clinical Summary ---
Author Organization [facility] [address] Address [address] [place] [address] Care Team Providers Care Vice President Integrated Name Role Phone Sabrina Redd Primary Care Provider [phone] Allergies Active Allergy Reactions Criticality Noted Date [...] 05/2023 Last Assessment & Plan: Colon 02/2022 ([place]) - no polyps noted Would due recall [...] aneurysm s/p trapping/bypass by Dr. 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 No additional aneurysms of the [place] of [place] identified. 2. Post surgcal changes [...] We discussed the minimal potential risk with shelter PPI use. Based on AGA expert review the quality of evidence behind shelter kidney disease, dementia, bone fractures, and infection with PPI use is low. The current data suggests that shelter PPI use does not require routine screening [...] We discussed the minimal potential risk with shelter PPI use. Based on AGA expert review the quality of evidence behind shelter kidney disease, dementia, bone fractures, and infection with PPI use is low. The current data suggests that terminal operations supervisor PPI use does not require routine screening [...] discussed the minimal potential risk with terminal operations supervisor PPI use. Based on AGA expert review the quality of evidence behind shelter kidney disease, dementia, bone fractures, and infection with PPI use is low. The current data suggests that terminal operations supervisor PPI use does not require routine screening [...] We discussed the minimal potential risk with shelter PPI use. Based on AGA expert review the quality of evidence behind terminal operations supervisor kidney disease, dementia, bone fractures, and infection with PPI use is low. The current data suggests that shelter PPI use does not require routine screening [...] We discussed the minimal potential risk with shelter PPI use. Based on AGA expert review the quality of evidence behind terminal operations supervisor kidney disease, dementia, bone fractures, and infection with PPI use is low. The current data suggests that terminal operations supervisor PPI use does not require routine screening [...] discussed the minimal potential risk with terminal operations supervisor PPI use. Based on AGA expert review the quality of evidence behind shelter kidney disease, dementia, bone fractures, and infection with PPI use is low. The current data suggests that shelter PPI use does not require routine screening [...] review Pt was followed by [facility] in [place], will need f/u care here also Last Assessment & Plan: Continue oral iron Need old records for review Pt was followed by heme in [place], will need f/u care here also Last [...] review Pt was followed by [facility] in [place], will need f/u care here also Overview: Last Assessment & Plan: Continue oral iron Need old records for review Pt was followed by [facility] in [place], will need f/u care here also Last Assessment & Plan: Continue oral iron Need old records for review Pt was followed by [facility] in [place], will need f/u care here also Last Assessment & Plan: Continue oral iron Need old records for review Pt was followed by [facility] in [place], will need f/u care here also Last Assessment & Plan: 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 History of hysterectomy 12/16/2010 Pain in pelvis 09/11/2007 07/20/2023 Diabetes mellitus 08/29/2007 07/20/2023 Cerebral aneurysm, nonruptured Overview (05/26/2019): unruptured left SCA aneurysm s/p trapping/bypass by Dr. Colin in [place] in 04/2015 Encounters Date Type Department Care Team Description 06/24/2024 Telephone [facility] [address] [phone] Antoni Patricio MD Other from Last 3 [...] age to complete this topic Insurance [place] [employer] [facility] [facility]GD [place] [facility] [place] [facility] MGD Care Teams Vice President Integrated Relationship Specialty Start Date End Date Sabrina Redd PA [address] [facility] [address] PCP - General 07/12/22
--- OUTSIDE RECORDS SUMMARY | 2024-08-12 08:56 | XMS_ITS | Encounter Summary ---
Author Organization [facility] Address [address] [place] [address] Care Team Providers Care Sales Order Clerk Name Role Phone Steffi Escalera APRN Primary Care Provider Myesha Hwang MD Unavailable Encounter Details Date Type Department Care Team (Late st Contact Info) Description 07/16/2023 Telephone [facility] [address] [facility] [address] [place] [address] Tino Lang MD [address] [facility] [address] [place] [address] Social History Tobacco Use Types Packs/Day Years [...] that time frame. Please contact Jazmine at [phone] documented in this encounter Plan of Treatment Not on file documented as of this encounter Visit Diagnoses Not on filedocumented in this encounter Care Teams Sales Order Clerk Relationship Specialty Start Date End Date Steffi Escalera APRN [address] [facility] [address] [place] [address] PCP - General 01/15/23 Myesha Hwang MD [address] [place] [address] Gastroenterology 04/09/23 documented as of this encounter
--- OUTSIDE RECORDS SUMMARY | 2024-08-12 08:56 | XMS_ITS | Encounter Summary ---
Author Organization [facility] Address [address] [place] [address] Care Team Providers Care Button Maker Name Role Phone Steffi Escalera APRN Primary Care Provider Myesha Hwang MD Unavailable [phone] Encounter Details Date Type Department Care Team (Late st Contact Info) Description 08/23/2023 Scanned Document [facility] NEUROLOGY SCAN Neurology, Scan Social History Tobacco [...] on filedocumented in this encounter Care Teams Button Maker Relationship Specialty Start Date End Date Steffi Escalera APRN [address] [address] PCP - General 01/15/23 Myesha Hwang MD [address] [place] [address] Gastroenterology 04/09/23 documented as of this encounter
== END 2024-08-12 09:09 | disposition home or self-care (01) ==
PROVIDERS: PCP Internal Medicine; Visit Provider Surgery
DX: R92.8 Other abnormal and inconclusive findings on diagnostic imaging of breast (principal); N64.52 Nipple discharge
CPT/HCPCS: 99204

== ENCOUNTER → 2024-08-12 08:29 | Outpatient (BNVA) | payer MEDICARE, SELFPAY | PROVIDERS: PCP Internal Medicine; Visit Provider Surgery | DX: R92.8 Other abnormal and inconclusive findings on diagnostic imaging of breast (principal); N64.52 Nipple discharge | CPT/HCPCS: 99202 ==

== ENCOUNTER 2024-08-27 07:28 | Outpatient (REF) | payer MEDICARE, MEDICAID, SELFPAY ==
--- NOTE | ~2024-08-27 | US_ITS ---
PROCEDURE: ULTRASOUND-GUIDED LEFT BREAST BIOPSY CLINICAL INFORMATION: Mass in the left breast at 3:00 on ultrasound. Additionally bilateral asymmetries for which six-month follow-up mammogram is recommended. COMPARISON: Prior examinations on PACS. TECHNIQUE: The details of the procedure, as well as the risks, benefits, and alternatives to the procedure were explained to the patient in detail and all of her questions were answered, after which, written informed consent was obtained. PROCEDURE: Prior to the procedure, sonography revealed solid mass at 3:00 in the left breast. A time-out was performed, the lesion intended for biopsy was targeted and the skin of the left breast was then prepped and draped in the usual sterile fashion. Using sonographic guidance, sterile technique, and 1% lidocaine without epinephrine for local anesthesia, a total of 4 cores were obtained through the targeted area with a 14-gauge biopsy device. At the completion of tissue sampling, a single butterfly-shaped metallic clip was deposited at the biopsy site. An appropriate sample was obtained. The postprocedure 2-view direct digital mammogram reveals satisfactory positioning of the biopsy clip. The patient tolerated the procedure well and, after assuring adequate hemostasis, was discharged in good condition after reviewing postbiopsy breast care instructions. Final pathology results are pending. US/US breast ndl core biopsy LT IMPRESSION: 1. Uncomplicated sonographically-guided core biopsy of the left breast. The 2-view direct digital postprocedure mammogram reveals satisfactory positioning of the biopsy clip. 2. Final pathology results are pending. A separate report with final recommendations will be issued once these results are made available. 3. Recommend 6 month follow-up mammography for bilateral asymmetries. Electronically signed by: Janneth Rosado DO 08/27/2024 09:31 AM EDElian
[2024-08-27] MEDS: Sodium Bicarbonate 8.4% 50 MEQ/50 ML VIAL SUBCUT (08:35)
[2024-08-27] MEDS: Lidocaine HCl 1 % 20 ML VIAL 9 ML SUBCUT (08:36)
== END 2024-08-27 07:29 | disposition home or self-care (01) ==
LOC: HO.MAMMO 07:28
PROVIDERS: PCP Internal Medicine; Visit Provider Surgery
DX: N60.02 Solitary cyst of left breast (principal); N63.25 Unspecified lump in the left breast, overlapping quadrants; N64.52 Nipple discharge; R92.8 Other abnormal and inconclusive findings on diagnostic imaging of breast
CPT/HCPCS: 19083; 77061; 77065; 88305; A4648; J2003

== ENCOUNTER → 2024-08-27 08:00 | Outpatient (BNV) | payer MEDICARE, MEDICAID, SELFPAY | PROVIDERS: PCP Internal Medicine; Visit Provider Internal Medicine | DX: N64.52 Nipple discharge (principal); R92.8 Other abnormal and inconclusive findings on diagnostic imaging of breast | CPT/HCPCS: 19083; 77065 ==

== ENCOUNTER 2024-09-04 09:07 | Outpatient (AMB) | payer MEDICARE, MEDICAID, SELFPAY ==
--- NOTE | 2024-09-04 09:09 | A.OFFVIS_ITS ---
Vital Signs 09/04/24 09:18 Height 5 ft 3 in Weight 143 lb BMI 25.3 BP 115/55 L Blood Pressure Location Lt brachial Position Sitting Pulse 76 Intake Visit Reasons: s/p Lt Breast Ultrasound Biopsy Intake Note: Patient is seen in office for ultrasound biopsy RESULTS, left breast 3 o'clock mass. Pt c/o: denies any concerns here for results Underground Supervisor Required: No Accompanied by: Self / Same As Patient Allergies clopidogrel [From Plavix] Allergy (Severe, Verified 09/04/24 09:10) Rash milnacipran [From Savella] Adverse Reaction (Severe, Verified 09/04/24 09:10) tachycardia promethazine [From Phenergan] Adverse Reaction (Severe, Verified 09/04/24 09:10) tachycardia Medication List - Last Reconciled 09/04/24 by aHns Villafana MD acetaminophen ER (Tylenol 8 Hour) 650 mg PO Q12H PRN 90 days apremilast (Otezla) 30 mg PO BID 30 days aspirin 81 mg PO DAILY 90 days cetirizine (Zyrtec) 10 mg PO DAILY PRN 90 days fluticasone propionate 50 mcg/actuation 1 spray intranasal DAILY PRN 90 days memantine 10 mg PO BID 90 days metformin 500 mg PO BID 90 days nateglinide 120 mg PO TID 90 days nortriptyline 10 mg PO BEDTIME 90 days pantoprazole 40 mg PO DAILY 90 days pravastatin 40 mg PO DAILY 90 days pregabalin 75 mg PO BID 30 days rimegepant (Nurtec ODT) 75 mg PO Q OTHER DAY PRN 30 days simethicone (Gas Relief (simethicone)) 125 mg PO BID-QID PRN 90 days tizanidine 4 mg PO BID PRN topiramate 100 mg PO BID 90 days tramadol 50 mg PO BID PRN MDD yes HPI Comments Details: 64-year-old female patient presenting following a recent diagnostic mammogram performed on 07/30/2024 along with a left breast ultrasound. This revealed a left breast solid oval circumscribed mass in the 03:00 o'clock location approximately 5 cm from the nipple. The lesion measured 6 x 5 x 7 mm by ultrasound. Lesion was felt to be suspicious for malignancy an ultrasound- guided core biopsy is recommended. She was scheduled for this biopsy at the [facility] on 08/27/2024. She previously underwent a bilateral breast reduction following gastric bypass surgery. Her family history is significant for a sister with breast cance at the age of 53; she the following year of the disease. The patient denies any palpable mass but did recently no discharge from the nipples. Her menarche was age 14, she is with 1 miscarriage. Her 1st child was born when she was 42. She denied hormone replacement therapy. She denies any previous breast biopsies. Her breast density score was C. She underwent the ultrasound-guided core biopsy on 08/27/2024. Pathology revealed benign cyst with hyalinized fibrosis and scant benign breast tissue. This was felt to be concordant with the radiologic studies and a six-month follow-up mammogram recommended for follow-up of bilateral breast asymmetries. The patient tolerated the procedure well and denies any ongoing breast symptoms. She reports that she was undergoing a procedure for brain aneurysm soon. [facility] Medical History Rheumatoid arthritis Psoriasis Migraine Brain aneurysm Chronic anemia Overweight (BMI 25.0-29.9) Chronic pain Allergic rhinitis GERD without esophagitis Diabetes mellitus Pure hypercholesterolemia Cardiac murmur Surgical History History of abdominoplasty S/P brachioplasty History of appendectomy History of cholecystectomy History of colon resection History of reduction mammoplasty History of rotator cuff surgery History of gastric bypass History of carpal tunnel surgery of right wrist History of carpal tunnel surgery of left wrist Hx of brain surgery Family History Sister Breast cancer Other Diabetes Schizophrenia Social History Housing: Apartment Patient Tobacco Use Status: Former Tobacco user e-Cigarette/Vaping Use: Never Used Second Hand Smoke Exposure: No service: No Current occupational status: retired Current occupational exposures/hazards: No Cognitive needs: No Hearing needs: No Vision needs: No Female Reproductive History Menstrual Age of Menarche: 14 Review of Systems Const All systems reviewed & are unremarkable except as noted in HPI and below Denies chills, Denies fever(s), Denies headache(s), Denies poor appetite and Denies weakness ENT Denies headache(s) Card Denies chest pain, Denies irregular heart rhythm, Denies palpitations and Denies dyspnea Resp Denies cough, Denies excessive phlegm production and Denies dyspnea GI Denies abdominal pain, Denies bloating, Denies change in bowel habits, Denies constipation, Denies heartburn, Denies diarrhea, Denies nausea and Denies vomiting Denies urinary frequency Musc Denies back pain, Denies muscle weakness and Denies numbness Skin/Breast Denies changing lesions and Denies unusual bruising Neuro Denies headache(s), Denies numbness, Denies paresthesias and Denies weakness Psych Denies anxiety and Denies depression Endo Denies palpitations [place]/Lymph Denies lymphadenopathy Physical Exam Vital Signs: Last Vital Signs Pulse 76 09/04/24 09:18 BP 115/55 L 09/04/24 09:18 BMI result Body Mass Index 25.3 Const General: cooperative and no acute distress Nutritional Appearance: well nourished Orientation/consciousness: patient oriented x3 Limitations: no limitations HEENT Other: Left side craniotomy incision Ears: hearing grossly normal bilaterally Chest Other: Exam deferred Resp Effort & Inspection: normal respiratory effort, no audible wheezes, no cough and no respiratory distress Cardio Jugular venous distension: no JVD GI Inspection: Yes normal to inspection Skin Other: Warm, dry, no rash Neuro General: patient oriented x3 Extrem General: Yes no clubbing, cyanosis or edema Assessment & Plan Assessment & Plan (1) Abnormal ultrasound of breast: Code(s): R92.8 - Other abnormal and inconclusive findings on diagnostic imaging of breast Category: Medical (2) Discharge from breast: Code(s): N64.52 - Nipple discharge Category: Medical Plan 64-year-old female patient presenting with a recent history of bilateral nipple discharge found on a diagnostic mammogram to have a density in the left breast at the 3 o'clock position approximately 5 cm from the nipple. This was felt to be suspicious for malignancy an ultrasound-guided core biopsy recommended. She underwent the ultrasound-guided core biopsy on 08/27/2024 which revealed a benign cyst with hyalinized fibrosis and scant benign breast tissue. Follow-up mammogram is recommended in 6 months. I reviewed this with the patient and the study has been requested. She will follow up in 6 months following the repeat mammogram. Orders: Orders MM diagnostic mammo BI 03/02/25 R92.8 - Other abnormal and inconclusive findings on diagnostic imaging of breast Coding Level of Care Code Est Pt Level 3 (92521) Diagnoses Abnormal ultrasound of breast R92.8 Discharge from breast N64.52
[2024-09-04 09:18] VITALS: BP 115/55; PULSE 76; BMI 25.3
--- OUTSIDE RECORDS SUMMARY | 2024-09-04 10:34 | XMS_ITS ---
Author Organization [facility] Address [address] [place], [place] [id number] Care Team Providers Care Auto Body Repairer Name Role Phone No, PCP Primary Care Provider Ebony Basurto Unavailable Social History Sex Assigned At : Social History Observation Description Sex Assigned At Female Encounters Encounter Location Date Provider Diagnosis [facility] [address] [place], [place] [phone] 05/30/2024 Ebony Reyes Plan Of Treatment No Information Progress Notes * Jazmine CALDERADOB:[birth year] (64 yo F)Acc No.[id number]:05/30/2024 Case Management Patient:?Jazmine CALDERA Provider:?Ebony Reyes :1960???Age:64 Y???Sex:Female D ate:05/30/2024 Address:[facility] [address] [place], [place] [address] Pcp:PCP No Subjective: * Chief Complaints: * ??? * HPI: ???Social Service:?Date of encounter?Date:05/30/2024.?Referral Source?walk-in, self, returning client.?Interpretation for medical provider?Hygiene items/DENTAL.?Advocacy?Phone call to DTA, Phone call(s) for community resources/ CALLS TO [employer]?.?Follow-up Required:?yes.?Pt comprehension?Pt agrees with plan.?Action taken (old)?Items given to client, item obtained.? Pt new appt provided, no mail today, once again today we contacted the DTA/[facility], explained that i was suppose to receive a listing of dental offices in the area for the Pt, and that i never received it, not in spam either. Director Check did check and seen there was a previous call made and apologized for the lack of information requested. Director Check resubmitted the information via Email. Printed provided [...] Provider:?Ebony Reyes Date:? Generated for Carri ferrell/Timothy/eTransmitting on:?09/04/2024 10:34 AM EDT History and Physical Notes * HPI (History of Present Illness) Category Sub-Category Detail Notes Social Service Referral Source walk-in, self, r eturning client Interpretation for medical provider Hygi gaye items/DENTAL Action taken (old) Items given to jeremy montero, item obtained Advocacy Phone call to David GONZALEZ call(s) for community resources/ CALLS TO [employer] PROGRAM Follow-up Required: yes Pt comprehension Pt agrees with plan Date of encounter Date:05/30/2024
--- OUTSIDE RECORDS SUMMARY | 2024-09-04 10:34 | XMS_ITS | Encounter Summary ---
Author Organization [facility] Address [address] [place] [address] Care Team Providers Care Cruise Guide Name Role Phone Sabrina Redd Primary Care Provider [phone] Encounter Details Date Type Department Care Team (Late st Contact Info) Description 06/20/2019 Scanned Document [facility] [address] [place] [address] Antoni Patricio MD [address] [place] [phone] Social History Tobacco Use Types Packs/Day Years [...] on filedocumented in this encounter Care Teams Cruise Guide Relationship Specialty Start Date End Date Sabrina Redd PA [address] [place] [address] PCP - General 07/12/22 documented as of this encounter
--- OUTSIDE RECORDS SUMMARY | 2024-09-04 10:34 | XMS_ITS | Patient Health Record ---
Author Organization [facility] Address [address] [place], [place] [id number] Care Team Providers Care Supervisor Diagnostic Name Role Phone No, PCP Primary Care Provider Ebony Basurto Unavailable Barron Noel Unavailable [phone] Reason For Referral No Information Social History Sex Assigned At : Social History Observation Description Sex Assigned At Female Encounters Encounter Location Date Provider Diagnosis [facility] [address] [place], [place] [phone] 09/07/2023 Barron Noel [facility] [address] [place] [id number] 10/10/2023 Barron Noel [facility] [address] [place] [id number] 10/23/2023 Barron Noel [facility] [address] [place] [id number] 01/01/2024 Ebony Collins-Bobo [facility] [address] [place], [place] [phone] 01/08/2024 Ebony Collins-Bobo [facility] [address] [place], [place] [phone] 01/28/2024 Ebony Collins-Bobo [facility] [address] [place], [place] [phone] 02/04/2024 Ebony Collins-Bobo [facility] [address] [place], [place] [phone] 03/04/2024 Ebony Collins-Bobo [facility] [address] [place] [phone] 03/25/2024 Ebony Collins-Bobo [facility] [address] [place] [phone] 04/17/2024 Ebony Eric [facility] [address] [place] [phone] 05/27/2024 Ebony SlaughteraceLuz ElenaBobo [facility] [address] [place], [place] [phone] 05/30/2024 Ebony Eric Plan Of Treatment No Information Insurance Providers Payer Name Payer Address Payer Phone Subscriber Number Group Number Insured Name Patient Relationship to Insured Coverage Start Date Coverage End Date [place] Medicare Part A [facility] [address] [place] [address] [id number] Jazmine Schulz Self - patient is the insured 4 [employer] [address] [address] [place], [place] [id number] Jazmine Schulz Self - patient is the insured 4
--- OUTSIDE RECORDS SUMMARY | 2024-09-04 10:34 | XMS_ITS | Encounter Summary ---
Author Organization [facility] Address [address] [place] [address] Care Team Providers Care Manager Product Design Name Role Phone Steffi Escalera APRN Primary Care Provider Myesha Hwang MD Unavailable [phone] Encounter Details Date Type Department Care Team (Late st Contact Info) Description 02/06/2023 Scanned Document [facility] [address] [address] [place] [address] Social History Tobacco Use Types [...] filedocumented in this encounter Care Teams Manager Product Design Relationship Specialty Start Date End Date Steffi Escalera APRN 12 N [facility] [address] [place] [address] PCP - General 01/15/23 Myesha Hwang MD [address] [place] [address] Gastroenterology 04/09/23 documented as of this encounter
--- OUTSIDE RECORDS SUMMARY | 2024-09-04 10:34 | XMS_ITS | Encounter Summary ---
Author Organization [facility] Address [address] [place] [address] Care Team Providers Care Spinning Mule Tender Name Role Phone Steffi Escalera APRN Primary Care Provider Myesha Hwang MD Unavailable [phone] Encounter Details Date Type Department Care Team ([facility] st Contact Info) Description 02/01/2023 Scanned Document [facility] 113 [facility] [address] [place] [phone] Marina Davis PA 113 [facility] [address] [place] [address] Social History Tobacco Use Types Packs/Day Years [...] on filedocumented in this encounter Care Teams Spinning Mule Tender Relationship Specialty Start Date End Date Steffi Escalera APRN 12 N [facility] 110 [place] [address] PCP - General 01/15/23 Myesha Hwang MD [address] [place] [address] Gastroenterology 04/09/23 documented as of this encounter
--- OUTSIDE RECORDS SUMMARY | 2024-09-04 10:34 | XMS_ITS | Encounter Summary ---
Author Organization [facility] Address [address] [place] [address] Care Team Providers Care Inspector Materials And Processes Name Role Phone Sabrina eRdd Primary Care Provider [phone] Encounter Details Date Type Department Care Team (Late st Contact Info) Description 04/09/2019 Abstract [facility] 800 [facility] [place] [address] Antoni Patricio MD [address] [place] [phone] Social History Tobacco Use Types Packs/Day Years [...] on filedocumented in this encounter Care Teams Inspector Materials And Processes Relationship Specialty Start Date End Date Sabrina Redd PA [address] [place] [address] PCP - General 07/12/22 documented as of this encounter
--- OUTSIDE RECORDS SUMMARY | 2024-09-04 10:34 | XMS_ITS | Encounter Summary ---
Author Organization [facility] Address [address] [place] [address] Care Team Providers Care Land Clearer Name Role Phone Marina Reddy TURNER Primary Care Provider [phone] Lucas Wen APRN Primary Care Provider + Steffi Escalera APRN Primary Care Provider Myesha Hwang MD Unavailable [phone] Encounter Details Date Type Department Care Team (Late st Contact Info) Description 09/29/2022 Scanned Document [facility] - [address] [place] [address] Chris Sood MD [address] [place] [address] [address] [place], [place] [phone] Social History Tobacco Use Types Packs/Day Years [...] on filedocumented in this encounter Care Teams Land Clearer Relationship Specialty Start Date End Date Marina Reddy APRN [address] [place] [id number] PCP - General Adult Health - PA/APNP/NATURAL SCIENCE CURATOR/MEDICAL TRANSCRIPTION 03/03/19 10/19/22 Lucas Wen APRN [address] [id number] PCP - General Adult Health - PA/APNP/NATURAL SCIENCE CURATOR/MEDICAL TRANSCRIPTION 10/20/22 01/14/23 Steffi Escalera APRN [address] [address] PCP - General 01/15/23 Myesha Hwang MD [address] [place] [address] Gastroenterology 04/09/23 documented as of this encounter
--- OUTSIDE RECORDS SUMMARY | 2024-09-04 10:34 | XMS_ITS | Encounter Summary ---
Author Organization [facility] Address [address] [place] [address] Care Team Providers Care Beer Cooler Name Role Phone Lucas Wen APRN Primary Care Provider + Steffi Escalera APRN Primary Care Provider Myesha Hwang MD Unavailable [phone] Encounter Details Date Type Department Care Team (Late st Contact Info) Description 10/26/2022 Scanned Document [facility] - [address] [phone] Chris Sood MD [address] [place] [address] Social History Tobacco Use Types Packs/Day Years [...] on filedocumented in this encounter Care Teams Beer Cooler Relationship Specialty Start Date End Date Lucas Wen APRN PCP - General Adult Health - EDWARD/SABAS/ORNAMENT STAPLER/BROKE WORKER 10/20/22 01/14/23 Steffi Escalera APRN [address] [address] PCP - General 01/15/23 Myesha Hwang MD [address] [place] [address] Gastroenterology 04/09/23 documented as of this encounter
--- OUTSIDE RECORDS SUMMARY | 2024-09-04 10:34 | XMS_ITS | Encounter Summary ---
Author Organization [facility] Address [address] [place] [address] Care Team Providers Care Director Apparel Name Role Phone Sabrina Redd Primary Care Provider [phone] Encounter Details Date Type Department Care Team (Late st Contact Info) Description 07/12/2020 Scanned Document [facility] [address] [place], [place] [address] Antoni Patricio MD [address] [place] [address] Social History Tobacco Use Types [...] filedocumented in this encounter Care Teams Director Apparel Relationship Specialty Start Date End Date Sabrina Redd PA [address] [place] [address] PCP - General 07/12/22 documented as of this encounter
--- OUTSIDE RECORDS SUMMARY | 2024-09-04 10:34 | XMS_ITS | Encounter Summary ---
Author Organization [facility] Address [address] [place] [address] Care Team Providers Care Credit Director Name Role Phone Steffi Escalera APRN Primary Care Provider Myesha Hwang MD Unavailable [phone] Encounter Details Date Type Department Care Team (Late st Contact Info) Description 02/06/2023 Scanned Document [facility] [address] [address] [place] [address] Social History Tobacco Use Types [...] on filedocumented in this encounter Care Teams Credit Director Relationship Specialty Start Date End Date Steffi Escalera APRN 12 [address] [facility] [address] [place] [address] PCP - General 01/15/23 Myesha Hwang MD [address] [place] [address] Gastroenterology 04/09/23 documented as of this encounter
--- OUTSIDE RECORDS SUMMARY | 2024-09-04 10:34 | XMS_ITS | Encounter Summary ---
Author Organization [facility] Address [address] [place] [address] Care Team Providers Care Disease Control Inspector Name Role Phone Sabrina Redd Primary Care Provider Encounter Details Date Type Department Care Team (Late st Contact Info) Description 07/14/2019 Scanned Document [facility] 800 [facility] 800 [place] [address] Provider, Historical . Social History Tobacco Use [...] on filedocumented in this encounter Care Teams Disease Control Inspector Relationship Specialty Start Date End Date Sabrina Redd PA [address] [place] [address] PCP - General 07/12/22 documented as of this encounter
--- OUTSIDE RECORDS SUMMARY | 2024-09-04 10:34 | XMS_ITS ---
Author Organization [facility] Address [address] [place], [place] [address] Care Team Providers Care Excellence Specialist Name Role Phone No, PCP Primary Care Provider Ebony Basurto Unavailable REASON FOR VISIT housing Social History Sex Assigned At : Social History Observation Description Sex Assigned At Female Encounters Encounter Location Date Provider Diagnosis [facility] [address] [place], [place] [phone] 08/12/2024 Ebony Reyes Plan Of Treatment No Information Progress Notes * Jazmine CALDERADOB:[birth year] (64 yo F)Acc No.[id number]:08/12/2024 Case Management Patient:?Jazmine CALDERA Provider:Valdo Reyes :1960???Age:64 Y???Sex:Female D ate:08/12/2024 Address:[facility] [address] [place], [place] [address] Pcp:PCP No Subjective: * Chief Complaints: * ???1. Housing. * Medical History:? Objective: Assessment: Plan: * Treatment: * Images: Billing Information: * Visit Code:? * Procedure Codes:? Care Plan Details* * Electronic signature of Jeffrey Reyes on 09/04/2024 at 10:34 AM EDT Sign off status: Pending * Provider:Valdo Reyes Date:? Generated for Feri mariaelena/Timothy/eTransmitting on:?09/04/2024 10:34 AM EDT
--- OUTSIDE RECORDS SUMMARY | 2024-09-04 10:35 | XMS_ITS | Encounter Summary ---
Author Organization [facility] Address [address] [place] [address] Care Team Providers Care Electro Winning Operator Name Role Phone Steffi Escalera APRN Primary Care Provider Myesha Hwang MD Unavailable [phone] Encounter Details Date Type Department Care Team (Late st Contact Info) Description 05/22/2024 Telephone [facility] [address] [place] [phone] Rafiq Rice [address] [place], [place] [phone] Social History Tobacco Use Types Packs/Day Years [...] on filedocumented in this encounter Care Teams Electro Winning Operator Relationship Specialty Start Date End Date Steffi Escalera APRN [address] [address] PCP - General 01/15/23 Myesha Hwang MD [address] [place] [address] Gastroenterology 04/09/23 documented as of this encounter
--- OUTSIDE RECORDS SUMMARY | 2024-09-04 10:35 | XMS_ITS | Clinical Summary ---
Author Organization [facility] Address [address] [place] [address] Care Team Providers Care Design Center Consultant Name Role Phone Steffi Escalera APRN Primary Care Provider Myesha Hwang MD Unavailable [phone] Allergies Active Allergy Reactions Criticality Noted [...] discussed the minimal potential risk with terminal gauger PPI use. Based on AGA expert review the quality of evidence behind terminal gauger kidney disease, dementia, bone fractures, and infection [...] discussed the minimal potential risk with terminal gauger PPI use. Based on AGA expert review the quality of evidence behind terminal gauger kidney disease, dementia, bone fractures, and infection with PPI use is low. The current data suggests that terminal gauger PPI use does not require routine screening [...] Plan (04/06/2023 10:29 AM EDT): Colon 02/2022 ([place]) - no polyps noted Would due recall exam in 2026 given prior hx of polyps Assessment & Plan (12/28/2022 12:44 PM EDT): Colon 02/2022 ([place]) - no polyps noted Assessment & Plan [...] Work up here in 2020, then in [place] with unremarkable EGD/Colon 02/2022 Repeat capsule done [...] Will have patient see Dr. Hwang in [place] for double balloon enteroscopy- this was recommended after 2021 capsule in [place] and recent capsule also suggests that best [...] up here in 2020, then recently in [place] with unremarkable EGD/Colon 02/2022 - unclear what [...] review Pt was followed by [facility] in [place], will need f/u care here also Family History Medical History Relation Name Comments [...] Health Maintenance Results * COLONOSCOPY (CC) (09/13/2020) Maynor Rojas MD AMB ORDERABLE PERFOR LEOPOLDO from Last 3 Months or Most Recently Relevant to Health Maintenance Care Teams Design Center Consultant Relationship Specialty Start Date End Date Steffi Escalera APRN 12 [facility] 110 [place] [address] PCP - General 01/15/23 Myesha Hwang MD [address] [place] [address] Gastroenterology 04/09/23
--- OUTSIDE RECORDS SUMMARY | 2024-09-04 10:35 | XMS_ITS | Encounter Summary ---
Author Organization [facility] Address [address] [place] [address] Care Team Providers Care Clinical Documentation Manager Name Role Phone Marina Reddy APRN Primary Care Provider [phone] Lucas Wen APRN Primary Care Provider + Steffi Escalera APRN Primary Care Provider Myesha Hwang MD Unavailable [phone] Reason for Visit * Reason Comments Medication Refill Encounter Details Date Type Department Care Team (Late st Contact Info) Description 08/25/2020 Refill [facility] [address] [address] Dominic Narvaez MD [address] [place] [address] Social History Tobacco Use Types Packs/Day Years [...] on filedocumented in this encounter Care Teams Clinical Documentation Manager Relationship Specialty Start Date End Date Marina Reddy APRN 15 [facility] 13 [place] [address] PCP - General Adult Health - PA/APNP/MACHINE CANDLE MOLDER/RESERVE OFFICER 03/03/19 10/19/22 Lucas Wen APRN 15 [facility] [address] [place] [phone] PCP - General Adult Health - PA/APNP/MACHINE CANDLE MOLDER/RESERVE OFFICER 10/20/22 01/14/23 Steffi Escalera APRN [address] [place] [address] PCP - General 01/15/23 Myesha Hwang MD [address] [place] [id number] Gastroenterology 04/09/23 documented as of this encounter
--- OUTSIDE RECORDS SUMMARY | 2024-09-04 10:35 | XMS_ITS | Encounter Summary ---
Author Organization [facility] Address [address] [place] [address] Care Team Providers Care Negative Assembler Name Role Phone Steffi Escalera APRN Primary Care Provider Myesha Hwang MD Unavailable [phone] Encounter Details Date Type Department Care Team (Late st Contact Info) Description 08/23/2023 Scanned Document [facility] Neurology, Scan Social History Tobacco [...] on filedocumented in this encounter Care Teams Negative Assembler Relationship Specialty Start Date End Date Steffi Escalera APRN [address] [address] PCP - General 01/15/23 Myesha Hwang MD [address] [place] [address] Gastroenterology 04/09/23 documented as of this encounter
--- OUTSIDE RECORDS SUMMARY | 2024-09-04 10:35 | XMS_ITS | Encounter Summary ---
Author Organization [facility] Address [address] [place] [address] Care Team Providers Care Skoog Operator Name Role Phone Steffi Escalera APRN Primary Care Provider Myesha Hwang MD Unavailable [phone] Encounter Details Date Type Department Care Team (Late st Contact Info) Description 07/16/2023 Telephone [facility] 113 [facility] [address] [place] [address] Tino Lang MD 21 [facility] 100 [place] [address] Social History Tobacco Use Types Packs/Day Years [...] that time frame. Please contact Jazmine at [phone] documented in this encounter Plan of Treatment Not on file documented as of this encounter Visit Diagnoses Not on filedocumented in this encounter Care Teams Skoog Operator Relationship Specialty Start Date End Date Steffi Escalera APRN 12 N [facility] 110 [place] [address] PCP - General 01/15/23 Myesha Hwang MD [address] [place] [address] Gastroenterology 04/09/23 documented as of this encounter
--- OUTSIDE RECORDS SUMMARY | 2024-09-04 10:35 | XMS_ITS | Encounter Summary ---
Author Organization [facility] Address [address] [place] [address] Care Team Providers Care Payment Processor Name Role Phone Marina Reddy APRN Primary Care Provider [phone] Lucas Wen APRN Primary Care Provider + Steffi Escalera APRN Primary Care Provider Myesha Hwang MD Unavailable [phone] Reason for Visit * Reason Comments Medication Refill Encounter Details Date Type Department Care Team (Late st Contact Info) Description 10/06/2020 Refill [facility] [address] [address] Dominic Narvaez MD [address] [place] [address] Social History Tobacco Use Types Packs/Day Years [...] on filedocumented in this encounter Care Teams Payment Processor Relationship Specialty Start Date End Date Marina Reddy APRN 15 [facility] 13 [place] [address] PCP - General Adult Health - PA/APNP/SOLAR FABRICATION TECHNICIAN/CUSTOMER ADVOCATE 03/03/19 10/19/22 Lucas Wen APRN 15 [facility] 13 [place] [phone] PCP - General Adult Health - PA/APNP/SOLAR FABRICATION TECHNICIAN/CUSTOMER ADVOCATE 10/20/22 01/14/23 Steffi Escalera APRN [address] [place] [address] PCP - General 01/15/23 Myesha Hwang MD [address] [place] [phone] Gastroenterology 04/09/23 documented as of this encounter
--- OUTSIDE RECORDS SUMMARY | 2024-09-04 10:35 | XMS_ITS | Encounter Summary ---
Author Organization [facility] Address [address] [place] [address] Care Team Providers Care Forestry Laborer Name Role Phone Sabrina Redd Primary Care Provider [phone] Encounter Details Date Type Department Care Team (Late st Contact Info) Description 07/13/2019 Abstract [facility] [address] [place] [address] Antoni Patricio MD [address] [place] [phone] Social History Tobacco Use Types Packs/Day Years [...] on filedocumented in this encounter Care Teams Forestry Laborer Relationship Specialty Start Date End Date Sabrina Redd PA [address] [place] [address] PCP - General 07/12/22 documented as of this encounter
--- OUTSIDE RECORDS SUMMARY | 2024-09-04 10:35 | XMS_ITS | Encounter Summary ---
Author Organization [facility] Address [address] [place] [address] Care Team Providers Care Business Development Assistant Name Role Phone Sabrina Redd Primary Care Provider [phone] Reason for Referral * Imaging (Routine) - Closed Specialty Diagnoses / Procedures Referred By Contac t Referred To Contact Diagnostic Radiology Procedures CTA Head w and/or wo IV Contrast Antoni Patricio MD [address] [place] [address] Phone: tel: fax: Referral ID Status Reason Start Date Expiration Date Visits Re quested Visits Authorized [id number] Closed 07/11/2023 07/10/2024 1 1 Encounter Details Date Type Department Care Team (Late st Contact Info) Description 07/11/2023 Scanned Document [facility] SCHEDULING [address] [place], [place] [id number] Antoni Patricio MD [address] [place] [address] Social History Tobacco Use Types [...] on filedocumented in this encounter Care Teams Business Development Assistant Relationship Specialty Start Date End Date Sabrina Redd PA [address] [place] [address] PCP - General 07/12/22 documented as of this encounter
--- OUTSIDE RECORDS SUMMARY | 2024-09-04 10:35 | XMS_ITS ---
Author Organization [facility] Address [address], [place] [phone] Care Team Providers Care Kitchen Aide Name Role Phone No, PCP Primary Care Provider Ebony Basurto Unavailable REASON FOR VISIT housing application/rc appt Social History Sex Assigned At : Social History Observation Description Sex Assigned At Female Encounters Encounter Location Date Provider Diagnosis [facility] [address] [place] [phone] 08/19/2024 Ebony Reyes Plan Of Treatment No Information Progress Notes * Jazmine CALDERADOB:[birth year] (64 yo F)Acc No.[id number]:08/19/2024 Case Management Patient:?Jazmine CALDERA Provider:Valdo Reyes :1960???Age:64 Y???Sex:Female D ate:08/19/2024 Address:[facility] [address] [facility] Pcp:PCP No Subjective: * Chief Complaints: * ???1. Housing application/re christal appt. * Medical History:? Objective: Assessment: Plan: * Treatment: * Images: Billing Information: * Visit Code:? * Procedure Codes:? Care Plan Details* * Electronic signature of Jeffrey Reyes on 09/04/2024 at 10:35 AM EDT Sign off status: Pending * Provider:Valdo Reyes Date:? Generated for Carri ferrell/Timothy/eTransmitting on:?09/04/2024 10:35 AM EDT
--- OUTSIDE RECORDS SUMMARY | 2024-09-04 10:35 | XMS_ITS | Encounter Summary ---
Author Organization [facility] Address [address] [place] [address] Care Team Providers Care Sawing And Assembly Supervisor Name Role Phone Maurilio Burgess MD Primary Care Provider Reason for Visit * Reason Comments Follow-up Cerebral Aneurysm,no n ruptured Encounter Details Date Type Department Care Team (Late st Contact Info) Description 08/26/2024 9:00 AM EDT Office Visit Neurosurgery [place] [address] [place] [address] Saleem Quigley MD [facility] [place] [address] Cerebral aneurysm, nonruptured (Primary Dx) Social History Tobacco Use Types Packs/Day Years [...] - - Weight 66.7 kg (147 lb) 08/26/2024 9:22 AM EDT Height 157.5 cm (5' 2 ) 08/26/2024 9:22 AM EDT Body Mass Index 26.89 08/26/2024 9:22 AM EDT documented in this encounter Progress Notes * Saleem Valenzuela MD - 08/26/2024 9:00 AM EDT Neurosurgical Consult Note Chief Complaint Patient presents with Follow-up Cerebral Aneurysm,non ruptured PCP: Maurilio Burgess MD History of Present Illness The patient presents for evaluation of an aneurysm. She underwent treatment for a large, unruptured left SCA aneurysm in [place] around [facility] in 2014. She has no family history of aneurysms or intracranial hemorrhages. She is a former smoker and reports no history of alcohol consumption. She is currently unemployed due to a 40 percent memory loss following her surgery. She has previously undergone an angiogram. Supplemental Information She is scheduled for a left breast biopsy tomorrow. She is also receiving IV iron infusions due to anemia. SOCIAL HISTORY The patient smoked in the past but does not smoke anymore. She never drinks alcohol. FAMILY HISTORY There is no family history of aneurysms or bleeding in the brain. Past Medical History: Past Surgical History: Past Medical History: Diagnosis Date Acid reflux Anemia Aneurysm (CMS/HCC) 2014 Anxiety Arthritis Asthma Depression Diabetes (CMS/HCC) Fibromyalgia, [...] stress jason, holter) Tubular adenoma of colon 2014 Visual impairment Past Surgical History: Procedure Laterality Date BREAST SURGERY REDUCTION MAMMAPLASTY;:with lift/ implants CARPAL TUNNEL RELEASE Bilateral CEREBRAL ANEURYSM REPAIR 02/2016 :Dr. Knox at [facility] SECTION COLONOSCOPY 2017 COLONOSCOPY 2015 tubular adenoma COLONOSCOPY N/A 05/12/2020 Surgeon: Tino Lang MD; Location: [facility]; Service: Gastroenterology; Laterality: N/A; COLONOSCOPY N/A 02/02/2021 Surgeon: Tino Lang MD; Location: [facility]; Service: Gastroenterology; Laterality: N/A; GASTRIC BYPASS 08/30/2009 HYSTERECTOMY 12/16/2010 OPEN ANTERIOR SHOULDER RECONSTRUCTION 04/14/2013 left shoulder reconstruction, Dr. Chisholm ([place]) OTHER SURGICAL HISTORY EXCESSIVE THIGH / HIP / BUTTOCK / FLANK SKIN EXCISION;COMMENT:following gastric bypass OTHER SURGICAL HISTORY Patient reports history of colon resection required after gastric bypass, bladder surgery and appendectomy UPPER GASTROINTESTINAL ENDOSCOPY 01/02/2018 Dr. Santacruz ([place]) UPPER GASTROINTESTINAL ENDOSCOPY N/A 05/11/2020 UPPER ENDOSCOPY-EGD; Surgeon: Pito Diaz MD; Location: [facility]; Service: Gastroenterology; Laterality: N/A; UPPER GASTROINTESTINAL ENDOSCOPY N/A 09/13/2020 EGD Surgeon: Maynor Rojas MD; Location: [facility]; Service: Gastroenterology; Laterality: N/A; Family / Social History: Family History Problem Relation Name Age of [...] Problems Half-Brother No Known Problems Son Gabriel Social History Socioeconomic History Marital status: Spouse name: Not on file Number of children: Not on file Years of education: Not on file Highest education level: Not on file Occupational History Not on file Tobacco Use Smoking status: Former Current packs/day: 0.00 Average packs/day: 1 pack/day for 34.0 years (34.0 ttl pk-yrs) Types: Cigarettes Start date: 06/11/1978 Quit date: 06/11/2012 Years since quittin.2 Smokeless tobacco: Never Substance and Sexual Activity Alcohol use: No Drug use: Yes Types: Marijuana/Cannabis Sexual activity: Not on file Other Topics Concern Not on file Social History Narrative Living at home with her half brother and 16yr old son. 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 Allergies: Allergies Allergen Reactions Milnacipran Palpitations and Unknown [...] to be taken to ER. Clopidogrel Rash Scheduled Medications: Current Outpatient Medications Medication Sig Dispense Refill albuterol HFA (PROAIR HFA ; PROVENTIL HFA ; VENTOLIN HFA) 90 mcg/actuation inhaler aspirin 81 mg capsule Take by mouth daily. blood-glucose meter (IPS Group Ultra2 Meter) misc fluticasone propionate (FLONASE) 50 [...] EVERY OTHER DAY NEEDED FOR MIGRAINE HEADACHE CodilityToUpplication Ultra Test test strip USE DIRECTED TO TEST BLOOD SUGAR EVERY DAY Otezla 30 mg tablet TAKE 1 BY MOUTH TWICE DAILY pantoprazole (PROTONIX) 40 mg EC tablet Take 1 tablet (40 mg total) by mouth 1 (one) time each day. pravastatin (PRAVACHOL) 40 mg tablet Take 1 tablet (40 mg total) by mouth 1 (one) time each day. pregabalin (LYRICA) 75 mg capsule Take 1 capsule (75 mg total) by mouth 2 (two) times a day. tiZANidine (ZANAFLEX) 4 mg capsule TAKE 1 CAPSULE BY MOUTH TWICE DAILY NEEDED FOR MUSCLE SPASMS OR NECK PAIN topiramate (TOPAMAX) 100 mg tablet Take 1 tablet (100 mg total) by mouth 2 (two) times a day. predniSONE (DELTASONE) 50 mg tablet Take 1 tablet (50 mg total) by mouth 1 (one) time each day. for5 days (Patient not taking: Reported on 08/26/2024) traMADoL (ULTRAM) 50 mg tablet Take 1 tablet (50 mg total) by mouth 2 (two) times a day if needed. No current facility-administered medications for this visit. Review of Systems: No fevers No chest pain or palpitations No cough or shortness of breath No abdominal pain No nausea or vomiting No unintentional weight loss No loss of appetite Vitals: There were no vitals filed for this visit. Physical Exam: Alert awake oriented Extraocular movements intact, no nystagmus Face symmetrical, tongue midline Speech clear, no apparent sensory or motor aphasia Moves all extremities, good strength in all muscle groups No pronator drift Deep tendon reflexes unremarkable No ankle clonus or Naveed's Gait stable, Romberg negative No results found for: WBC , RBC , HCT , HGB , MCV , MCH , MCHC , RDW , PLTCOUNT , MPV , NEUTROPHILS , LYMPHOCYTES , MONOCYTES , BASOPHILS No results found for: BUN , CREATININE , NA , K , CL , CO2 , CALCIUM , ALBUMIN , ALKPHOS , AST , ALT No results found for: CHOL , HDL , LDLCALC , VLDL , TRIG No results found for: HGBA1C Imaging: CTA head from 07/14/[address] angiogram shows a left-sided subtemporal approach to a distal left superior cerebellar artery aneurysm arising primarily from the left superior cerebellar artery, measuring 5 to 6 mm in size. Assessment & Plan 1. Rest of the left TUNG distal aneurysm: The aneurysm is currently measured at 5 to [address] angiogram. The artery giving rise to the aneurysm is notably small, which complicates the treatment approach. - Perform a diagnostic cerebral angiogram at [facility] [place] to further evaluatethe aneurysm and determine the most appropriate treatment plan. - Discuss potential risks associated with the angiogram, including pain, bleeding, infection, and asmall risk of stroke. - Ensure insurance coverage for the procedure. - Patient has provided consent for the procedure. Follow-up - Angiogram scheduled for 10/01/2024. PROCEDURE The patient underwent a successful treatment for a large, unruptured aneurysm in [place] around [facility] in 2014. I have obtained verbal consent from Jazmine Caldera prior to the recording. I have advised Jazmine Caldera that she may refuse the recording and require the recording to be turned off at any time during this encounter. Saleem Valenzuela MD. Neurosurgeon/Neuro-interventional surgeon [facility] documented in this encounter Plan of Treatment Not on file documented as of this encounter Visit Diagnoses Diagnosis Cerebral aneurysm, nonruptured- Primary documented in this encounter Historical Medications * This list may reflect changes made after this encounter. predniSONE (DELTASONE) 50 mg tablet Take 1 tablet (50 mg total) by mouth 1 (one) time each day. for 5 days 07/23/2024 added in this encounter Care Teams Sawing And Assembly Supervisor Relationship Specialty Start Date End Date Maurilio Burgess MD [address] [place] [address] Dr [address] [place] PCP - General Internal Medicine 06/17/24 documented as of this encounter
--- OUTSIDE RECORDS SUMMARY | 2024-09-04 10:35 | XMS_ITS | Clinical Summary ---
Author Organization [facility] Address [address] [place] [address] Phone Care Team Providers Care Crinkling Machine Operator Name Role Phone Maurilio Burgess MD Primary [...] SYMPTONS. Active blood-glucose meter (OneTouch Ultra2 Meter) [facility] 0 Active OneTouch Ultra Test test strip USE DIRECTED TO TEST BLOOD SUGAR EVERY DAY Active aspirin 81 mg capsule Take by mouth daily. Active albuterol HFA (PROAIR HFA ; PROVENTIL HFA ; VENTOLIN HFA) 90 mcg/actuation inhaler Active Otezla 30 mg tablet TAKE 1 BY MOUTH TWICE DAILY Active predniSONE (DELTASONE) 50 mg tablet Take 1 tablet (50 mg total) by mouth 1 (one) time each day. for 5 days 5 Active Active Problems Problem Noted Date Diagnosed Date Cerebral aneurysm, nonruptured 07/03/2024 Assessment & Plan (07/03/2024 1:06 PM EST): Patient has 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 Gilberto Knox in [place]. 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 She has chronic left eye vision loss and balance difficulty, chronic headaches and memory problems, patient states this has been since her craniotomy. She was seeing Dr. Patricio in neurosurgery at [place], [place]. She has since moved to [place], is looking to get follow-up CTA of [...] prescription glasses, but has not seen an roll wrapper. All questions answered, will call with any additional questions or concerns. Encounters Date Type Department Care Team Description 08/27/2024 Telephone Neurosurgery [place] - [address] [place] [address] Ivory Velazquez MA APPOINTMENT (No PA required per César Keenan with [facility], [place]pt [id number], REF # [id number], Provider and Facility in network. No PA required per Minnie with [facility], cpt [id number], REF # [id number], Provider and Facility in network. ) 08/26/2024 9:00 AM EDT Office Visit [facility] [address] [address] Saleem Quigley MD Cerebral aneurysm, nonruptured (Primary Dx) 07/14/2024 1:18 PM EST - 07/14/2024 11:59 PM EST Hospital Encounter [facility] CT Scan [address] [place] [id number] Cerebral aneurysm, nonruptured Discharge Disposition: Home or Self Care 07/09/[address] [address] Laurel David [place] Appointment ([facility] # [id number] for Head CT scheduled for 07/14/24 @ 1:30pm at [facility]. Pt aware) 07/03/2024 9:30 AM EST Consult [address] [address] Loan Sidhu PA Cerebral aneurysm, nonruptured (Primary Dx); Blurred vision, left eye from Last 3 Months Surgical History Surgery Date Site/Laterality Comments CEREBRAL ANEURYSM REPAIR 02/2016 :Dr. Knox at [facility] GASTRIC BYPASS 08/30/2009 OTHER SURGICAL HISTORY EXCESSIVE THIGH / HIP / BUTTOCK / FLANK SKIN EXCISION;COMMENT:following gastric bypass COLONOSCOPY 2016 COLONOSCOPY 2014 tubular adenoma HYSTERECTOMY 12/16/2010 UPPER GASTROINTESTINAL ENDOSCOPY 01/02/2018 Dr. Santacruz ([place]) OPEN ANTERIOR SHOULDER RECONSTRUCTION 04/14/2013 left shoulder reconstruction, Dr. Chisholm ([place]) SECTION UPPER GASTROINTESTINAL ENDOSCOPY 05/11/2020 N/A UPPER ENDOSCOPY-EGD; Surgeon: Pito Diaz MD; Location: [facility]; Service: Gastroenterology; Laterality: N/A; COLONOSCOPY 05/12/2020 N/A Surgeon: Tino Lang MD; Location: [facility]; Service: Gastroenterology; Laterality: N/A; UPPER GASTROINTESTINAL ENDOSCOPY 09/13/2020 N/A EGD Surgeon: Maynor Rojas MD; Location: [facility]; Service: Gastroenterology; Laterality: N/A; BREAST SURGERY REDUCTION MAMMAPLASTY;:with lift/ implants COLONOSCOPY 02/02/2021 N/A Surgeon: Tino Lang MD; Location: [facility]; Service: Gastroenterology; Laterality: N/A; OTHER [...] headache Visual impairment Obesity s/p GBP Diabetes (CMS/HCC) Hyperlipidemia Asthma Acid reflux Rheumatoid arthritis (CMS/HCC) Family History Medical History Relation Name Comments Arthritis Father Diabetes Father Heart attack Father Diabetes Half-Brother 1 Alvaro Heart disease Half-Brother 1 Alvaro Hyperlipidemia Half-Brother 1 Alvaro No Known Problems Half-Brother 2 No Known Problems Half-Brother 3 Arthritis Half-Sister 1 wilma Depression Half-Sister 1 wilma Diabetes Half-Sister 1 wilma Hyperlipidemia Half-Sister 1 wilma Hypertension Half-Sister 1 wilma Macular degeneration Half-Sister 1 wimla Breast cancer Half-Sister 2 Ovarian cancer Half-Sister [...] Mass Index 26.89 08/26/2024 9:22 AM EDT Plan of Treatment Health Maintenance Due [...] Signed Date: 07/16/2024 10:58 ET Workstation ID: [id number] Transcribed By: Self Edit Transcribed Date: 07/16/2024 10:11 ET Narrative 07/16/2024 10:58 AM EST PROCEDURE: Noncontrast head CT and CT angiogram of the [place]. 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 Gilberto Knox in [place]. 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 COMPARISON: Outside images dated 07/10/2023. TECHNIQUE: Noncontrast head CT followed by contrast-enhanced CT angiogram of the [place], with coronal and sagittal reformats. [...] head CT and CT angiogram of the [place]. HISTORY: Cerebral aneurysm, follow-up history of unruptured left superior cerebellar artery aneurysm treated bycraniotomy and trapping/bypass on May 05[place] [address] [place] 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 COMPARISON: Outside images dated 07/10/2023. TECHNIQUE: Noncontrast head CT followed by contrast-enhanced CT angiogramof the [place], with coronal and sagittal reformats. [...] Dictated Date: 07/16/2024 10:10 ET Assigned Physician: Alexie Guadalupe Reviewed and Electronically Signed By: Alexei Guadalupe Signed Date: 07/16/2024 10:58 ET Workstation ID: [id number] Transcribed By: Self Edit Transcribed Date: 07/16/2024 10:11 ET us Loan M Nahum PA IMG CT PROCEDURES Final Re sult * [...] plain language report , as required by [place] bill 485. Session: Separate session. Report reviewed and signed by : Dr. Matthew Serrato MD on 05/13/2020 4:27 PM. Workstation Name - [id number] Procedure Note Matthew Serrato MD - 06/02/2022 [...] plain language report , as required by [place] [id number]. Session: Separate session. Report reviewed and signed by : Dr. Matthew Serrato MD on 05/13/2020 4:27 PM.Workstation Name - [id number] us Moise Palomino MD IMG BI PROCEDURES Final Resul t from Last 3 Months or Most Recently Relevant to Health Maintenance Insurance [employer] MEDICARE ADVANTAGE MEDICAID - [place] Care Teams Crinkling Machine Operator Relationship Specialty Start Date End Date Maurilio Burgess MD [address] [place] [address] Dr [address] KIMMIE Elkins PCP - General Internal Medicine 06/17/24
--- OUTSIDE RECORDS SUMMARY | 2024-09-04 10:35 | XMS_ITS | Clinical Summary ---
Author Organization [facility] Address [address] [place] [address] Care Team Providers Care Pipe Cutter Name Role Phone Lucas Wen APRN Primary Care Provider Sina lopez Allergies Active Allergy Reactions Criticality Noted Date Comments Milnacipran Palpitations,Other ( See Comments) Medium 02/12/2019 Tachycardia Clopidogrel Rash Low 11/01/2022 Promethazine Palpitations,Other ( See Comments) Medium 04/10/2012 Tachycardia 180/min - she had to be taken to ER. Medications Medication Sig Dispensed Refills Start Date End Date Status WvLpm-RuGwra-RQ-B Cmp-C-Biot (INTEGRA PLUS) CAPS Take 1 tablet [...] complication, without long-term current use of insulin ([facility]) Test one to two times daily as [...] records for review Pt was followed by [facility] in [place], will need f/u care here also Overview: Last Assessment & Plan: Continue oral iron Need old records for review Pt was followed by [facility] in [place], will need f/u care here also Last Assessment & Plan: Continue oral iron Need old records for review Pt was followed by [facility] in [place], will need f/u care here also Last Assessment & Plan: Continue oral iron Need old records for review Pt was followed by [facility] in [place], will need f/u care here also Hematemesis [...] We discussed the minimal potential risk with intermediate school teacher PPI use. Based on AGA expert review the quality of evidence behind longterm kidney disease, dementia, bone fractures, and infection with PPI use is low. The current data suggests that intermediate school teacher PPI use does not require routine screening [...] expert review the quality of evidence behind intermediate school teacher kidney disease, dementia, bone fractures, and infection with PPI use is low. The current data suggests that intermediate school teacher PPI use does not require routine screening [...] We discussed the minimal potential risk with intermediate school teacher PPI use. Based on AGA expert review [...] aneurysm s/p trapping/bypass by Dr. Colin in [place] in 04/2015 Chronic migraine without aur a [...] Advance Directives For more information, please contact: [phone] Latest Code Status on File Code Status [...] 7:25 PM 01/06/2020 7:55 PM Care Teams Pipe Cutter Relationship Specialty Start Date End Date Lucas Wen APRN PCP - General Cardiology 11/01/22
--- OUTSIDE RECORDS SUMMARY | 2024-09-04 10:35 | XMS_ITS | Encounter Summary ---
Author Organization [facility] Address [address] [place] [address] Care Team Providers Care Manufacturing Associate Name Role Phone Sabrina Redd Primary Care Provider [phone] Encounter Details Date Type Department Care Team (Late st Contact Info) Description 07/02/2019 Scanned Document [facility] at [address] [place] [id number] Antoni Patricio MD [address] [place] [address] Social History Tobacco Use Types Packs/Day Years [...] on filedocumented in this encounter Care Teams Manufacturing Associate Relationship Specialty Start Date End Date Sabrina Redd PA [address] [place] [address] PCP - General 07/12/22 documented as of this encounter
--- OUTSIDE RECORDS SUMMARY | 2024-09-04 10:35 | XMS_ITS | Encounter Summary ---
Author Organization [facility] Address [address] [place] [address] Care Team Providers Care Plate Mill Hand Name Role Phone Sabrina Redd Primary Care Provider [phone] Encounter Details Date Type Department Care Team (Late st Contact Info) Description 06/27/2019 Scanned Document [facility] at [address] [place] [address] Antoni Patricio MD [address] [place] [address] Social History Tobacco Use Types Packs/Day Years [...] on filedocumented in this encounter Care Teams Plate Mill Hand Relationship Specialty Start Date End Date Sabrina Redd PA [address] [place] [address] PCP - General 07/12/22 documented as of this encounter
--- OUTSIDE RECORDS SUMMARY | 2024-09-04 10:35 | XMS_ITS | Encounter Summary ---
Author Organization [facility] Address [address] [place] [address] Care Team Providers Care Housekeeping Aide Name Role Phone Maurilio Burgess MD Primary Care Provider [phone] Reason for Visit * Reason Onset Date Comments APPOINTMENT 08/27/2024 No PA required p er César E. with [employer], cpt [phone], REF # [id number], Provider and Facility in network. No PA required per Minnie with [facility], cpt 46530, REF # [id number], Provider and Facility in network. Encounter Details Date Type Department Care Team (Late st Contact Info) Description 08/27/2024 Telephone Neurosurgery [facility] [address] [place] [address] Ivory Velazquez MA APPOINTMENT (No PA required per César E. with [employer], cpt 74860, REF # [id number], Provider and Facility in network. No PA required per Minnie with [facility], cpt 61786, REF # [id number], Provider and Facility in network. ) Social History Tobacco Use Types Packs/Day Years [...] AM EST documented as of this encounter Progress Notes * Ivory Velazquez MA - 08/27/2024 10:55 AM EDT No PA required per César Keenan with [facility], cpt [phone], REF # [id number], Provider and Facility in network.No PA required per Minnie with [facility], cpt 66170, REF # [id number], Provider and Facility in network. documented in this encounter Plan of Treatment Not on file documented as of this encounter Visit Diagnoses Not on filedocumented in this encounter Care Teams Housekeeping Aide Relationship Specialty Start Date End Date Maurilio Burgess MD [address] [place] [address] [address] KIMMIE Elkins PCP - General Internal Medicine 06/17/24 documented as of this encounter
--- OUTSIDE RECORDS SUMMARY | 2024-09-04 10:35 | XMS_ITS | Encounter Summary ---
Author Organization [facility] and [facility] Address [address] [place] [address] Care Team Providers Care Electrician Helper Name Role Phone Sabrina Redd Primary Care Provider [phone] Encounter Details Date Type Department Care Team (Late st Contact Info) Description 06/17/2019 Scanned Document [facility] [address] [place] [address] Provider, [facility] . Social History Tobacco Use Types Packs/Day [...] on filedocumented in this encounter Care Teams Electrician Helper Relationship Specialty Start Date End Date Sabrina Redd PA [address] [place] [address] PCP - General 07/12/22 documented as of this encounter
--- OUTSIDE RECORDS SUMMARY | 2024-09-04 10:35 | XMS_ITS | Clinical Summary ---
Author Organization [facility] Address [address] [place] [address] Care Team Providers Care Department Head [employer] Name Role Phone Sabrina Redd Primary Care Provider [phone] Allergies Active Allergy Reactions Criticality Noted Date [...] 05/2023 Last Assessment & Plan: Colon 02/2022 ([place]) - no polyps noted Would due recall [...] aneurysm s/p trapping/bypass by Dr. 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 No additional aneurysms of the [place] of [place] identified. 2. Post surgcal changes [...] We discussed the minimal potential risk with detention PPI use. Based on AGA expert review the quality of evidence behind intermediate manager kidney disease, dementia, bone fractures, and infection with PPI use is low. The current data suggests that detention PPI use does not require routine screening [...] We discussed the minimal potential risk with detention PPI use. Based on AGA expert review the quality of evidence behind detention kidney disease, dementia, bone fractures, and infection with PPI use is low. The current data suggests that detention PPI use does not require routine screening [...] discussed the minimal potential risk with intermediate manager PPI use. Based on AGA expert review the quality of evidence behind detention kidney disease, dementia, bone fractures, and infection with PPI use is low. The current data suggests that intermediate manager PPI use does not require routine screening [...] discussed the minimal potential risk with intermediate manager PPI use. Based on AGA expert review the quality of evidence behind intermediate manager kidney disease, dementia, bone fractures, and infection with PPI use is low. The current data suggests that intermediate manager PPI use does not require routine screening [...] We discussed the minimal potential risk with detention PPI use. Based on AGA expert review the quality of evidence behind intermediate manager kidney disease, dementia, bone fractures, and infection with PPI use is low. The current data suggests that intermediate manager PPI use does not require routine screening [...] We discussed the minimal potential risk with detention PPI use. Based on AGA expert review the quality of evidence behind intermediate manager kidney disease, dementia, bone fractures, and infection with PPI use is low. The current data suggests that intermediate manager PPI use does not require routine screening [...] review Pt was followed by heme in [place], will need f/u care here also Last Assessment & Plan: Continue oral iron Need old records for review Pt was followed by heme in [place], will need f/u care here also Last [...] review Pt was followed by heme in [place], will need f/u care here also Overview: Last Assessment & Plan: Continue oral iron Need old records for review Pt was followed by heme in [place], will need f/u care here also Last Assessment & Plan: Continue oral iron Need old records for review Pt was followed by heme in [place], will need f/u care here also Last Assessment & Plan: Continue oral iron Need old records for review Pt was followed by heme in [place], will need f/u care here also Last Assessment & Plan: 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 Hwang in [place] for double balloon enteroscopy- this was recommended after 2021 capsule in [place] and recent capsule also suggests that best [...] iron supplementation at this time ( Dr Rendon hematology) ANEMIA POSS DUE TO COLONIC AVMs ? COLONOSCOPY ( DR TOSCANO) / FE INFUSSION X 6 DOSES 08/2014 ( DR RENDON) Mixed hyperlipidemia 07/29/2017 History of gastric bypass 07/29/2017 Overview (07/20/2023): GASTRITIS S-P GASTRIC BYPASS [place] EGD NL , H PYELORI NEG, ANASTAMOSIS [...] KARLA RA ANTI SM ANTI SSA ANTI MANAGER CARD AB NEG SR / CRP NL ( ) DR HERNANDEZ. History of hysterectomy 12/16/2010 Pain in pelvis 09/11/2007 07/20/2023 Diabetes mellitus 08/29/2007 07/20/2023 Cerebral aneurysm, nonruptured Overview (05/26/2019): unruptured left SCA aneurysm s/p trapping/bypass by Dr. Colin in [place] in 04/2015 Encounters Date Type Department Care Team Description 06/24/2024 Telephone [facility] [address] [phone] Antoni Patricio MD Other from Last 3 [...] Due Date Last Done Comments Pneumococcal Vaccine (50+ years) (1 of 2 - PCV) 02/20/1968 Diabetic eye exam 02/20/1972 LDL monitoring 02/20/1972 Urine Microalbumin 02/20/1972 HIV screening 1975 Hepatitis C screening 02/20/1980 Tetanus adult (Td q 10,TDAP once) 1982 Cervical cancer screening 1983 Shingles vaccine (Shingrix) (1 of 2 - Shingrix (RZV) 2 Dose Standard Series) 02/20/2012 Diabetic foot exam 04/01/2019 04/01/2018, 04/01/2018 RSV Immunization (1 - Risk 60-74 years 1-dose series) 2022 Breast cancer screening 05/13/2022 05/13/2020 Hemoglobin A1C 07/29/2023 01/26/2023, 08/09, 12/27/2020, Additional history exists Influenza vaccine 01/10/2024 Covid-19 vaccine series (2023- season) 2024 11/05/2020, 10/08/2020 Colon cancer screening, Colonoscopy 02/02/2031 02/02/2021, 05/12/2020 Meningococcal Vaccine Aged Out No chaya wesley eligible based on patient's age to complete this topic Insurance [place] [address] [place] [id number] [facility] M[facility] Care Teams Department Head [employer] Relationship Specialty Start Date End Date Sabrina Redd PA [address] [facility] [place] [address] PCP - General 07/12/22
== END 2024-09-04 09:30 | disposition home or self-care (01) ==
LOC: HO.HGS 09:07
PROVIDERS: PCP Internal Medicine; Visit Provider Surgery
DX: R92.8 Other abnormal and inconclusive findings on diagnostic imaging of breast (principal); N64.52 Nipple discharge
CPT/HCPCS: 99213

== ENCOUNTER → 2024-09-04 09:07 | Outpatient (BNVA) | payer MEDICARE, MEDICAID, SELFPAY | PROVIDERS: PCP Internal Medicine; Visit Provider Surgery | DX: N64.52 Nipple discharge (principal); R92.8 Other abnormal and inconclusive findings on diagnostic imaging of breast | CPT/HCPCS: 99212 ==

== ENCOUNTER 2024-09-30 12:00 | Outpatient (RCR) | payer MEDICARE, MEDICAID, SELFPAY ==
[2024-08-12 10:02] VITALS: BP 138/55; PULSE 83; RESP 14; TEMP 36.5; O2SAT 100
[2024-08-12] MEDS: Iron Sucrose Complex 200 MG/10 ML VIAL IVPUSH (10:09)
[2024-08-18 13:32] VITALS: BP 128/48; PULSE 83; RESP 14; TEMP 36.6; O2SAT 97
[2024-08-18] MEDS: Iron Sucrose Complex 200 MG/10 ML VIAL IVPUSH (13:43)
[2024-08-18] MEDS: 0.9 % Sodium Chloride Flush 10 ML SYRINGE 5 ML IVFLUSH (13:51)
[2024-08-26 11:37] VITALS: BP 130/56; PULSE 72; RESP 16; TEMP 36.2; O2SAT 100
[2024-08-26] MEDS: Iron Sucrose Complex 200 MG/10 ML VIAL IVPUSH (11:50)
[2024-09-04 08:14] VITALS: BP 96/45; PULSE 65; RESP 16; TEMP 36.6; O2SAT 100
[2024-09-04] MEDS: Iron Sucrose Complex 200 MG/10 ML VIAL IVPUSH (08:29)
[2024-09-04 08:32] LABS: Hematocrit 32.4 % (37.0-47.0); Hemoglobin 9.6 g/dl (12.0-16.0); Mean Corpuscular HGB Conc 29.6 g/dl (31.0-35.0); Mean Corpuscular Hemoglobin 24.4 pg (27.0-33.0); Mean Corpuscular Volume 82.2 fL (80.0-98.0); Mean Platelet Volume 10.3 fL (9.4-12.3); Platelet Count 277 X10*3/uL (160-400); Red Blood Count 3.94 X10*6/uL (4.20-5.50); Red Cell Distribution Width 26.4 % (11.0-16.0)
[2024-09-04 09:04] LABS: Ferritin 151 ng/mL (10-250)
[2024-09-08 10:02] VITALS: BP 122/62; PULSE 77; RESP 14; TEMP 36.8; O2SAT 97
[2024-09-08] MEDS: Iron Sucrose Complex 200 MG/10 ML VIAL IVPUSH (12:57)
[2024-09-08] MEDS: 0.9 % Sodium Chloride Flush 10 ML SYRINGE 5 ML IVFLUSH (13:10)
[2024-09-15 09:06] VITALS: BP 111/50; PULSE 84; RESP 16; TEMP 36.4; O2SAT 100
[2024-09-15] MEDS: Iron Sucrose Complex 200 MG/10 ML VIAL IVPUSH (09:15)
[2024-09-22 09:39] VITALS: BP 114/54; PULSE 80; RESP 16; TEMP 36.7; O2SAT 100
[2024-09-22] MEDS: Iron Sucrose Complex 200 MG/10 ML VIAL IVPUSH (09:57)
[2024-09-30 11:55] VITALS: BP 139/57; PULSE 66; RESP 16; TEMP 36.5; O2SAT 97
[2024-09-30] MEDS: Iron Sucrose Complex 200 MG in 0.9 % Sodium Chloride 100 ML 440 MG IV (12:02)
[2024-09-30 12:09] LABS: Hematocrit 40.5 % (37.0-47.0); Hemoglobin 12.8 g/dl (12.0-16.0); Mean Corpuscular HGB Conc 31.6 g/dl (31.0-35.0); Mean Corpuscular Hemoglobin 27.6 pg (27.0-33.0); Mean Corpuscular Volume 87.3 fL (80.0-98.0); Mean Platelet Volume 10.7 fL (9.4-12.3); Platelet Count 276 X10*3/uL (160-400); Red Blood Count 4.64 X10*6/uL (4.20-5.50); Red Cell Distribution Width 23.2 % (11.0-16.0); White Blood Count 12.2 X10*3/uL (4.8-10.8)
[2024-09-30 12:48] LABS: Ferritin 277 ng/mL (10-250)
== END 2024-09-30 12:38 | disposition home or self-care (01) ==
LOC: HO.INF 12:00
PROVIDERS: Visit Provider Nurse Practitioner Family
DX: D64.9 Anemia, unspecified (principal); M06.9 Rheumatoid arthritis, unspecified
CPT/HCPCS: 36415; 82728; 85027; 96365; 96374; J1756

== ENCOUNTER 2024-10-06 11:01 | Outpatient (REF) | payer MEDICARE, MEDICAID, SELFPAY ==
--- NOTE | ~2024-10-06 | XR_ITS ---
EXAMINATION: XR BONE SURVEY, COMPLETE CLINICAL INFORMATION: MGUS, rule out lytic lesion COMPARISON: None available. Correlation made with CT abdomen and pelvis 11/29/2023. TECHNIQUE: Radiographs of the following were obtained: Lateral skull, lateral C-spine, AP T-spine, AP L-spine, lateral T-spine, lateral L-spine, AP pelvis, PA chest, AP bilateral humeri, AP bilateral forearms, AP bilateral femurs proximally and distally, AP tibias and fibulas. (18 total radiographs). FINDINGS: Lateral skull demonstrates old pterional craniotomy, paraclinoid aneurysm clip, hyperostosis from talus, with no lytic lesions. There are maxillary dental implants. No lytic lesions within the cervical spine. There are moderate changes of degenerative spondylosis. The cardiac, hilar, and mediastinal contours are normal. There are aortic mural calcifications. There are cholecystectomy clips. Lungs appear clear. The thoracic spine and lumbar spine demonstrate no definite lytic or blastic lesions. Exaggerated thoracic kyphosis present with mild chronic appearing wedge deformities of the superior endplates of T8 and T10. Mild to moderate spondylosis of the thoracic and lumbar spine. Pelvis demonstrates mild degenerative hip joint changes bilaterally. No lytic or blastic lesions. SI joints appear normal. Bilateral humeri demonstrate no definite lytic or blastic bone lesions. Mild degenerative arthritis in both shoulder joints. Bilateral forearms demonstrate no lytic or blastic lesions. Bilateral femurs, both proximally and distally, demonstrate no lytic or blastic lesions. Mild degenerative changes of the knee joints bilaterally. Vascular calcifications in the soft tissues. Bilateral tibia and fibula radiographs demonstrate no lytic or blastic bone lesions. XR/XR bone survey IMPRESSION: 1. Bone survey demonstrating no definitive lytic or blastic bone lesions within the imaged skeletal structures. 2. Ancillary findings as discussed Electronically signed by: Chuy Gómez MD 10/09/2024 09:55 AM EDT
[2024-10-06 12:14] LABS: Rheumatoid Factor < 13.0 IU/mL (<15.0)
[2024-10-06 12:22] LABS: Alanine Aminotransferase 68 U/L (0-31); Albumin Level 4.7 g/dL (3.5-5.0); Alkaline Phosphatase 96 U/L (39-117); Anion Gap 15 (12-20); Aspartate Amino Transferase 82 U/L (5-31); Bilirubin Total 0.2 mg/dL (0.0-1.0); Blood Urea Nitrogen 11 mg/dL (9-16); C Reactive Protein < 0.10 mg/dL (< or = 0.50); Calcium 9.7 mg/dL (8.4-10.2); Carbon Dioxide 23 mmol/L (22-29); Chloride 107 mmol/L (96-108); Cholesterol 160 mg/dL (<200); Estimated Glomerular Filt Rate > 60; Glucose Fasting 116 mg/dL (60-99); HDL Cholesterol 66 mg/dL (>40); LDL Cholesterol Calculated 51 mg/dL (<100); Potassium 3.9 mmol/L (3.3-5.1); Sodium 141 mmol/L (135-145); Total Protein 7.5 g/dL (6.5-8.0); Triglycerides 215 mg/dL (<150)
[2024-10-06 12:29] LABS: TSH reflex Free T4 0.46 uIU/mL (0.32-4.0); Vitamin D 25-OH Total 15.1 ng/mL (>30)
[2024-10-06 12:30] LABS: Estimated Average Glucose 108 mg/dL; Hemoglobin A1C 110.6746 umol/L; Hemoglobin A1c % 5.4 % (<6.0); Total Hemoglobin (HGBA1C) 3163.8559 umol/L
[2024-10-06 12:51] LABS: Folate 12.8 ng/mL (> or = 4.0); Vitamin B12 420 pg/mL (200-900)
[2024-10-06 12:54] LABS: Creatinine Urine 48.47 mg/dL; Microalbum/Creatinine Ratio Ur 12.3 ug/mg cr (<30)
[2024-10-06 13:00] LABS: Appearance Urine Clear; Color Urine Yellow; Glucose Urine UA Negative (Negative); Leukocyte Esterase Urine Small (1+) (Negative); Nitrite Urine Negative (Negative); PH 6.5 (5.0-9.0); Specific Gravity - Urine 1.015 (1.005-1.025); UMIC TRIGGER UACC YES; Urine Blood Negative (Negative); Urine Ketones Negative (Negative); Urine Protein Negative (Neg-Trace)
[2024-10-06 13:05] LABS: Erythrocyte Sedimentation Rate 12 MM/HR (0-20)
--- OUTSIDE RECORDS SUMMARY | 2024-10-06 13:17 | XMS_ITS | Encounter Summary ---
Author Organization [facility] Address [address] [place] [address] Care Team Providers Care Vehicle Upholsterer Name Role Phone Sabrina Redd Primary Care Provider [phone] Encounter Details Date Type Department Care Team (Late st Contact Info) Description 04/09/2019 Abstract [facility] [address] [facility] [address] [facility] [place] [address] Antoni Patricio MD [address] [place] [phone] Social History Tobacco Use Types Packs/Day Years [...] on filedocumented in this encounter Care Teams Vehicle Upholsterer Relationship Specialty Start Date End Date Sabrina Redd PA [address] [place] [address] PCP - General 07/12/22 documented as of this encounter
--- OUTSIDE RECORDS SUMMARY | 2024-10-06 13:17 | XMS_ITS | Encounter Summary ---
Author Organization [facility] Address [address] [place] [address] Care Team Providers Care Spear Fisher Name Role Phone Marina Reddy APRN Primary Care Provider [phone] Lucas Wen APRN Primary Care Provider + Steffi Escalera APRN Primary Care Provider Myesha Hwang MD Unavailable [phone] Reason for Visit * Reason Comments Medication Refill Encounter Details Date Type Department Care Team (Late st Contact Info) Description 08/25/2020 Refill [facility] [address] [address] Dominic Narvaez MD [address] [place] [address] Social History Tobacco Use Types Packs/Day Years Used Date Smoking Tobacco: Former Smokeless Tobacco: Never Alcohol Use Standard Drinks/Week Comments Not Currently 0 (1 standard drink = 0.6 oz pur e alcohol) Comments Unknown Sex and Gender Information Value Date Recorded Sex Assigned at Female 01/19/2023 6:21 AM EDT Legal Sex Female 4:05 PM EDT Gender Identity Female 01/19/2023 6:21 AM EDT Sexual Orientation Heterosexual (straight) 01/19 6:21 AM EDT documented as of this encounter Plan of Treatment Not on file documented as of this encounter Visit Diagnoses Not on filedocumented in this encounter Care Teams Spear Fisher Relationship Specialty Start Date End Date Barry, Marina, PET CARE ASSOCIATE [address] [facility] 13 [place] [address] PCP - General Adult Health - PA/APNP/EVP GENERAL COUNSEL/PET CARE ASSOCIATE 03/03/19 10/19/22 Lucas Wen APRN 15 [facility] 13 [place] [address] PCP - General Adult Health - PA/APNP/EVP GENERAL COUNSEL/PET CARE ASSOCIATE 10/20/22 01/14/23 Steffi Escalera APRN [address] [address] PCP - General 01/15/23 Myesha Hwang MD [address] [place] [address] Gastroenterology 04/09/23 documented as of this encounter
--- OUTSIDE RECORDS SUMMARY | 2024-10-06 13:17 | XMS_ITS | Encounter Summary ---
Author Organization [facility] and [facility] Address [address] [place] [address] Care Team Providers Care Retail Greeting Card Merchandiser Name Role Phone Sabrina Redd Primary Care Provider Encounter Details Date Type Department Care Team (Late st Contact Info) Description 06/27/2019 Scanned Document [facility] [address] [place] [address] Antoni Patricio MD [address] [place] [phone] Social History Tobacco Use Types Packs/Day Years [...] on filedocumented in this encounter Care Teams Retail Greeting Card Merchandiser Relationship Specialty Start Date End Date Sabrina Redd PA [address] [place] [address] PCP - General 07/12/22 documented as of this encounter
--- OUTSIDE RECORDS SUMMARY | 2024-10-06 13:17 | XMS_ITS | Encounter Summary ---
Author Organization [facility] and [facility] Address [address] [place] [address] Care Team Providers Care Inseam Leveler Name Role Phone Sabrina Redd Primary Care Provider [phone] Encounter Details Date Type Department Care Team (Late st Contact Info) Description 06/20/2019 Scanned Document [facility] [address] [place] [address] Antoni Patricio MD [address] [place] [phone] Social History Tobacco Use Types Packs/Day Years [...] on filedocumented in this encounter Care Teams Inseam Leveler Relationship Specialty Start Date End Date Sabrina Redd PA [address] [place] [address] PCP - General 07/12/22 documented as of this encounter
--- OUTSIDE RECORDS SUMMARY | 2024-10-06 13:17 | XMS_ITS | Encounter Summary ---
Author Organization [facility] and [facility] Address [address] [place] [address] Care Team Providers Care Exceptional Children'S Teacher Name Role Phone Sabrina Redd Primary Care Provider [phone] Encounter Details Date Type Department Care Team (Late st Contact Info) Description 04/11/2019 Scanned Document [facility] [address] [facility] [address] [facility] [place] [address] Provider, Historical . Social History Tobacco Use [...] on filedocumented in this encounter Care Teams Exceptional Children'S Teacher Relationship Specialty Start Date End Date Sabrina Redd PA [address] [place] [address] PCP - General 07/12/22 documented as of this encounter
--- OUTSIDE RECORDS SUMMARY | 2024-10-06 13:17 | XMS_ITS | Encounter Summary ---
Author Organization [facility] Address [address] [place] [address] Care Team Providers Care Principal System Software Engineer Name Role Phone Steffi Escalera APRN Primary Care Provider Myesha Hwang MD Unavailable [phone] Encounter Details Date Type Department Care Team ([facility] st Contact Info) Description 02/01/2023 Scanned Document [facility] 113 [facility] [address] [place] [phone] Marina Davis PA 113 [facility] 301 [place] [address] Social History Tobacco Use Types Packs/Day Years [...] more drinks on one occasion? Never 01/17/2023 Comments No Sex and Gender Information Value [...] on filedocumented in this encounter Care Teams Principal System Software Engineer Relationship Specialty Start Date End Date Steffi Escalera APRN 12 N [facility] [address] [place] [address] PCP - General 01/15/23 Myesha Hwang MD [address] [place] [address] Gastroenterology 04/09/23 documented as of this encounter
--- OUTSIDE RECORDS SUMMARY | 2024-10-06 13:17 | XMS_ITS | Encounter Summary ---
Author Organization [facility] Address [address] [place] [address] Care Team Providers Care Laboratory Sample Carrier Name Role Phone Steffi Escalera APRN Primary Care Provider Myesha Hwang MD Unavailable [phone] Encounter Details Date Type Department Care Team (Late st Contact Info) Description 02/06/2023 Scanned Document [facility] [address] [address] [place] [address] Social History Tobacco Use Types [...] per day at this level? 60 02/06/2023 Comments No Sex and Gender Information Value Date Recorded Sex Assigned at Female 01/19/2023 6:21 AM EDT Legal Sex Female 4:05 PM EDT Gender Identity Female 01/19/2023 6:21 AM EDT Sexual Orientation Heterosexual (straight) 01/19 6:21 AM EDT documented as of this encounter Functional Status * Question Answer Date of Assessment Author Feeling nervous, anxious, or on edge 1 02/06/2023 3:00 PM EDT Amanda Pearl MA Not being able to stop or control worrying 1 02/06/2023 3:00 PM EDT Amanda Pearl MA Worrying too much about different things 1 02/06/2023 3:00 PM EDT Amanda Pearl MA Trouble relaxing 1 02/06/2023 3:00 PM EDT Amanda Lowe MA Being so restless that it is hard to sit still 0 02/06/2023 3:00 PM EDT Amanda Pearl MA Becoming easily annoyed or irritable 0 02/06/2023 3:00 PM EDT Amanda Pearl MA Feeling afraid as if somethi ng awful might happen 0 02/06/2023 3:00 PM EDT Amanda Pearl MA * Over the past 2 weeks, how often have you been bothered by any of the following problems? Question Answer Date of Assessment Author Patient Health Questionnaire -2 Score 4 02/06/2023 9:00 AM EDT Florian Beebe MD * Question Answer Date of Assessment Author Patient Health Questionnaire -9 Score 10 02/06/2023 9:00 AM EDT Florian Beebe MD * Over the last 2 weeks, how often have you been bothered by any of the following problems? Question Answer Date of Assessment Author CHANA-7 Total Score 4 02/06/2023 3:00 PM EDT Amanda Pearl MA * Question Answer Date of Assessment Author Little interest or pleasure in doing things More than half the days 02/06/2023 9:00 AM EDT Florian Beebe MD Feeling down, depressed, or hopeless More than half the days 02/06/2023 9:00 AM Florian Damon MD Trouble falling or staying asleep, or sleeping too much Not at all 02/06/2023 9:00 AM Florian Damon MD Feeling tired or having little energy More than half the days 02/06/2023 9:00 AM Florian Damon MD Poor appetite or overeating Not at all 02/06/2023 9:00 AM Florian Damon MD Feeling bad about yourself - or that you are a failure or have let yourself or your family down Several days 02/06/2023 9:00 AM Florian Damon MD Trouble concentrating on things, such as reading the newspaper or watching television Several days 02/06/2023 9:00 AM Florian Damon MD Moving or speaking so slowly that other people could have noticed? Or the opposite - being so fidgety or restless that you have been moving around a lot more than usual. Several days 02/06/2023 9:00 AM Florian Damon MD Thoughts that you would be better off or hurting yourself in some way Several days 02/06/2023 9:00 AM Florian Damon MD How difficult have these problems made it for you to do your work, take care of things at home, or get along with other people? Somewhat difficult 02/06/2023 9:00 AM Florian Damon MD documented as of this encounter Plan of Treatment Not on file documented as of this encounter Visit Diagnoses Not on filedocumented in this encounter Care Teams Laboratory Sample Carrier Relationship Specialty Start Date End Date Steffi Escalera APRN [address] [address] PCP - General 01/15/23 Myesha Hwang MD [address] [place] [address] Gastroenterology 04/09/23 documented as of this encounter
--- OUTSIDE RECORDS SUMMARY | 2024-10-06 13:17 | XMS_ITS | Encounter Summary ---
Author Organization [facility] Address [address] [place] [address] Care Team Providers Care Systems Specialist Name Role Phone Lucas Wen APRN Primary Care Provider + Steffi Escalera APRN Primary Care Provider Myesha Hwang MD Unavailable [phone] Encounter Details Date Type Department Care Team (Late st Contact Info) Description 10/26/2022 Scanned Document [facility] - [address] [phone] Chris Sood MD [address] [place], [place] [phone] Social History Tobacco Use Types Packs/Day Years Used Date Smoking Tobacco: Former Smokeless Tobacco: Never Alcohol Use Standard Drinks/Week Comments Not Currently 0 (1 standard drink = 0.6 oz pur e alcohol) Comments No Sex and Gender Information Value [...] on filedocumented in this encounter Care Teams Systems Specialist Relationship Specialty Start Date End Date Lucas Wen APRN PCP - General Adult Health - PA/APNP/SHEET METAL PRODUCTION WORKER/SPIRITUAL ADVISOR 10/20/22 01/14/23 Steffi Escalera APRN [address] [address] PCP - General 01/15/23 Myesha Hwang MD [address] [place] [address] Gastroenterology 04/09/23 documented as of this encounter
--- OUTSIDE RECORDS SUMMARY | 2024-10-06 13:17 | XMS_ITS | Encounter Summary ---
Author Organization [facility] Address [address] [place] [address] Care Team Providers Care Mill Tender Name Role Phone Marina Reddy TURNER Primary Care Provider Lucas Wen APRN Primary Care Provider + Steffi Escalera APRN Primary Care Provider Myesha Hwang MD Unavailable [phone] Encounter Details Date Type Department Care Team (Late st Contact Info) Description 09/29/2022 Scanned Document [facility] - [address] [place] [address] Chris Sood MD [address] [place] [address] [address] [place], [place] [phone] Social History Tobacco Use Types Packs/Day Years [...] on filedocumented in this encounter Care Teams Mill Tender Relationship Specialty Start Date End Date Marina Reddy APRN 15 [facility] 13 [place] [address] PCP - General Adult Health - PA/APNP/SIGN SHOP SUPERVISOR/TRUSS ASSEMBLER 03/03/19 10/19/22 Lucas Wen APRN [address] [place] [address] [address] [place] [address] PCP - General Adult Health - PA/APNP/SIGN SHOP SUPERVISOR/TRUSS ASSEMBLER 10/20/22 01/14/23 Steffi Escalera APRN [address] [place] [address] PCP - General 01/15/23 Myesha Hwang MD [address] [place] [address] Gastroenterology 04/09/23 documented as of this encounter
--- OUTSIDE RECORDS SUMMARY | 2024-10-06 13:17 | XMS_ITS | Encounter Summary ---
Author Organization [facility] and [facility] Address [address] [place] [address] Care Team Providers Care Group Fitness Instructor Name Role Phone Sabrina Redd Primary Care Provider Encounter Details Date Type Department Care Team (Late st Contact Info) Description 07/12/2020 Scanned Document [facility] [address] [place], [place] [address] Antoni Patricio MD [address] [place] [address] Social History Tobacco Use Types [...] on filedocumented in this encounter Care Teams Group Fitness Instructor Relationship Specialty Start Date End Date Sabrina Redd PA [address] [place] [address] PCP - General 07/12/22 documented as of this encounter
--- OUTSIDE RECORDS SUMMARY | 2024-10-06 13:17 | XMS_ITS | Encounter Summary ---
Author Organization [facility] Address [address] [place] [address] Care Team Providers Care Warehouse Laborer Name Role Phone Steffi Escalera APRN Primary Care Provider Myesha Hwang MD Unavailable [phone] Encounter Details Date Type Department Care Team (Late st Contact Info) Description 02/06/2023 Scanned Document [facility] [address] [address] [place] [address] Social History Tobacco Use Types [...] filedocumented in this encounter Care Teams Warehouse Laborer Relationship Specialty Start Date End Date Steffi Escalera APRN [address] [address] PCP - General 01/15/23 Myesha Hwang MD [address] [place] [address] Gastroenterology 04/09/23 documented as of this encounter
--- OUTSIDE RECORDS SUMMARY | 2024-10-06 13:17 | XMS_ITS | Encounter Summary ---
Author Organization [facility] and [facility] Address [address] [place] [address] Care Team Providers Care Bone Char Puller Name Role Phone Sabrina Redd Primary Care Provider [phone] Encounter Details Date Type Department Care Team (Late st Contact Info) Description 07/14/2019 Scanned Document [facility] 800 [facility] 800 [place] [address] Provider, Historical . Social History Tobacco Use [...] on filedocumented in this encounter Care Teams Bone Char Puller Relationship Specialty Start Date End Date Sabrina Redd PA [address] [place] [address] PCP - General 07/12/22 documented as of this encounter
--- OUTSIDE RECORDS SUMMARY | 2024-10-06 13:17 | XMS_ITS | Encounter Summary ---
Author Organization [facility] Address [address] [place] [address] Care Team Providers Care Leasing Coordinator Name Role Phone Sabrina Redd Primary Care Provider [phone] Encounter Details Date Type Department Care Team (Late st Contact Info) Description 06/17/2019 Scanned Document [facility] at [address] [place] [address] Provider, [facility] . Social History Tobacco Use Types Packs/Day [...] on filedocumented in this encounter Care Teams Leasing Coordinator Relationship Specialty Start Date End Date Sabrina Redd PA [address] [place] [address] PCP - General 07/12/22 documented as of this encounter
--- OUTSIDE RECORDS SUMMARY | 2024-10-06 13:17 | XMS_ITS | Encounter Summary ---
Author Organization [facility] Address [address] [place] [address] Care Team Providers Care Health And Safety Consultant Name Role Phone Marina Reddy APRN Primary Care Provider [phone] Lucas Wen APRN Primary Care Provider + Steffi Escalera APRN Primary Care Provider Myesha Hwang MD Unavailable [phone] Reason for Visit * Reason Comments Medication Refill Encounter Details Date Type Department Care Team (Late st Contact Info) Description 10/06/2020 Refill [facility] [address] [address] Dominic Narvaez MD [address] [place] [address] Social History Tobacco Use Types Packs/Day Years [...] on filedocumented in this encounter Care Teams Health And Safety Consultant Relationship Specialty Start Date End Date Barry, Marina, EDM OPERATOR [address] [facility] [address] [place] [address] PCP - General Adult Health - PA/APNP/CULINARY ART TEACHER/EDM OPERATOR 03/03/19 10/19/22 Lucas Wen APRN [address] [facility] [address] [place] [address] PCP - General Adult Health - PA/APNP/CULINARY ART TEACHER/EDM OPERATOR 10/20/22 01/14/23 Steffi Escalera APRN [address] [address] PCP - General 01/15/23 Myesha Hwang MD [address] [place] [address] Gastroenterology 04/09/23 documented as of this encounter
--- OUTSIDE RECORDS SUMMARY | 2024-10-06 13:17 | XMS_ITS | Encounter Summary ---
Author Organization [facility] Address [address] [place] [address] Care Team Providers Care Sap Enterprise Portal Consultant Name Role Phone Sabrina Redd Primary Care Provider [phone] Encounter Details Date Type Department Care Team (Late st Contact Info) Description 07/02/2019 Scanned Document [facility] at [address] [place] [address] Antoni Patricio MD [address] [place] [phone] Social History Tobacco Use Types Packs/Day Years [...] on filedocumented in this encounter Care Teams Sap Enterprise Portal Consultant Relationship Specialty Start Date End Date Sabrina Redd PA [address] [place] [address] PCP - General 07/12/22 documented as of this encounter
--- OUTSIDE RECORDS SUMMARY | 2024-10-06 13:17 | XMS_ITS | Encounter Summary ---
Author Organization [facility] Address [address] [place] [address] Care Team Providers Care Portfolio Management Marketing Name Role Phone Sabrina Redd Primary Care Provider [phone] Encounter Details Date Type Department Care Team (Late st Contact Info) Description 07/13/2019 Abstract [facility] at [address] [place] [address] Antoni Patricio MD [address] [place] [phone] Social History Tobacco Use Types Packs/Day Years [...] on filedocumented in this encounter Care Teams Portfolio Management Marketing Relationship Specialty Start Date End Date Sabrina Redd PA [address] [place] [address] PCP - General 07/12/22 documented as of this encounter
--- OUTSIDE RECORDS SUMMARY | 2024-10-06 13:18 | XMS_ITS | Clinical Summary ---
Author Organization [facility] [employer] Address [address] [place] [address] Care Team Providers Care Picc Nurse Name Role Phone Sabrina Redd Primary Care Provider [phone] Allergies Active Allergy Reactions Criticality Noted Date [...] intractable 02/12/2019 Anemia 02/12/2019 Recurrent major depressive disorder, in full rem ission 02/12/2019 Reflux esophagitis 02/12/2019 S/P gastric bypass 02/12/2019 Type 2 diabetes mellitus wit hout complication, without long-term current use of insulin 02/12/2019 Overview (07/19/2020): 07/2018: A1c 6.7% Cerebral [...] aneurysm s/p trapping/bypass by Dr. Colin in [place] in 04/2015 Cobalamin deficiency 10/26/2018 History of GI bleed 10/26/2018 Tubular adenoma of colon 10/26/2018 Overview (07/20/2023): colonoscopy in 2014: Hyperplastic polyps COLON POLYPS 9-2009 : ADENOMATOUS POLYP .. History of syncope 10/24/2018 Overview (07/20/2023): SYNCOPE MULTIPLE 3 EPISODES IN MAY 2010 AND HAD MRI BRAIN , STRESS TEST , EEG AND TILT TABLE WERE NL. WEL NICS AND ECHO. 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 No additional aneurysms of the yurok of [place] identified. 2. Post surgcal changes [...] We discussed the minimal potential risk with watermelon harvesting supervisor PPI use. Based on AGA expert review the quality of evidence behind watermelon harvesting supervisor kidney disease, dementia, bone fractures, and infection with PPI use is low. The current data suggests that watermelon harvesting supervisor PPI use does not require routine [...] We discussed the minimal potential risk with watermelon harvesting supervisor PPI use. Based on AGA expert [...] We discussed the minimal potential risk with watermelon harvesting supervisor PPI use. Based on AGA expert review the quality of evidence behind watermelon harvesting supervisor kidney disease, dementia, bone fractures, and infection with PPI use is low. The current data suggests that watermelon harvesting supervisor PPI use does not require routine [...] We discussed the minimal potential risk with watermelon harvesting supervisor PPI use. Based on AGA expert review the quality of evidence behind watermelon harvesting supervisor kidney disease, dementia, bone fractures, and infection with PPI use is low. The current data suggests that watermelon harvesting supervisor PPI use does not require routine [...] We discussed the minimal potential risk with watermelon harvesting supervisor PPI use. Based on AGA expert review the quality of evidence behind longterm kidney disease, dementia, bone fractures, and infection with PPI use is low. The current data suggests that watermelon harvesting supervisor PPI use does not require routine [...] We discussed the minimal potential risk with watermelon harvesting supervisor PPI use. Based on AGA expert review the quality of evidence behind watermelon harvesting supervisor kidney disease, dementia, bone fractures, and [...] review Pt was followed by [facility] in [place], will need f/u care here [...] Will have patient see Dr. Hwang in [place] for double balloon enteroscopy- this was recommended [...] 07/29/2017 Overview (07/20/2023): GASTRITIS S-P GASTRIC BYPASS [place] EGD NL , H PYELORI NEG, ANASTAMOSIS NL. 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 History of hysterectomy 12/16/2010 Pain in pelvis 09/11/2007 07/20/2023 Diabetes mellitus 08/29/2007 07/20/2023 Cerebral aneurysm, nonruptured Overview (05/26/2019): unruptured left SCA aneurysm s/p trapping/bypass by Dr. Colin in [place] in 04/2015 Family History Medical History Relation Name Comments [...] Smoking Tobacco: Former Cigarettes 1 18 1 995 - 2012 Smokeless Tobacco: Never Alcohol Use [...] Health Maintenance Due Date Last Done Comments Diabetic eye exam 02/20/1972 LDL monitoring 02/20/1972 Urine Microalbumin 02/20/1972 HIV screening 1975 Hepatitis C screening 02/20/1980 Pneumococcal Vaccine (50+ years) (1 of 2 - PCV) 1981 Tetanus adult (Td q 10,TDAP once) 1982 Cervical cancer screening 1983 Shingles vaccine (Shingrix) (1 of 2 - Shingrix (RZV) 2 Dose Standard Series) 02/20/2012 Diabetic foot exam 04/01/2019 04/01/2018, 04/01/2018 RSV Immunization (1 - Risk 60-74 years 1-dose series) 2022 Breast cancer screening 05/13/2022 05/13/2020 Hemoglobin A1C 07/29/2023 01/26/2023, 08/09, 12/27/2020, Additional history exists Covid-19 vaccine series ( - 2023- season) 2024 11/05/2020, 10/08/2020 Influenza vaccine 02/09/2025 Colon cancer screening, Colonoscopy 02/02/2031 02/02/2021, 05/12/2020 Meningococcal Vaccine Aged Out No chaya wesley eligible based on patient's age to complete this topic Insurance [place]ID [place] [facility] MED[facility] [address] [place] [address] MEDICAID [place] [address] Care Teams Picc Nurse Relationship Specialty Start Date End Date Sabrina Redd PA [address] [place] [address] PCP - General 07/12/22
--- OUTSIDE RECORDS SUMMARY | 2024-10-06 13:18 | XMS_ITS | Encounter Summary ---
Author Organization [facility] Address [address] [place] [address] Care Team Providers Care Radio Television Announcer Name Role Phone Sabrina Redd Primary Care Provider [phone] Reason for Referral * Imaging (Routine) - Closed Specialty Diagnoses / Procedures Referred By Contac t Referred To Contact Diagnostic Radiology Procedures CTA Head w and/or wo IV Contrast Antoni Patricio MD [address] [place] [address] Phone: tel: fax: Referral ID Status Reason Start Date Expiration Date Visits Re quested Visits Authorized [id number] Closed 07/11/2023 07/10/2024 1 1 Encounter Details Date Type Department Care Team (Late st Contact Info) Description 07/11/2023 Scanned Document [facility] SCHEDULING [address] [place], [place] [phone] Antoni Patricio MD [address] [place] [address] Social History Tobacco Use Types [...] on filedocumented in this encounter Care Teams Radio Television Announcer Relationship Specialty Start Date End Date Sabrina Redd PA [address] [place] [address] PCP - General 07/12/22 documented as of this encounter
--- OUTSIDE RECORDS SUMMARY | 2024-10-06 13:18 | XMS_ITS | Encounter Summary ---
Author Organization [facility] Address [address] [place] [address] Care Team Providers Care Real Estate Officer Name Role Phone Maurilio Burgess MD Primary Care Provider [phone] Reason for Referral * Imaging (Routine) - Closed Specialty Diagnoses / Procedures Referred By Contac t Referred To Contact Radiology Diagnoses Cerebral aneurysm, nonruptured Procedures IR Plcmnt Cath ICA Angio ICC Saleem Dominique MD [address] [place] [address] Phone: tel: fax: [facility] [place] Referral ID Status Reason Start Date Expiration Date Visits Re quested Visits Authorized [id number] Closed 08/26/2024 08/26/2025 1 1 Reason for Visit * Imaging (Routine) - Closed Specialty Diagnoses / Procedures Referred By Contac t Referred To Contact Radiology Diagnoses Cerebral aneurysm, nonruptured Procedures IR Plcmnt Cath ICA Angio [facility] Saleem Dominique MD [address] [place] [address] Phone: tel: fax: [facility] [place] Referral ID Status Reason Start Date Expiration Date Visits Re quested Visits Authorized [id number] Closed 08/26/2024 08/26/2025 1 1 Encounter Details Date Type Department Care Team (Latest Contact Info) Description 10/01/2024 6:48 AM EDT - 10/01/2024 11:59 PM EDT Hospital Encounter [facility] Interventional Radiology [address] [place] [address] Saleem Quigley MD [address] [place], [place] [id number] Cerebral aneurysm, nonruptured Discharge Disposition: Home or Self Care Social History Tobacco Use Types Packs/Day Years Used Date Smoking Tobacco: Former Cigarettes 1 34 0 06/11/1978 - 06/11/2012 Smokeless Tobacco: Never Alcohol Use Standard Drinks/Week Comments No 0 (1 standard drink = 0.6 oz pur e alcohol) Interpersonal Safety Answer Date Record ed Physical Abuse 10/01/2024 Verbal Abuse 10/01/2024 Comments Unknown Sex and Gender Information Value Date Recorded Sex Assigned at Female 07/10/2024 9:49 AM EST Legal Sex Female 9:13 AM EST Gender Identity Female 07/10/2024 9:49 AM EST Sexual Orientation Straight 07/10/2024 9: 49 AM EST documented as of this encounter Last Filed Vital Signs Vital Sign Reading Time Taken Comments Blood Pressure 95/49 10/01/2024 11:30 AM EDT Pulse 58 10/01/2024 11:30 AM EDT Temperature 36.4 ??C (97.6 ??F) 10/01/2024 7:15 AM ED T Respiratory Rate 14 10/01/2024 11:30 AM EDT Oxygen Saturation 94% 10/01/2024 11:30 AM EDT Inhaled Oxygen Concentration - - Weight 64.9 kg (143 lb) 10/01/2024 7:15 AM EDT Height - - Body Mass Index 26.16 08/26/2024 9:22 AM EDT documented in this encounter Medications at Time of Discharge albuterol HFA (PROAIR HFA ; PROVENTIL HFA ; VENTOLIN HFA) 90 mcg/actuation inhaler aspirin 81 mg capsule Take by mouth daily. blood-glucose meter (OneTouch Ultra2 Meter) [facility] 04/29/2020 fluticasone propionate (FLONASE) 50 mcg/actuation nasal [...] mouth 1 (one) time each day. 06/24/2024 predniSONE (DELTASONE) 50 mg tablet Take 1 tablet (50 mg total) by mouth 1 (one) time each day. for 5 days 07/23/2024 pregabalin (LYRICA) 75 mg capsule Take 1 [...] or Self Care documented in this encounter Progress Notes * Tita Messer RN - 10/01/2024 11:59 PM EDT Post call completed with pt on 10/02/24 @[phone] Pt reports she had a headache last night although it's better today, last nights headache felt like a migraine like she normally gets and she took her migraine medication with good effect, pt is tolerated PO, pt denies pain in her R wrist where access was for yesterday's procedure, no bleeding at this access site, pt denies numbness nor tingling in fingers of R wrist, pt will call IR nursing back if headache worsens, if vomiting begins, if bleeding a R wrist site begins, pt verbalizes understanding. * Asia Goldberg RN - 10/01/2024 12:12 PM EDT Post diagnostic cerebral angiogram. Right radial access, TR band removed, radial access site without bleeding and/or hematoma. Recovery without incident. VSS, . Ate a sandwich, drank fluids. OOB to bathroom , voided. spoke with both patient and her son. Patient will follow up with . discharge criteria met, discharge to home VSS, no neuro symptoms. Accompanied by her son. documented in this encounter Plan of Treatment Pending Results Name Type Priority Associated Diagnoses Date /Time IR Plcmnt Cath ICA Angio ICC bilat Imaging Routine Cerebral aneurysm, nonruptured 10/01/2024 8:42 AM EDT Scheduled Orders Name Type Priority Associated Diagnoses Orde r Schedule IR Plcmnt Cath ICA Angio ICC bilat Imaging Routine Cerebral aneurysm, nonruptured Once for 1 Occurrences starting 10/01/2024 until 10/01/2024 documented as of this encounter Procedures Procedure Name Priority Date/Time Associated Diagnosis Comments COMPLETE BLOOD COUNT STAT 10/01/2024 7:08 AM EDT BASIC METABOLIC PANEL STAT 10/01/2024 7:08 AM EDT documented in this encounter Results * (ABNORMAL) Basic metabolic panel (10/01/2024 7:08 AM EDT) Sodium 139 135 - 145 mmol/L LAB CHEMISTRY METHOD 10/01/2024 7:49 AM [facility] Potassium 3.3(L) 3.5 - 5.1 mmol/L LAB CHEMISTRY METHOD 10/01/2024 7:49 AM [facility] Chloride 103 98 - 107 mmol/L LAB CHEMISTRY METHOD 10/01/2024 7:49 AM [facility] CO2 26 24 - 32 mmol/L LAB CHEMISTRY METHOD 10/01/2024 7:49 AM [facility] Anion Gap 10 5 - 14 LAB CHEMISTRY METHOD 10/01/2024 7:49 AM [facility] Glucose 151(H) 70 - 99 mg/dL LAB CHEMISTRY METHOD 10/01/2024 7:49 AM [facility] BUN 13 7 - 17 mg/dL LAB CHEMISTRY METHOD 10/01/2024 7:49 AM [facility] Creatinine 0.50 0.50 - 1.00 mg/dL LAB CHEMISTRY METHOD 10/01/2024 7:49 AM [facility] eGFR 106 >=60 mL/min/1. 73m2 LAB CHEMISTRY METHOD 10/01/2024 7:49 AM [facility] Comment:Calculation based on the??Chronic Kidney Disease Epidemiology Collaboration (CKD-EPI) equation refit??without adjustment for race. BUN/Creatinine Ratio 26.0(H) 12.0 - 20.0 LAB CHEMISTRY METHOD 10/01/2024 7:49 AM [facility] Calcium 9.1 8.4 - 10.2 mg/dL LAB CHEMISTRY METHOD 10/01/2024 7:49 AM [facility] Blood Venous blood specimen / Unknown Venipuncture / Unknown 10/01/2024 7:08 AM EDT 10/01/2024 7:18 AM EDT us Saleem Moiz Valenzuela MD LAB BLOOD ORDERABLES Izzy fountain Result [facility] [address] [place] [address], * (ABNORMAL) Complete blood count (10/01/2024 7:08 AM EDT) WBC 6.8 4.0 - 10.5 K/mcL LAB HEMETOLOGY METHOD 10/01/2024 11:46 AM EDT [facility] RBC 4.13(L) 4.20 - 5.40 M/mcL LAB HEMETOLOGY METHOD 10/01/2024 11:46 AM EDT [facility] Hemoglobin 11.4(L) 12.5 - 16.0 g/dL LAB HEMETOLOGY METHOD 10/01/2024 11:46 AM EDT [facility] Hematocrit 36.0(L) 37.0 - 47.0 % LAB HEMETOLOGY METHOD 10/01/2024 11:46 AM EDT [facility] MCV 87.3 78.0 - 100.0 FL LAB HEMETOLOGY METHOD 10/01/2024 11:46 AM EDT [facility] MCH 27.7 25.0 - 33.0 pcg LAB HEMETOLOGY METHOD 10/01/2024 11:46 AM EDT [facility] MCHC 31.7(L) 32.0 - 36.0 g/dL LAB HEMETOLOGY METHOD 10/01/2024 11:46 AM EDT [facility] RDW 25.3(H) 12.1 - 16.2 % LAB HEMETOLOGY METHOD 10/01/2024 11:46 AM EDT [facility] Platelets 228 150 - 450 K/mcL LAB HEMETOLOGY METHOD 10/01/2024 11:46 AM EDT [facility] MPV 9.4 7.4 - 11.4 FL LAB HEMETOLOGY METHOD 10/01/2024 11:46 AM EDT [facility] Blood Venous blood specimen / Unknown Venipuncture / Unknown 10/01/2024 7:08 AM EDT 10/01/2024 7:18 AM EDT us Saleem Valenzuela MD LAB BLOOD ORDERABLES Izzy fountain Result [facility] [address] [place] [address], [place] [phone] documented in this encounter Visit Diagnoses Diagnosis Cerebral aneurysm, nonruptured documented in this encounter Administered Medications Inactive Administered Medications - up to 3 most recent administrations Medication Order MAR Action Action Date Dose Rate Site fentaNYL (PF) (SUBLIMAZE) injection intravenous, As needed, Starting on Sun10/01/24 at 0816, Intraprocedure Given 10/01/2024 8:21 AM EDT 50 mcg Given 10/01/2024 8:16 AM EDT 50 mcg heparin (UFH) injection intravenous, As needed, Starting on Sun10/01/24 at 0825, Intraprocedure Given 10/01/2024 8:25 AM EDT 3,000 Units iopamidoL (ISOVUE-300) 300 mg iodine /mL (61 %) solution 40 mL 40 mL, Other, Once in imaging, Starting on Sun10/01/24 at 0839, For 1 dose Given 10/01/2024 8:39 AM EDT 40 mL lidocaine (LMX) 4 % cream Topical, Once, On Sun10/01/24 at 0815, For 1 dose, Preprocedure, Apply to right wrist for access Given 10/01/2024 7:55 AM EDT 1 Application Right Arm midazolam (VERSED) injection intravenous, As needed, Starting on Sun10/01/24 at 0808, Intraprocedure Given 10/01/2024 8:21 AM EDT 1 mg Given 10/01/2024 8:16 AM EDT 0.5 mg nitroglycerin (NITRO-BID) 2 % ointment 1 inch 1 inch, Topical, Once PRN Procedure, Appy to right wrist for access, Starting on Sun10/01/24 at 0749, For 1 dose, Preprocedure Given 10/01/2024 7:54 AM EDT 1 inch nitroglycerin (TRIDIL) injection intravenous, As needed, Starting on Sun10/01/24 at 0816, Intraprocedure Given 10/01/2024 8:16 AM EDT 200 mcg verapamiL (ISOPTIN) injection intravenous, As needed, Starting on Sun10/01/24 at 0816, Intraprocedure Given 10/01/2024 8:16 AM EDT 2.5 mg documented in this encounter Orders Medications Ordered That Trevin ht Not Have Been Administered Count Last Ordered Date First Ordered Date fentaNYL (PF) (SUBLIMAZE) injection 1 10/01 sodium chloride 0.9 % infusion 1 10/01/2024 documented in this encounter Care Teams Real Estate Officer Relationship Specialty Start Date End Date Maurilio Burgess MD [address] [place] [address] Dr [address]andra [address] [place] PCP - General Internal Medicine 06/17/24 documented as of this encounter
--- OUTSIDE RECORDS SUMMARY | 2024-10-06 13:18 | XMS_ITS | Clinical Summary ---
Author Organization 175 [facility] Address [address] [place] [address] Phone Care Team Providers Care Ticket Speculator Name Role Phone Maurilio Burgess MD Primary Care Provider [phone] Allergies Active Allergy Reactions Criticality Noted Date [...] SYMPTONS. Active blood-glucose meter (OneTouch Ultra2 Meter) [facility] 0 Active OneTouch Ultra Test test strip [...] 05, [address] Gilberto Knox in [place]. 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 She has chronic left eye vision loss and balance difficulty, chronic headaches and memory problems, patient states this has been since her craniotomy. She was seeing Dr. Patricio in neurosurgery at [place], [place]. She has since moved to [place], is looking to get follow-up CTA of [...] prescription glasses, but has not seen an stock driver. All questions answered, will call with any additional questions or concerns. Encounters Date Type Department Care Team Description 10/01/2024 6:48 AM EDT - 10/01/2024 11:59 PM EDT Hospital Encounter [facility] Interventional Radiology [address] [place] [phone] Saleem Quigley MD Cerebral aneurysm, nonruptured Discharge Disposition: Home or Self Care 08/27/2024 Telephone Neurosurgery [place] [facility] [address] [phone] Ivory Velazquez [place] APPOINTMENT (No PA required per César Keenan with [employer], cpt [phone], REF # [id number], Provider and Facility in network. No PA required per Minnie with [facility], cpt [phone], REF # [id number], Provider and Facility in network. ) 08/26/2024 9:00 AM EDT Office Visit [facility] [address] [phone] Saleem Quigley MD Cerebral aneurysm, nonruptured (Primary Dx) 07/14/2024 1:18 PM EST - 07/14/2024 11:59 PM EST Hospital Encounter [facility] CT Scan [address] [place] [phone] Cerebral aneurysm, nonruptured Discharge Disposition: Home or Self Care 07/09/2024 Telephone [facility] [address] [phone] Laurel David [place] [facility] # [id number] for Head CT scheduled for 07/14/24 @ 1:30pm at [facility]. Pt aware) from Last 3 Months Surgical History Surgery Date Site/Laterality Comments CEREBRAL ANEURYSM REPAIR 02/2016 :Dr. Knox at [facility] GASTRIC BYPASS 08/30/2009 OTHER SURGICAL HISTORY EXCESSIVE THIGH / HIP / BUTTOCK / FLANK SKIN EXCISION;COMMENT:following gastric bypass COLONOSCOPY 2016 COLONOSCOPY 2015 tubular adenoma HYSTERECTOMY 12/16/2010 UPPER GASTROINTESTINAL ENDOSCOPY 01/02/2018 Dr. Santacruz ([place]) OPEN ANTERIOR SHOULDER RECONSTRUCTION 04/14/2013 left shoulder reconstruction, Dr. Chisholm ([place]) SECTION UPPER GASTROINTESTINAL ENDOSCOPY 05/11/2020 N/A UPPER ENDOSCOPY-EGD; Surgeon: Pito Diaz MD; Location: [facility] END[facility]COPY; Service: Gastroenterology; Laterality: N/A; COLONOSCOPY 05/12/2020 N/A Surgeon: Tino Lang MD; Location: [facility] ENDOSCOPY; Service: Gastroenterology; Laterality: N/A; UPPER GASTROINTESTINAL ENDOSCOPY 09/13/2020 N/A EGD Surgeon: Maynor Rojas MD; Location: [facility] END[facility]COPY; Service: Gastroenterology; Laterality: N/A; BREAST SURGERY REDUCTION MAMMAPLASTY;:with lift/ implants COLONOSCOPY 02/02/2021 N/A Surgeon: Tino Lang MD; Location: [facility] END[facility]COPY; Service: Gastroenterology; Laterality: N/A; OTHER SURGICAL HISTORY Patient reports history of colon resection required after gastric bypass, bladder surgery and appendectomy CARPAL TUNNEL RELEASE Bilateral Medical History Medical History Date Comments Aneurysm ([facility] V24) 2014 GI bleed Tubular adenoma of colon 2014 Syncope completed cardia c work up (tilt table, echo, stress jason, holter) Psoriasis Mild dementia ([facility] V24, [facility] V28) occasional memory loss Steatosis of liver 12/03/2017 fatty liver s een on US per past records. History of Papanicolaou smear of cervix 10/2017 History of mammogram 01/25/2018 negative Ovarian cyst Fibromyalgia, primary Anemia Anxiety GERD (gastroesophageal reflux disease) Depression Arthritis Migraine headache Visual impairment Obesity s/p GBP Diabetes ([facility] V24, [facility] V28) Hyperlipidemia Asthma Acid reflux Rheumatoid arthritis ([facility] V24, [facility] V28) Family History Medical History Relation Name Comments [...] (143 lb) 10/01/2024 7:15 AM EDT Height 157.5 cm (5' 2 ) 08/26/2024 9:22 AM EDT Body Mass Index 26.16 08/26/2024 9:22 AM EDT Plan of Treatment Health Maintenance Due Date Last Done Comments DTaP,Tdap,and Td Vaccines (1 - Tdap) 1981 Cervical Cancer Screening: Pap Smear 1983 Pneumococcal Vaccine: 50+ Years (1 of 1 - PCV) 02/20/2012 Zoster Vaccines (1 of 2) 02/20/2012 Breast Cancer Screening 05/13/2022 05/13/2020 Colorectal Cancer Screening: Colonoscopy 05/14/2022 Depression Screening 05/14/2022 HIV Screening 05/14/2022 Hepatitis C Screening 05/14/2022 Lung Cancer Screening (Low Dose CT) 05/14/2022 Medicare Annual Wellness Visit 05/14/2022 Social Influencers of Health Screening 05/14/2022 COVID-19 Vaccine ( season) 2024 08/01/2023, 05/31/2021, 11/05/2020, Additional history exists Influenza Vaccine (Season Ended) 2025 RSV Immunization Adult Patients (1 - 1-dose 75+ series) 2037 HIB [...] age to complete this topic Meningococcal B Vaccine Aged Out No l onger eligible based on patient's age to complete this topic Pneumococcal Vaccine: Pediatrics (0 to 5 Years) and At-Risk Patients (6 to 64 Years) Aged Out No longer eligible based on patient's age to complete this topic RSV Immunization Patients Under 20 months Aged Out No longer eligible based on patient's age to complete this topic Varicella Vaccines Aged Out No longer eligible based on patient's age to complete this topic Procedures Procedure Name Priority Date/Time Associated Diagnosis Comments BASIC METABOLIC PANEL STAT 10/01/2024 7:08 AM EDT COMPLETE BLOOD COUNT STAT 10/01/2024 7:[address] ANGIO HEAD WO AND/OR W CONTRAST Routine 07/14/2024 2:37 PM EST Cerebral aneurysm, nonruptured MAMMOGRAM SCREENING BILATERAL 3D NICOLLE WITH CAD Routine 05/13/2020 12:24 PM EST Encounter for screening mammogram for malignant neoplasm of breast from Last 3 Months or Most Recently Relevant to Health Maintenance Results * (ABNORMAL) Complete blood count (10/01/2024 7:08 AM EDT) WBC 6.8 4.0 - 10.5 K/mcL LAB HEMETOLOGY METHOD 10/01/2024 11:46 AM EDT [facility] RBC 4.13(L) 4.20 - 5.40 M/mcL LAB HEMETOLOGY METHOD 10/01/2024 11:46 AM EDT [facility] Hemoglobin 11.4(L) 12.5 - 16.0 g/dL LAB HEMETOLOGY METHOD 10/01/2024 11:46 AM EDT [facility] Hematocrit 36.0(L) 37.0 - 47.0 % LAB HEMETOLOGY METHOD 10/01/2024 11:46 AM EDT [facility] MCV 87.3 78.0 - 100.0 FL LAB HEMETOLOGY METHOD 10/01/2024 11:46 AM EDT [facility] MCH 27.7 25.0 - 33.0 pcg LAB HEMETOLOGY METHOD 10/01/2024 11:46 AM EDT [facility] MCHC 31.7(L) 32.0 - 36.0 g/dL LAB HEMETOLOGY METHOD 10/01/2024 11:46 AM EDT [facility] RDW 25.3(H) 12.1 - 16.2 % LAB HEMETOLOGY METHOD 10/01/2024 11:46 AM EDT [facility] Platelets 228 150 - 450 K/mcL LAB HEMETOLOGY METHOD 10/01/2024 11:46 AM EDT [facility] MPV 9.4 7.4 - 11.4 FL LAB HEMETOLOGY METHOD 10/01/2024 11:46 AM EDT [facility] Blood Venous blood specimen / Unknown Venipuncture / Unknown 10/01/2024 7:08 AM EDT 10/01/2024 7:18 AM EDT us Saleem Valenzuela MD LAB BLOOD ORDERABLES zIzy fountain Result [facility] [address] [place] [address], [place] [phone] * (ABNORMAL) Basic metabolic panel (10/01/2024 7:08 AM EDT) Sodium 139 135 - 145 mmol/L LAB CHEMISTRY METHOD 10/01/2024 7:49 AM [facility] Potassium 3.3(L) 3.5 - 5.1 mmol/L LAB CHEMISTRY METHOD 10/01/2024 7:49 AM [facility] Chloride 103 98 - 107 mmol/L LAB CHEMISTRY METHOD 10/01/2024 7:49 AM [facility] CO2 26 24 - 32 mmol/L LAB CHEMISTRY METHOD 10/01/2024 7:49 AM [facility] Anion Gap 10 5 - 14 LAB CHEMISTRY METHOD 10/01/2024 7:49 AM [facility] Glucose 151(H) 70 - 99 mg/dL LAB CHEMISTRY METHOD 10/01/2024 7:49 AM [facility] BUN 13 7 - 17 mg/dL LAB CHEMISTRY METHOD 10/01/2024 7:49 AM [facility] Creatinine 0.50 0.50 - 1.00 mg/dL LAB CHEMISTRY METHOD 10/01/2024 7:49 AM [facility] eGFR 106 >=60 mL/min/1. 73m2 LAB CHEMISTRY METHOD 10/01/2024 7:49 AM [facility] Comment:Calculation based on the??Chronic Kidney Disease Epidemiology Collaboration (CKD-EPI) equation refit??without adjustment for race. BUN/Creatinine Ratio 26.0(H) 12.0 - 20.0 LAB CHEMISTRY METHOD 10/01/2024 7:49 AM [facility] Calcium 9.1 8.4 - 10.2 mg/dL LAB CHEMISTRY METHOD 10/01/2024 7:49 AM [facility] Blood Venous blood specimen / Unknown Venipuncture / Unknown 10/01/2024 7:08 AM EDT 10/01/2024 7:18 AM EDT us Saleem Valenzuela MD LAB BLOOD ORDERABLES Izzy essie Result [facility] [address] [place] [address], [place] [phone] * CT Angio Head wo and/or w [...] Signed Date: 07/16/2024 10:58 ET Workstation ID: [id number] Transcribed By: Self Edit Transcribed Date: 07/16/2024 10:11 ET Narrative 07/16/2024 10:58 AM EST PROCEDURE: Noncontrast head CT and CT angiogram of the [place] of [place]. 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 Gilberto Knox in [place]. 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 COMPARISON: Outside images dated 07/10/2023. TECHNIQUE: Noncontrast head CT followed by contrast-enhanced CT angiogram of the [place], with coronal and sagittal reformats. [...] head CT and CT angiogram of the [place]. HISTORY: Cerebral aneurysm, follow-up history of unruptured left superior cerebellar artery aneurysm treated bycraniotomy and trapping/bypass on May 05, [address] Gilberto Garzon [place]. 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 COMPARISON: Outside images dated 07/10/2023. TECHNIQUE: Noncontrast head CT followed by contrast-enhanced CT angiogramof the [place] of [place], with coronal and sagittal reformats. [...] Signed Date: 07/16/2024 10:58 ET Workstation ID: [id number] Transcribed By: Self Edit Transcribed Date: 07/16/2024 [...] plain language report , as required by [place] [id number]. Session: Separate session. Report reviewed and signed by : Dr. Matthew Serrato MD on 05/13/2020 4:27 PM. Workstation Name - [id number] Procedure Note Matthew Serrato MD - 06/02/2022 [...] plain language report , as required by [place] [id number]. Session: Separate session. Report reviewed and signed by : Dr. Matthew Serrato MD on 05/13/2020 4:27 PM.Workstation Name - [id number] Moise Palomino MD IMG BI PROCEDURES Final Resul t from Last 3 Months or Most Recently Relevant to Health Maintenance Insurance [employer] MED[employer]ARE ADVANTAGE MEDICAID - [place] Care Teams Ticket Speculator Relationship Specialty Start Date End Date Maurilio Burgess MD [address] [place] [address] [address] [place] PCP - General Internal Medicine 06/17/24
--- OUTSIDE RECORDS SUMMARY | 2024-10-06 13:18 | XMS_ITS | Clinical Summary ---
Author Organization [facility] Address [address] [place] [address] Care Team Providers Care Heat Treat Supervisor Name Role Phone Lucas Wen APRN Primary Care Provider Sina lopez Allergies Active Allergy Reactions Criticality Noted Date Comments Milnacipran Palpitations,Other ( See Comments) Medium 02/12/2019 Tachycardia Clopidogrel Rash Low 11/01/2022 Promethazine Palpitations,Other ( See Comments) Medium 04/10/2012 Tachycardia 180/min - she had to be taken to ER. Medications Medication Sig Dispensed Refills Start Date End Date Status [id number] Cmp-C-Biot (INTEGRA PLUS) CAPS Take 1 tablet [...] complication, without long-term current use of insulin ([facility]) Test one to two times [...] records for review Pt was followed by [facility] in [place], will need f/u care here also Overview: Last Assessment & Plan: Continue oral iron Need old records for review Pt was followed by [facility] in [place], will need f/u care here also Last Assessment & Plan: Continue oral iron Need old records for review Pt was followed by [facility] in [place], will need f/u care here also Last Assessment & Plan: Continue oral iron Need old records for review Pt was followed by [facility] in [place], will need f/u care here also Hematemesis [...] We discussed the minimal potential risk with oysterman PPI use. Based on AGA expert review the quality of evidence behind penitentiary kidney disease, dementia, bone fractures, and infection with PPI use is low. The current data suggests that oysterman PPI use does not require routine screening [...] We discussed the minimal potential risk with penitentiary PPI use. Based on AGA expert review the quality of evidence behind oysterman kidney disease, dementia, bone fractures, and infection with PPI use is low. The current data suggests that oysterman PPI use does not require routine screening [...] We discussed the minimal potential risk with oysterman PPI use. Based on AGA expert review the quality of evidence behind penitentiary kidney disease, dementia, bone fractures, and infection with PPI use is low. The current data suggests that penitentiary PPI use does not require routine screening [...] aneurysm s/p trapping/bypass by Dr. Colin in [place] in 04/2015 Chronic migraine without aur a [...] Advance Directives For more information, please contact: [phone] Latest Code Status on File Code Status [...] 7:25 PM 01/06/2020 7:55 PM Care Teams Heat Treat Supervisor Relationship Specialty Start Date End Date Lucas Wen APRN PCP - General Cardiology 11/01/22
--- OUTSIDE RECORDS SUMMARY | 2024-10-06 13:18 | XMS_ITS | Encounter Summary ---
Author Organization [facility] Address [address] [place] [address] Care Team Providers Care Poultry Farmer Meat Name Role Phone Steffi Escalera APRN Primary Care Provider Myesha Hwang MD Unavailable [phone] Encounter Details Date Type Department Care Team (Late st Contact Info) Description 07/16/2023 Telephone [facility]GI [facility] [address] [facility] [address] [place] [address] Tino Lang MD [address] [facility] [address] [place] [address] Social History Tobacco Use Types Packs/Day Years [...] that time frame. Please contact Jazmine at [phone] documented in this encounter Plan of Treatment Not on file documented as of this encounter Visit Diagnoses Not on filedocumented in this encounter Care Teams Poultry Farmer Meat Relationship Specialty Start Date End Date Steffi Esclaera APRN [address] [address] PCP - General 01/15/23 Myesha Hwang MD [address] [place] [id number] Gastroenterology 04/09/23 documented as of this encounter
--- OUTSIDE RECORDS SUMMARY | 2024-10-06 13:18 | XMS_ITS | Clinical Summary ---
Author Organization [facility] Address [address] [place] [address] Care Team Providers Care Dramatic Agent Name Role Phone Steffi Escalera APRN Primary Care Provider Myesha Hwang MD Unavailable [phone] Allergies Active Allergy Reactions Criticality Noted Date Comments Milnacipran Palpitations,Unknown /Pat ient and Family Unable to Define Medium 02/12/2019 Tachicardia Salvella is another name Clopidogrel Rash/Dermatitis Low 01/17/2023 Promethazine Unknown/Patient and Family Unable to Define,Other (See Comments),Palpitations Medium 04/10/2012 Tachicardia 180/min - she had to be taken to ER. Medications metFORMIN (GLUCOPHAGE) 500 MG tablet 2 (two) times a day. 04/07/20 Active nateglinide (STARLIX) 120 MG tabletIndications: Type 2 Diabetes Mellitus 2 (two) times a day. 04/07/20 Active pravastatin (PRAVACHOL) 40 MG tablet every evening after dinner. 03/14/20 Active traMADol (ULTRAM) 50 MG tablet 2 (two) times a day. 100 mg bid 03/14/20 Active topiramate (TOPAMAX) 100 MG tablet 2 (two) times a day. 04/07/20 Active butalbital-acetami nophen-caffeine (FioriCET, ESGIC) 50-325-40 mg tablet Take 1 tablet by mouth 4 times daily (every 6 hours) as needed for headaches. Max: 6 capsules/tablets in 24 hours Active ondansetron (ZOFRAN) 4 MG tabletIndications: Nausea, vomiting, and diarrhea Take 1 tablet (4 mg total) by mouth 3 times daily (every 8 hours) as needed for nausea or vomiting. 12 tablet 12/31/19 20 Active PANTOprazole (PROTONIX) 40 MG EC tabletIndications: Gastroesophageal reflux disease, unspecified whether esophagitis present Take 1 tablet (40 mg total) by mouth daily. 90 tablet 3 10/06/19 21 Active Additional Information Patient taking differently:40 mg OralEvery morning, Reason: Other, Informant: Self, Reported on 04/06/2023 Aspirin 81 MG Cap Take by mouth every morning. Active albuterol (Ventolin HFA) 108 (90 Base) MCG/ACT inhaler 2 puffs every 4 (four) hours. Active clobetasol (TEMOVATE) 0.05 % cream Apply topically. 12/24/19 21 Active memantine (NAMENDA) 10 MG tablet TAKE 1 TABLET BY MOUTH TWICE A DAY 01/17/20 21 Active tiZANidine (ZANAFLEX) 4 MG tablet TAKE 1 TABLET (4 MG TOTAL) BY MOUTH EVERY 8 (EIGHT) HOURS NEEDED FOR UP TO 30 DAYS. 02/14/20 21 Active pregabalin (LYRICA) 75 MG capsule TAKE 1 CAPSULE BY MOUTH TWICE A DAY 03/27/20 21 Active Apremilast (OTEZLA) 30 MG tablet Take 30 mg by mouth 2 (two) times a day. Active fluticasone (FloNASE) 50 mcg/spray nasal spray 1-2 SPRAYS DAILY BY NASAL ROUTE FOR 7 DAYS INDICATIONS: RHINITIS 04/18/20 22 Active Cetirizine HCl (ZYRTEC ALLERGY PO) Take by mouth every morning. Active furosemide (LASIX) 20 MG tablet Take 1 tablet (20 mg total) by mouth as needed. 11/16/19 23 Active nortriptyline (PAMELOR) 10 MG capsuleIndications :Chronic migraine without aura with status migrainosus, not intractable 1 cap po qhs x 1 week then increase each week by 1 cap up to 3 caps po qhs 90 capsule 3 02/07/20 23 Active rimegepant (Nurtec) 75 mg disintegrating tabletIndications: Migraine with aura and with status migrainosus, not intractable Take 1 tablet (75 mg total) by mouth once as needed for migraine. Maximum: 75 mg/24 hours 18 tablet 5 05/09/20 Active Custom CompoundIndication s:Migraine with aura and with status migrainosus, not intractable Lidocaine 4% nasal spray instill 1-2 sprays intranasally every 4-6 hours if needed for headache 120 mL 3 05/09/20 Active Active Problems Problem Noted Date Diagnosed Date Chronic migraine without aur a with status migrainosus, not intractable 05/09/2023 Migraine with aura and with status migrainosus, not intractable 05/09/2023 Adjustment disorder with depressed mood 05/09/20 Nausea & vomiting 09/08/2020 Assessment & Plan [...] We discussed the minimal potential risk with long-term PPI use. Based on AGA expert review the quality of evidence behind termite helper kidney disease, dementia, bone fractures, and infection with PPI use is low. The current data suggests that termite helper PPI use does not require routine screening [...] We discussed the minimal potential risk with long-term PPI use. Based on AGA expert review the quality of evidence behind termite helper kidney disease, dementia, bone fractures, and infection with PPI use is low. The current data suggests that long-term PPI use does not require routine screening [...] We discussed the minimal potential risk with long-term PPI use. Based on AGA expert review the quality of evidence behind long-term kidney disease, dementia, bone fractures, and infection with PPI use is low. The current data suggests that long-term PPI use does not require routine screening or monitoring of bone density, kidney function, magnesium, or vitamin B levels. There is no clinical evidence to suggest routine intake of calcium, vitamin b12 or magnesium, with PPI use, beyond recommended dietary allowance. Follow clinically. Personal history of colonic polyps 04/15/2019 Assessment & Plan (04/06/2023 10:29 AM EDT): Colon 02/2022 ([place]) - no polyps noted Would due recall exam in 2026 given prior hx of polyps Assessment & Plan (12/28/2022 12:44 PM EDT): Colon 02/2022 ([place]) - no polyps noted Assessment & Plan [...] Work up here in 2020, then in [place] with unremarkable EGD/Colon 02/2022 Repeat capsule done [...] Will have patient see Dr. Hwang in [place] for double balloon enteroscopy- this was recommended after 2021 capsule in [place] and recent capsule also suggests that best [...] up here in 2020, then recently in [place] with unremarkable EGD/Colon 02/2022 - unclear what [...] review Pt was followed by [facility] in [place], will need f/u care here also Family [...] Done Comments Hepatitis C Virus Screening 1962 HIV Screening 1975 DTaP/Tdap/Td Vaccines (1 - [...] (CC) (09/13/2020) Maynor Rojas MD AMB ORDERABLE PERFORMABLE Final Result from Last 3 Months or Most Recently Relevant to Health Maintenance [place] [address] [place] [address] [employer] MGD MEDICARE A[employer] M[employer] [place] [address] [place] [address] [employer] MGD MEDICARE Care Teams Dramatic Agent Relationship Specialty Start Date End Date Steffi Escalera APRN [address] [facility] [address] [place], [place] [id number] PCP - General 01/15/23 Myesha Hwang MD [address] [place] [address] Gastroenterology 04/09/23
--- OUTSIDE RECORDS SUMMARY | 2024-10-06 13:18 | XMS_ITS | Encounter Summary ---
Author Organization [facility] Address [address] [place] [address] Care Team Providers Care Rag Boiler Name Role Phone Steffi Escalera APRN Primary Care Provider Myesha Hwang MD Unavailable Encounter Details Date Type Department Care Team (Late st Contact Info) Description 05/22/2024 Telephone [facility]GI [facility] [address] [place] [address] Rafiq Rice [address] [place], [place] [id number] Social History Tobacco Use Types Packs/Day Years [...] on filedocumented in this encounter Care Teams Rag Boiler Relationship Specialty Start Date End Date Steffi Escalera APRN [address] [address] PCP - General 01/15/23 Myesha Hwang MD [address] [place] [id number] Gastroenterology 04/09/23 documented as of this encounter
--- OUTSIDE RECORDS SUMMARY | 2024-10-06 13:18 | XMS_ITS | Encounter Summary ---
Author Organization [facility] Address [address] [place] [address] Care Team Providers Care Shade Bander Name Role Phone Steffi Escalera APRN Primary Care Provider Myesha Hwang MD Unavailable [phone] Encounter Details Date Type Department Care Team (Late st Contact Info) Description 08/23/2023 Scanned Document [facility] NEUROLOGY SCAN Neurology, Scan Social History [...] on filedocumented in this encounter Care Teams Shade Bander Relationship Specialty Start Date End Date Steffi Escalera APRN [address] [address] PCP - General 01/15/23 Myesha Hwang MD [address] [place] [id number] Gastroenterology 04/09/23 documented as of this encounter
[2024-10-06 13:22] LABS: Bacteria Urine None Seen (None Seen); Hyaline Casts Urine 0-2 /LPF (0-2); RBC Urine 0-2 /HPF (0-2); Squamous Epithelial Cell Urine 0-2 /HPF (0-2); UACC Culture Trigger YES; WBC Urine 0-5 /HPF (0-5)
[2024-10-07 11:47] LABS: Anti Nuclear Antibody Screen NEGATIVE (NEGATIVE)
== END 2024-10-06 11:02 | disposition home or self-care (01) ==
LOC: HO.XRAY 11:01
PROVIDERS: Absent Provider Nurse Practitioner Family; PCP Internal Medicine; Visit Provider Internal Medicine
DX: E78.00 Pure hypercholesterolemia, unspecified (principal); E53.8 Deficiency of other specified B group vitamins; E11.9 Type 2 diabetes mellitus without complications; M06.9 Rheumatoid arthritis, unspecified; E55.9 Vitamin D deficiency, unspecified; M79.7 Fibromyalgia; D47.2 Monoclonal gammopathy; R30.0 Dysuria
CPT/HCPCS: 36415; 77075; 80053; 80061; 81001; 81003; 82043; 82306; 82570; 82607; 82746; 83036; 84443; 85652; 86038; 86140; 86431; 87086

== ENCOUNTER → 2024-10-06 11:33 | Outpatient (BNV) | payer MEDICARE, MEDICAID, SELFPAY | PROVIDERS: Absent Provider Nurse Practitioner Family; PCP Internal Medicine; Visit Provider Radiology Diagnostic Radiology | DX: D47.2 Monoclonal gammopathy (principal) | CPT/HCPCS: 77075 ==

== ENCOUNTER 2024-10-07 09:52 | Outpatient (AMB) | payer MEDICARE, SELFPAY ==
--- NOTE | 2024-10-07 10:08 | A.OFFPC_ITS ---
Vital Signs 10/07/24 10:09 Height 5 ft 3 in Weight 138 lb 4 oz BMI 24.5 BP 100/62 Blood Pressure Location Lt brachial Position Sitting Pulse 84 Pulse Source Pulse Oximeter Pulse Oximetry (%) 96 Oxygen Delivery Method Room Air Intake Visit Reasons: 3 month Administrative Services Manager Required: No Accompanied by: Self / Same As Patient Allergies clopidogrel [From Plavix] Allergy (Severe, Verified 10/07/24 10:54) Rash milnacipran [From Savella] Adverse Reaction (Severe, Verified 10/07/24 10:54) tachycardia promethazine [From Phenergan] Adverse Reaction (Severe, Verified 10/07/24 10:54) tachycardia Medication List - Last Reconciled 10/07/24 by Maurilio Burgess MD acetaminophen ER (Tylenol 8 Hour) 650 mg PO Q12H PRN 90 days apremilast (Otezla) 30 mg PO BID 30 days aspirin 81 mg PO DAILY 90 days cetirizine (Zyrtec) 10 mg PO DAILY PRN 90 days fluticasone propionate 50 mcg/actuation 1 spray intranasal DAILY PRN 90 days memantine 10 mg PO BID 90 days metformin 500 mg PO BID 90 days nateglinide 120 mg PO TID 90 days nortriptyline 10 mg PO BEDTIME 90 days pantoprazole 40 mg PO DAILY 90 days pravastatin 40 mg PO DAILY 90 days pregabalin 75 mg PO BID 30 days rimegepant (Nurtec ODT) 75 mg PO Q OTHER DAY PRN 30 days simethicone (Gas Relief (simethicone)) 125 mg PO BID-QID PRN 90 days tizanidine 4 mg PO BID PRN topiramate 100 mg PO BID 90 days tramadol 50 mg PO BID PRN MDD yes Tobacco use date assessed: 10/07/24 Dental Screening Dental Screen Date: 10/07/24 Did you have a dental visit in the last 12 months?: No Did you have a dental problem in the last 6 months where you did not have access to dental care?: No Was dental information given to patient?: No HPI 3 month HPI Details Patient comes in today for her follow up visit She was just seen by hematology/oncology yesterday for follow up of her anemia She also reportedly had an angiogram done at [place] last week and had a bone survey done yesterday - we do not have a copy of both reports yet for review She also has an appointment to see GI tomorrow (10/08/2024) for further work up of her GI bleeding States that she currently feels okay Denies any headaches or dizziness Denies any chest pains, no increased SOB No nausea/vomiting, no abdominal pain No change in bowel habits noted She had her follow up labs done yesterday - to discuss her results She also has appt with gynecology in a couple of weeks on 10/20/24 and with rheum alogy on 12/19/24 [facility] Medical History (Updated 10/15/24 @ 04:58 by Maurilio Burgess MD) Vitamin D deficiency Rheumatoid arthritis Psoriasis Migraine Brain aneurysm Chronic anemia Overweight (BMI 25.0-29.9) Chronic pain Allergic rhinitis GERD without esophagitis Diabetes mellitus Pure hypercholesterolemia Cardiac murmur Surgical History History of abdominoplasty S/P brachioplasty History of appendectomy History of cholecystectomy History of colon resection History of reduction mammoplasty History of rotator cuff surgery History of gastric bypass History of carpal tunnel surgery of right wrist History of carpal tunnel surgery of left wrist Hx of brain surgery Family History Sister Breast cancer Other Diabetes Schizophrenia Social History Housing: Apartment Patient Tobacco Use Status: Former Tobacco user e-Cigarette/Vaping Use: Never Used Second Hand Smoke Exposure: No service: No Current occupational status: retired Current occupational exposures/hazards: No Cognitive needs: No Hearing needs: No Vision needs: No Female Reproductive History Menstrual Age of Menarche: 14 Questionnaire PHQ-9 Over the last 2 weeks, how often have you been bothered by any of the following problems? 1. Little interest or pleasure in doing things: not at all 2. Feeling down, depressed, or hopeless: several days 3. Trouble falling or staying asleep, or sleeping too much: more than half the days 4. Feeling tired or having little energy: more than half the days 5. Poor appetite or overeating: more than half the days 6. Feeling bad about yourself - or that you are a failure or have let yourself or your family down: more than half the days 7. Trouble concentrating on things, such as reading the newspaper or watching television: more than half the days 8. Moving or speaking so slowly that other people could have noticed. Or the opposite - being so fidgety or restless that you have been moving around a lot more than usual: more than half the days 9. Thoughts that you would be better off or of hurting yourself in some way: not at all Total score: 13 Depression Screening Interpretation: Positive Depression Screening Follow-up: Existing condition and In treatment Depression Screening Done: Yes 88140 - PHQ-9 Billing: Yes Source: Developed by Drs. Johan Espino, Marlen River, Cory De Jesus and colleagues, with an educational corona from [employer]. Thrive Questionnaire Date Thrive assessed: 10/07/24 I am a: Patient What is your living situation today?: I have a steady place to live Within the past 12 months, did the food you bought not last and you didn't have the money to get more?: Sometimes True Within the past 12 months, did you worry whether your food would run out before you got money to buy more?: Sometimes True Do you have trouble paying for medicines?: No Do you have trouble getting transportation to medical appointments?: No Do you have trouble paying your heating and electricity bill?: No Do you have trouble taking care of your child, family member or friend?: No Do you have trouble with day-to-day activities such as bathing, preparing meals, shopping, managing finances, etc.?: No Are you currently unemployed and looking for a job?: No Are you interested in more education?: No Please select the resources that you would like help with: None Currently or been in a relationship where the following occur: No concerns reported THRIVE Score: 2 AUDIT C Alcohol Use Questionnaire (AUDIT-C) 1. How often do you have a drink containing alcohol?: Never 3. How often do you have six or more drinks on one occasion?: Never Total Score: 0 Score Reviewed/Action Taken: Yes CHANA-7 AMB Questionnaire CHANA-7 Date CHANA - 7 assessed: 10/07/24 Feeling nervous, anxious, or on edge: 2 = More than half the days Not being able to stop or control worryin = More than half the days Worrying too much about different things: 2 = More than half the days Trouble relaxin = More than half the days Being so restless that it is hard to sit still: 2 = More than half the days Becoming easily annoyed or irritable: 2 = More than half the days Feeling afraid as if something awful might happen: 0 = Not at all Total CHANA-7 score (0-4 normal; 5-9 mild; 10-14 moderate; 15-21 severe): 12 Source: Developed by Drs. Johan Espino, Marlen River, Cory De Jesus and colleagues, with an educational corona from [employer]. Review of Systems Const Denies chills, Reports fatigue, Denies fever(s) and Denies headache(s) ENT Denies dysphagia, Denies dizziness, Denies otalgia, Denies headache(s), Denies neck pain, Denies odynophagia and Denies sore throat Card Denies chest pain, Denies palpitations and Denies dyspnea Resp Denies chest congestion, Denies cough and Denies dyspnea GI Denies abdominal pain, Denies constipation, Denies dysphagia, Denies heartburn, Denies diarrhea, Denies nausea, Denies odynophagia and Denies vomiting Denies difficulty voiding, Denies nocturia, Denies dysuria and Denies urinary urgency Musc Denies abnormal gait, Reports arthralgias and Denies neck pain Skin/Breast Details: (+) scaling rash over the extensor surface of both forearms Neuro Denies abnormal gait, Denies dizziness and Denies headache(s) Endo Reports fatigue and Denies palpitations Physical exam (Primary Care) Vital Signs: Last Vital Signs Pulse 84 10/07/24 10:09 BP 100/62 10/07/24 10:09 Pulse Ox 96 10/07/24 10:09 Oxygen Delivery Method Room Air 10/07/24 10:09 BMI result Body Mass Index 24.5 Tobacco/Smoking Status: Tobacco use Status Tobacco use date assessed 10/07/24 10/07/24 10:16 Patient Tobacco Use Status Former Tobacco user 10/07/24 10:16 e-Cigarette/Vaping Use Never Used 10/07/24 10:16 PHQ-9: PHQ-9 Score PHQ-9: Total score 13 10/14/24 09:30 Depression Screening Interpretation: Positive Depression Screening Follow-up: Existing condition and In treatment Thrive Assessment: Date of Thrive Assessment Date Thrive assessed 10/07/24 10/07/24 10:16 Currently or been in a relationship where the following occur: No concerns reported Const General: no acute distress and alert HENMT Ears: TM's normal bilaterally and EAC's normal Throat: Yes posterior oropharynx normal and Yes tonsils normal (no TP congestion) Neck Neck: Yes supple and No lymphadenopathy Thyroid: Thyroid normal Resp Auscultation: clear to auscultation bilaterally, no rales and no wheezes Cardio Rate: regular rate Rhythm: regular rhythm Heart sounds: Murmur heart sound present GI Palpation (GI): Soft to palpation and nontender Auscultation: normal bowel sounds General: Yes no CVA tenderness Back/Spine/Pelvis Back: no CVA tenderness Thoracic/Lumbar Spine: No lumbar spinal tenderness Skin Other: (+) scaling rash over the extensor surface of both forearms Extrem General: Yes no clubbing, cyanosis or edema Results Reviewed Results Reviewed: Laboratory Tests 10/06/24 10/06/24 10/06/24 09:48 11:15 11:30 WBC 9.0 Hgb 12.1 Hct 38.6 Plt Count 253 Sodium 141 Potassium 3.9 Creatinine 0.65 Estimated GFR > 60 Fasting Glucose 116 H Hemoglobin A1c % 5.4 Haptoglobin 132 Calcium 9.7 AST 82 H ALT 68 H Triglycerides 215 H Cholesterol 160 LDL Cholesterol, Calc 51 HDL Cholesterol 66 25-OH Vitamin D Total 15.1 L TSH 0.46 Ur Specific [place] 1.015 Urine Protein Negative Urine Glucose (UA) Negative Urine Blood Negative Urine Nitrite Negative Ur Leukocyte Esterase Small (1+) H Microalb/Creat Ratio 12.3 Coding Level of Care Code Est Pt Level 4 (83792) Complex EM visit Add On G2211 Diagnoses Pure hypercholesterolemia E78.00 Type 2 diabetes mellitus without complication, without long-term current use of insulin E11.9 Diabetes mellitus type: type 2 Diabetes mellitus longterm insulin use: without longterm use Diabetes mellitus complication status: without complication Psoriasis L40.9 Rheumatoid arthritis, involving unspecified site, unspecified whether rheumatoid factor present M06.9 Rheumatoid arthritis location: unspecified site Rheumatoid factor presence: unspecified presence Migraine without status migrainosus, not intractable, unspecified migraine type G43.909 Migraine type: unspecified Status migrainosus presence: without status migrainosus Intractability: not intractable Brain aneurysm I67.1 Chronic anemia D64.9 Small intestinal hemorrhage K92.2 GERD without esophagitis K21.9 Allergic rhinitis, unspecified seasonality, unspecified trigger J30.9 Allergic rhinitis trigger: unspecified Allergic rhinitis seasonality: unspecified Vitamin D deficiency E55.9 Other chronic pain G89.29 Chronic pain type: other chronic pain Overweight (BMI 25.0-29.9) E66.3 Additional Codes PHQ-9 - 76726 - PHQ-9 Billing: Yes ([id number]) Assessment & Plan Assessment & Plan (1) Pure hypercholesterolemia: Code(s): E78.00 - Pure hypercholesterolemia, unspecified Category: Medical Plan: Results of her labs done yesterday reviewed and discussed with patient Reinforced low cholesterol diet Continue Pravastatin 40 mg QD Will recheck her labs and fasting lipids in 4 months for follow up (2) Diabetes mellitus: Code(s): E11.9 - Type 2 diabetes mellitus without complications Category: Medical Qualifiers: Diabetes mellitus type: type 2 Diabetes mellitus long term care administrator insulin use: without long term care administrator use Diabetes mellitus complication status: without complication Qualified Code(s): E11.9 - Type 2 diabetes mellitus without complications Plan: Her HgbA1c is at 5.4% on her recent labs done yesterday - goal is at least <7.0% Reinforced diabetic diet Continue Nateglinide 120 mg TID and Metformin 500 mg BID (3) Psoriasis: Code(s): L40.9 - Psoriasis, unspecified Category: Medical Plan: Continue Otezla 30 mg BID Follow up with dermatology as scheduled for continuing management of her psoriasis (4) Rheumatoid arthritis: Code(s): M06.9 - Rheumatoid arthritis, unspecified Category: Medical Qualifiers: Rheumatoid arthritis location: unspecified site Rheumatoid factor presence: unspecified presence Qualified Code(s): M06.9 - Rheumatoid arthritis, unspecified Plan: Patient has been referred to and is scheduled to be seen by rheumatology in December 2024 (5) Migraine: Code(s): G43.909 - Migraine, unspecified, not intractable, without status migrainosus Category: Medical Qualifiers: Migraine type: unspecified Status migrainosus presence: without status migrainosus Intractability: not intractable Qualified Code(s): G43.909 - Migraine, unspecified, not intractable, without status migrainosus Plan: Reinforced avoidance of any potential migraine triggers Continue Topiramate 100 mg BID, Nortriptyline 10 mg Q HS and Nurtec ODT 75 mg every other day Follow up with neurology as scheduled (6) Brain aneurysm: Comment: s/p surgical repair in 2015 in [place], [place] Code(s): I67.1 - Cerebral aneurysm, nonruptured Category: Medical Plan: Patient currently has another aneurysm of about 8 mm in size that was being monitored closely [place] she moved here to [facility] Follow up with neurosurgery as scheduled for continuing surveillance and management Patient has had some cognitive impairment ever since her brain surgery in 2014 Continue Memantine 10 mg BID (7) Chronic anemia: Code(s): D64.9 - Anemia, unspecified Category: Medical Plan: Her H/H were normal on her labs done yesterday Follow up with hematology as scheduled for continuing management (8) Small intestinal hemorrhage: Code(s): K92.2 - Gastrointestinal hemorrhage, unspecified Category: Medical Plan: Patient reportedly had a slow bleed in her small intestines that comes and goes for a while now States that there was an attempt to localize and cauterize the bleeding a couple of years ago wherein she was under anesthesia and intubated but no active bleeding was detected at the time of the procedure She has been referred to GI for this and she is scheduled to be seen tomorrow (9) GERD without esophagitis: Code(s): K21.9 - Gastro-esophageal reflux disease without esophagitis Category: Medical Plan: Dietary restrictions reinforced Continue Pantoprazole 40 mg QD (10) Allergic rhinitis: Code(s): J30.9 - Allergic rhinitis, unspecified Category: Medical Qualifiers: Allergic rhinitis trigger: unspecified Allergic rhinitis seasonality: unspecified Qualified Code(s): J30.9 - Allergic rhinitis, unspecified Plan: Continue Cetirizine 10 mg QD PRN and Fluticasons 50 mcg nasal spray QD PRN (11) Vitamin D deficiency: Code(s): E55.9 - Vitamin D deficiency, unspecified Category: Medical Plan: Patient has been advised that her Vitamin D level is low on her recent labs Will start her on Vitamin D3 2000 units QD (12) Chronic pain: Code(s): G89.29 - Other chronic pain Category: Medical Qualifiers: Chronic pain type: other chronic pain Qualified Code(s): G89.29 - Other chronic pain Plan: Continue Pregabalin 75 mg BID, Tramadol 50 mg TID PRN and Tizanidine 4 mg BID PRN (13) Overweight (BMI 25.0-29.9): Code(s): E66.3 - Overweight Category: Medical Plan: Reinforced diet/exercise as tolerated/lose weight Plan Follow up in 4 months Orders: Orders Comprehensive Archie. Panel Fast 4 Months E78.00 - Pure hypercholesterolemia, unspecified Lipid Panel 4 Months E78.00 - Pure hypercholesterolemia, unspecified TSH reflex Free T4 4 Months E78.00 - Pure hypercholesterolemia, unspecified UA CC w/rflx Micro + Cult 4 Months R30.0 - Dysuria Hemoglobin A1c 4 Months E11.9 - Type 2 diabetes mellitus without complications Microalbumin, Random (w Creat) 4 Months E11.9 - Type 2 diabetes mellitus without complications Vitamin D 25-OH Total 4 Months E55.9 - Vitamin D deficiency, unspecified Medications: New cholecalciferol (vitamin D3) 50 mcg PO DAILY 90 caps 3RF 90 days E55.9 - Vitamin D deficiency, unspecified
[2024-10-07 10:09] VITALS: BP 100/62; PULSE 84; O2SAT 96; BMI 24.5
--- OUTSIDE RECORDS SUMMARY | 2024-10-07 11:08 | XMS_ITS | Encounter Summary ---
Author Organization [facility] Address [address] [place] [address] Care Team Providers Care Ball Machine Operator Name Role Phone Sabrina Redd Primary Care Provider [phone] Encounter Details Date Type Department Care Team (Late st Contact Info) Description 07/14/2019 Scanned Document [facility] [address] [facility] [place][Note 2] [address] [place] [address] Provider, Historical . Social History Tobacco Use [...] on filedocumented in this encounter Care Teams Ball Machine Operator Relationship Specialty Start Date End Date Sabrina Redd PA [address] [place] [address] PCP - General 07/12/22 documented as of this encounter
--- OUTSIDE RECORDS SUMMARY | 2024-10-07 11:08 | XMS_ITS | Encounter Summary ---
Author Organization [facility] Address [address] [place] [address] Care Team Providers Care Oracle Pl Sql Developer Name Role Phone Steffi Escalera APRN Primary Care Provider Myesha Hwang MD Unavailable [phone] Encounter Details Date Type Department Care Team (Late st Contact Info) Description 02/06/2023 Scanned Document [facility][note 3] Center [address] [address] [place] [address] Social History Tobacco Use Types [...] Not at all 02/06/2023 9:00 AM Florian Damno MD Feeling bad about yourself - or [...] on filedocumented in this encounter Care Teams Oracle Pl Sql Developer Relationship Specialty Start Date End Date Steffi Escalera APRN [address] [address] PCP - General 01/15/23 Myesha Hwang MD [address] [place] [address] Gastroenterology 04/09/23 documented as of this encounter
--- OUTSIDE RECORDS SUMMARY | 2024-10-07 11:08 | XMS_ITS | Encounter Summary ---
Author Organization [facility] Address [address] [place] [address] Care Team Providers Care Music Assistant Name Role Phone Sabrina Redd Primary Care Provider [phone] Encounter Details Date Type Department Care Team (Late st Contact Info) Description 07/02/2019 Scanned Document [facility] at [address] [place] [id number] Antoni Patricio MD [address] [place] [phone] Social History Tobacco Use Types Packs/Day Years [...] on filedocumented in this encounter Care Teams Music Assistant Relationship Specialty Start Date End Date Sabrina Redd PA [address] [place] [address] PCP - General 07/12/22 documented as of this encounter
--- OUTSIDE RECORDS SUMMARY | 2024-10-07 11:08 | XMS_ITS | Encounter Summary ---
Author Organization [facility] Address [address] [place] [address] Care Team Providers Care Escrow Secretary Name Role Phone Lucas Wen APRN Primary Care Provider + Steffi Escalera APRN Primary Care Provider Myesha Hwang MD Unavailable [phone] Encounter Details Date Type Department Care Team (Late st Contact Info) Description 10/26/2022 Scanned Document [facility] [place] [facility] - [address] [phone] Chris Sood MD [address] [place], [place] [id number] Social History Tobacco Use Types Packs/Day Years [...] on filedocumented in this encounter Care Teams Escrow Secretary Relationship Specialty Start Date End Date Lucas Wen APRN PCP - General Adult Health - PA/APNP/[employer] 10/20/22 01/14/23 Steffi Escalera APRN [address] [address] PCP - General 01/15/23 Myesha Hwang MD [address] [place] [address] Gastroenterology 04/09/23 documented as of this encounter
--- OUTSIDE RECORDS SUMMARY | 2024-10-07 11:08 | XMS_ITS | Encounter Summary ---
Author Organization [facility] Address [address] [place] [address] Care Team Providers Care Change Number Operator Name Role Phone Maurilio Burgess MD Primary Care Provider [phone] Reason for Referral * Imaging (Routine) - Closed Specialty Diagnoses / Procedures Referred By Contac t Referred To Contact Radiology Diagnoses Cerebral aneurysm, nonruptured Procedures IR Plcmnt Cath ICA Angio [facility] Saleem Dominique MD [address] [place] [address] Phone: tel: fax: [facility] [place] Referral ID Status Reason Start Date Expiration Date Visits Re quested Visits Authorized [id number] Closed 08/26/2024 08/26/2025 1 1 Reason for Visit * Imaging (Routine) - Closed Specialty Diagnoses / Procedures Referred By Contac t Referred To Contact Radiology Diagnoses Cerebral aneurysm, nonruptured Procedures IR Plcmnt Cath [facility] Saleem Dominique MD [address] [place] [address] Phone: tel: fax: [facility] [place] Referral ID Status Reason Start Date Expiration Date Visits Re quested Visits Authorized [id number] Closed 08/26/2024 08/26/2025 1 1 Encounter Details Date Type Department Care Team (Latest Contact Info) Description 10/01/2024 6:48 AM EDT - 10/01/2024 11:59 PM EDT Hospital Encounter [facility] Interventional Radiology [address] [place] [address] Saleem Quigley MD [address] [place], [place] [id number] Cerebral aneurysm, nonruptured Discharge Disposition: Home or [...] mouth daily. blood-glucose meter (OneTouch Ultra2 Meter) [facility] 04/29/2020 fluticasone propionate (FLONASE) 50 mcg/actuation nasal [...] Post call completed with pt on 10/02/24 @3272 Pt reports she had a headache last [...] mmol/L LAB CHEMISTRY METHOD 10/01/2024 7:49 AM [facility] Potassium 3.3(L) 3.5 - 5.1 mmol/L LAB CHEMISTRY METHOD 10/01/2024 7:49 AM [facility] Chloride 103 98 - 107 mmol/L LAB CHEMISTRY METHOD 10/01/2024 7:49 AM [facility] CO2 26 24 - 32 mmol/L LAB CHEMISTRY METHOD 10/01/2024 7:49 AM [facility] Anion Gap 10 5 - 14 LAB CHEMISTRY METHOD 10/01/2024 7:49 AM [facility] Glucose 151(H) 70 - 99 mg/dL LAB CHEMISTRY METHOD 10/01/2024 7:49 AM [facility] BUN 13 7 - 17 mg/dL LAB CHEMISTRY METHOD 10/01/2024 7:49 AM [facility] Creatinine 0.50 0.50 - 1.00 mg/dL LAB CHEMISTRY METHOD 10/01/2024 7:49 AM [facility] eGFR 106 >=60 mL/min/1. 73m2 LAB CHEMISTRY METHOD 10/01/2024 7:49 AM [facility] Comment:Calculation based on the??Chronic Kidney Disease Epidemiology Collaboration (CKD-EPI) equation refit??without adjustment for race. BUN/Creatinine Ratio 26.0(H) 12.0 - 20.0 LAB CHEMISTRY METHOD 10/01/2024 7:49 AM [facility] Calcium 9.1 8.4 - 10.2 mg/dL LAB CHEMISTRY METHOD 10/01/2024 7:49 AM [facility] Blood Venous blood specimen / Unknown Venipuncture / Unknown 10/01/2024 7:08 AM EDT 10/01/2024 7:18 AM EDT us Saleem Moiz Valenzuela MD LAB BLOOD ORDERABLES Izzy fountain Result [facility] [address] [place] [address], * (ABNORMAL) Complete blood count (10/01/2024 7:08 AM EDT) WBC 6.8 4.0 - 10.5 K/mcL LAB HEMETOLOGY METHOD 10/01/2024 11:46 AM EDT [facility] RBC 4.13(L) 4.20 - 5.40 M/mcL LAB HEMETOLOGY METHOD 10/01/2024 11:46 AM EDT [facility] Hemoglobin 11.4(L) 12.5 - 16.0 g/dL LAB HEMETOLOGY METHOD 10/01/2024 11:46 AM EDT [facility] Hematocrit 36.0(L) 37.0 - 47.0 % LAB HEMETOLOGY METHOD 10/01/2024 11:46 AM EDT [facility] MCV 87.3 78.0 - 100.0 FL LAB HEMETOLOGY METHOD 10/01/2024 11:46 AM EDT [facility] MCH 27.7 25.0 - 33.0 pcg LAB HEMETOLOGY METHOD 10/01/2024 11:46 AM EDT [facility] MCHC 31.7(L) 32.0 - 36.0 g/dL LAB HEMETOLOGY METHOD 10/01/2024 11:46 AM EDT [facility] RDW 25.3(H) 12.1 - 16.2 % LAB HEMETOLOGY METHOD 10/01/2024 11:46 AM EDT [facility] Platelets 228 150 - 450 K/mcL LAB HEMETOLOGY METHOD 10/01/2024 11:46 AM EDT [facility] MPV 9.4 7.4 - 11.4 FL LAB HEMETOLOGY METHOD 10/01/2024 11:46 AM EDT [facility] Blood Venous blood specimen / Unknown Venipuncture / Unknown 10/01/2024 7:08 AM EDT 10/01/2024 7:18 AM EDT us Saleem Valenzuela MD LAB BLOOD ORDERABLES Izzy fountain Result [facility] [address] [place] [address], [place] [phone] documented in this encounter Visit Diagnoses Diagnosis [...] 10/01/2024 documented in this encounter Care Teams Change Number Operator Relationship Specialty Start Date End Date Maurilio Burgess MD [address] [place] [address] Dr [address] [place] PCP - General Internal Medicine 06/17/24 documented as of this encounter
--- OUTSIDE RECORDS SUMMARY | 2024-10-07 11:08 | XMS_ITS | Encounter Summary ---
Author Organization [facility] Address [address] [place] [address] Care Team Providers Care Data Operations Director Name Role Phone Sabrina Redd Primary Care Provider [phone] Encounter Details Date Type Department Care Team (Late st Contact Info) Description 06/20/2019 Scanned Document [facility] [address] [place] [address] Antoni Patricio MD [address] [place] [phone] Social History Tobacco Use Types Packs/Day Years [...] on filedocumented in this encounter Care Teams Data Operations Director Relationship Specialty Start Date End Date Sabrina Redd PA [address] [place] [address] PCP - General 07/12/22 documented as of this encounter
--- OUTSIDE RECORDS SUMMARY | 2024-10-07 11:08 | XMS_ITS | Encounter Summary ---
Author Organization [facility] Address [address] [place] [address] Care Team Providers Care Optical Effects Layout Person Name Role Phone Sabrina Redd Primary Care Provider [phone] Reason for Referral * Imaging (Routine) - Closed Specialty Diagnoses / Procedures Referred By Contac t Referred To Contact Diagnostic Radiology Procedures CTA Head w and/or wo IV Contrast Antoni Patricio MD [address] [place] [address] Phone: tel: fax: Referral ID Status Reason Start Date Expiration Date Visits Re quested Visits Authorized [id number] Closed 07/11/2023 07/10/2024 1 1 Encounter Details Date Type Department Care Team (Late st Contact Info) Description 07/11/2023 Scanned Document [facility] SCHEDULING [address] [place], [place] [address] Antoni Patricio MD [address] [place] [address] Social History Tobacco Use Types [...] on filedocumented in this encounter Care Teams Optical Effects Layout Person Relationship Specialty Start Date End Date Sabrina Redd PA [address] [place] [address] PCP - General 07/12/22 documented as of this encounter
--- OUTSIDE RECORDS SUMMARY | 2024-10-07 11:08 | XMS_ITS | Encounter Summary ---
Author Organization [facility] Address [address] [place] [address] Care Team Providers Care Telecommunications Cable Jointer Name Role Phone Steffi Escalera APRN Primary Care Provider Myesha Hwang MD Unavailable [phone] Encounter Details Date Type Department Care Team (Late st Contact Info) Description 02/06/2023 Scanned Document [facility] [address] [address] [place] [address] Social History Tobacco Use Types [...] on filedocumented in this encounter Care Teams Telecommunications Cable Jointer Relationship Specialty Start Date End Date Steffi Escalera APRN [address] [address] PCP - General 01/15/23 Myesha Hwang MD [address] [place] [address] Gastroenterology 04/09/23 documented as of this encounter
--- OUTSIDE RECORDS SUMMARY | 2024-10-07 11:08 | XMS_ITS | Clinical Summary ---
Author Organization [facility] Address [address] [place] [address] Care Team Providers Care Mine Car Repairer Name Role Phone Lucas Wen APRN Primary Care Provider Sina lopez Allergies Active Allergy Reactions Criticality Noted Date Comments Milnacipran Palpitations,Other ( See Comments) Medium 02/12/2019 Tachycardia Clopidogrel Rash Low 11/01/2022 Promethazine Palpitations,Other ( See Comments) Medium 04/10/2012 Tachycardia 180/min - she had to be taken to ER. Medications Medication Sig Dispensed Refills Start Date End Date Status KnXwp-CeClcy-RK-B Cmp-C-Biot (INTEGRA PLUS) CAPS Take 1 tablet [...] complication, without long-term current use of insulin ([facility]) Test one to two times daily as [...] records for review Pt was followed by [facility] in [place], will need f/u care here [...] We discussed the minimal potential risk with buttermaker continuous churn PPI use. Based on AGA expert review the quality of evidence behind fdc kidney disease, dementia, bone fractures, and infection with PPI use is low. The current data suggests that buttermaker continuous churn PPI use does not require routine screening [...] We discussed the minimal potential risk with fdc PPI use. Based on AGA expert review the quality of evidence behind buttermaker continuous churn kidney disease, dementia, bone fractures, and infection with PPI use is low. The current data suggests that buttermaker continuous churn PPI use does not require routine screening [...] We discussed the minimal potential risk with buttermaker continuous churn PPI use. Based on AGA expert review the quality of evidence behind fdc kidney disease, dementia, bone fractures, and infection with PPI use is low. The current data suggests that fdc PPI use does not require routine screening [...] aneurysm s/p trapping/bypass by Dr. Colin in [place] in 04/2015 Chronic migraine without aur a [...] Advance Directives For more information, please contact: [phone] Latest Code Status on File Code Status [...] 7:25 PM 01/06/2020 7:55 PM Care Teams Mine Car Repairer Relationship Specialty Start Date End Date Lucas Wen APRN PCP - General Cardiology 11/01/22
--- OUTSIDE RECORDS SUMMARY | 2024-10-07 11:08 | XMS_ITS | Encounter Summary ---
Author Organization [facility] Address [address] [place] [address] Care Team Providers Care Senior Solutions Workflow Consultant Name Role Phone Sabrina Redd Primary Care Provider [phone] Encounter Details Date Type Department Care Team (Late st Contact Info) Description 04/09/2019 Abstract [facility] [address] [facility] [address] [facility] [place] [address] Antoni Patricio MD [address] [place] [phone] Social History Tobacco Use Types Packs/Day Years [...] on filedocumented in this encounter Care Teams Senior Solutions Workflow Consultant Relationship Specialty Start Date End Date Sabrina Redd PA [address] [place] [address] PCP - General 07/12/22 documented as of this encounter
--- OUTSIDE RECORDS SUMMARY | 2024-10-07 11:08 | XMS_ITS | Encounter Summary ---
Author Organization [facility] Address [address] [place] [address] Care Team Providers Care Entry Level Receptionist Name Role Phone Marina Reddy APRN Primary Care Provider [phone] Lucas Wen APRN Primary Care Provider + Steffi Escalera APRN Primary Care Provider Myesha Hwang MD Unavailable [phone] Reason for Visit * Reason Comments Medication Refill Encounter Details Date Type Department Care Team (Late st Contact Info) Description 08/25/2020 Refill [facility] [address] [address] Dominic Narvaez MD [address] [place] [address] Social History Tobacco Use Types Packs/Day Years [...] on filedocumented in this encounter Care Teams Entry Level Receptionist Relationship Specialty Start Date End Date Barry, Marina, FRUIT WORKER 15 [facility] 13 [place] [address] PCP - General Adult Health - PA/APNP/EXTENDED DAY TEACHER/FRUIT WORKER 03/03/19 10/19/22 Lucas Wen APRN 15 [facility] 13 [place] [address] PCP - General Adult Health - PA/APNP/EXTENDED DAY TEACHER/FRUIT WORKER 10/20/22 01/14/23 Steffi Escalera APRN [address] [address] PCP - General 01/15/23 Myesha Hwang MD [address] [place] [address] Gastroenterology 04/09/23 documented as of this encounter
--- OUTSIDE RECORDS SUMMARY | 2024-10-07 11:08 | XMS_ITS | Encounter Summary ---
Author Organization [facility] Address [address] [place] [address] Care Team Providers Care Reconnaissance Crewmember Name Role Phone Sabrina Redd Primary Care Provider [phone] Encounter Details Date Type Department Care Team (Late st Contact Info) Description 04/11/2019 Scanned Document [facility] 800 [facility] 800 [facility] [place] [address] Provider, Historical . Social History Tobacco Use [...] on filedocumented in this encounter Care Teams Reconnaissance Crewmember Relationship Specialty Start Date End Date Sabrina Redd PA [address] [place] [address] PCP - General 07/12/22 documented as of this encounter
--- OUTSIDE RECORDS SUMMARY | 2024-10-07 11:08 | XMS_ITS | Encounter Summary ---
Author Organization [facility] Address [address] [place] [address] Care Team Providers Care Dump Attendant Name Role Phone Marina Reddy TURNER Primary Care Provider [phone] Lucas Wen APRN Primary Care Provider + Steffi Escalera APRN Primary Care Provider Myesha Hwang MD Unavailable [phone] Encounter Details Date Type Department Care Team (Late st Contact Info) Description 09/29/2022 Scanned Document [facility] - [address] [place] [address] Chris Sood MD [address] [place] [address] [address] [place], [place] [id number] Social History Tobacco Use Types Packs/Day Years [...] on filedocumented in this encounter Care Teams Dump Attendant Relationship Specialty Start Date End Date Marina Reddy APRN 15 [facility] 13 [place] [address] PCP - General Adult Health - PA/APNP/SYSTEM SUPPORT TECHNICIAN/MACHINE OPERATOR SLITTER TECHNICIAN 03/03/19 10/19/22 Lucas Wen APRN [address] [place] [address] [address] [place] [address] PCP - General Adult Health - PA/APNP/SYSTEM SUPPORT TECHNICIAN/MACHINE OPERATOR SLITTER TECHNICIAN 10/20/22 01/14/23 Steffi Escalera APRN [address] [place] [address] PCP - General 01/15/23 Myesha Hwang MD [address] [place] [address] Gastroenterology 04/09/23 documented as of this encounter
--- OUTSIDE RECORDS SUMMARY | 2024-10-07 11:08 | XMS_ITS | Encounter Summary ---
Author Organization [facility] Address [address] [place] [address] Care Team Providers Care Tag Machine Operator Name Role Phone Steffi Escalera APRN Primary Care Provider Myesha Hwang MD Unavailable [phone] Encounter Details Date Type Department Care Team ([facility] st Contact Info) Description 02/01/2023 Scanned Document [facility] 113 [facility] [address] [place] [phone] Marina Davis PA 113 [facility] [address] [place] [address] Social History Tobacco Use Types Packs/Day Years [...] on filedocumented in this encounter Care Teams Tag Machine Operator Relationship Specialty Start Date End Date Steffi Escalera APRN 12 N [facility] [address] [place] [address] PCP - General 01/15/23 Myesha Hwang MD [address] [place] [address] Gastroenterology 04/09/23 documented as of this encounter
--- OUTSIDE RECORDS SUMMARY | 2024-10-07 11:08 | XMS_ITS | Encounter Summary ---
Author Organization [facility] Address [address] [place] [address] Care Team Providers Care Chucker Name Role Phone Sabrina Redd Primary Care Provider [phone] Encounter Details Date Type Department Care Team (Late st Contact Info) Description 06/17/2019 Scanned Document [facility] [address] [place] [address] Provider, [facility] . Social History Tobacco Use Types Packs/Day [...] on filedocumented in this encounter Care Teams Chucker Relationship Specialty Start Date End Date Sabrina Redd PA [address] [place] [place] [address] PCP - General 07/12/22 documented as of this encounter
--- OUTSIDE RECORDS SUMMARY | 2024-10-07 11:08 | XMS_ITS | Encounter Summary ---
Author Organization [facility] Address [address] [place] [address] Care Team Providers Care Mail Carrier Name Role Phone Sabrina Redd Primary Care Provider [phone] Encounter Details Date Type Department Care Team (Late st Contact Info) Description 07/13/2019 Abstract [facility] [address] [place] [address] Antoni Patricio MD [address] [place] [phone] Social History Tobacco Use Types Packs/Day Years [...] on filedocumented in this encounter Care Teams Mail Carrier Relationship Specialty Start Date End Date Sabrina Redd PA [address] [place] [address] PCP - General 07/12/22 documented as of this encounter
--- OUTSIDE RECORDS SUMMARY | 2024-10-07 11:08 | XMS_ITS | Encounter Summary ---
Author Organization [facility] Address [address] [place] [address] Care Team Providers Care Casualty Claim Adjuster Name Role Phone Sabrina Redd Primary Care Provider [phone] Encounter Details Date Type Department Care Team (Late st Contact Info) Description 06/27/2019 Scanned Document [facility] [address] [place] [address] Antoni Patricio MD [address] [place] [phone] Social History Tobacco Use Types Packs/Day Years [...] on filedocumented in this encounter Care Teams Casualty Claim Adjuster Relationship Specialty Start Date End Date Sabrina Redd PA [address] [place] [address] PCP - General 07/12/22 documented as of this encounter
--- OUTSIDE RECORDS SUMMARY | 2024-10-07 11:08 | XMS_ITS | Clinical Summary ---
Author Organization [facility] Address [address] [place] [address] Care Team Providers Care Manager Sterile Name Role Phone Steffi Escalera APRN Primary Care Provider Myesha Hwang MD Unavailable [phone] Allergies Active Allergy Reactions Criticality Noted Date [...] We discussed the minimal potential risk with usp PPI use. Based on AGA expert review the quality of evidence behind manager long term care kidney disease, dementia, bone fractures, and infection with PPI use is low. The current data suggests that manager long term care PPI use does not require routine [...] We discussed the minimal potential risk with usp PPI use. Based on AGA expert review the quality of evidence behind manager long term care kidney disease, dementia, bone fractures, and infection with PPI use is low. The current data suggests that usp PPI use does not require routine screening [...] We discussed the minimal potential risk with usp PPI use. Based on AGA expert review the quality of evidence behind usp kidney disease, dementia, bone fractures, and infection with PPI use is low. The current data suggests that usp PPI use does not require routine screening or monitoring of bone density, kidney function, magnesium, or vitamin B levels. There is no clinical evidence to suggest routine intake of calcium, vitamin b12 or magnesium, with PPI use, beyond recommended dietary allowance. Follow clinically. Personal history of colonic polyps 04/15/2019 Assessment & Plan (04/06/2023 10:29 AM EDT): Colon 02/2022 ([place]) - no polyps noted Would due recall exam in 2026 given prior hx of polyps Assessment & Plan (12/28/2022 12:44 PM EDT): Colon 02/2022 ([place]) - no polyps noted Assessment & Plan [...] Work up here in 2020, then in [place] with unremarkable EGD/Colon 02/2022 Repeat capsule done [...] Will have patient see Dr. Hwang in [place] for double balloon enteroscopy- this was recommended after 2021 capsule in [place] and recent capsule also suggests that best [...] up here in 2020, then recently in [place] with unremarkable EGD/Colon 02/2022 - unclear what [...] review Pt was followed by [facility] in [place], will need f/u care here also Family [...] Most Recently Relevant to Health Maintenance [place] [address] [employer] [place] [address] [place] [address] [employer] MEDICARE Care Teams Manager Sterile Relationship Specialty Start Date End Date Steffi Escalera APRN 12 N [facility] 110 [place], [place] [id number] PCP - General 01/15/23 Myesha Hwang MD [address] [place] [address] Gastroenterology 04/09/23
--- OUTSIDE RECORDS SUMMARY | 2024-10-07 11:08 | XMS_ITS | Encounter Summary ---
Author Organization [facility] Address [address] [place] [address] Care Team Providers Care Manager Game Name Role Phone Sabrina Redd Primary Care Provider [phone] Encounter Details Date Type Department Care Team (Late st Contact Info) Description 07/12/2020 Scanned Document [facility] [address] [place], [place] [address] Antoni Patricio MD [address] [place] [address] Social History Tobacco Use Types [...] filedocumented in this encounter Care Teams Manager Game Relationship Specialty Start Date End Date Sabrina Redd PA [address] [place] [address] PCP - General 07/12/22 documented as of this encounter
--- OUTSIDE RECORDS SUMMARY | 2024-10-07 11:08 | XMS_ITS | Clinical Summary ---
Author Organization [facility] Address [address] [place] [address] Phone Care Team Providers Care Production Team Leader Name Role Phone Maurilio Burgess MD Primary [...] SYMPTONS. Active blood-glucose meter (OneTouch Ultra2 Meter) [facility] [place] Active OneTouch Ultra Test test strip [...] 05, [address] Gilberto Knox in [place]. 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 She has chronic left eye vision loss and balance difficulty, chronic headaches and memory problems, patient states this has been since her craniotomy. She was seeing Dr. Patricio in neurosurgery at [place], [place]. [place] [...] prescription glasses, but has not seen an chest pain coordinator. All questions answered, will call with any additional questions or concerns. Encounters Date Type Department Care Team Description 10/01/2024 6:48 AM EDT - 10/01/2024 11:59 PM EDT Hospital Encounter [facility] Interventional Radiology [address] [place] [phone] Saleem Quigley MD Cerebral aneurysm, nonruptured Discharge Disposition: Home or Self Care 08/27/2024 Telephone [facility] [place] [facility] [address] [address] Ivory Velazquez MA APPOINTMENT (No PA required per César Keenan with [employer], cpt [id number], REF # [id number], Provider and Facility in network. No PA required per Minnie with [facility], cpt [phone], REF # [id number], Provider and Facility in network. ) 08/26/2024 9:00 AM EDT Office Visit [facility] [address] [phone] Saleem Quigley MD Cerebral aneurysm, nonruptured (Primary Dx) 07/14/2024 1:18 PM EST - 07/14/2024 11:59 PM EST Hospital Encounter CT Scan [address] [place] [phone] Cerebral aneurysm, nonruptured Discharge Disposition: Home or Self Care 07/09/[address] [facility] [address] [phone] Laurel David MA Appointment ([facility] Auth # [id number] for Head CT scheduled for 07/14/24 @ 1:30pm at [facility]. Pt aware) from Last 3 Months Surgical History Surgery Date Site/Laterality Comments CEREBRAL ANEURYSM REPAIR 02/2016 :Dr. Knox at [facility] GASTRIC BYPASS 08/30/2009 OTHER SURGICAL HISTORY EXCESSIVE THIGH / HIP / BUTTOCK / FLANK SKIN EXCISION;COMMENT:following gastric bypass COLONOSCOPY 2016 COLONOSCOPY 2015 tubular adenoma HYSTERECTOMY 12/16/2010 UPPER GASTROINTESTINAL ENDOSCOPY 01/02/2018 Dr. Santacruz ([place]) OPEN ANTERIOR SHOULDER RECONSTRUCTION 04/14/2013 left shoulder reconstruction, Dr. Chisholm ([place]) SECTION UPPER GASTROINTESTINAL ENDOSCOPY 05/11/2020 N/A UPPER ENDOSCOPY-EGD; Surgeon: Pito Diaz MD; Location: [facility] END[facility]COPY; Service: Gastroenterology; Laterality: N/A; COLONOSCOPY 05/12/2020 N/A Surgeon: Tino Lang MD; Location: [facility] END[facility]COPY; Service: Gastroenterology; Laterality: N/A; UPPER GASTROINTESTINAL ENDOSCOPY 09/13/2020 N/A EGD Surgeon: Maynor Rojas MD; Location: [facility] END[facility]; Service: Gastroenterology; Laterality: N/A; BREAST SURGERY REDUCTION MAMMAPLASTY;:with lift/ implants COLONOSCOPY 02/02/2021 N/A Surgeon: Tino Lang MD; Location: [facility] END[facility]COPY; Service: Gastroenterology; Laterality: N/A; OTHER SURGICAL HISTORY Patient reports history of colon resection required after gastric bypass, bladder surgery and appendectomy CARPAL TUNNEL RELEASE Bilateral Medical History Medical History Date Comments Aneurysm ([facility] V24) 2014 GI bleed Tubular adenoma of colon 2014 Syncope completed cardia c work up (tilt table, echo, stress ajson, holter) Psoriasis Mild dementia ([facility] V24, [facility] V28) occasional memory loss Steatosis of liver 12/03/2017 fatty liver s een on US per past records. History of Papanicolaou smear of cervix 10/2017 History of mammogram 01/25/2018 negative Ovarian cyst Fibromyalgia, primary Anemia Anxiety GERD (gastroesophageal reflux disease) Depression Arthritis Migraine headache Visual impairment Obesity s/p GBP Diabetes ([facility] V24, [facility] V28) Hyperlipidemia Asthma Acid reflux Rheumatoid arthritis ([facility]/ C V24, [facility] V28) Family History Medical History Relation Name [...] LAB HEMETOLOGY METHOD 10/01/2024 11:46 AM EDT [facility] RBC 4.13(L) 4.20 - 5.40 M/mcL LAB HEMETOLOGY METHOD 10/01/2024 11:46 AM EDT [facility] Hemoglobin 11.4(L) 12.5 - 16.0 g/dL LAB HEMETOLOGY METHOD 10/01/2024 11:46 AM EDT [facility] Hematocrit 36.0(L) 37.0 - 47.0 % LAB HEMETOLOGY METHOD 10/01/2024 11:46 AM EDT [facility] MCV 87.3 78.0 - 100.0 FL LAB HEMETOLOGY METHOD 10/01/2024 11:46 AM EDT [facility] MCH 27.7 25.0 - 33.0 pcg LAB HEMETOLOGY METHOD 10/01/2024 11:46 AM EDT [facility] MCHC 31.7(L) 32.0 - 36.0 g/dL LAB HEMETOLOGY METHOD 10/01/2024 11:46 AM EDT [facility] RDW 25.3(H) 12.1 - 16.2 % LAB HEMETOLOGY METHOD 10/01/2024 11:46 AM EDT [facility] Platelets 228 150 - 450 K/mcL LAB HEMETOLOGY METHOD 10/01/2024 11:46 AM EDT [facility] MPV 9.4 7.4 - 11.4 FL LAB HEMETOLOGY METHOD 10/01/2024 11:46 AM EDT [facility] Blood Venous blood specimen / Unknown Venipuncture / Unknown 10/01/2024 7:08 AM EDT 10/01/2024 7:18 AM EDT us Saleem Valenzuela MD LAB BLOOD ORDERABLES Izzy fountain Result [facility] [address] [place] [address], [place] [phone] * (ABNORMAL) Basic metabolic panel (10/01/2024 7:08 AM EDT) Sodium 139 135 - 145 mmol/L LAB CHEMISTRY METHOD 10/01/2024 7:49 AM [facility] Potassium 3.3(L) 3.5 - 5.1 mmol/L LAB CHEMISTRY METHOD 10/01/2024 7:49 AM [facility] Chloride 103 98 - 107 mmol/L LAB CHEMISTRY METHOD 10/01/2024 7:49 AM [facility] CO2 26 24 - 32 mmol/L LAB CHEMISTRY METHOD 10/01/2024 7:49 AM [facility] Anion Gap 10 5 - 14 LAB CHEMISTRY METHOD 10/01/2024 7:49 AM [facility] Glucose 151(H) 70 - 99 mg/dL LAB CHEMISTRY METHOD 10/01/2024 7:49 AM [facility] BUN 13 7 - 17 mg/dL LAB CHEMISTRY METHOD 10/01/2024 7:49 AM [facility] Creatinine 0.50 0.50 - 1.00 mg/dL LAB CHEMISTRY METHOD 10/01/2024 7:49 AM [facility] eGFR 106 >=60 mL/min/1. 73m2 LAB CHEMISTRY METHOD 10/01/2024 7:49 AM [facility] Comment:Calculation based on the??Chronic Kidney Disease Epidemiology Collaboration (CKD-EPI) equation refit??without adjustment for race. BUN/Creatinine Ratio 26.0(H) 12.0 - 20.0 LAB CHEMISTRY METHOD 10/01/2024 7:49 AM [facility] Calcium 9.1 8.4 - 10.2 mg/dL LAB CHEMISTRY METHOD 10/01/2024 7:49 AM [facility] Blood Venous blood specimen / Unknown Venipuncture / Unknown 10/01/2024 7:08 AM EDT 10/01/2024 7:18 AM EDT us Saleem Valenzuela MD LAB BLOOD ORDERABLES Izzy essie Result [facility] [address] [place] [address], [place] [phone] * CT Angio Head wo and/or w [...] Signed Date: 07/16/2024 10:58 ET Workstation ID: [id number] Transcribed By: Self Edit Transcribed Date: 07/16/2024 10:11 ET Narrative 07/16/2024 10:58 AM EST PROCEDURE: Noncontrast head CT and CT angiogram of the [place]. 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 Gilberto Knox in [place]. 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 COMPARISON: Outside images dated 07/10/2023. TECHNIQUE: Noncontrast head CT followed by contrast-enhanced CT angiogram of the [place], with coronal and sagittal reformats. [...] head CT and CT angiogram of the [place]. HISTORY: Cerebral aneurysm, follow-up history of unruptured left superior cerebellar artery aneurysm treated bycraniotomy and trapping/bypass on May 05, [address] Gilberto Garzon [place]. 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 COMPARISON: Outside images dated 07/10/2023. TECHNIQUE: Noncontrast head CT followed by contrast-enhanced CT angiogramof the [place] shell [place], with coronal and sagittal reformats. [...] Signed Date: 07/16/2024 10:58 ET Workstation ID: [id number] Transcribed By: Self Edit Transcribed Date: 07/16/2024 [...] plain language report , as required by [place] [id number]. Session: Separate session. Report reviewed and signed by : Dr. Matthew Serrato MD on 05/13/2020 4:27 PM. Workstation Name - [id number] Procedure Note Matthew Serrato MD - 06/02/2022 [...] plain language report , as required by [place] [id number]. Session: Separate session. Report reviewed and signed by : Dr. Matthew Serrato MD on 05/13/2020 4:27 PM.Workstation Name - [id number] Moise Palomino MD IMG BI PROCEDURES Final Resul t from Last 3 Months or Most Recently Relevant to Health Maintenance Insurance [employer] MEDICARE ADVANTAGE MEDICAID - [place] Care Teams Production Team Leader Relationship Specialty Start Date End Date Maurilio Burgess MD [address] [place] [address] [address] [place] PCP - General Internal Medicine 06/17/24
--- OUTSIDE RECORDS SUMMARY | 2024-10-07 11:08 | XMS_ITS | Encounter Summary ---
Author Organization [facility] Address [address] [place] [address] Care Team Providers Care Events Assistant Name Role Phone Steffi Escalera APRN Primary Care Provider Myesha Hwang MD Unavailable [phone] Encounter Details Date Type Department Care Team (Late st Contact Info) Description 05/22/2024 Telephone [facility] [address] [place] [address] Rafiq Rice [address] [place], [place] [id number] Social History Tobacco Use Types Packs/Day Years [...] on filedocumented in this encounter Care Teams Events Assistant Relationship Specialty Start Date End Date Steffi Escalera APRN [address] [address] PCP - General 01/15/23 Myesha Hwang MD [address] [place] [address] Gastroenterology 04/09/23 documented as of this encounter
--- OUTSIDE RECORDS SUMMARY | 2024-10-07 11:08 | XMS_ITS | Encounter Summary ---
Author Organization [facility] Address [address] [place] [address] Care Team Providers Care Electronic Equipment Maint Tech Name Role Phone Marina Reddy APRN Primary Care Provider [phone] Lucas Wen APRN Primary Care Provider + Steffi Escalera APRN Primary Care Provider Myesha Hwang MD Unavailable [phone] Reason for Visit * Reason Comments Medication Refill Encounter Details Date Type Department Care Team (Late st Contact Info) Description 10/06/2020 Refill [facility] [address] [address] Dominic Narvaez MD [address] [place] [address] Social History Tobacco Use Types Packs/Day Years [...] on filedocumented in this encounter Care Teams Electronic Equipment Maint Tech Relationship Specialty Start Date End Date Barry, Marina, PRACTICING DERMATOLOGIST [facility] [address] [place] [address] PCP - General Adult Health - PA/APNP/LAWNMOWER REPAIR MECHANIC/PRACTICING DERMATOLOGIST 03/03/19 10/19/22 Lucas Wen APRN [address] [facility] [address] [place] [address] PCP - General Adult Health - PA/APNP/LAWNMOWER REPAIR MECHANIC/PRACTICING DERMATOLOGIST 10/20/22 01/14/23 Steffi Escalera APRN [address] [address] PCP - General 01/15/23 Myesha Hwang MD [address] [place] [address] Gastroenterology 04/09/23 documented as of this encounter
--- OUTSIDE RECORDS SUMMARY | 2024-10-07 11:09 | XMS_ITS | Clinical Summary ---
Author Organization [facility] Address [address] [place] [address] Care Team Providers Care Plaster Tender Name Role Phone Sabrina Redd Primary Care Provider [phone] Allergies Active Allergy Reactions Criticality Noted Date [...] 05/2023 Last Assessment & Plan: Colon 02/2022 ([place]) - no polyps noted Would due recall [...] aneurysm s/p trapping/bypass by Dr. Colin in [place] in 04/2015 Cobalamin deficiency 10/26/2018 History of [...] CTA CEREBRAL IN FEB 2016 (DR BROWNING, [facility]) Proximal left superior cerebellar artery aneurysm decrease in size from prior exam status post clipping. No additional aneurysms of the [place] identified. 2. Post surgcal changes [...] We discussed the minimal potential risk with rn long term care PPI use. Based on AGA expert review the quality of evidence behind rn long term care kidney disease, dementia, bone fractures, and infection with PPI use is low. The current data suggests that rn long term care PPI use does not [...] We discussed the minimal potential risk with rn long term care PPI use. Based on AGA expert review the quality of evidence behind alf kidney disease, dementia, bone fractures, and infection with PPI use is low. The current data suggests that alf PPI use does not require routine screening [...] We discussed the minimal potential risk with rn long term care PPI use. Based on AGA expert review the quality of evidence behind rn long term care kidney disease, dementia, bone fractures, and infection with PPI use is low. The current data suggests that rn long term care PPI use does not [...] We discussed the minimal potential risk with rn long term care PPI use. Based on AGA expert review the quality of evidence behind rn long term care kidney disease, dementia, bone fractures, and infection with PPI use is low. The current data suggests that rn long term care PPI use does not [...] We discussed the minimal potential risk with rn long term care PPI use. Based on AGA expert review the quality of evidence behind alf kidney disease, dementia, bone fractures, and infection with PPI use is low. The current data suggests that rn long term care PPI use does not [...] We discussed the minimal potential risk with rn long term care PPI use. Based on AGA expert review the quality of evidence behind rn long term care kidney disease, dementia, bone fractures, and infection with PPI use is low. The current data suggests that alf PPI use does not require routine screening [...] review Pt was followed by thiago in [place], will need f/u care here also Last Assessment & Plan: Continue oral iron Need old records for review Pt was followed by heme in [place], will need f/u care here also Last [...] review Pt was followed by heme in [place], will need f/u care here also Overview: Last Assessment & Plan: Continue oral iron Need old records for review Pt was followed by heme in [place], will need f/u care here also Last Assessment & Plan: Continue oral iron Need old records for review Pt was followed by heme in [place], will need f/u care here also Last Assessment & Plan: Continue oral iron Need old records for review Pt was followed by heme in [place], will need f/u care here also Last Assessment & Plan: Longstanding AYAKA in setting of gastric bypass No overt GI bleeding, has needed multiple transfusions as well as iron infusions Work up here in 2020, then in [place] with unremarkable EGD/Colon 02/2022 Repeat capsule done [...] Will have patient see Dr. Hwang in [place] for double balloon enteroscopy- this was recommended after 2021 capsule in [place] and recent capsule also suggests that best [...] 07/29/2017 Overview (07/20/2023): GASTRITIS S-P GASTRIC BYPASS [place] EGD NL , H PYELORI NEG, ANASTAMOSIS [...] KARLA RA ANTI SM ANTI SSA ANTI FINANCIAL SERVICES MANAGER AB NEG SR / CRP NL ( ) DR HERNANDEZ. History of hysterectomy 12/16/2010 Pain in pelvis 09/11/2007 07/20/2023 Diabetes mellitus 08/29/2007 07/20/2023 Cerebral aneurysm, nonruptured Overview (05/26/2019): unruptured left SCA aneurysm s/p trapping/bypass by Dr. Colin in [place] in 04/2015 Family History Medical History Relation [...] age to complete this topic Insurance [facility] MED[facility] [address] [place], [place] [address] MEDICAID [place] [address] Care Teams Plaster Tender Relationship Specialty Start Date End Date Sabrina Redd PA [address] [place] [address] PCP - General 07/12/22
== END 2024-10-07 11:10 | disposition home or self-care (01) ==
LOC: HO.HMCH 09:54
PROVIDERS: PCP Internal Medicine; Visit Provider Internal Medicine
DX: E78.00 Pure hypercholesterolemia, unspecified (principal); E11.9 Type 2 diabetes mellitus without complications; L40.9 Psoriasis, unspecified; M06.9 Rheumatoid arthritis, unspecified; G43.909 Migraine, unspecified, not intractable, without status migrainosus; I67.1 Cerebral aneurysm, nonruptured; D64.9 Anemia, unspecified; K92.2 Gastrointestinal hemorrhage, unspecified; K21.9 Gastro-esophageal reflux disease without esophagitis; J30.9 Allergic rhinitis, unspecified; E55.9 Vitamin D deficiency, unspecified; G89.29 Other chronic pain; E66.3 Overweight

== ENCOUNTER → 2024-10-07 09:52 | Outpatient (BNVA) | payer MEDICARE, SELFPAY | PROVIDERS: PCP Internal Medicine; Visit Provider Internal Medicine | DX: E78.00 Pure hypercholesterolemia, unspecified (principal); E11.9 Type 2 diabetes mellitus without complications; D64.9 Anemia, unspecified; L40.9 Psoriasis, unspecified; M06.9 Rheumatoid arthritis, unspecified; G43.909 Migraine, unspecified, not intractable, without status migrainosus; I67.1 Cerebral aneurysm, nonruptured; K92.2 Gastrointestinal hemorrhage, unspecified; K21.9 Gastro-esophageal reflux disease without esophagitis; J30.9 Allergic rhinitis, unspecified; E55.9 Vitamin D deficiency, unspecified; G89.29 Other chronic pain; E66.3 Overweight; Z68.24 Body mass index [BMI] 24.0-24.9, adult | CPT/HCPCS: 96127; 99212 ==

== ENCOUNTER 2024-10-08 14:35 | Outpatient (AMB) | payer MEDICARE, MEDICAID, SELFPAY ==
--- NOTE | 2024-10-08 14:36 | MHC.OFFVIS ---
Vital Signs 10/08/24 14:38 Height 5 ft 9 in Weight 138 lb BMI 20.4 BP 123/59 L Blood Pressure Location Lt brachial Position Sitting Pulse 92 Intake Visit Reasons: GI hemorrhage Intake Note: Jazmine presents in the office as a new patient for a GI Hemorrhage. CC: She states that she has been tired lately - she states she has been fighting her brain with her aneurysm. She gets LUQ pains at times. She states she was told the bleeding was in the small intestine. [employer] Appliances Demonstrator Required: No Allergies clopidogrel [From Plavix] Allergy (Severe, Verified 10/07/24 10:54) Rash milnacipran [From Savella] Adverse Reaction (Severe, Verified 10/07/24 10:54) tachycardia promethazine [From Phenergan] Adverse Reaction (Severe, Verified 10/07/24 10:54) tachycardia HPI Comments Details: 64 y.o F with PMH of RYGB 2000, RA and psoraisis on otezla, hx of small bowel bleeding, intracranial aneurysm (Dr Michael Valenzuela), DM, migraines, who is here for iron deficiency. Pt used to get her care in [place] and moved to [facility] in late 2023. Pt reports longstanding hx of intermittent small bowel bleed. Based on hx has had multiple EGD/colo and VCE x3. Appears was also referred for DBE at one point but they were not able to localize a bleed at that time. Slag Expander was Dr Lang in [place]. Most recent EGD/colo was done in 2022 in [place]. [facility] when she was admitted for Hb of 5. Reports never has any overt bleeding but would just have symptomatic anemia. Currently reports intermittent nausea and vomiting due to intermittent issues with gastric bypass. Stools are black since takes PO iron. No blood in stool or emesis. No unintentional weight loss. [facility] Medical History Rheumatoid arthritis Psoriasis Migraine Brain aneurysm Chronic anemia Overweight (BMI 25.0-29.9) Chronic pain Allergic rhinitis GERD without esophagitis Diabetes mellitus Pure hypercholesterolemia Cardiac murmur Surgical History History of abdominoplasty S/P brachioplasty History of appendectomy History of cholecystectomy History of colon resection History of reduction mammoplasty History of rotator cuff surgery History of gastric bypass History of carpal tunnel surgery of right wrist History of carpal tunnel surgery of left wrist Hx of brain surgery Family History Sister Breast cancer Other Diabetes Schizophrenia Social History Housing: Apartment Patient Tobacco Use Status: Former Tobacco user e-Cigarette/Vaping Use: Never Used Second Hand Smoke Exposure: No service: No Current occupational status: retired Current occupational exposures/hazards: No Cognitive needs: No Hearing needs: No Vision needs: No Female Reproductive History Menstrual Age of Menarche: 14 Review of Systems Const All systems reviewed & are unremarkable except as noted in HPI and below Physical Exam Vital Signs: Last Vital Signs Pulse 92 10/08/24 14:38 BP 123/59 L 10/08/24 14:38 BMI result Body Mass Index 20.4 No apparent distress Nonicteric Abdomen soft, nondistended Alert and oriented x3, normal gait Assessment & Plan Assessment & Plan (1) Iron deficiency anemia: Code(s): D50.9 - Iron deficiency anemia, unspecified Category: Medical (2) GIB (gastrointestinal bleeding): Code(s): K92.2 - Gastrointestinal hemorrhage, unspecified Category: Medical Plan Based on patient's report, has history of intermittent, occult mid gut bleeding. Has undergone multiple bidirectional endoscopy, as well as capsule endoscopy at least 3 times. Per her report, also seems that she has had double balloon enteroscopy, but they were not able to localize the bleed at that time. Based on blood work today, has had excellent response to iron infusions. Scheduling repeat procedures at this time will be of low yield in the absence of active bleed. Would plan to proactively check blood counts q.4 weekly x3 and can then space out to q8w if stay unchanged. However if blood count drops precipitously, we will book for urgent video capsule endoscopy to try to capture the bleed. She will likely need to stay on scheduled iron infusions at least q3m. We will also get records from most recent EGD/colonoscopy done less than 2 years ago in [place], as well as records from her previous rubber boots and shoes repairer in [place]. If has not had CTE in the recent past based on those records, would order one to r/o small bowel mass. Follow up 2 months. Orders: Orders Ferritin 4 Weeks D50.9 - Iron deficiency anemia, unspecified Complete Blood Count no Diff 4 Weeks D50.9 - Iron deficiency anemia, unspecified Coding Level of Care Code New Pt Level 5 (50482) Complex EM visit Add On G2211 Diagnoses Iron deficiency anemia D50.9 GIB (gastrointestinal bleeding) K92.2
[2024-10-08 14:38] VITALS: BP 123/59; PULSE 92; BMI 20.4
--- OUTSIDE RECORDS SUMMARY | 2024-10-08 15:51 | XMS_ITS | Encounter Summary ---
Author Organization [facility] Address [address] [place] [address] Care Team Providers Care Director School Of Nursing Name Role Phone Lucas Wen APRN Primary Care Provider + Steffi Escalera APRN Primary Care Provider Myesha Hwang MD Unavailable [phone] Encounter Details Date Type Department Care Team (Late st Contact Info) Description 10/26/2022 Scanned Document [facility] [address] [phone] Chris Sood MD [address] [place], [place] [id number] Social History Tobacco Use Types Packs/Day Years [...] filedocumented in this encounter Care Teams Director School Of Nursing Relationship Specialty Start Date End Date Lucas Wen APRN PCP - General Adult Health - PA/APNP/OYSTER SHUCKER/DEVELOPMENT EDITOR 10/20/22 01/14/23 Steffi Escalera APRN [address] [address] PCP - General 01/15/23 Myehsa Hwang MD [address] [place] [address] Gastroenterology 04/09/23 documented as of this encounter
--- OUTSIDE RECORDS SUMMARY | 2024-10-08 15:51 | XMS_ITS | Clinical Summary ---
Author Organization [facility] Address [address] [place] [address] Care Team Providers Care Mechanical And Auto Body Car Checker Name Role Phone Lucas Wen APRN Primary Care Provider Sina lopez Allergies Active Allergy Reactions Criticality Noted Date Comments Milnacipran Palpitations,Other ( See Comments) Medium 02/12/2019 Tachycardia Clopidogrel Rash Low 11/01/2022 Promethazine Palpitations,Other ( See Comments) Medium 04/10/2012 Tachycardia 180/min - she had to be taken to ER. Medications Medication Sig Dispensed Refills Start Date End Date Status TgQws-CuLrzf-TI-B Cmp-C-Biot (INTEGRA PLUS) CAPS Take 1 tablet [...] complication, without long-term current use of insulin ([facility]) Test one to two times daily [...] records for review Pt was followed by [facility] in [place], will need f/u care here also Overview: Last Assessment & Plan: Continue oral iron Need old records for review Pt was followed by [facility] in [place], will need f/u care here also Last Assessment & Plan: Continue oral iron Need old records for review Pt was followed by [facility] in [place], will need f/u care here also Last Assessment & Plan: Continue oral iron Need old records for review Pt was followed by [facility] in [place], will need f/u care here also Hematemesis [...] We discussed the minimal potential risk with ad terminal makeup operator PPI use. Based on AGA expert review the quality of evidence behind jail kidney disease, dementia, bone fractures, and infection with PPI use is low. The current data suggests that ad terminal makeup operator PPI use does not require routine screening [...] We discussed the minimal potential risk with jail PPI use. Based on AGA expert review the quality of evidence behind ad terminal makeup operator kidney disease, dementia, bone fractures, and infection with PPI use is low. The current data suggests that ad terminal makeup operator PPI use does not require routine screening [...] We discussed the minimal potential risk with ad terminal makeup operator PPI use. Based on AGA expert review the quality of evidence behind jail kidney disease, dementia, bone fractures, and infection with PPI use is low. The current data suggests that jail PPI use does not require routine screening [...] aneurysm s/p trapping/bypass by Dr. Colin in [place] in 04/2015 Chronic migraine without aur a [...] Advance Directives For more information, please contact: [phone] Latest Code Status on File Code Status [...] 7:25 PM 01/06/2020 7:55 PM Care Teams Mechanical And Auto Body Car Checker Relationship Specialty Start Date End Date Lucas Wen APRN PCP - General Cardiology 11/01/22
--- OUTSIDE RECORDS SUMMARY | 2024-10-08 15:51 | XMS_ITS | Encounter Summary ---
Author Organization [facility] and [facility] Address [address] [place] [address] Care Team Providers Care Bundle Helper Name Role Phone Sabrina Redd Primary Care Provider [phone] Encounter Details Date Type Department Care Team (Late st Contact Info) Description 04/09/2019 Abstract [facility] [address] [facility] [address] [facility] [place] [address] Antoni Patricio MD [address] [place] [phone] Social History Tobacco Use Types Packs/Day Years [...] on filedocumented in this encounter Care Teams Bundle Helper Relationship Specialty Start Date End Date Sabrina Redd PA [address] [place] [address] PCP - General 07/12/22 documented as of this encounter
--- OUTSIDE RECORDS SUMMARY | 2024-10-08 15:51 | XMS_ITS | Clinical Summary ---
Author Organization [facility] Address [address] [place] [address] Care Team Providers Care Kalsominer Name Role Phone Sabrina Redd Primary Care Provider [phone] Allergies Active Allergy Reactions Criticality Noted Date [...] 05/2023 Last Assessment & Plan: Colon 02/2022 ([place]) - no polyps [...] aneurysm s/p trapping/bypass by Dr. Colin in [place] in 04/2015 Cobalamin deficiency 10/26/2018 History of [...] CTA CEREBRAL IN FEB 2016 (DR BROWNING, 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 No additional aneurysms of the [place] identified. 2. Post surgcal changes [...] We discussed the minimal potential risk with terminologist PPI use. Based on AGA expert review the quality of evidence behind terminologist kidney disease, dementia, bone fractures, and infection with PPI use is low. The current data suggests that terminologist PPI use does not require routine screening [...] We discussed the minimal potential risk with terminologist PPI use. Based on AGA expert review the quality of evidence behind prison kidney disease, dementia, bone fractures, and infection with PPI use is low. The current data suggests that prison PPI use does not require routine screening [...] We discussed the minimal potential risk with terminologist PPI use. Based on AGA expert review the quality of evidence behind terminologist kidney disease, dementia, bone fractures, and infection with PPI use is low. The current data suggests that terminologist PPI use does not require routine screening [...] We discussed the minimal potential risk with terminologist PPI use. Based on AGA expert review the quality of evidence behind terminologist kidney disease, dementia, bone fractures, and infection with PPI use is low. The current data suggests that terminologist PPI use does not require routine screening [...] We discussed the minimal potential risk with terminologist PPI use. Based on AGA expert review the quality of evidence behind prison kidney disease, dementia, bone fractures, and infection with PPI use is low. The current data suggests that terminologist PPI use does not require routine screening [...] We discussed the minimal potential risk with terminologist PPI use. Based on AGA expert review the quality of evidence behind terminologist kidney disease, dementia, bone fractures, and infection with PPI use is low. The current data suggests that prison PPI use does not require routine screening [...] Will have patient see Dr. Hwang in [place] for double balloon enteroscopy- this was recommended after 2021 capsule in [place] and recent capsule also suggests that best [...] 07/29/2017 Overview (07/20/2023): GASTRITIS S-P GASTRIC BYPASS [place] EGD NL , H PYELORI NEG, ANASTAMOSIS [...] KARLA RA ANTI SM ANTI SSA ANTI MICROFILM DUPLICATING UNIT SUPERVISOR AB NEG SR / CRP NL ( ) DR HERNANDEZ. History of hysterectomy 12/16/2010 Pain in pelvis 09/11/2007 07/20/2023 Diabetes mellitus 08/29/2007 07/20/2023 Cerebral aneurysm, nonruptured Overview (05/26/2019): unruptured left SCA aneurysm s/p trapping/bypass by Dr. Colin in [place] in 04/2015 Family History Medical History Relation [...] age to complete this topic Insurance MED[place]ID [place] [facility] MED[facility] [place] [address] [place], [place] [address] [place]ICAID [place] [address] Care Teams Kalsominer Relationship Specialty Start Date End Date Sabrina Redd PA [address] [place] [address] PCP - General 07/12/22
--- OUTSIDE RECORDS SUMMARY | 2024-10-08 15:51 | XMS_ITS | Encounter Summary ---
Author Organization [facility] and [facility] Address [address] [place] [address] Care Team Providers Care Health Unit Clerk Name Role Phone Sabrina Redd Primary Care Provider [phone] Encounter Details Date Type Department Care Team (Late st Contact Info) Description 07/14/2019 Scanned Document [facility][Note 3] [address] [place] [address] Provider, Historical . Social History Tobacco Use [...] filedocumented in this encounter Care Teams Health Unit Clerk Relationship Specialty Start Date End Date Sabrina Redd PA [address] [place] [address] PCP - General 07/12/22 documented as of this encounter
--- OUTSIDE RECORDS SUMMARY | 2024-10-08 15:51 | XMS_ITS | Encounter Summary ---
Author Organization [facility] Address [address] [place] [address] Care Team Providers Care Safety Aide Name Role Phone Steffi Escalera APRN Primary Care Provider Myesha Hwang MD Unavailable [phone] Encounter Details Date Type Department Care Team (Late st Contact Info) Description 02/06/2023 Scanned Document [facility] Center [address] [address] [place] [address] Social History Tobacco Use Types [...] on filedocumented in this encounter Care Teams Safety Aide Relationship Specialty Start Date End Date Steffi Escalera APRN [address] [address] PCP - General 01/15/23 Myesha Hwang MD [address] [place] [address] Gastroenterology 04/09/23 documented as of this encounter
--- OUTSIDE RECORDS SUMMARY | 2024-10-08 15:51 | XMS_ITS | Encounter Summary ---
Author Organization [facility] and [facility] Address [address] [place] [address] Care Team Providers Care Gas Plant Repairer Name Role Phone Sabrina Redd Primary Care Provider [phone] Encounter Details Date Type Department Care Team (Late st Contact Info) Description 06/20/2019 Scanned Document [facility] at [address] [place] [address] Antoni Patricio MD [address] [place] [phone] Social History Tobacco Use Types Packs/Day Years [...] on filedocumented in this encounter Care Teams Gas Plant Repairer Relationship Specialty Start Date End Date Sabrina Redd PA [address] [place] [address] PCP - General 07/12/22 documented as of this encounter
--- OUTSIDE RECORDS SUMMARY | 2024-10-08 15:51 | XMS_ITS | Encounter Summary ---
Author Organization [facility] Address [address] [place] [address] Care Team Providers Care Healthcare Network Consultant Name Role Phone Marina Reddy APRN Primary Care Provider [phone] Lucas Wen APRN Primary Care Provider + Steffi Escalera APRN Primary Care Provider Myesha Hwang MD Unavailable [phone] Reason for Visit * Reason Comments Medication Refill Encounter Details Date Type Department Care Team (Late st Contact Info) Description 08/25/2020 Refill [facility] [address] [address] Dominic Narvaez MD [address] [place] [address] Social History Tobacco Use Types Packs/Day Years [...] on filedocumented in this encounter Care Teams Healthcare Network Consultant Relationship Specialty Start Date End Date Barry, Marina, RAKING MACHINE OPERATOR 15 [facility] 13 [place] [address] PCP - General Adult Health - PA/APNP/DIRECTOR DISTRIBUTION/RAKING MACHINE OPERATOR 03/03/19 10/19/22 Lucas Wen APRN 15 [facility] 13 [place] [address] PCP - General Adult Health - PA/APNP/DIRECTOR DISTRIBUTION/RAKING MACHINE OPERATOR 10/20/22 01/14/23 Steffi Escalera APRN [address] [address] PCP - General 01/15/23 Myesha Hwang MD [address] [place] [address] Gastroenterology 04/09/23 documented as of this encounter
--- OUTSIDE RECORDS SUMMARY | 2024-10-08 15:51 | XMS_ITS | Encounter Summary ---
Author Organization [facility] Address [address] [place] [address] Care Team Providers Care Arbor Press Operator Name Role Phone Steffi Escalera APRN Primary Care Provider Myesha Hwang MD Unavailable [phone] Encounter Details Date Type Department Care Team (Late st Contact Info) Description 07/16/2023 Telephone [facility] [address] [facility] [address] [place] [address] Tino Lang MD 21 [facility] 100 [place] [address] Social History Tobacco Use Types Packs/Day Years [...] that time frame. Please contact Jazmine at [phone] documented in this encounter Plan of Treatment Not on file documented as of this encounter Visit Diagnoses Not on filedocumented in this encounter Care Teams Arbor Press Operator Relationship Specialty Start Date End Date Steffi Escalera APRN [address] [address] PCP - General 01/15/23 Myesha Hwang MD [address] [place] [address] Gastroenterology 04/09/23 documented as of this encounter
--- OUTSIDE RECORDS SUMMARY | 2024-10-08 15:51 | XMS_ITS | Clinical Summary ---
Author Organization [facility] Address [address] [place] [address] Care Team Providers Care Sheet Metal Assembler And Riveter Name Role Phone Steffi Escalera APRN Primary Care Provider Myesha Hwang MD Unavailable [phone] Allergies Active Allergy Reactions Criticality Noted Date [...] expert review the quality of evidence behind regional intermodal truck driver kidney disease, dementia, bone fractures, and infection with PPI use is low. The current data suggests that regional intermodal truck driver PPI use does not require routine screening [...] expert review the quality of evidence behind regional intermodal truck driver kidney disease, dementia, bone fractures, and infection [...] Plan (04/06/2023 10:29 AM EDT): Colon 02/2022 ([place]) - no polyps noted Would due recall exam in 2026 given prior hx of polyps Assessment & Plan (12/28/2022 12:44 PM EDT): Colon 02/2022 ([place]) - no polyps noted Assessment & Plan [...] Work up here in 2020, then in [place] with unremarkable EGD/Colon 02/2022 Repeat capsule done [...] Will have patient see Dr. Hwang in [place] for double balloon enteroscopy- this was recommended after 2021 capsule in [place] and recent capsule also suggests that best [...] up here in 2020, then recently in [place] with unremarkable EGD/Colon 02/2022 - unclear what [...] review Pt was followed by [facility] in [place], will need f/u care here also Family [...] Most Recently Relevant to Health Maintenance [place] [address] [place] [address] [employer] MEDICARE [employer] [place] [address] [place] [address] [employer] MGD MEDICARE Care Teams Sheet Metal Assembler And Riveter Relationship Specialty Start Date End Date Steffi Escalera APRN 12 N [facility] 110 [place], [place] [id number] PCP - General 01/15/23 Myesha Hwang MD [address] [place] [address] Gastroenterology 04/09/23
--- OUTSIDE RECORDS SUMMARY | 2024-10-08 15:51 | XMS_ITS | Encounter Summary ---
Author Organization [facility] and [facility] Address [address] [place] [address] Care Team Providers Care Water Jet Operator Name Role Phone Sabrina Redd Primary Care Provider [phone] Encounter Details Date Type Department Care Team (Late st Contact Info) Description 07/13/2019 Abstract [facility] at [address] [place] [address] Antoni Patricio MD [address] [place] [phone] Social History Tobacco Use Types Packs/Day Years [...] on filedocumented in this encounter Care Teams Water Jet Operator Relationship Specialty Start Date End Date Sabrina Redd PA [address] [place] [address] PCP - General 07/12/22 documented as of this encounter
--- OUTSIDE RECORDS SUMMARY | 2024-10-08 15:51 | XMS_ITS | Encounter Summary ---
Author Organization [facility] Address [address] [place] [address] Care Team Providers Care Field Reviewer Name Role Phone Marina Reddy TURNER Primary Care Provider [phone] Lucas Wen APRN Primary Care Provider + Steffi Escalera APRN Primary Care Provider Myesha Hwang MD Unavailable [phone] Encounter Details Date Type Department Care Team (Late st Contact Info) Description 09/29/2022 Scanned Document [facility] Center - [address] [place] [address] Chris Sood MD [address] [place] [address] [address] [place], [place] [phone] Social History Tobacco Use Types Packs/Day Years [...] on filedocumented in this encounter Care Teams Field Reviewer Relationship Specialty Start Date End Date Marina Reddy APRN 15 [facility] 13 [place] [address] PCP - General Adult Health - PA/APNP/LOOM BLOWER/CAR LOADER 03/03/19 10/19/22 Lucas Wen APRN [address] [place] [address] [address] [place] [address] PCP - General Adult Health - PA/APNP/LOOM BLOWER/CAR LOADER 10/20/22 01/14/23 Steffi Escalera APRN [address] [place] [address] PCP - General 01/15/23 Myesha Hwang MD [address] [place] [address] Gastroenterology 04/09/23 documented as of this encounter
--- OUTSIDE RECORDS SUMMARY | 2024-10-08 15:51 | XMS_ITS | Encounter Summary ---
Author Organization [facility] and [facility] Address [address] [place] [address] Care Team Providers Care Theatre Program Director Name Role Phone Sabrina Redd Primary Care Provider [phone] Encounter Details Date Type Department Care Team (Late st Contact Info) Description 07/12/2020 Scanned Document [facility] at [address] [place], [place] [address] Antoni Patricio MD [address] [place] [address] Social History Tobacco Use Types [...] on filedocumented in this encounter Care Teams Theatre Program Director Relationship Specialty Start Date End Date Sabrina Redd PA [address] [place] [address] PCP - General 07/12/22 documented as of this encounter
--- OUTSIDE RECORDS SUMMARY | 2024-10-08 15:51 | XMS_ITS | Encounter Summary ---
Author Organization [facility] and [facility] Address [address] [place] [address] Care Team Providers Care Siphon Operator Name Role Phone Sabrina Redd Primary Care Provider [phone] Encounter Details Date Type Department Care Team (Late st Contact Info) Description 07/02/2019 Scanned Document [facility] at [address] [place] [address] Antoni Patricio MD [address] [place] [phone] Social History Tobacco Use Types Packs/Day Years [...] on filedocumented in this encounter Care Teams Siphon Operator Relationship Specialty Start Date End Date Sabrina Redd PA [address] [place] [address] PCP - General 07/12/22 documented as of this encounter
--- OUTSIDE RECORDS SUMMARY | 2024-10-08 15:51 | XMS_ITS | Encounter Summary ---
Author Organization [facility] Address [address] [place] [address] Care Team Providers Care Marketing Production Coordinator Name Role Phone Steffi Escalera APRN Primary Care Provider Myesha Hwang MD Unavailable [phone] Encounter Details Date Type Department Care Team (Late st Contact Info) Description 02/06/2023 Scanned Document [facility] Center [address] [address] [place] [address] Social History Tobacco Use Types [...] on filedocumented in this encounter Care Teams Marketing Production Coordinator Relationship Specialty Start Date End Date Steffi Escalera APRN [address] [address] PCP - General 01/15/23 Myesha Hwang MD [address] [place] [address] Gastroenterology 04/09/23 documented as of this encounter
--- OUTSIDE RECORDS SUMMARY | 2024-10-08 15:51 | XMS_ITS | Encounter Summary ---
Author Organization [facility] Address [address] [place] [address] Care Team Providers Care Greenhouse Or Nursery Transplanter Name Role Phone Steffi Escalera APRN Primary Care Provider Myesha Hwang MD Unavailable [phone] Encounter Details Date Type Department Care Team (Late st Contact Info) Description 05/22/2024 Telephone [facility] [address] [place] [phone] Rafiq Rice [address] [place], [place] [id number] Social History Tobacco Use Types Packs/Day Years [...] on filedocumented in this encounter Care Teams Greenhouse Or Nursery Transplanter Relationship Specialty Start Date End Date Steffi Escalera APRN [address] [address] PCP - General 01/15/23 Myesha Hwang MD [address] [place] [address] Gastroenterology 04/09/23 documented as of this encounter
--- OUTSIDE RECORDS SUMMARY | 2024-10-08 15:51 | XMS_ITS | Encounter Summary ---
Author Organization [facility] Address [address] [place] [address] Care Team Providers Care Seasonal Greenery Bundler Name Role Phone Steffi Escalera APRN Primary Care Provider Myesha Hwang MD Unavailable [phone] Encounter Details Date Type Department Care Team ([facility] st Contact Info) Description 02/01/2023 Scanned Document [facility] 113 [facility] [address] [place] [phone] Marina Davis PA 113 [facility] 301 [place] [address] Social History Tobacco Use Types Packs/Day Years [...] on filedocumented in this encounter Care Teams Seasonal Greenery Bundler Relationship Specialty Start Date End Date Steffi Escalera APRN 12 [address] [facility] [address] [place] [address] PCP - General 01/15/23 Myesha Hwang MD [address] [place] [address] Gastroenterology 04/09/23 documented as of this encounter
--- OUTSIDE RECORDS SUMMARY | 2024-10-08 15:51 | XMS_ITS | Encounter Summary ---
Author Organization [facility] and [facility] Address [address] [place] [address] Care Team Providers Care Headwaiter/Headwaitress Name Role Phone Sabrina Redd Primary Care Provider [phone] Encounter Details Date Type Department Care Team (Late st Contact Info) Description 06/27/2019 Scanned Document [facility] at [address] [place] [address] Antoni Patricio MD [address] [place] [address] Social History Tobacco Use Types Packs/Day Years [...] on filedocumented in this encounter Care Teams Headwaiter/Headwaitress Relationship Specialty Start Date End Date Sabrina Redd PA [address] [place] [address] PCP - General 07/12/22 documented as of this encounter
--- OUTSIDE RECORDS SUMMARY | 2024-10-08 15:51 | XMS_ITS | Encounter Summary ---
Author Organization [facility] and [facility] Address [address] [place] [address] Care Team Providers Care Car Tester Name Role Phone Sabrina Redd Primary Care Provider [phone] Reason for Referral * Imaging (Routine) - Closed Specialty Diagnoses / Procedures Referred By Contac t Referred To Contact Diagnostic Radiology Procedures CTA Head w and/or wo IV Contrast Antoni Patricio MD [address] [place] [address] Phone: tel: fax: Referral ID Status Reason Start Date Expiration Date Visits Re quested Visits Authorized [id number] Closed 07/11/2023 07/10/2024 1 1 Encounter Details Date Type Department Care Team (Late st Contact Info) Description 07/11/2023 Scanned Document [facility] CENTER SCHEDULING [address] [place], [place] [address] Antoni Patricio MD [address] [place] [address] Social History Tobacco Use Types [...] on filedocumented in this encounter Care Teams Car Tester Relationship Specialty Start Date End Date Sabrina Redd PA [address] [place] [address] PCP - General 07/12/22 documented as of this encounter
--- OUTSIDE RECORDS SUMMARY | 2024-10-08 15:51 | XMS_ITS | Encounter Summary ---
Author Organization [facility] Address [address] [place] [address] Care Team Providers Care Abattoir Supervisor Name Role Phone Marina Reddy APRN Primary Care Provider [phone] Lcuas Wen APRN Primary Care Provider + Steffi Escalera APRN Primary Care Provider Myesha Hwang MD Unavailable [phone] Reason for Visit * Reason Comments Medication Refill Encounter Details Date Type Department Care Team (Late st Contact Info) Description 10/06/2020 Refill [facility] [address] [address] Dominic Narvaez MD [address] [place] [address] Social History Tobacco Use Types Packs/Day Years [...] on filedocumented in this encounter Care Teams Abattoir Supervisor Relationship Specialty Start Date End Date Barry, Marina, SECTION LEADER SCREEN PRINTING 15 [facility] [address] [place] [address] PCP - General Adult Health - PA/APNP/HOME OFFICE CLAIM SPECIALIST/SECTION LEADER SCREEN PRINTING 03/03/19 10/19/22 Lucas Wen APRN 15 [facility] [address] [place] [address] PCP - General Adult Health - PA/APNP/HOME OFFICE CLAIM SPECIALIST/SECTION LEADER SCREEN PRINTING 10/20/22 01/14/23 Steffi Escalera APRN [address] [address] PCP - General 01/15/23 Myesha Hwang MD [address] [place] [address] Gastroenterology 04/09/23 documented as of this encounter
--- OUTSIDE RECORDS SUMMARY | 2024-10-08 15:51 | XMS_ITS | Encounter Summary ---
Author Organization [facility] and [facility] Address [address] [place] [address] Care Team Providers Care Supervisory Air Intercept Controller Name Role Phone Sabrina Redd Primary Care Provider [phone] Encounter Details Date Type Department Care Team (Late st Contact Info) Description 06/17/2019 Scanned Document [facility] [address] [place] [address] Provider, [facility] . Social History Tobacco Use Types [...] on filedocumented in this encounter Care Teams Supervisory Air Intercept Controller Relationship Specialty Start Date End Date Sabrina Redd PA [address] [place] [address] PCP - General 07/12/22 documented as of this encounter
--- OUTSIDE RECORDS SUMMARY | 2024-10-08 15:51 | XMS_ITS | Encounter Summary ---
Author Organization [facility] and [facility] Address [address] [place] [address] Care Team Providers Care Corsets Salesperson Name Role Phone Sabrina Redd Primary Care Provider [phone] Encounter Details Date Type Department Care Team (Late st Contact Info) Description 04/11/2019 Scanned Document [facility] [address] [facility] [address] [facility] [place] [address] Provider, Historical . Social History Tobacco Use [...] on filedocumented in this encounter Care Teams Corsets Salesperson Relationship Specialty Start Date End Date Sabrina Redd PA [address] [place] [address] PCP - General 07/12/22 documented as of this encounter
--- OUTSIDE RECORDS SUMMARY | 2024-10-08 15:51 | XMS_ITS | Clinical Summary ---
Author Organization [facility] Address [address] [place] [address] Phone Care Team Providers Care Mat Cleaning Machine Operator Name Role Phone Maurilio Burgess [...] SYMPTONS. Active blood-glucose meter (OneTouch Ultra2 Meter) [facility] 0 Active OneTouch Ultra Test test strip [...] 05, [address] Gilberto Knox in [place]. 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 She has chronic left eye vision loss and balance difficulty, chronic headaches and memory problems, patient states this has been since her craniotomy. She was seeing Dr. Patricio in neurosurgery at [place], [place]. [place] moved to [place] [...] prescription glasses, but has not seen an hr generalist. All questions answered, will call with any additional questions or concerns. Encounters Date Type Department Care Team Description 10/01/2024 6:48 AM EDT - 10/01/2024 11:59 PM EDT Hospital Encounter [facility] Interventional Radiology [address] [place] [phone] Saleem Quigley MD Cerebral aneurysm, nonruptured Discharge Disposition: Home or Self Care 08/27/2024 Telephone [facility] [place] [address] [place] [address] [place] [address] Ivory Velazquez MA APPOINTMENT (No PA required per César Keenan with [employer], cpt [phone], REF # [id number], Provider and Facility in network. No PA required per Minnie with [facility], cpt [phone], REF # [id number], Provider and Facility in network. ) 08/26/2024 9:00 AM EDT Office Visit [facility] [place] [facility] [address] [facility] [address] [place] [address] Saleem Quigley MD Cerebral aneurysm, nonruptured (Primary Dx) 07/14/2024 1:18 PM EST - 07/14/2024 11:59 PM EST Hospital Encounter [facility] CT Scan [address] [place] [phone] Cerebral aneurysm, nonruptured Discharge Disposition: Home or Self Care from Last 3 Months Surgical History Surgery Date Site/Laterality Comments CEREBRAL ANEURYSM REPAIR 02/2016 :Dr. Knox at [facility] GASTRIC BYPASS 08/30/2009 OTHER SURGICAL HISTORY EXCESSIVE THIGH / HIP / BUTTOCK / FLANK SKIN EXCISION;COMMENT:following gastric bypass COLONOSCOPY 2016 COLONOSCOPY 2014 tubular adenoma HYSTERECTOMY 12/16/2010 UPPER GASTROINTESTINAL ENDOSCOPY 01/02/2018 Dr. Santacruz ([place]) OPEN ANTERIOR SHOULDER RECONSTRUCTION 04/14/2013 left shoulder reconstruction, Dr. Chisholm ([place]) SECTION UPPER GASTROINTESTINAL ENDOSCOPY 05/11/2020 N/A UPPER ENDOSCOPY-EGD; Surgeon: Pito Diaz MD; Location: [facility]; Service: Gastroenterology; Laterality: N/A; COLONOSCOPY 05/12/2020 N/A Surgeon: Tino Lang MD; Location: [facility]; Service: Gastroenterology; Laterality: N/A; UPPER GASTROINTESTINAL ENDOSCOPY 09/13/2020 N/A EGD Surgeon: Maynor Rojas MD; Location: [facility]; Service: Gastroenterology; Laterality: N/A; BREAST SURGERY REDUCTION MAMMAPLASTY;:with lift/ implants COLONOSCOPY 02/02/2021 N/A Surgeon: Tino Lang MD; Location: [facility]; Service: Gastroenterology; Laterality: N/A; OTHER SURGICAL HISTORY Patient reports history of colon resection required after gastric bypass, bladder surgery and appendectomy CARPAL TUNNEL RELEASE Bilateral Medical History Medical History Date Comments Aneurysm ([facility] V24) 2014 GI bleed Tubular adenoma of colon 2014 Syncope completed cardia c work up (tilt table, echo, stress jason, holter) Psoriasis Mild dementia ([facility] V24, [facility] V28) occasional memory loss Steatosis of liver 12/03/2017 fatty liver s een on US per past records. History of Papanicolaou smear of cervix 10/2017 History of mammogram 01/25/2018 negative Ovarian cyst Fibromyalgia, primary Anemia Anxiety GERD (gastroesophageal reflux disease) Depression Arthritis Migraine headache Visual impairment Obesity s/p GBP Diabetes ([facility] V24, [facility] V28) Hyperlipidemia Asthma Acid reflux Rheumatoid arthritis ([facility] V24, [facility] V28) [...] Name Priority Date/Time Associated Diagnosis Comments IR PLCMNT CATH ICA ANGIO ICC RIGHT Routine 10/01/2024 8:42 AM EDT Cerebral aneurysm, nonruptured BASIC METABOLIC PANEL STAT 10/01/2024 7:08 AM [...] Recently Relevant to Health Maintenance Results * IR Plcmnt Cath ICA Angio ICC Right (10/01/2024 8:42 AM EDT) Anatomical Region Laterality Modality Right Interventional R adiology Impressions 10/08/2024 6:35 AM EDT 1.Left SCA aneurysm as described above. Report reviewed and signed by : Dr. Saleem Valenzuela MD on 10/08/2024 6:35 AM. Workstation Name - [id number] -------- FINAL REPORT -------- Dictated By: Saleem Quigley Dictated Date: 10/01/2024 15:41 ET Assigned Physician: Saleem Quigley Reviewed and Electronically Signed By: Saleem Quigley Signed Date: 10/08/2024 06:35 ET Workstation ID: [id number] Transcribed By: Self Edit Transcribed Date: 10/06/2024 08:00 ET Narrative 10/08/2024 6:35 AM EDT Patient Name: HEATHER CALDERA ? MR#: [id number] ? Exam Description: IR PLCMNT CATH ICA ANGIO ICC BILAT ? Exam Date/Time: 10/01/2024 7:55 AM PROCEDURE: 1. Cervicocerebral catheter angiography including 3-dimensional rotational angiography BATTERY LOADER(S): Saleem Valenzuela MD INDICATION: Left SCA residual aneurysm COMPARISON: CTA from 07/14/24 FLUOROSCOPY TIME: 1 min minutes. ?? RADIATION DOSE: Dose Area Product 2553.73 mGy-cm2, Air Kerma 142.65 mGy CONTRAST USE: 40 mL IOPAMIDOL 300 MG IODINE/ML (61 %) INTRAVENOUS SOLUTION Route: Other SEDATION: IV sedation using Versed and fentanyl was administered by the dedicated conscious sedation nurse under supervision with appropriate ASA monitors beginning at hours and ending at hours for a total of minutes. MEDICATIONS: Heparin 3000 U IV Verapamil 2.5 mg IA NTG 200 mcg IA VESSELS CATHETERIZED/PROJECTIONS: Right vertebral artery: PA and lateral DSA of the upper neck and head Right vertebral artery: 3-dimensional rotational angiography with postprocessing EQUIPMENT: 5 Fr Brady-2 0.035 Glidewire TR band closure device TECHNIQUE: The risks, benefits, and alternatives to the procedure and possible intervention were discussed. Written informed consent was obtained. The patient was placed supine on the angiography table. A timeout was performed. The right wrist and groins were prepped and draped in standard sterile fashion. Access to the right radial artery was obtained using Seldinger micropuncture technique . A 5 Arabic sheath was placed and attached to continuous heparinized flush. At this time, 2.5 mg of verapamil and 200 mcg of NTG was given intra-arterial through the sheath. A 5F Brady Bingham catheter was utilized to selectively catheterize the vessels listed above. Angiography was performed from each selectively catheterize vessel as listed above with findings described below. When rotational three-dimensional angiography as listed, the radiologist performed multiplanar reconstructions on a separate workstation at a discrete time from the angiogram and archived selected images and a cine rotational view. The catheter was removed. Hemostasis was achieved with TR band. The patient was transported to PACU in stable condition. There were no immediate complications. FINDINGS: Right vertebral artery (including 3-dimensional rotational angiography): The right vertebral artery is codominant. The visualized V3 and V4 segments of the vertebral artery and posterior inferior cerebellar artery are unremarkable. The basilar artery, anterior inferior cerebellar arteries, superior cerebellar arteries, and posterior cerebral arteries are patent. 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 The left SCA gives rise to a 6 mm saccular aneurysm, with a wide neck. The neck is wide, involving the parent vessel circumferentially. Some spasm/reduced caliber can be noticed in the efferent artery, initially, could be post-surgical though due to contrast technique cannot be ruled out. The visualized capillary phase is unremarkable. The venous phase is normal with right dominant transverse sinus drainage. us Saleem Valenzuela MD IMG IR PROCEDURES Edited Result - Final * (ABNORMAL) Complete blood count (10/01/2024 7:08 AM EDT) WBC 6.8 4.0 - 10.5 K/mcL LAB HEMETOLOGY METHOD 10/01/2024 11:46 AM EDT [facility] RBC 4.13(L) 4.20 - 5.40 M/mcL LAB HEMETOLOGY METHOD 10/01/2024 11:46 AM EDT [facility] Hemoglobin 11.4(L) 12.5 - 16.0 g/dL LAB HEMETOLOGY METHOD 10/01/2024 11:46 AM EDT [facility] Hematocrit 36.0(L) 37.0 - 47.0 % LAB HEMETOLOGY METHOD 10/01/2024 11:46 AM EDT [facility] MCV 87.3 78.0 - 100.0 FL LAB HEMETOLOGY METHOD 10/01/2024 11:46 AM EDT [facility] MCH 27.7 25.0 - 33.0 pcg LAB HEMETOLOGY METHOD 10/01/2024 11:46 AM EDT [facility] MCHC 31.7(L) 32.0 - 36.0 g/dL LAB HEMETOLOGY METHOD 10/01/2024 11:46 AM EDT [facility] RDW 25.3(H) 12.1 - 16.2 % LAB HEMETOLOGY METHOD 10/01/2024 11:46 AM EDT [facility] Platelets 228 150 - 450 K/mcL LAB HEMETOLOGY METHOD 10/01/2024 11:46 AM EDT [facility] MPV 9.4 7.4 - 11.4 [place] LAB HEMETOLOGY METHOD 10/01/2024 11:46 AM EDT [facility] Blood Venous blood specimen / Unknown Venipuncture / Unknown 10/01/2024 7:08 AM EDT 10/01/2024 7:18 AM EDT Saleem Valenzuela MD LAB BLOOD ORDERABLES Izzy l Result [facility] [address] [place] [address], * (ABNORMAL) Basic metabolic panel (10/01/2024 7:08 AM EDT) Sodium 139 135 - 145 mmol/L LAB CHEMISTRY METHOD 10/01/2024 7:49 AM EDT [facility] Potassium 3.3(L) 3.5 - 5.1 mmol/L LAB CHEMISTRY METHOD 10/01/2024 7:49 AM EDT [facility] Chloride 103 98 - 107 mmol/L LAB CHEMISTRY METHOD 10/01/2024 7:49 AM EDT [facility] CO2 26 24 - 32 mmol/L LAB CHEMISTRY METHOD 10/01/2024 7:49 AM EDT [facility] Anion Gap 10 5 - 14 LAB CHEMISTRY METHOD 10/01/2024 7:49 AM EDT [facility] Glucose 151(H) 70 - 99 mg/dL LAB CHEMISTRY METHOD 10/01/2024 7:49 AM EDT [facility] BUN 13 7 - 17 mg/dL LAB CHEMISTRY METHOD 10/01/2024 7:49 AM EDT [facility] Creatinine 0.50 0.50 - 1.00 mg/dL LAB CHEMISTRY METHOD 10/01/2024 7:49 AM EDT [facility] eGFR 106 >=60 mL/min/1. 73m2 LAB CHEMISTRY METHOD 10/01/2024 7:49 AM EDT [facility] Comment:Calculation based on the??Chronic Kidney Disease Epidemiology Collaboration (CKD-EPI) equation refit??without adjustment for race. BUN/Creatinine Ratio 26.0(H) 12.0 - 20.0 LAB CHEMISTRY METHOD 10/01/2024 7:49 AM EDT [facility] Calcium 9.1 8.4 - 10.2 mg/dL LAB CHEMISTRY METHOD 10/01/2024 7:49 AM EDT [facility] Blood Venous blood specimen / Unknown Venipuncture / Unknown 10/01/2024 7:08 AM EDT 10/01/2024 7:18 AM EDT us Saleem Valenzuela MD LAB BLOOD ORDERABLES Izzy l Result [facility] [address] [place] [address], [place] [phone] * CT Angio Head wo and/or w [...] Signed Date: 07/16/2024 10:58 ET Workstation ID: [id number] Transcribed By: Self Edit Transcribed Date: 07/16/2024 10:11 ET Narrative 07/16/2024 10:58 AM EST PROCEDURE: Noncontrast head CT and CT angiogram of the [place]. 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 Gilberto Knox in [place]. 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 COMPARISON: Outside images dated 07/10/2023. TECHNIQUE: Noncontrast head CT followed by contrast-enhanced CT angiogram of the [place], with coronal and sagittal reformats. [...] head CT and CT angiogram of the [place]. HISTORY: Cerebral aneurysm, follow-up history of unruptured left superior cerebellar artery aneurysm treated bycraniotomy and trapping/bypass on May 05, [address] Gilberto Doa. 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 COMPARISON: Outside images dated 07/10/2023. TECHNIQUE: Noncontrast head CT followed by contrast-enhanced CT [place], with coronal and sagittal reformats. [...] Signed Date: 07/16/2024 10:58 ET Workstation ID: [id number] Transcribed By: Self Edit Transcribed Date: 07/16/2024 [...] plain language report , as required by [facility] 485. Session: Separate session. Report reviewed and signed by : Dr. Matthew Serrato MD on 05/13/2020 4:27 PM. Workstation Name - [id number] Procedure Note Matthew Serrato MD - 06/02/2022 [...] plain language report , as required by [facility] 485. Session: Separate session. Report reviewed and signed by : Dr. Matthew Serrato MD on 05/13/2020 4:27 PM.Workstation Name - [id number] Moise Palomino MD IMG BI PROCEDURES Final Resul t from Last 3 Months or Most Recently Relevant to Health Maintenance Insurance [employer] MED[employer]ARE ADVANTAGE MEDICAID - [place] Care Teams Mat Cleaning Machine Operator Relationship Specialty Start Date End Date Maurilio Burgess MD [address] [place] [address] [address] [place] PCP - General Internal Medicine 06/17/24
--- OUTSIDE RECORDS SUMMARY | 2024-10-08 15:51 | XMS_ITS | Encounter Summary ---
Author Organization [facility] Address [address] [place] [address] Care Team Providers Care Home Care Liaison Name Role Phone Steffi Escalera APRN Primary Care Provider Myesha Hwang MD Unavailable [phone] Encounter Details Date Type Department Care Team (Late st Contact Info) Description 08/23/2023 Scanned Document [facility] NEUROLOGY SCAN Neurology, Scan Social History Tobacco [...] on filedocumented in this encounter Care Teams Home Care Liaison Relationship Specialty Start Date End Date Steffi Escalera APRN [address] [address] PCP - General 01/15/23 Myesha Hwang MD [address] [place] [address] Gastroenterology 04/09/23 documented as of this encounter
== END 2024-10-08 15:11 | disposition home or self-care (01) ==
PROVIDERS: PCP Internal Medicine; Visit Provider Internal Medicine
DX: K92.2 Gastrointestinal hemorrhage, unspecified (principal); D50.9 Iron deficiency anemia, unspecified
CPT/HCPCS: 99204; G2211

== ENCOUNTER → 2024-10-08 14:35 | Outpatient (BNVA) | payer MEDICARE, SELFPAY | PROVIDERS: PCP Internal Medicine; Visit Provider Internal Medicine | DX: D50.9 Iron deficiency anemia, unspecified (principal); K92.2 Gastrointestinal hemorrhage, unspecified | CPT/HCPCS: 99202 ==

== ENCOUNTER 2024-10-20 07:34 | Outpatient (AMB) | payer MEDICARE, MEDICAID, SELFPAY ==
[2024-10-20 07:35] VITALS: BP 120/72; BMI 25.7
--- NOTE | 2024-10-20 07:35 | A.OFFVIS_ITS ---
Vital Signs 10/20/24 07:35 Height 5 ft 3 in Weight 145 lb BMI 25.7 BP 120/72 Intake Visit Reasons: New patient Annual Boiler Cleaner Required: No Information Interpreted: non-clinical & clinical Gas Blender: Gas Blender Present (Irene GUERRA) Accompanied by: Self / Same As Patient Allergies clopidogrel [From Plavix] Allergy (Severe, Verified 10/20/24 07:36) Rash milnacipran [From Savella] Adverse Reaction (Severe, Verified 10/20/24 07:36) tachycardia promethazine [From Phenergan] Adverse Reaction (Severe, Verified 10/20/24 07:36) tachycardia Post menopausal: Yes HPI Comments Details: Presenting for annual exam. No complaints. Last Pap/HPV was negative 2 years ago according to the patient no records available Last Mammogram was in 08/05 BI-RADS 4, followed by biopsy pathology was benign, recommendation was to repeat in six-months Last Colonoscopy was many years ago, the patient is schedule with GI for screening colonoscopy [facility] Medical History (Updated 10/20/24 @ 07:49 by Shar Jasmine MD) Vitamin D deficiency Rheumatoid arthritis Psoriasis Migraine Brain aneurysm Chronic anemia Overweight (BMI 25.0-29.9) Chronic pain Allergic rhinitis GERD without esophagitis Diabetes mellitus Pure hypercholesterolemia Cardiac murmur Surgical History (Updated 10/20/24 @ 08:02 by Shar Jasmine MD) History of hysterectomy History of abdominoplasty S/P brachioplasty History of appendectomy History of cholecystectomy History of colon resection History of reduction mammoplasty History of rotator cuff surgery History of gastric bypass History of carpal tunnel surgery of right wrist History of carpal tunnel surgery of left wrist Hx of brain surgery Family History Sister Breast cancer Other Diabetes Schizophrenia Social History Housing: Apartment Patient Tobacco Use Status: Former Tobacco user e-Cigarette/Vaping Use: Never Used Second Hand Smoke Exposure: No service: No Current occupational status: retired Current occupational exposures/hazards: No Cognitive needs: No Hearing needs: No Vision needs: No Female Reproductive History Menstrual Age of Menarche: 14 Menopause type: surgical Total pregnancies: 2 Full term: 1 Number of Living Children: 1 Ab spontaneous: 1 Date of Mammogram: 08/27/64 Review of Systems Const All systems reviewed & are unremarkable except as noted in HPI and below Card Reports as per HPI Resp Reports as per HPI GI Reports as per HPI and Reports no additional complaints Reports as per HPI Physical Exam Vital Signs: Last Vital Signs BP 120/72 10/20/24 07:35 BMI result Body Mass Index 25.7 Const General: cooperative, healthy appearing and comfortable Chest Chest palpation & inspection: normal inspection of the chest and normal palpation of entire chest wall Breast/axilla inspection: normal inspection of the breasts and normal inspection of the axillae Breast/axilla palpation: normal palpation of the breasts, normal palpation of the axillae and no axillary lymphadenopathy Resp Effort & Inspection: normal respiratory effort Auscultation: clear to auscultation bilaterally Percussion: percussion normal Cardio Palpation: normal PMI Rate: regular rate Rhythm: regular rhythm Heart sounds: no murmurs and no rubs Peripheral pulses: Peripheral pulses 2+ throughout GI Inspection: Yes normal to inspection Palpation (GI): Soft to palpation, nontender, no guarding, not rigid and No hepa tosplenomegaly present Percussion: Yes normal to percussion Auscultation: normal bowel sounds Rectal Exam - Female: deferred General: Yes bladder normal to palpation External Female Exam: No lesion Speculum Exam - Vagina: normal appearance of the vagina, normal palpation, normal vaginal discharge and not erythematous Speculum Exam - Cervix: Cervix absent Bimanual exam- vagina & uterus: normal bimanual exam, normal palpation, bladder normal to palpation and uterus absent Bimanual Exam- Adnexa, other: normal adnexae, no masses and no tenderness Assessment & Plan Assessment & Plan (1) Well woman exam: Code(s): Z01.419 - Encounter for gynecological examination (general) (routine) without abnormal findings Category: Medical Plan: Co testing not indicated, the patient is status post hysterectomy for benign disease with no history of abnormal Pap smears Counseled the patient about the recommended dietary allowance of 1200 mg of Calcium & 600 IU of vitamin D. Mammogram scheduled in 03/05. The patient is scheduled with GI for screening colonoscopy . The patient was instructed to perform monthly self-breast exams and schedule annual exam in a year. All questions answered and the patient verbalized understanding. Coding Level of Care Code Est Pt Prev Care 40-64y([address]61) Diagnoses Well woman exam Z01.419
--- OUTSIDE RECORDS SUMMARY | 2024-10-20 07:36 | XMS_ITS | Encounter Summary ---
Author Organization [facility] Address [address] [place] [address] Care Team Providers Care Inhalation Therapist Name Role Phone Sabrina Redd Primary Care Provider [phone] Encounter Details Date Type Department Care Team (Late st Contact Info) Description 06/17/2019 Scanned Document [facility] [address] [place] [address] Provider, [facility] . Social History Tobacco Use Types [...] on filedocumented in this encounter Care Teams Inhalation Therapist Relationship Specialty Start Date End Date Sabrina Redd PA [address] [place] [place] [address] PCP - General 07/12/22 documented as of this encounter
--- OUTSIDE RECORDS SUMMARY | 2024-10-20 07:36 | XMS_ITS | Encounter Summary ---
Author Organization [facility] Address [address] [place] [address] Care Team Providers Care Back Roller Name Role Phone Sabrina Redd Primary Care Provider [phone] Encounter Details Date Type Department Care Team (Late st Contact Info) Description 07/12/2020 Scanned Document [facility] [address] [place], [place] [address] Antoni Patricio MD [address] [place] [address] Social History Tobacco Use Types [...] on filedocumented in this encounter Care Teams Back Roller Relationship Specialty Start Date End Date Sabrina Redd PA [address] [place] [address] PCP - General 07/12/22 documented as of this encounter
--- OUTSIDE RECORDS SUMMARY | 2024-10-20 07:36 | XMS_ITS | Encounter Summary ---
Author Organization [facility] and [facility] Address [address] [place] [address] Care Team Providers Care Projector Operator Name Role Phone Sabrina Redd Primary Care Provider [phone] Encounter Details Date Type Department Care Team (Late st Contact Info) Description 07/13/2019 Abstract [facility] [address] [place] [address] Antoni Patricio MD [address] [place] [phone] Social History Tobacco Use Types Packs/Day Years [...] on filedocumented in this encounter Care Teams Projector Operator Relationship Specialty Start Date End Date Sabrina Redd PA [address] [place] [address] PCP - General 07/12/22 documented as of this encounter
--- OUTSIDE RECORDS SUMMARY | 2024-10-20 07:36 | XMS_ITS | Encounter Summary ---
Author Organization [facility] Address [address] [place] [address] Care Team Providers Care High School Music Director Name Role Phone Lucas Wen APRN Primary Care Provider + Steffi Escalera APRN Primary Care Provider Myesha Hwang MD Unavailable [phone] Encounter Details Date Type Department Care Team (Late st Contact Info) Description 10/26/2022 Scanned Document [facility] - [address] [phone] Chris Sood MD [address] [place], [place] [phone] Social History Tobacco Use Types Packs/Day Years [...] in this encounter Care Teams High School Music Director Relationship Specialty Start Date End Date Lucas Wen APRN PCP - General Adult Health - PA/APNP/COLD MEAT CHEF/DEPUTY SHERIFF GENERALIST/BAILIFF 10/20/22 01/14/23 Steffi Escalera APRN [address] [address] PCP - General 01/15/23 Myesha Hwang MD [address] [place] [address] Gastroenterology 04/09/23 documented as of this encounter
--- OUTSIDE RECORDS SUMMARY | 2024-10-20 07:36 | XMS_ITS | Clinical Summary ---
Author Organization [facility] Address [address] [place] [address] Care Team Providers Care Freezer Operator Name Role Phone Lucas Wen APRN Primary Care Provider Sina lopez Allergies Active Allergy Reactions Criticality Noted Date Comments Milnacipran Palpitations,Other ( See Comments) Medium 02/12/2019 Tachycardia Clopidogrel Rash Low 11/01/2022 Promethazine Palpitations,Other ( See Comments) Medium 04/10/2012 Tachycardia 180/min - she had to be taken to ER. Medications Medication Sig Dispensed Refills Start Date End Date Status [id number] Cmp-C-Biot (INTEGRA PLUS) CAPS Take 1 tablet [...] without long-term current use of insulin ([facility]) Test one to two times daily as [...] Recent EGD performed in 05/2020 positive for dve treated with fluconazole Will schedule repeat EGD [...] records for review Pt was followed by [facility] in [place], will need f/u care here also Overview: Last Assessment & Plan: Continue oral iron Need old records for review Pt was followed [facility] in [place], will need f/u care here also Last Assessment & Plan: Continue oral iron Need old records for review Pt was followed by [facility] in [place], will need f/u care here also Last Assessment & Plan: Continue oral iron Need old records for review Pt was followed by [facility] in [place], will need f/u care here also Hematemesis [...] expert review the quality of evidence behind joint terminal attack controller kidney disease, dementia, bone fractures, and infection [...] We discussed the minimal potential risk with joint terminal attack controller PPI use. Based on AGA expert review the quality of evidence behind joint terminal attack controller kidney disease, dementia, bone fractures, and infection with PPI use is low. The current data suggests that joint terminal attack controller PPI use does not require routine screening [...] aneurysm s/p trapping/bypass by Dr. Colin in [place] in 04/2015 Chronic migraine without aur a [...] Advance Directives For more information, please contact: [phone] Latest Code Status on File Code Status [...] 7:25 PM 01/06/2020 7:55 PM Care Teams Freezer Operator Relationship Specialty Start Date End Date Lucas Wen APRN PCP - General Cardiology 11/01/22
--- OUTSIDE RECORDS SUMMARY | 2024-10-20 07:36 | XMS_ITS | Encounter Summary ---
Author Organization [facility] and [facility] Address [address] [place] [address] Care Team Providers Care Roastmaster Name Role Phone Sabrina Redd Primary Care Provider [phone] Encounter Details Date Type Department Care Team (Late st Contact Info) Description 06/27/2019 Scanned Document [facility] [address] [place] [address] Antoni Patricio MD [address] [place] [phone] Social History Tobacco Use Types Packs/Day Years [...] on filedocumented in this encounter Care Teams Roastmaster Relationship Specialty Start Date End Date Sabrina Redd PA [address] [place] [address] PCP - General 07/12/22 documented as of this encounter
--- OUTSIDE RECORDS SUMMARY | 2024-10-20 07:36 | XMS_ITS | Encounter Summary ---
Author Organization [facility] and [facility] Address [address] [place] [address] Care Team Providers Care Wheel Molder Name Role Phone Sabrina Redd Primary Care Provider [phone] Encounter Details Date Type Department Care Team (Late st Contact Info) Description 04/09/2019 Abstract [facility] [address] [facility] [address] [facility] [place] [address] Antoni Patricio MD [address] [place] [phone] Social History Tobacco Use Types Packs/Day Years [...] on filedocumented in this encounter Care Teams Wheel Molder Relationship Specialty Start Date End Date Sabrina Redd PA [address] [place] [address] PCP - General 07/12/22 documented as of this encounter
--- OUTSIDE RECORDS SUMMARY | 2024-10-20 07:36 | XMS_ITS | Encounter Summary ---
Author Organization [facility] Address [address] [place] [address] Care Team Providers Care Business Risk Consultant Name Role Phone Steffi Escalera APRN Primary Care Provider Myesha Hwang MD Unavailable [phone] Encounter Details Date Type Department Care Team (Late st Contact Info) Description 05/22/2024 Telephone [facility] [address] [place] [address] Rafiq Rice [address] [place], [place] [phone] Social History Tobacco Use Types Packs/Day Years [...] filedocumented in this encounter Care Teams Business Risk Consultant Relationship Specialty Start Date End Date Steffi Escalera APRN [address] [address] PCP - General 01/15/23 Myesha Hwang MD [address] [place] [address] Gastroenterology 04/09/23 documented as of this encounter
--- OUTSIDE RECORDS SUMMARY | 2024-10-20 07:36 | XMS_ITS | Encounter Summary ---
Author Organization [facility] Address [address] [place] [address] Care Team Providers Care Tub Attendant Name Role Phone Steffi Escalera APRN Primary Care Provider Myesha Hwang MD Unavailable Encounter Details Date Type Department Care Team (Late st Contact Info) Description 02/06/2023 Scanned Document [facility] [address] [address] Sary Simental MD [place], [place] [...] on filedocumented in this encounter Care Teams Tub Attendant Relationship Specialty Start Date End Date Steffi Escalera APRN [address] [address] PCP - General 01/15/23 Myesha Hwang MD [address] [place] [address] Gastroenterology 04/09/23 documented as of this encounter
--- OUTSIDE RECORDS SUMMARY | 2024-10-20 07:36 | XMS_ITS | Encounter Summary ---
Author Organization [facility] Address [address] [place] [address] Care Team Providers Care Finger Buffs Assembler Name Role Phone Steffi Escalera APRN Primary Care Provider Myesha Hwang MD Unavailable [phone] Encounter Details Date Type Department Care Team (Late st Contact Info) Description 08/23/2023 Scanned Document [facility] NEUROLOGY SCAN Neurology, Scan Social History [...] on filedocumented in this encounter Care Teams Finger Buffs Assembler Relationship Specialty Start Date End Date Steffi Escalera APRN [address] [address] PCP - General 01/15/23 Myesha Hwang MD [address] [place] [address] Gastroenterology 04/09/23 documented as of this encounter
--- OUTSIDE RECORDS SUMMARY | 2024-10-20 07:36 | XMS_ITS | Encounter Summary ---
Author Organization [facility] Address [address] [place] [address] Care Team Providers Care Lawn Service Supervisor Name Role Phone Steffi Escalera APRN Primary Care Provider Myesha Hwang MD Unavailable Encounter Details Date Type Department Care Team (Late st Contact Info) Description 02/06/2023 Scanned Document [facility] [address] [address] [place] [address] Social History Tobacco Use Types [...] on filedocumented in this encounter Care Teams Lawn Service Supervisor Relationship Specialty Start Date End Date Steffi Escalera APRN [address] [address] PCP - General 01/15/23 Myesha Hwang MD [address] [place] [address] Gastroenterology 04/09/23 documented as of this encounter
--- OUTSIDE RECORDS SUMMARY | 2024-10-20 07:36 | XMS_ITS | Encounter Summary ---
Author Organization [facility] and [facility] Address [address] [place] [address] Care Team Providers Care Coffee Sommelier Name Role Phone Sabrina Redd Primary Care Provider [phone] Encounter Details Date Type Department Care Team (Late st Contact Info) Description 04/11/2019 Scanned Document [facility] [address] [facility] 800 [facility] [place] [address] Provider, Historical . Social History Tobacco Use [...] on filedocumented in this encounter Care Teams Coffee Sommelier Relationship Specialty Start Date End Date Sabrina Redd PA [address] [place] [address] PCP - General 07/12/22 documented as of this encounter
--- OUTSIDE RECORDS SUMMARY | 2024-10-20 07:36 | XMS_ITS | Encounter Summary ---
Author Organization [facility] and [facility] Address [address] [place] [address] Care Team Providers Care Procedure Writer Name Role Phone Sabrina Redd Primary Care Provider [phone] Encounter Details Date Type Department Care Team (Late st Contact Info) Description 06/20/2019 Scanned Document [facility] at [address] [place] [address] Antoni Patricio MD [address] [place] [phone] Social History Tobacco Use Types Packs/Day Years [...] on filedocumented in this encounter Care Teams Procedure Writer Relationship Specialty Start Date End Date Sabrina Redd PA [address] [place] [address] PCP - General 07/12/22 documented as of this encounter
--- OUTSIDE RECORDS SUMMARY | 2024-10-20 07:36 | XMS_ITS | Clinical Summary ---
Author Organization [facility] Address [address] [place] [address] Phone Care Team Providers Care Flow Trader Name Role Phone Maurilio Burgess MD Primary [...] SYMPTONS. Active blood-glucose meter (OneTouch Ultra2 Meter) [facility] 0 Active OneTouch Ultra Test test strip [...] 05, [address] Gilberto Knox in [place]. 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 She has chronic left eye vision loss and balance difficulty, chronic headaches and memory problems, patient states this has been since her craniotomy. She was seeing Dr. Patricio in neurosurgery at [place], [place]. She has since moved to [place], is looking to get follow-up CTA of [...] prescription glasses, but has not seen an retail sales representative. All questions answered, will call with any additional questions or concerns. Encounters Date Type Department Care Team Description 10/01/2024 6:48 AM EDT - 10/01/2024 11:59 PM EDT Hospital Encounter [facility] Interventional Radiology [address] [place] [phone] Saleem Quigley MD Cerebral aneurysm, nonruptured Discharge Disposition: Home or Self Care 08/27/2024 Telephone Neurosurgery [place] [address] [place] [address] [place] [address] Ivory Velazquez MA APPOINTMENT (No PA required per César Keenan with [employer], cpt [phone], REF # [id number], Provider and Facility in network. No PA required per Minnie with [facility], cpt [phone], REF # [id number], Provider and Facility in network. ) 08/26/2024 9:00 AM EDT Office Visit Neurosurgery [facility] [address] [facility] [address] [place] [address] Saleem Quigley MD Cerebral aneurysm, nonruptured (Primary Dx) from Last 3 Months Surgical History Surgery Date Site/Laterality Comments CEREBRAL ANEURYSM REPAIR 02/2016 :Dr. Knox at [facility] GASTRIC BYPASS 08/30/2009 OTHER SURGICAL HISTORY EXCESSIVE THIGH / HIP / BUTTOCK / FLANK SKIN EXCISION;COMMENT:following gastric bypass COLONOSCOPY 2016 COLONOSCOPY 2014 tubular adenoma HYSTERECTOMY 12/16/2010 UPPER GASTROINTESTINAL ENDOSCOPY 01/02/2018 Dr. Santacruz ([place]) OPEN ANTERIOR SHOULDER RECONSTRUCTION 04/14/2013 left shoulder reconstruction, Dr. Chisholm ([place]) SECTION UPPER GASTROINTESTINAL ENDOSCOPY 05/11/2020 N/A UPPER ENDOSCOPY-EGD; Surgeon: Pito Diaz MD; Location: [facility] END[facility]COPY; Service: Gastroenterology; Laterality: N/A; COLONOSCOPY 05/12/2020 N/A Surgeon: Tino Lang MD; Location: [facility] ENDOSCOPY; Service: Gastroenterology; Laterality: N/A; UPPER GASTROINTESTINAL ENDOSCOPY 09/13/2020 N/A EGD Surgeon: Maynor Rojas MD; Location: [facility] END[facility]COPY; Service: Gastroenterology; Laterality: N/A; BREAST SURGERY REDUCTION MAMMAPLASTY;:with lift/ implants COLONOSCOPY 02/02/2021 N/A Surgeon: Tino Lang MD; Location: [facility] ENDOSCOPY; Service: Gastroenterology; Laterality: N/A; OTHER SURGICAL HISTORY Patient reports history of colon resection required after gastric bypass, bladder surgery and appendectomy CARPAL TUNNEL RELEASE Bilateral Medical History Medical History Date Comments Aneurysm (CMS/[facility] V24) 2014 GI bleed Tubular adenoma of colon 2014 Syncope completed cardia c work up (tilt table, echo, stress jason, holter) Psoriasis Mild dementia (CMS/HCC V24, CMS/[facility] V28) occasional memory loss Steatosis of liver 12/03/2017 fatty liver s een on US per past records. History of Papanicolaou smear of cervix 10/2017 History of mammogram 01/25/2018 negative Ovarian cyst Fibromyalgia, primary Anemia Anxiety GERD (gastroesophageal reflux disease) Depression Arthritis Migraine headache Visual impairment Obesity s/p GBP Diabetes ([facility] V24, [facility] V28) Hyperlipidemia Asthma Acid reflux Rheumatoid arthritis ([facility]/ C V24, [facility] V28) Family History Medical History [...] BLOOD COUNT STAT 10/01/2024 7:08 AM EDT MAMMOGRAM SCREENING BILATERAL 3D NICOLLE WITH CAD [...] on 10/08/2024 6:35 AM. Workstation Name - [id number] -------- FINAL REPORT -------- Dictated By: Saleem Quigley Dictated Date: 10/01/2024 15:41 ET Assigned Physician: Saleem Quigley Reviewed and Electronically Signed By: Saleem Quigley Signed Date: 10/08/2024 06:35 ET Workstation ID: [id number] Transcribed By: Self Edit Transcribed Date: 10/06/2024 08:00 ET Narrative 10/08/2024 6:35 AM EDT Patient Name: HEATHER CALDERA ? MR#: [id number] ? Exam Description: IR PLCMNT CATH ICA ANGIO ICC BILAT ? Exam Date/Time: 10/01/2024 7:55 AM PROCEDURE: 1. Cervicocerebral catheter angiography including 3-dimensional rotational angiography SUPERINTENDENT ELECTRIC POWER(S): Saleem Valenzuela MD INDICATION: Left SCA residual [...] using Seldinger micropuncture technique . A 5 Uzbek sheath was placed and attached to continuous heparinized flush. At this time, 2.5 mg of verapamil and 200 mcg of NTG was given intra-arterial through the sheath. A 5F [place] catheter was utilized to selectively catheterize the [...] right dominant transverse sinus drainage. us Saleem Moiz Valenzuela MD IMG IR PROCEDURES Edited Result - Final * (ABNORMAL) Complete blood count (10/01/2024 7:08 AM EDT) [facility] WBC 6.8 4.0 - 10.5 K/mcL LAB HEMETOLOGY METHOD 10/01/2024 11:46 AM EDT [facility] RBC 4.13(L) 4.20 - 5.40 M/mcL LAB HEMETOLOGY METHOD 10/01/2024 11:46 AM EDT [facility] Hemoglobin 11.4(L) 12.5 - 16.0 g/dL LAB HEMETOLOGY METHOD 10/01/2024 11:46 AM EDT [facility] Hematocrit 36.0(L) 37.0 - 47.0 % LAB HEMETOLOGY METHOD 10/01/2024 11:46 AM EDT [facility] MCV 87.3 78.0 - 100.0 FL LAB HEMETOLOGY METHOD 10/01/2024 11:46 AM EDT [facility] MCH 27.7 25.0 - 33.0 pcg LAB HEMETOLOGY METHOD 10/01/2024 11:46 AM EDT [facility] MCHC 31.7(L) 32.0 - 36.0 g/dL LAB HEMETOLOGY METHOD 10/01/2024 11:46 AM EDT [facility] RDW 25.3(H) 12.1 - 16.2 % LAB HEMETOLOGY METHOD 10/01/2024 11:46 AM EDT [facility] Platelets 228 150 - 450 K/mcL LAB HEMETOLOGY METHOD 10/01/2024 11:46 AM EDT [facility] MPV 9.4 7.4 - 11.4 FL LAB HEMETOLOGY METHOD 10/01/2024 11:46 AM EDT [facility] Blood Venous blood specimen / Unknown Venipuncture / Unknown 10/01/2024 7:08 AM EDT 10/01/2024 7:18 AM EDT us Saleem Moiz Valenzuela MD LAB BLOOD ORDERABLES Izzy l Result [facility] [address] [place] [address], * (ABNORMAL) Basic metabolic panel (10/01/2024 7:08 AM EDT) Sodium 139 135 - 145 mmol/L LAB CHEMISTRY METHOD 10/01/2024 7:49 AM EDT [facility] Potassium 3.3(L) 3.5 - 5.1 mmol/L LAB CHEMISTRY METHOD 10/01/2024 7:49 AM EDT [facility] Chloride 103 98 - 107 mmol/L LAB CHEMISTRY METHOD 10/01/2024 7:49 AM EDT [facility] CO2 26 24 - 32 mmol/L LAB CHEMISTRY METHOD 10/01/2024 7:49 AM EDT [facility] Anion Gap 10 5 - 14 LAB CHEMISTRY METHOD 10/01/2024 7:49 AM EDT [facility] Glucose 151(H) 70 - 99 mg/dL LAB CHEMISTRY METHOD 10/01/2024 7:49 AM EDT [facility] BUN 13 7 - 17 mg/dL LAB CHEMISTRY METHOD 10/01/2024 7:49 AM EDT [facility] Creatinine 0.50 0.50 - 1.00 mg/dL LAB CHEMISTRY METHOD 10/01/2024 7:49 AM EDT [facility] eGFR 106 >=60 mL/min/1. 73m2 LAB CHEMISTRY METHOD 10/01/2024 7:49 AM EDT [facility] Comment:Calculation based on the??Chronic Kidney Disease Epidemiology Collaboration (CKD-EPI) equation refit??without adjustment for race. BUN/Creatinine Ratio 26.0(H) 12.0 - 20.0 LAB CHEMISTRY METHOD 10/01/2024 7:49 AM EDT [facility] Calcium 9.1 8.4 - 10.2 mg/dL LAB CHEMISTRY METHOD 10/01/2024 7:49 AM EDT [facility] Blood Venous blood specimen / Unknown Venipuncture / Unknown 10/01/2024 7:08 AM EDT 10/01/2024 7:18 AM EDT Saleem Valenzuela MD LAB BLOOD ORDERABLES Izzy fountain Result [facility] [address] [place] [address], [place] [phone] * MAMMOGRAM SCREENING BILATERAL 3D NICOLLE WITH [...] plain language report , as required by [facility] 485. Session: Separate session. Report reviewed and signed by : Dr. Matthew Serrato MD on 05/13/2020 4:27 PM. Workstation Name - [id number] Procedure Note Matthew Serrato MD - 06/02/2022 [...] plain language report , as required by [facility] 485. Session: Separate session. Report reviewed and signed by : Dr. Matthew Serrato MD on 05/13/2020 4:27 PM.Workstation Name - [id number] Moise Palomino MD IMG BI PROCEDURES Final Resul t from Last 3 Months or Most Recently Relevant to Health Maintenance Insurance [employer] MEDICARE ADVANTAGE MEDICAID - [place] Care Teams Flow Trader Relationship Specialty Start Date End Date Maurilio Burgess MD [address] [place] [address] Dr [address] KIMMIE Elkins PCP - General Internal Medicine 06/17/24
--- OUTSIDE RECORDS SUMMARY | 2024-10-20 07:36 | XMS_ITS | Encounter Summary ---
Author Organization [facility] Address [address] [place] [address] Care Team Providers Care Investment Consultant Name Role Phone Marina Reddy TURNER Primary Care Provider [phone] Lucas Wen APRN Primary Care Provider + Steffi Escalera APRN Primary Care Provider Myesha Hwang MD Unavailable [phone] Encounter Details Date Type Department Care Team (Late st Contact Info) Description 09/29/2022 Scanned Document [facility] - [address] [place] [address] Chris Sood MD [address] [place] [address] [address] [place], [place] [phone] Social History Tobacco Use Types Packs/Day Years [...] on filedocumented in this encounter Care Teams Investment Consultant Relationship Specialty Start Date End Date Marina Reddy APRN [address] [facility] [address] [place] [address] PCP - General Adult Health - PA/APNP/INSURANCE APPRAISER/HEAVY MOBILE EQUIPMENT REPAIRER 03/03/19 10/19/22 Lucas Wen APRN [address] [place] [address] [address] [place] [address] PCP - General Adult Health - PA/APNP/INSURANCE APPRAISER/HEAVY MOBILE EQUIPMENT REPAIRER 10/20/22 01/14/23 Steffi Escalera APRN [address] [place] [address] PCP - General 01/15/23 Myesha Hwang MD [address] [place] [address] Gastroenterology 04/09/23 documented as of this encounter
--- OUTSIDE RECORDS SUMMARY | 2024-10-20 07:36 | XMS_ITS | Encounter Summary ---
Author Organization [facility] Address [address] [place] [address] Care Team Providers Care Quality Assurance Coordinator Name Role Phone Sabrina Redd Primary Care Provider [phone] Encounter Details Date Type Department Care Team (Late st Contact Info) Description 07/02/2019 Scanned Document [facility] [address] [place] [address] Antoni Patricio MD [address] [place] [phone] Social History Tobacco Use Types Packs/Day Years [...] on filedocumented in this encounter Care Teams Quality Assurance Coordinator Relationship Specialty Start Date End Date Sabrina Redd PA [address] [place] [address] PCP - General 07/12/22 documented as of this encounter
--- OUTSIDE RECORDS SUMMARY | 2024-10-20 07:36 | XMS_ITS | Encounter Summary ---
Author Organization [facility] and [facility] Address [address] [place] [address] Care Team Providers Care Aerial Photographer Name Role Phone Sabrina eRdd Primary Care Provider [phone] Encounter Details Date Type Department Care Team (Late st Contact Info) Description 07/14/2019 Scanned Document [facility] [address] [facility] [address] [place] [address] Provider, Historical . Social History Tobacco Use [...] on filedocumented in this encounter Care Teams Aerial Photographer Relationship Specialty Start Date End Date Sabrina Redd PA [address] [place] [address] PCP - General 07/12/22 documented as of this encounter
--- OUTSIDE RECORDS SUMMARY | 2024-10-20 07:36 | XMS_ITS | Clinical Summary ---
Author Organization [facility] Address [address] [place] [address] Care Team Providers Care Construction Administrative Assistant Name Role Phone Steffi Escalera APRN Primary Care Provider Myesha Hwang MD Unavailable [phone] Allergies Active Allergy Reactions Criticality Noted [...] expert review the quality of evidence behind predatory animal exterminator kidney disease, dementia, bone fractures, and infection [...] We discussed the minimal potential risk with predatory animal exterminator PPI use. Based on AGA expert review the quality of evidence behind predatory animal exterminator kidney disease, dementia, bone fractures, and infection [...] is low. The current data suggests that predatory animal exterminator PPI use does not require routine screening or monitoring of bone density, kidney function, magnesium, or vitamin B levels. There is no clinical evidence to suggest routine intake of calcium, vitamin b12 or magnesium, with PPI use, beyond recommended dietary allowance. Follow clinically. Personal history of colonic polyps 04/15/2019 Assessment & Plan (04/06/2023 10:29 AM EDT): Colon 02/2022 ([place]) - no polyps noted Would due recall exam in 2026 given prior hx of polyps Assessment & Plan (12/28/2022 12:44 PM EDT): Colon 02/2022 ([place]) - no polyps noted Assessment & Plan [...] Work up here in 2020, then in [place] with unremarkable EGD/Colon 02/2022 Repeat capsule done [...] Will have patient see Dr. Hwang in [place] for double balloon enteroscopy- this was recommended after 2021 capsule in [place] and recent capsule also suggests that best [...] up here in 2020, then recently in [place] with unremarkable EGD/Colon 02/2022 - unclear what [...] review Pt was followed by thiago in [place], will need f/u care here also Family [...] - Risk 60-74 years 1-dose series) 2022 COVID-19 Vaccine ( season) 2024 08/01/2023, 05/31/2021, 11/05/2020, Additional history exists Influenza Vaccine 01/09/2025 Colonoscopy 02/02/2031 02/02/2021, 09/13/2020 Hemoglobin A1C Discontinued [...] Most Recently Relevant to Health Maintenance [place] [address] [address] [place] [address] [employer] MGD MEDICARE A[employer] [place] [address] [place] [address] AETETHAN MGD MEDICARE Care Teams Construction Administrative Assistant Relationship Specialty Start Date End Date Steffi Escalera APRN [address] [facility] [address] [place], [place] [id number] PCP - General 01/15/23 Myesha Hwang MD [address] [place] [address] Gastroenterology 04/09/23
--- OUTSIDE RECORDS SUMMARY | 2024-10-20 07:36 | XMS_ITS ---
Author Organization [facility] Address [address] [place], [place] [id number] Care Team Providers Care Child Therapist Name Role Phone No, PCP Primary Care Provider Ebony Basurto Unavailable REASON FOR VISIT housing application/rc appt Social History Sex Assigned At : Social History Observation Description Sex Assigned At Female Encounters Encounter Location Date Provider Diagnosis [facility] [address] [place] [phone] 08/19/2024 Ebony Reyes Plan Of Treatment No Information Progress Notes * Jazmine CALDERADOB:[birth year] (64 yo F)Acc No.[id number]:08/19/2024 Case Management Patient:?Jazmine CALDERA Provider:Valdo Reyes :1960???Age:64 Y???Sex:Female D ate:08/19/2024 Address:[facility] [address], [facility] Pcp:PCP No Subjective: * Chief Complaints: * ???1. Housing application/re christal appt. * Medical History:? Objective: Assessment: Plan: * Treatment: * Images: Billing Information: * Visit Code:? * Procedure Codes:? Care Plan Details* * Electronic signature of Jeffrey Reyes on 10/20/2024 at 07:36 AM EDT Sign off status: Pending * Provider:Valdo Reyes Date:? Generated for Carri ferrell/Timothy/eTransmitting on:?10/20/2024 07:36 AM EDT
--- OUTSIDE RECORDS SUMMARY | 2024-10-20 07:36 | XMS_ITS | Encounter Summary ---
Author Organization [facility] and [facility] Address [address] [place] [address] Care Team Providers Care Disk Sander Name Role Phone Sabrina Redd Primary Care Provider [phone] Reason for Referral * Imaging (Routine) - Closed Specialty Diagnoses / Procedures Referred By Contac t Referred To Contact Diagnostic Radiology Procedures CTA Head w and/or wo IV Contrast Antoni Patricio MD [address] [place] [address] Phone: tel: fax: Referral ID Status Reason Start Date Expiration Date Visits Re quested Visits Authorized [id number] Closed 07/11/2023 07/10/2024 1 1 Encounter Details Date Type Department Care Team (Late st Contact Info) Description 07/11/2023 Scanned Document [facility] CENTER SCHEDULING [address] [place], [place] [id number] Antoni Patricio MD [address] [place] [address] Social History Tobacco Use Types [...] on filedocumented in this encounter Care Teams Disk Sander Relationship Specialty Start Date End Date Sabrina Redd PA [address] [place] [address] PCP - General 07/12/22 documented as of this encounter
--- OUTSIDE RECORDS SUMMARY | 2024-10-20 07:36 | XMS_ITS | Encounter Summary ---
Author Organization [facility] Address [address] [place] [address] Care Team Providers Care Chief Power Dispatcher Name Role Phone Marina Reddy APRN Primary Care Provider [phone] Lucas Wen APRN Primary Care Provider + Steffi Escalera APRN Primary Care Provider Myesha Hwang MD Unavailable [phone] Reason for Visit * Reason Comments Medication Refill Encounter Details Date Type Department Care Team (Late st Contact Info) Description 08/25/2020 Refill [facility] [address] [address] Dominic Narvaez MD [address] [place] [address] Social History Tobacco Use Types Packs/Day Years [...] on filedocumented in this encounter Care Teams Chief Power Dispatcher Relationship Specialty Start Date End Date Barry, Marina, MAILER APPRENTICE 15 [facility] [address] [place] [address] PCP - General Adult Health - [place]/APNP/SURVEYING TECHNICIAN/MAILER APPRENTICE 03/03/19 10/19/22 Lucas Wen APRN 15 [facility] [address] [place] [address] PCP - General Adult Health - [place]/APNP/SURVEYING TECHNICIAN/MAILER APPRENTICE 10/20/22 01/14/23 Steffi Escalera APRN [address] [address] PCP - General 01/15/23 Myesha Hwang MD [address] [place] [address] Gastroenterology 04/09/23 documented as of this encounter
--- OUTSIDE RECORDS SUMMARY | 2024-10-20 07:36 | XMS_ITS ---
Author Organization [facility] Address [address] [place], [place] [id number] Care Team Providers Care Operations Systems Specialist Name Role Phone No, PCP Primary Care Provider Ebony Basurto Unavailable REASON FOR VISIT housing Social History Sex Assigned At : Social History Observation Description Sex Assigned At Female Encounters Encounter Location Date Provider Diagnosis [facility] [address] [place], [place] [phone] 08/12/2024 Ebony Reyes Plan Of Treatment No Information Progress Notes * Jazmine CALDERADOB:[birth year] (64 yo F)Acc No.[id number]:08/12/2024 Case Management Patient:?Jazmine CALDERA Provider:Valdo Reyes :1960???Age:64 Y???Sex:Female D ate:08/12/2024 Address:[facility] [address] [place], [place] [id number] Pcp:PCP No Subjective: * Chief Complaints: * ???1. Housing. * Medical History:? Objective: Assessment: Plan: * Treatment: * Images: Billing Information: * Visit Code:? * Procedure Codes:? Care Plan Details* * Electronic signature of Jeffrey Reyes on 10/20/2024 at 07:35 AM EDT Sign off status: Pending * Provider:Valdo Reyes Date:? Generated for Feri mariaelena/Timothy/eTransmitting on:?10/20/2024 07:35 AM EDT
--- OUTSIDE RECORDS SUMMARY | 2024-10-20 07:36 | XMS_ITS | Encounter Summary ---
Author Organization [facility] Address [address] [place] [address] Care Team Providers Care School Boat Driver Name Role Phone Steffi Escalera APRN Primary Care Provider Myesha Hwang MD Unavailable [phone] Encounter Details Date Type Department Care Team ([facility] st Contact Info) Description 02/01/2023 Scanned Document [facility] 113 [facility] [address] [place] [phone] Marina Davis PA 113 [facility] [address] [place] [address] Social History Tobacco Use Types Packs/Day Years [...] on filedocumented in this encounter Care Teams School Boat Driver Relationship Specialty Start Date End Date Steffi Escalera APRN [address] [facility] [address] [place] [address] PCP - General 01/15/23 Myesha Hwang MD [address] [place] [address] Gastroenterology 04/09/23 documented as of this encounter
--- OUTSIDE RECORDS SUMMARY | 2024-10-20 07:36 | XMS_ITS | Encounter Summary ---
Author Organization [facility] Address [address] [place] [address] Care Team Providers Care National Sales Trainer Name Role Phone Marina Reddy APRN Primary Care Provider [phone] Lucas Wen APRN Primary Care Provider + Steffi Escalera APRN Primary Care Provider Myesha Hwang MD Unavailable [phone] Reason for Visit * Reason Comments Medication Refill Encounter Details Date Type Department Care Team (Late st Contact Info) Description 10/06/2020 Refill [facility] [address] [address] Dominic Narvaez MD [address] [place] [address] Social History Tobacco Use Types Packs/Day Years [...] on filedocumented in this encounter Care Teams National Sales Trainer Relationship Specialty Start Date End Date Barry, Marina, CARTON FORMING MACHINE OPERATOR 15 [facility] 13 [place] [address] PCP - General Adult Health - [place]/APNP/CYBER INTEL PLANNER/CARTON FORMING MACHINE OPERATOR 03/03/19 10/19/22 Lucas Wen APRN 15 [facility] [address] [place] [address] PCP - General Adult Health - [place]/APNP/CYBER INTEL PLANNER/CARTON FORMING MACHINE OPERATOR 10/20/22 01/14/23 Steffi Escalera APRN [address] [address] PCP - General 01/15/23 Myesha Hwang MD [address] [place] [address] Gastroenterology 04/09/23 documented as of this encounter
--- OUTSIDE RECORDS SUMMARY | 2024-10-20 07:36 | XMS_ITS | Encounter Summary ---
Author Organization [facility] Address [address] [place] [address] Care Team Providers Care Ged Tutor Name Role Phone Steffi Escalera APRN Primary Care Provider Myesha Hwang MD Unavailable [phone] Encounter Details Date Type Department Care Team (Late st Contact Info) Description 07/16/2023 Telephone [facility] 113 [facility] [address] [place] [address] Tino Lang MD 21 [facility] 100 [place] [address] Social History Tobacco Use Types Packs/Day Years [...] that time frame. Please contact Jazmine at [phone] documented in this encounter Plan of Treatment Not on file documented as of this encounter Visit Diagnoses Not on filedocumented in this encounter Care Teams Ged Tutor Relationship Specialty Start Date End Date Steffi Escalera APRN [address] [address] PCP - General 01/15/23 Myesha Hwang MD [address] [place] [address] Gastroenterology 04/09/23 documented as of this encounter
--- OUTSIDE RECORDS SUMMARY | 2024-10-20 07:36 | XMS_ITS | Clinical Summary ---
Author Organization [facility] Address [address] [place] [address] Care Team Providers Care Thinner Sprayer Name Role Phone Sabrina Redd Primary Care Provider [phone] Allergies Active Allergy Reactions Criticality Noted Date [...] 05/2023 Last Assessment & Plan: Colon 02/2022 ([place]) - no polyps noted Would due recall [...] aneurysm s/p trapping/bypass by Dr. 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 No additional aneurysms of the [place] of [place] identified. 2. Post surgcal changes [...] expert review the quality of evidence behind buttermilk drier operator kidney disease, dementia, bone fractures, and [...] We discussed the minimal potential risk with buttermilk drier operator PPI use. Based on AGA expert review the quality of evidence behind buttermilk drier operator kidney disease, dementia, bone fractures, and [...] We discussed the minimal potential risk with buttermilk drier operator PPI use. Based on AGA expert review the quality of evidence behind buttermilk drier operator kidney disease, dementia, bone fractures, and infection with PPI use is low. The current data suggests that buttermilk drier operator PPI use does not require routine [...] expert review the quality of evidence behind buttermilk drier operator kidney disease, dementia, bone fractures, and [...] is low. The current data suggests that buttermilk drier operator PPI use does not require routine [...] expert review the quality of evidence behind buttermilk drier operator kidney disease, dementia, bone fractures, and infection with PPI use is low. The current data suggests that buttermilk drier operator PPI use does not require routine [...] review Pt was followed by thiago in [place], will need f/u care here also Last Assessment & Plan: Continue oral iron Need old records for review Pt was followed by heme in [place], will need f/u care here also Last [...] review Pt was followed by heme in [place], will need f/u care here also Overview: Last Assessment & Plan: Continue oral iron Need old records for review Pt was followed by heme in [place], will need f/u care here also Last Assessment & Plan: Continue oral iron Need old records for review Pt was followed by heme in [place], will need f/u care here also Last Assessment & Plan: Continue oral iron Need old records for review Pt was followed by heme in [place], will need f/u care here also Last Assessment & Plan: 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 Hwang in [place] for double balloon enteroscopy- this was recommended after 2021 capsule in [place] and recent capsule also suggests that best [...] 07/29/2017 Overview (07/20/2023): GASTRITIS S-P GASTRIC BYPASS [place] EGD NL , H PYELORI NEG, ANASTAMOSIS [...] KARLA RA ANTI SM ANTI SSA ANTI ELEVATOR REPAIRER HELPER AB NEG SR / CRP NL ( ) DR HERNANDEZ. History of hysterectomy 12/16/2010 Pain in pelvis 09/11/2007 07/20/2023 Diabetes mellitus 08/29/2007 07/20/2023 Cerebral aneurysm, nonruptured Overview (05/26/2019): unruptured left SCA aneurysm s/p trapping/bypass by Dr. Colin in [place] in 04/2015 Family History Medical History Relation [...] age to complete this topic Insurance [place] MED[facility] [address] [place], [place] [address] MEDICA[place] [place] [address] Care Teams Thinner Sprayer Relationship Specialty Start Date End Date Sabrina Redd PA [address] [place] [address] PCP - General 07/12/22
== END 2024-10-20 08:19 | disposition home or self-care (01) ==
LOC: HO.HWS 07:34
PROVIDERS: PCP Internal Medicine; Visit Provider Obstetrics & Gynecology
DX: Z01.419 Encounter for gynecological examination (general) (routine) without abnormal findings (principal)
CPT/HCPCS: 99396; 99459

== ENCOUNTER → 2024-10-20 07:34 | Outpatient (BNVA) | payer MEDICARE, MEDICAID, SELFPAY | PROVIDERS: PCP Internal Medicine; Visit Provider Obstetrics & Gynecology | DX: Z01.419 Encounter for gynecological examination (general) (routine) without abnormal findings (principal) | CPT/HCPCS: 99396; 99459 ==

== ENCOUNTER 2024-11-25 09:22 | Outpatient (REF) | payer MEDICARE, MEDICAID, SELFPAY ==
--- OUTSIDE RECORDS SUMMARY | 2024-11-25 10:05 | XMS_ITS | Patient Health Record ---
Author Organization [facility] Address [address] [place], [place] [phone] Care Team Providers Care Long Chain Quiller Tender Name Role Phone ZZArchive - DO NOT USE, no PCP Primary Care Prov ideEbony Purcell Unavailable [phone] Reason For Referral No Information Social History Sex Assigned At : Social History Observation Description Sex Assigned At Female Encounters Encounter Location Date Provider Diagnosis [facility] [address] [place] [phone] 01/01/2024 Ebony Reyes [facility] [address] [place] [phone] 01/08/2024 Ebony Reyes [facility] [address] [place] [address] [phone] 01/28/2024 Ebony Reyes [facility] [address] [place] [address] [phone] 02/04/2024 Ebony Reyes [facility] [address] [place] [phone] 03/04/2024 Ebony Reyes [facility] [address] [place], [place] [phone] 03/25/2024 Ebony Reyes [facility] [address] [place] [phone] 04/17/2024 Ebony Reyes [facility] [address] [place] [phone] 05/27/2024 Ebony Reyes [facility] [address] [place] [address] [id number] 05/30/2024 Ebony Reyes Plan Of Treatment No Information Insurance Providers Payer Name Payer Address Payer Phone Subscriber Number Group Number Insured Name Patient Relationship to Insured Coverage Start Date Coverage End Date [place] Medicare Part A Treater [facility] [address] [facility] [place] [address] [id number] Graciela andres Jazmine Self - patient is the insured 4 [employer] [address] [address] [place], [place] [id number] Graciela andres Jazmine Self - patient is the insured 4
[2024-11-28 05:43] LABS: TS Negative Control Passed; TS Panel A 0; TS Panel B 0; TS Positive Control Passed; TSpotTB Negative (Negative)
== END 2024-11-25 09:23 | disposition home or self-care (01) ==
LOC: HO.LAB 09:22
PROVIDERS: PCP Internal Medicine; Visit Provider Physician Assistant Medical
DX: L40.0 Psoriasis vulgaris (principal)
CPT/HCPCS: 36415; 86481

== ENCOUNTER 2024-12-01 10:55 | Outpatient (REF) | payer MEDICARE, MEDICAID, SELFPAY ==
[2024-12-01 11:41] LABS: Hematocrit 40.3 % (37.0-47.0); Hemoglobin 12.7 g/dl (12.0-16.0); Mean Corpuscular HGB Conc 31.5 g/dl (31.0-35.0); Mean Corpuscular Hemoglobin 29.6 pg (27.0-33.0); Mean Corpuscular Volume 93.9 fL (80.0-98.0); Mean Platelet Volume 11.1 fL (9.4-12.3); Platelet Count 277 X10*3/uL (160-400); Red Blood Count 4.29 X10*6/uL (4.20-5.50); Red Cell Distribution Width 13.6 % (11.0-16.0); White Blood Count 9.2 X10*3/uL (4.8-10.8)
[2024-12-01 12:25] LABS: Ferritin 70 ng/mL (10-250)
--- OUTSIDE RECORDS SUMMARY | 2024-12-01 12:29 | XMS_ITS | Patient Health Record ---
Author Organization [facility] Address [address] [place], [place] [phone] Care Team Providers Care Biostatistics Teacher Name Role Phone NO, PCP Primary Care Provider [phone] Ebony Reyes Unavailable [phone] Reason For Referral No Information Social History Sex Assigned At : Social History Observation Description Sex Assigned At Female Encounters Encounter Location Date Provider Diagnosis [facility] [address] [place] [phone] 01/01/2024 Ebony Reyes [facility] [address] [place] [id number] 01/08/2024 Ebony Reyes [facility] [address] [place] [phone] 01/28/2024 Ebony Reyes [facility] [address] [place], [place] [phone] 02/04/2024 Ebony Reyes [facility] [address] [place] [id number] 03/04/2024 Ebony Reyes [facility] [address] [place], [place] [phone] 03/25/2024 Ebony Collins-Bobo [facility] [address] [place] [id number] 04/17/2024 Ebony Reyes [facility] [address] [place] [id number] 05/27/2024 Ebony Reyes [facility] [address] [place], [place] [phone] 05/30/2024 Ebony Reyes Plan Of Treatment No Information Insurance Providers Payer Name Payer Address Payer Phone Subscriber Number Group Number Insured Name Patient Relationship to Insured Coverage Start Date Coverage End Date [place] Medicare Part A [facility] [facility] [address] [place] [address] [id number] Graciela andres Jazmine Self - patient is the insured 4 [employer] [address] [address] [place], [place] [phone] [id number] Graciela andres Jazmine Self - patient is the insured 4
== END 2024-12-01 10:56 | disposition home or self-care (01) ==
LOC: HO.LAB 10:55
PROVIDERS: PCP Internal Medicine; Visit Provider Internal Medicine
DX: D50.9 Iron deficiency anemia, unspecified (principal)
CPT/HCPCS: 36415; 82728; 85027

== ENCOUNTER 2024-12-01 11:26 | Outpatient (AMB) | payer MEDICARE, MEDICAID, SELFPAY ==
--- NOTE | 2024-12-01 11:28 | A.OFFVIS_ITS ---
Intake Visit Reasons: 2m Intake Note: Jazmine presents as a telehealth today for 2 month follow up. CC: She states she gets some loose stools but she states when she was seen [place] - she did tests and she was told that she was bleeding from her small intestine. She said it was very little. J2Ee Programmer Required: No Allergies clopidogrel (From Plavix) Allergy (Severe, Verified 05/04/25 09:45) Rash milnacipran (From Savella) Adverse Reaction (Severe, Verified 05/04/25 09:45) tachycardia promethazine (From Phenergan) Adverse Reaction (Severe, Verified 05/04/25 09:45) tachycardia HPI Comments Details: 64 y.o F with PMH of RYGB 2000, RA and psoraisis on otez, hx of small bowel bleeding, intracranial aneurysm (Dr Michael Valnezuela), DM, migraines, who is here for iron deficiency. Pt used to get her care in [place] and moved to [facility] in late 2023. Pt reports longstanding hx of intermittent small bowel bleed. Based on hx has had multiple EGD/colo and VCE x3. Appears was also referred for DBE at one point but they were not able to localize a bleed at that time. Manager Mental Health was Dr Lang in [place]. Most recent EGD/colo was done in 2022 in [place] when she was admitted for Hb of 5. Reports never has any overt bleeding but would just have symptomatic anemia. Currently reports intermittent nausea and vomiting due to intermittent issues with gastric bypass. Stools are black since takes PO iron. No blood in stool or emesis. No unintentional weight loss. 12/01/24: Here for tele visit. Reviewed labs which look reassuring. In the absence of ongoing bleed no indication for repeat endoscopy at this time. Will cont to watch the numbers every 3 months and if stable x 2 will space out to q4m. [facility] Medical History Psoriatic arthritis Vitamin D deficiency Psoriasis Migraine Brain aneurysm Chronic anemia Overweight (BMI 25.0-29.9) Chronic pain Allergic rhinitis GERD without esophagitis Diabetes mellitus Pure hypercholesterolemia Cardiac murmur Surgical History History of hysterectomy History of abdominoplasty S/P brachioplasty History of appendectomy History of cholecystectomy History of colon resection History of reduction mammoplasty History of rotator cuff surgery History of gastric bypass History of carpal tunnel surgery of right wrist History of carpal tunnel surgery of left wrist Hx of brain surgery Family History Sister Breast cancer Other Diabetes Schizophrenia Social History Housing: Apartment Patient Tobacco Use Status: Former Tobacco user e-Cigarette/Vaping Use: Never Used Second Hand Smoke Exposure: No service: No Current occupational status: retired Current occupational exposures/hazards: No Cognitive needs: No Hearing needs: No Vision needs: No Female Reproductive History Menstrual Age of Menarche: 14 Review of Systems Const All systems reviewed & are unremarkable except as noted in HPI and below Physical Exam Vital Signs: Video visit: No acute distress No icterus noted No facial asymmetry Speaking in full sentences Telehealth Telehealth Telehealth Platform: Goalbook Location of provider rendering services: practice address Location of patient: address on file Patient Identification confirmed using: Name, : Yes Telehealth method: video Patient verbally consented to treatment: Yes Patient verbally consented to billing insurance company: Yes Patient informed of any privacy concerns related to visit: Yes Minutes spent on Phone/Video with Pt.: 12 Assessment & Plan Assessment & Plan (1) Chronic anemia: Code(s): D64.9 - Anemia, unspecified Category: Medical Plan Based on patient's report, has history of intermittent, occult mid gut bleeding. Has undergone multiple bidirectional endoscopy, as well as capsule endoscopy at least 3 times. Per her report, also seems that she has had double balloon enteroscopy, but they were not able to localize the bleed at that time. Pt was reassured that CBC is essentially unchanged with excellent ferritin levels. Any endoscopic intervention at this time, without evidence of overt bleeding will be low yield and futile. Since she has not had any anemia over the last few CBCs, will space out next CBC and iron panel in 3 months. Follow up in 3 months after labs. Orders: Orders Ferritin 3 Months D64.9 - Anemia, unspecified Complete Blood Count no Diff 3 Months D64.9 - Anemia, unspecified IRON PROFILE 12/01/24 D64.9 - Anemia, unspecified Vitamin D 25-OH Total 12/01/24 E55.9 - Vitamin D deficiency, unspecified Coding Level of Care Code Est Pt Level 4 (30700) Diagnoses Chronic anemia D64.9
== END 2024-12-01 12:16 | disposition home or self-care (01) ==
LOC: HO.HGI 11:26
PROVIDERS: PCP Internal Medicine; Visit Provider Internal Medicine
DX: D64.9 Anemia, unspecified (principal)
CPT/HCPCS: 99214

== ENCOUNTER 2024-12-19 09:42 | Outpatient (REF) | payer MEDICARE, MEDICAID, SELFPAY ==
--- OUTSIDE RECORDS SUMMARY | 2024-12-19 10:00 | XMS_ITS | Patient Health Record ---
Author Organization [facility] Address [address] [place], [place] [id number] Care Team Providers Care Improvement Manager Name Role Phone NO, PCP Primary Care Provider [phone] Ebony Reyes Unavailable Reason For Referral No Information Social History Sex Assigned At : Social History Observation Description Sex Assigned At Female Encounters Encounter Location Date Provider Diagnosis [facility] [address] [place] [address] [phone] 01/01/2024 Ebony Reyes [facility] [address] [place] [address] [phone] 01/08/2024 Ebony Reyes [facility] [address] [place] [address] [phone] 01/28/2024 Ebony Reyes [facility] [address] [place], [place] [phone] 02/04/2024 Ebony Reyes [facility] [address] [place] [address] [phone] 03/04/2024 Ebony Reyes [facility] [address] [place], [place] [phone] 03/25/2024 Ebony Collins-Bobo [facility] [address] [place] [address] [phone] 04/17/2024 Ebony Reyes [facility] [address] [place] [address] [phone] 05/27/2024 Ebony Reyes [facility] [address] [place], [place] [phone] 05/30/2024 Ebony Reyes Plan Of Treatment No Information Insurance Providers Payer Name Payer Address Payer Phone Subscriber Number Group Number Insured Name Patient Relationship to Insured Coverage Start Date Coverage End Date [place] Medicare Part A [facility] [address] [place] [address] [id number] Graciela andres Jazmine Self - patient is the insured 4 [employer] [address] [address] [place], [place] [phone] [id number] Graciela andres Jazmine Self - patient is the insured 4
--- OUTSIDE RECORDS SUMMARY | 2024-12-19 10:01 | XMS_ITS | Clinical Summary ---
Author Organization [facility] Address [address] [place] [address] Care Team Providers Care Detacker Name Role Phone Lucas Wen APRN Primary Care Provider Sina lopez Allergies Active Allergy Reactions Criticality Noted Date Comments Milnacipran Palpitations,Other ( See Comments) Medium 02/12/2019 Tachycardia Clopidogrel Rash Low 11/01/2022 Promethazine Palpitations,Other ( See Comments) Medium 04/10/2012 Tachycardia 180/min - she had to be taken to ER. Medications Medication Sig Dispensed Refills Start Date End Date Status EhCkh-HjTwyy-PC-B Cmp-C-Biot (INTEGRA PLUS) CAPS Take 1 tablet [...] long-term current use of insulin ([facility]) Test one to two times daily [...] records for review Pt was followed by [facility] in [place], will need f/u care here also Overview: Last Assessment & Plan: Continue oral iron Need old records for review Pt was followed [facility] in [place], will need f/u care here also Last Assessment & Plan: Continue oral iron Need old records for review Pt was followed by [facility] in [place], will need f/u care here also Last Assessment & Plan: Continue oral iron Need old records for review Pt was followed by [facility] in [place], will need f/u care here also Hematemesis [...] expert review the quality of evidence behind snf kidney disease, dementia, bone fractures, and infection [...] We discussed the minimal potential risk with snf PPI use. Based on AGA expert review the quality of evidence behind snf kidney disease, dementia, bone fractures, and infection with PPI use is low. The current data suggests that snf PPI use does not require routine screening [...] We discussed the minimal potential risk with snf PPI use. Based on AGA expert review the quality of evidence behind snf kidney disease, dementia, bone fractures, and infection [...] aneurysm s/p trapping/bypass by Dr. Colin in [place] in 04/2015 Chronic migraine without aur a [...] 71 11/02/2022 7:20 AM EDT Temperature 37 C (98.6 F) 11/02/2022 7:20 AM EDT Respiratory Rate 18 [...] season) 2024 11/05/2020, 10/08/2020 Influenza Vaccine (#1) 2025 DTap / Tdap / Td (2 - [...] Advance Directives For more information, please contact: [phone] Latest Code Status on File Code Status [...] 7:25 PM 01/06/2020 7:55 PM Care Teams Detacker Relationship Specialty Start Date End Date Lucas Wen APRN PCP - General Cardiology 11/01/22
--- OUTSIDE RECORDS SUMMARY | 2024-12-19 10:01 | XMS_ITS | Encounter Summary ---
Author Organization [facility] Address [address] [place] [address] Care Team Providers Care Manager Coding Name Role Phone Steffi Escalera APRN Primary Care Provider Myesha Hwang MD Unavailable [phone] Encounter Details Date Type Department Care Team (Late st Contact Info) Description 02/06/2023 Scanned Document [facility] [address] [phone] [place] [address] Social History Tobacco Use Types [...] filedocumented in this encounter Care Teams Manager Coding Relationship Specialty Start Date End Date Steffi Escalera APRN [address] [address] PCP - General 01/15/23 Myesha Hwang MD [address] [place] [address] Gastroenterology 04/09/23 documented as of this encounter
--- OUTSIDE RECORDS SUMMARY | 2024-12-19 10:01 | XMS_ITS | Clinical Summary ---
Author Organization [facility] Address [address] [place] [address] Phone Care Team Providers Care Rn Clinician Name Role Phone Maurilio Burgess MD Primary [...] SYMPTONS. Active blood-glucose meter (OneTouch Ultra2 Meter) [facility] 0 Active OneTouch Ultra Test test strip [...] 05, [address] Gilberto Knox in [place]. 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 She has chronic left eye vision loss and balance difficulty, chronic headaches and memory problems, patient states this has been since her craniotomy. She was seeing Dr. Patricio in neurosurgery at [place], [place]. She has since moved to [place], is looking to get follow-up CTA of [...] prescription glasses, but has not seen an client support representative. All questions answered, will call with any additional questions or concerns. Encounters Date Type Department Care Team Description 10/01/2024 6:48 AM EDT - 10/01/2024 11:59 PM EDT Hospital Encounter [facility] Interventional Radiology [address] [place] [phone] Saleem Quigley MD Cerebral aneurysm, nonruptured Discharge Disposition: Home or Self Care from Last 3 Months Surgical History Surgery Date Site/Laterality Comments CEREBRAL ANEURYSM REPAIR 02/2016 :Dr. Knox at [facility] GASTRIC BYPASS 08/30/2009 OTHER SURGICAL HISTORY EXCESSIVE THIGH / HIP / BUTTOCK / FLANK SKIN EXCISION;COMMENT:following gastric bypass COLONOSCOPY 2016 COLONOSCOPY 2014 tubular adenoma HYSTERECTOMY 12/16/2010 UPPER GASTROINTESTINAL ENDOSCOPY 01/02/2018 Dr. Santacruz ([place]) OPEN ANTERIOR SHOULDER RECONSTRUCTION 04/14/2013 left shoulder reconstruction, Dr. Chisholm ([place]) SECTION UPPER GASTROINTESTINAL ENDOSCOPY 05/11/2020 N/A UPPER ENDOSCOPY-EGD; Surgeon: Pito Diaz MD; Location: [facility]; Service: Gastroenterology; Laterality: N/A; COLONOSCOPY 05/12/2020 N/A Surgeon: Tino Lang MD; Location: [facility] END[facility]; Service: Gastroenterology; Laterality: N/A; UPPER GASTROINTESTINAL ENDOSCOPY 09/13/2020 N/A EGD Surgeon: Maynor Rojas MD; Location: [facility]; Service: Gastroenterology; Laterality: N/A; BREAST SURGERY REDUCTION MAMMAPLASTY;:with lift/ implants COLONOSCOPY 02/02/2021 N/A Surgeon: Tino Lang MD; Location: [facility]; Service: Gastroenterology; Laterality: N/A; OTHER SURGICAL HISTORY Patient reports history of colon resection required after gastric bypass, bladder surgery and appendectomy CARPAL TUNNEL RELEASE Bilateral Medical History Medical History Date Comments Aneurysm ([facility] V24) 2014 GI bleed Tubular adenoma of colon 2014 Syncope completed cardia c work up (tilt table, echo, stress jason, holter) Psoriasis Mild dementia ([facility] V24, [facility] V28) occasional memory loss Steatosis of liver 12/03/2017 fatty liver s een on US per past records. History of Papanicolaou smear of cervix 10/2017 History of mammogram 01/25/2018 negative Ovarian cyst Fibromyalgia, primary Anemia Anxiety GERD (gastroesophageal reflux disease) Depression Arthritis Migraine headache Visual impairment Obesity s/p GBP Diabetes (CMS/HCC V24, [facility] V28) Hyperlipidemia Asthma Acid reflux Rheumatoid arthritis (CMS/HC C V24, [facility] V28) Family History Medical History [...] 58 10/01/2024 11:30 AM EDT Temperature 36.4 C (97.6 F) 10/01/2024 7:15 AM EDT Respiratory Rate 14 10/01/2024 11:30 AM EDT Oxygen Saturation 94% 10/01/2024 11:30 AM EDT Inhaled Oxygen Concentration - - Weight 64.9 kg (143 lb) 10/01/2024 7:15 AM EDT Height 157.5 cm (5' 2 ) 08/26/2024 9:22 AM EDT Body Mass Index 26.16 08/26/2024 9:22 AM EDT Plan of Treatment Upcoming Encounters Date Type Department Care Team (Late st Contact Info) Description 12/23/2024 2:00 PM EDT Office Visit Neurosurgery - [place] [address] [place] [phone] Saleem Quigley MD [address] [place] [address] Health Maintenance Due Date Last Done Comments [...] 05/31/2021, 11/05/2020, Additional history exists Influenza Vaccine (#1) 2025 RSV Immunization Adult Patients (1 - [...] 5 Years) and At-Risk Patients (6 to 49 Years) Aged Out No longer eligible based [...] on 10/08/2024 6:35 AM. Workstation Name - [id number] -------- FINAL REPORT -------- Dictated By: Saleem Quigley Dictated Date: 10/01/2024 15:41 ET Assigned Physician: Saleem Quigley Reviewed and Electronically Signed By: Saleem Quigley Signed Date: 10/08/2024 06:35 ET Workstation ID: [id number] Transcribed By: Self Edit Transcribed Date: 10/06/2024 08:00 ET Narrative 10/08/2024 6:35 AM EDT Patient Name: HEATHER CALDERA MR#: [id number] Exam Description: IR PLCMNT CATH ICA ANGIO ICC BILAT Exam Date/Time: 10/01/2024 7:55 AM PROCEDURE: 1. Cervicocerebral catheter angiography including 3-dimensional rotational angiography VOICE ENGINEER(S): Saleem Valenzuela MD INDICATION: Left SCA residual aneurysm COMPARISON: CTA from 07/14/24 FLUOROSCOPY TIME: 1 min minutes. RADIATION DOSE: Dose Area Product 2553.73 mGy-cm2, [...] using Seldinger micropuncture technique . A 5 [place] sheath was placed and attached to continuous heparinized flush. At this time, 2.5 mg of verapamil and 200 mcg of NTG was given intra-arterial through the sheath. A 5F Brady Blair catheter was utilized to selectively catheterize the [...] Complete blood count (10/01/2024 7:08 AM EDT) [facility] WBC 6.8 4.0 - 10.5 K/mcL LAB HEMETOLOGY METHOD 10/01/2024 11:46 AM EDT [facility] RBC 4.13(L) 4.20 - 5.40 M/mcL LAB HEMETOLOGY METHOD 10/01/2024 11:46 AM EDT [facility] Hemoglobin 11.4(L) 12.5 - 16.0 g/dL LAB HEMETOLOGY METHOD 10/01/2024 11:46 AM EDT [facility] Hematocrit 36.0(L) 37.0 - 47.0 % LAB HEMETOLOGY METHOD 10/01/2024 11:46 AM EDT [facility] MCV 87.3 78.0 - 100.0 FL LAB HEMETOLOGY METHOD 10/01/2024 11:46 AM EDT [facility] MCH 27.7 25.0 - 33.0 pcg LAB HEMETOLOGY METHOD 10/01/2024 11:46 AM EDT [facility] MCHC 31.7(L) 32.0 - 36.0 g/dL LAB HEMETOLOGY METHOD 10/01/2024 11:46 AM EDT [facility] RDW 25.3(H) 12.1 - 16.2 % LAB HEMETOLOGY METHOD 10/01/2024 11:46 AM EDT [facility] Platelets 228 150 - 450 K/mcL LAB HEMETOLOGY METHOD 10/01/2024 11:46 AM EDT [facility] MPV 9.4 7.4 - 11.4 FL LAB HEMETOLOGY METHOD 10/01/2024 11:46 AM EDT [facility] Blood Venous blood specimen / Unknown Venipuncture / Unknown 10/01/2024 7:08 AM EDT 10/01/2024 7:18 AM EDT us Saleem Valenzuela MD LAB BLOOD ORDERABLES Izzy fountain Result [facility] [address] [place] [address], [place] [phone] * (ABNORMAL) Basic metabolic panel (10/01/2024 7:08 AM EDT) Sodium 139 135 - 145 mmol/L LAB CHEMISTRY METHOD 10/01/2024 7:49 AM EDT [facility] Potassium 3.3(L) 3.5 - 5.1 mmol/L LAB CHEMISTRY METHOD 10/01/2024 7:49 AM EDT [facility] Chloride 103 98 - 107 mmol/L LAB CHEMISTRY METHOD 10/01/2024 7:49 AM [facility] CO2 26 24 - 32 mmol/L LAB CHEMISTRY METHOD 10/01/2024 7:49 AM EDT [facility] Anion Gap 10 5 - 14 LAB CHEMISTRY METHOD 10/01/2024 7:49 AM EDT [facility] Glucose 151(H) 70 - 99 mg/dL LAB CHEMISTRY METHOD 10/01/2024 7:49 AM EDT [facility] BUN 13 7 - 17 mg/dL LAB CHEMISTRY METHOD 10/01/2024 7:49 AM [facility] Creatinine 0.50 0.50 - 1.00 mg/dL LAB CHEMISTRY METHOD 10/01/2024 7:49 AM EDT [facility] eGFR 106 >=60 mL/min/1. 73m2 LAB CHEMISTRY METHOD 10/01/2024 7:49 AM EDT [facility] Comment:Calculation based on the Chronic Kidney Disease Epidemiology Collaboration (CKD-EPI) equation refit without adjustment for race. BUN/Creatinine Ratio 26.0(H) 12.0 - 20.0 LAB CHEMISTRY METHOD 10/01/2024 7:49 AM EDT [facility] Calcium 9.1 8.4 - 10.2 mg/dL LAB CHEMISTRY METHOD 10/01/2024 7:49 AM EDT [facility] Blood Venous blood specimen / Unknown Venipuncture / Unknown 10/01/2024 7:08 AM EDT 10/01/2024 7:18 AM EDT us Saleem Valenzuela MD LAB BLOOD ORDERABLES Izzy fountain Result [facility] [address] [place] [address], [place] [phone] * MAMMOGRAM SCREENING BILATERAL 3D NICOLLE WITH [...] plain language report , as required by [facility] bill 485. Session: Separate session. Report reviewed and signed by : Dr. Matthew Serrato MD on 05/13/2020 4:27 PM. Workstation Name - [id number] Procedure Note Matthew Serrato MD - 06/02/2022 [...] plain language report , as required by [place] Statebill 485. Session: Separate session. Report reviewed and signed by : Dr. Matthew Serrato MD on 05/13/2020 4:27 PM.Workstation Name - [id number] Moise Palomino MD IMG BI PROCEDURES Final Resul t from Last 3 Months or Most Recently Relevant to Health Maintenance Insurance [employer] MEDICARE ADVANTAGE [place]ICAID [place] Care Teams Rn Clinician Relationship Specialty Start Date End Date Maurilio Burgess MD [address] [place] [address] [facility] [place] PCP - General Internal Medicine 06/17/24
--- OUTSIDE RECORDS SUMMARY | 2024-12-19 10:01 | XMS_ITS | Encounter Summary ---
Author Organization [facility] Address [address] [place] [address] Care Team Providers Care Physician Specialist Name Role Phone Sabrina Redd Primary Care Provider [phone] Encounter Details Date Type Department Care Team (Late st Contact Info) Description 04/09/2019 Abstract [facility] [address] [facility] [address] [facility] [place] [address] Antoni Patricio MD [address] [place] [phone] Social History Tobacco Use Types Packs/Day Years [...] on filedocumented in this encounter Care Teams Physician Specialist Relationship Specialty Start Date End Date Sabrina Redd PA [address] [place] [phone] PCP - General 07/12/22 documented as of this encounter
[2024-12-19 11:28] LABS: Iron 104 mcg/dL (30-160); Percent Iron Saturation 34 % (15-50); Total Iron Binding Capacity 306 mcg/dL (228-428); Unsaturated Iron Binding 202 ug/dL
== END 2024-12-19 09:43 | disposition home or self-care (01) ==
LOC: HO.LAB 09:42
PROVIDERS: PCP Internal Medicine; Visit Provider Internal Medicine
DX: M54.31 Sciatica, right side (principal); D64.9 Anemia, unspecified; E55.9 Vitamin D deficiency, unspecified; Z79.60 Long term (current) use of unspecified immunomodulators and immunosuppressants; M15.9 Polyosteoarthritis, unspecified; L40.50 Arthropathic psoriasis, unspecified
CPT/HCPCS: 36415; 82306; 83540; 99202

== ENCOUNTER 2024-12-19 10:25 | Outpatient (AMB) | payer MEDICARE, MEDICAID, SELFPAY ==
--- OUTSIDE RECORDS SUMMARY | 2024-12-19 10:55 | XMS_ITS ---
[facility] Name [facility] Organization Unknown Results Test Name/Text Value Interpretation Date Range Source RBC # Bld Auto 4.13 M/mcL Below low normal 10/01/2024 4.2 - 5.4 [facility] PMV Bld Auto 9.4 FL Normal 10/01/2024 7.4 - 11.4 [facility] WBC # Bld Auto 6.8 K/mcL Normal 10/01/2024 4 - 10.5 [facility] Hct VFr Bld Auto 36.0 % Below low normal 10/01/2024 37 - 47 [facility] RDW RBC Auto-Rto 25.3 % Above high normal 10/01/2024 12.1 - 16.2 [facility] Platelet # Bld Auto 228.0 K/mcL Normal 10/01/2024 150 - 4 50 [facility] MCH RBC Qn Auto 27.7 pcg Normal 10/01/2024 25 - 33 [facility] MCV RBC Auto 87.3 FL Normal 10/01/2024 78 - 100 [facility] Hgb Bld-mCnc 11.4 g/dL Below low normal 10/01/2024 12.5 - 16 [facility] MCHC RBC Auto-mCnc 31.7 g/dL Below low normal 10/01/2024 32 - 36 [facility] Glucose SerPl-mCnc 151.0 mg/dL Above high normal 10/01/2024 70 - 99 [facility] Sodium SerPl-sCnc 139.0 mmol/L Normal 10/01/2024 135 - 14 5 [facility] Calcium SerPl-mCnc 9.1 mg/dL Normal 10/01/2024 8.4 - 10.2 [facility] Anion Gap SerPl-sCnc 10.0 Normal 10/01/2024 5 - 14 [facility] BUN SerPl-mCnc 13.0 mg/dL Normal 10/01/2024 7 - 17 [facility] eGFRcr SerPlBld CKD-EPI 2020 106.0 mL/min/1.73m2 Normal 10/01/2024 - [facility] CO2 SerPl-sCnc 26.0 mmol/L Normal 10/01/2024 24 - 32 [facility] Chloride SerPl-sCnc 103.0 mmol/L Normal 10/01/2024 98 - 1 07 [facility] Creat SerPl-mCnc 0.5 mg/dL Normal 10/01/2024 0.5 - 1 [facility] Potassium SerPl-sCnc 3.3 mmol/L Below low normal 10/01/2024 3.5 - 5.1 [facility] BUN/Creat SerPl 26.0 Above high normal 10/01/2024 12 - 20 [facility] IRON 177.0 ug/dL Above high normal 12/17/2023 50 - 170 [facility] IRON BINDING CAPACITY,TOTAL 445.0 ug/dL Normal 12/17/2023 250 - 450 [facility] %SATURATION, IRON 40.0 % Normal 12/17/2023 20 - 55 [facility] 7.[facility] ng/mL Below low normal 12/17/2023 8 - 252 [facility] EOSINOPHILS 1.0 % Normal 12/17/2023 0 - 6 [facility] ABSOLUTE GRANULOCYTES 11.2 K/uL Above high normal 12/17/2023 2.2 - 7.3 [facility] ABSOLUTE LYMPHS 1.4 K/uL Below low normal 12/17/2023 1.5 - 4.9 [facility] MONOCYTES 6.0 % Normal 12/17/2023 0 - 12 [facility] ABSOLUTE NUCLEATED RBC 0.0 K/uL Normal 12/17/2023 0 - 0.012 [facility] ABSOLUTE EOS 0.1 K/uL Normal 12/17/2023 0 - 0.7 [facility] MH RDW 13.6 % Above high normal 12/17/2023 11.1 - 13.3 [facility] MPV 12.0 fL Normal 12/17/2023 8 - 12 [facility] LYMPHS 10.0 % Below low normal 12/17/2023 16 - 50 [facility] NUCLEATED RBC 0.0 % Normal 12/17/2023 0 - 0.2 [facility] MMH WBC 13.6 K/uL Above high normal 12/17/2023 3.7 - 10.3 [facility] MCV 89.0 fL Normal 12/17/2023 83 - 102 [facility] RBC 4.03 M/uL Normal 12/17/2023 4 - 5.4 [facility] ABSOLUTE IMMATURE GRANULOCYTES 0.0 K/uL Normal 12/17/2023 0 - 0.3 [facility] MCH 27.0 PG Normal 12/17/2023 27 - 34 [facility] HCT 35.7 % Below low normal 12/17/2023 36 - 46 [facility] HGB 10.9 g/dL Below low normal 12/17/2023 12.1 - 15.7 [facility] MCHC 30.5 g/dL Below low normal 12/17/2023 31 - 36 [facility] ABSOLUTE BASO 0.1 K/uL Normal 12/17/2023 0 - 0.2 [facility] MMH BASOPHILS 1.0 % Normal 12/17/2023 0 - 2 [facility] IMMATURE GRANULOCYTES 0.0 % Normal 12/17/2023 0 - 0.45 [facility] PLATELET COUNT 327.0 K/uL Normal 12/17/2023 150 - 480 [facility] ABSOLUTE MONOS 0.8 K/uL Normal 12/17/2023 0.2 - 1.5 CT[facility] H[facility]H GRANULOCYTES 82.0 % Above high normal 12/17/2023 23 - 78 [facility] COMMENT * Normal 12/17/2023 [facility] FERRITIN 11.0 ng/mL Normal 11/09/2023 8 - 252 [facility] %SATURATION, IRON 25.0 % Normal 11/09/2023 20 - 55 C [facility] IRON BINDING CAPACITY,TOTAL 399.0 ug/dL Normal 11/09/2023 250 - 450 [facility] IRON 100.0 ug/dL Normal 11/09/2023 50 - 170 [facility] H MCV 89.0 fL Normal 11/09/2023 83 - 102 [facility] MCHC 32.4 g/dL Normal 11/09/2023 31 - 36 [facility] ABSOLUTE BASO 0.0 K/uL Normal 11/09/2023 0 - 0.2 [facility] MMH WBC 7.5 K/uL Normal 11/09/2023 3.7 - 10.3 [facility] PLATELET COUNT 274.0 K/uL Normal 11/09/2023 150 - 480 [facility] RDW 14.2 % Above high normal 11/09/2023 11.1 - 13.3 [facility] HGB 12.2 g/dL Normal 11/09/2023 12.1 - 15.7 [facility] MCH 29.0 PG Normal 11/09/2023 27 - 34 [facility] ABSOLUTE LYMPHS 1.3 K/uL Below low normal 11/09/2023 1.5 - 4.9 [facility] RBC 4.23 M/uL Normal 11/09/2023 4 - 5.4 [facility] ABSOLUTE MONOS 0.4 K/uL Normal 11/09/2023 0.2 - 1.5 [facility] ABSOLUTE NUCLEATED RBC 0.0 K/uL Normal 11/09/2023 0 - 0.012 [facility] GRANULOCYTES 74.0 % Normal 11/09/2023 23 - 78 [facility] MH ABSOLUTE IMMATURE GRANULOCYTES 0.0 K/uL Normal 11/09/2023 0 - 0.3 [facility] NUCLEATED RBC 0.0 % Normal 11/09/2023 0 - 0.2 [facility] MMH BASOPHILS 1.0 % Normal 11/09/2023 0 - 2 [facility] HCT 37.6 % Normal 11/09/2023 36 - 46 [facility] LYMPHS 17.0 % Normal 11/09/2023 16 - 50 [facility] MPV 11.0 fL Normal 11/09/2023 8 - 12 [facility] EOSINOPHILS 2.0 % Normal 11/09/2023 0 - 6 [facility] ABSOLUTE EOS 0.2 K/uL Normal 11/09/2023 0 - 0.7 [facility] MH MONOCYTES 6.0 % Normal 11/09/2023 0 - 12 [facility] IMMATURE GRANULOCYTES 0.0 % Normal 11/09/2023 0 - 0.45 [facility] ABSOLUTE GRANULOCYTES 5.6 K/uL Normal 11/09/2023 2.2 - 7.3 [facility] COMMENT * Normal 11/09/2023 [facility] %SATURATION, IRON 24.0 % Normal 08/17/2023 20 - 55 [facility] IRON 83.0 ug/dL Normal 08/17/2023 50 - 170 [facility] IRON BINDING CAPACITY,TOTAL 342.0 ug/dL Normal 08/17/2023 250 - 450 [facility] FERRITIN 157.0 ng/mL Normal 08/17/2023 8 - 252 [facility] MCH 27.0 PG Normal 08/17/2023 27 - 34 [facility] WBC 9.4 K/uL Normal 08/17/2023 3.7 - 10.3 [facility] HGB 12.1 g/dL Normal 08/17/2023 12.1 - 15.7 [facility] ABSOLUTE NUCLEATED RBC 0.0 K/uL Normal 08/17/2023 0 - 0.012 [facility] ABSOLUTE EOS 0.2 K/uL Normal 08/17/2023 0 - 0.7 [facility] MH COMMENT * Normal 08/17/2023 [facility] ABSOLUTE MONOS 0.7 K/uL Normal 08/17/2023 0.2 - 1.5 [facility] ABSOLUTE GRANULOCYTES 7.0 K/uL Normal 08/17/2023 2.2 - 7.3 [facility] GRANULOCYTES 75.0 % Normal 08/17/2023 23 - 78 [facility] MH MCHC 31.6 g/dL Normal 08/17/2023 31 - 36 [facility] ABSOLUTE LYMPHS 1.5 K/uL Normal 08/17/2023 1.5 - 4.9 CTP [facility] MPV 11.0 fL Normal 08/17/2023 8 - 12 [facility] ABSOLUTE IMMATURE GRANULOCYTES 0.0 K/uL Normal 08/17/2023 0 - 0.3 [facility] PLATELET COUNT 289.0 K/uL Normal 08/17/2023 150 - 480 [facility] HCT 38.3 % Normal 08/17/2023 36 - 46 [facility] RBC 4.41 M/uL Normal 08/17/2023 4 - 5.4 [facility] ABSOLUTE BASO 0.1 K/uL Normal 08/17/2023 0 - 0.2 [facility] MMH RDW 16.8 % Above high normal 08/17/2023 11.1 - 13.3 [facility] BASOPHILS 1.0 % Normal 08/17/2023 0 - 2 [facility] MONOCYTES 7.0 % Normal 08/17/2023 0 - 12 [facility] EOSINOPHILS 2.0 % Normal 08/17/2023 0 - 6 [facility] NUCLEATED RBC 0.0 % Normal 08/17/2023 0 - 0.2 [facility] MMH MCV 87.0 fL Normal 08/17/2023 83 - 102 [facility] LYMPHS 16.0 % Normal 08/17/2023 16 - 50 [facility] IMMATURE GRANULOCYTES 0.0 % Normal 08/17/2023 0 - 0.45 [facility] APTT TIME PPP 32.0 sec Normal 06/18/2023 22 - 35 [facility] MH IRON 59.0 ug/dL Normal 06/15/2023 50 - 170 [facility] IRON BINDING CAPACITY,TOTAL 429.0 ug/dL Normal 06/15/2023 250 - 450 [facility] %SATURATION, IRON 14.0 % Below low normal 06/15/2023 20 - 55 [facility] FERRITIN 6.0 ng/mL Below low normal 06/15/2023 8 - 252 [facility] LYMPHS 18.0 % Normal 06/15/2023 16 - 50 [facility] MPV 10.0 fL Normal 06/15/2023 8 - 12 [facility] ABSOLUTE MONOS 0.8 K/uL Normal 06/15/2023 0.2 - 1.5 [facility] HCT 33.0 % Below low normal 06/15/2023 36 - 46 [facility] ABSOLUTE NUCLEATED RBC 0.0 K/uL Normal 06/15/2023 0 - 0.012 [facility] ABSOLUTE BASO 0.0 K/uL Normal 06/15/2023 0 - 0.2 [facility] MMH MCHC 30.6 g/dL Below low normal 06/15/2023 31 - 36 [facility] MONOCYTES 9.0 % Normal 06/15/2023 0 - 12 [facility] GRANULOCYTES 72.0 % Normal 06/15/2023 23 - 78 [facility] MH EOSINOPHILS 1.0 % Normal 06/15/2023 0 - 6 [facility] H RDW 14.6 % Above high normal 06/15/2023 11.1 - 13.3 [facility] NUCLEATED RBC 0.0 % Normal 06/15/2023 0 - 0.2 [facility] MMH WBC 9.7 K/uL Normal 06/15/2023 3.7 - 10.3 [facility] HGB 10.1 g/dL Below low normal 06/15/2023 12.1 - 15.7 [facility] RBC 3.88 M/uL Below low normal 06/15/2023 4 - 5.4 CT [facility] ABSOLUTE EOS 0.1 K/uL Normal 06/15/2023 0 - 0.7 [facility] IMMATURE GRANULOCYTES 0.0 % Normal 06/15/2023 0 - 0.45 [facility] MCV 85.0 fL Normal 06/15/2023 83 - 102 [facility] ABSOLUTE IMMATURE GRANULOCYTES 0.0 K/uL Normal 06/15/2023 0 - 0.3 [facility] ABSOLUTE GRANULOCYTES 7.0 K/uL Normal 06/15/2023 2.2 - 7.3 [facility] COMMENT * Normal 06/15/2023 [facility] BASOPHILS 0.0 % Normal 06/15/2023 0 - 2 [facility] MCH 26.0 PG Below low normal 06/15/2023 27 - 34 [facility] PLATELET COUNT 373.0 K/uL Normal 06/15/2023 150 - 480 CTP [facility] ABSOLUTE LYMPHS 1.7 K/uL Normal 06/15/2023 1.5 - 4.9 CTP [facility] INR PPP 0.9 Normal 06/15/2023 0.8 - 1.1 [facility] PT TIME PPP 10.5 sec Normal 06/15/2023 10.5 - 13.3 [facility] EMG Glomerular filtration rate/1.73 sq M. predicted 102.0 Normal 06/15/2023 60 - CT[facility] GLUCOSE SERPL MCNC 160.0 mg/dL Normal 06/15/2023 70 - 199 [facility] HCO3 SER SCNC 24.0 mmol/L Normal 06/15/2023 24 - 32 CTT [facility] SODIUM SERPL SCNC 144.0 mmol/L Normal 06/15/2023 135 - 14 5 [facility] CHLORIDE SERPL SCNC 108.0 mmol/L Above high normal 98 - 107 [facility] CREAT SERPL MCNC 0.6 mg/dL Normal 06/15/2023 0.5 - 1 [facility] POTASSIUM SERPL SCNC 3.9 mmol/L Normal 06/15/2023 3.5 - 5.1 [facility] ANION GAP SERPL SCNC 12.0 mmol/L Normal 06/15/2023 5 - 14 [facility] BUN SERPL MCNC 10.0 mg/dL Normal 06/15/2023 7 - 17 CTT [facility] CALCIUM SERPL MCNC 9.0 mg/dL Normal 06/15/2023 8.4 - 10.2 [facility] RDW RBC AUTO RTO 15.4 % Normal 06/15/2023 12.1 - 16.2 [facility] LYMPHOCYTES NFR BLD AUTO 16.0 % Below low normal 06/15/2023 20 - 48 [facility] RBC NO. BLD AUTO 3.8 M/uL Below low normal 06/15/2023 4.2 - 5.4 [facility] MONOCYTES NO. BLD AUTO 0.6 K/uL Normal 06/15/2023 0 - 0.8 [facility] WBC NO. BLD AUTO 7.9 K/uL Normal 06/15/2023 4 - 10.5 [facility] NEUTROPHILS NO. BLD AUTO 5.8 K/uL Normal 06/15/2023 1.8 - 7.8 [facility] EOSINOPHIL NO. BLD AUTO 0.1 K/uL Normal 06/15/2023 0 - 0.5 [facility] BASOPHILS IN BLOOD BY AUTOMATED COUNT 0.0 K/uL Normal 06/15/2023 0 - 0.2 [facility] HGB BLD MCNC 10.0 g/dL Below low normal 06/15/2023 12.5 - 16 [facility] LYMPHOCYTES NO. BLD AUTO 1.3 K/uL Normal 06/15/2023 1 - 3.2 [facility] EOSINOPHIL NFR BLD AUTO 1.6 % Normal 06/15/2023 0 - 6 [facility] MCV RBC AUTO 83.3 fL Normal 06/15/2023 78 - 100 [facility] MG MCH RBC QN AUTO 26.3 pg Normal 06/15/2023 25 - 33 CTT [facility] DIFFERENTIAL TYPE AUTOMATED Normal 06/15/2023 C T[facility]NEMG PMV BLD AUTO 9.8 fL Normal 06/15/2023 7.4 - 11.4 [facility] EMG PLATELET NO. BLD AUTO 349.0 K/uL Normal 06/15/2023 150 - 450 [facility] HCT VFR BLD AUTO 31.6 % Below low normal 06/15/2023 37 - 47 [facility] NEUTROPHILS NFR BLD AUTO 73.9 % Normal 06/15/2023 44 - 74 [facility] MCHC RBC AUTO MCNC 31.5 g/dL Below low normal 06/15/2023 32 - 36 [facility] BASOPHILS NFR BLD AUTO 0.4 % Normal 06/15/2023 0 - 2 [facility] MONOCYTES NFR BLD AUTO 8.1 % Normal 06/15/2023 2 - 12 [facility] History of Medication Use Medication Directions Dispensed Refills Start Date End Date Stat fentaNYL (PF) (SUBLIMAZE) injection intravenous, As needed, Starting on Sun10/01/24 at 0816, Intraprocedure 10/01/2024 5 completed heparin (UFH) injection intravenous, As needed, Starting on Sun10/01/24 at 0825, Intraprocedure 10/01/2024 5 completed iopamidoL (ISOVUE-300) 300 mg iodine /mL (61 %) solution 40 mL 40 mL, Other, Once in imaging, Starting on Sun10/01/24 at 0839, For 1 dose 10/01/2024 5 completed lidocaine (LMX) 4 % cream Topical, Once, On Sun10/01/24 at 0815, For 1 dose, Preprocedure, Apply to right wrist for access 10/01/2024 5 completed midazolam (VERSED) injection intravenous, As needed, Starting on Sun10/01/24 at 0808, Intraprocedure 10/01/2024 5 completed nitroglycerin (NITRO-BID) 2 % ointment 1 inch 1 inch, Topical, Once PRN Procedure, Appy to right wrist for access, Starting on Sun10/01/24 at 0749, For 1 dose, Preprocedure 10/01/2024 5 completed nitroglycerin (TRIDIL) injection intravenous, As needed, Starting on Sun10/01/24 at 0816, Intraprocedure 10/01/2024 5 completed verapamiL (ISOPTIN) injection intravenous, As needed, Starting on Sun10/01/24 at 0816, Intraprocedure 10/01/2024 5 completed predniSONE (DELTASONE) 50 mg tablet Take 1 tablet (50 mg total) by mouth 1 (one) time each day. for 5 days 07/23/2024 active pravastatin (PRAVACHOL) 40 mg tablet Take 1 tablet (40 mg total) by mouth 1 (one) time each day. 06/24/2024 active tiZANidine (ZANAFLEX) 4 mg capsule TAKE 1 CAPSULE BY MOUTH TWICE DAILY NEEDED FOR MUSCLE SPASMS OR NECK PAIN 06/13/2024 active aspirin 81 mg oral capsule 1 cap, Oral, Daily, do not exceed 48 capsules in 24 hours, # 30 cap, 0 Refill(s) 07/06/2023 Ordered Glucophage 500 mg oral tablet 1 tab, Oral, BID, # 180 tab, 0 Refill(s) 07/06/2023 Ordered pantoprazole 40 mg oral delayed release tablet 1 tab, Oral, BID, # 60 tab, 0 Refill(s) 07/06/2023 Ordered pravastatin 40 mg oral tablet 1 tab, Oral, Daily, # 30 tab, 0 Refill(s) 07/06/2023 Ordered traMADol 50 mg oral tablet 1 tab, Oral, every 12 hr, PRN as needed for pain, 0 Refill(s) 07/06/2023 Ordered Suprep Bowel Prep Kit oral liquid 360 mL, Oral, As Directed, X 1 doses, # 1 EA, 0 Refill(s), Pharmacy: [facility]/pharmacy #[id number] 04/26/2023 Ordered Custom Compound Lidocaine 4% nasal spray instill 1-2 sprays intranasally every 4-6 hours if needed for headache 02/06/2023 3 active nortriptyline (PAMELOR) 10 MG capsule 1 cap po qhs x 1 week then increase each week by 1 cap up to 3 caps po qhs 02/06/2023 active benzonatate (TESSALON) 200 MG capsule Take 1 capsule (200 mg total) by mouth 3 (three) times a day as needed for cough. 09/19/2022 3 active fluticasone (FloNASE) 50 mcg/spray nasal spray 1-2 SPRAYS DAILY BY NASAL ROUTE FOR 7 DAYS INDICATIONS: RHINITIS 04/18/2022 active blood-glucose meter (OneTouch Ultra2 Meter) misc 04/29/2020 active ondansetron (ZOFRAN) 4 MG tablet Take 1 tablet (4 mg total) by mouth 3 times daily (every 8 hours) as needed for nausea or vomiting. 12/31/2019 active nateglinide (STARLIX) 120 MG tablet 2 (two) times a day. 04/07/2019 active topiramate (TOPAMAX) 100 MG tablet 2 (two) times a day. 04/07/2019 active traMADol (ULTRAM) 50 MG tablet 2 (two) times a day. 100 mg bid 03/14/2019 active albuterol (Ventolin HFA) 108 (90 Base) MCG/ACT inhaler 2 puffs every 4 (four) hours. active albuterol HFA (PROAIR HFA ; PROVENTIL HFA ; VENTOLIN HFA) 90 mcg/actuation inhaler active Aspirin 81 MG Cap Take by mouth. active aspirin 81 mg capsule Take by mouth daily. active butalbital-acetamin ophen-caffeine (FioriCET, ESGIC) 50-325-40 mg tablet Take 1 tablet by mouth 4 times daily (every 6 hours) as needed for headaches. Max: 6 capsules/tablets in 24 hours active fluticasone propionate (FLONASE) 50 mcg/actuation nasal spray USE 1 SRPAY INTO EACH NOSTRIL DAILY NEEDED FOR ALLERGY SYMPTONS. active memantine (NAMENDA) 10 mg tablet Take 1 tablet (10 mg total) by mouth 2 (two) times a day. active metFORMIN (GLUCOPHAGE) 500 mg tablet Take 1 tablet (500 mg total) by mouth 2 (two) times a day. active nateglinide (STARLIX) 120 mg tablet TAKE 1 TABLET BY MOUTH DAILY THREE TIMES DAILY BEFORE MEALS active nortriptyline (PAMELOR) 10 mg capsule Take 1 capsule (10 mg total) by mouth. at bedtime active Nurtec 75 mg dispersible tablet DISSOLVE 1 TABLET ON THE TONGUE EVERY OTHER DAY NEEDED FOR MIGRAINE HEADACHE active Otezla 30 mg tablet TAKE 1 BY MOUTH TWICE DAILY active pantoprazole (PROTONIX) 40 mg EC tablet Take 1 tablet (40 mg total) by mouth 1 (one) time each day. active pregabalin (LYRICA) 75 mg capsule Take 1 capsule (75 mg total) by mouth 2 (two) times a day. active topiramate (TOPAMAX) 100 mg tablet Take 1 tablet (100 mg total) by mouth 2 (two) times a day. active traMADoL (ULTRAM) 50 mg tablet Take 1 tablet (50 mg total) by mouth 2 (two) times a day if needed. active Allergies Allergen Reaction Severity Comment Documented Date Source Statu s CLOPIDOGREL RASH/DERMATITIS 01/17/2023 [facility] a ctive MILNACIPRAN PALPITATIONSUNKNOW N/PATIENT AND FAMILY UNABLE TO DEFINE Tachicardia 02/12/2019 [facility] active PROMETHAZINE PALPITATIONS Tachicardia 180/min - she had to be taken to ER. 04/10/2012 [facility] active PHENERGAN TACHYCARDIA [facility] PLAVIX RASH [facility] SAVELLA TACHYCARDIA [facility] Problems Problem Status Onset Date Problem Type Date of Resoluti on Source Cerebral aneurysm, nonruptured active 2024-07-03 ProblemAct [facility] Hematemesis active 2019-04-15 ProblemAct [facility] Rheumatoid arthritis (disorder) active ProblemAct [facility] Personal history of colonic polyps active 2019-04-15 ProblemAct [facility] Iron deficiency anemia active 2019-04-15 ProblemAct [facility] Nausea & vomiting active 2020-09-08 ProblemAct [facility] Fibromyalgia (disorder) active ProblemAct [facility] Diabetes mellitus type 2 (disorder) active ProblemAct [facility] Intracranial aneurysm (disorder) active ProblemAct [facility] Anemia (disorder) active ProblemAct [facility] Gastroesophageal reflux disease active 2019-04-15 ProblemAct [facility] Gastroesophageal reflux disease with esophagitis (disorder) active ProblemAct [facility] Depressive disorder (disorder) active ProblemAct [facility] Encounters Encounter Type Encounter Reason Primary Diagnosis Location Date Ambulatory Cerebral aneurysm, nonruptured Cerebral aneurysm, nonruptured [facility] 10/01/2024 Ambulatory VENOFER IRON DEFICIENCY ANEMIA VENOFER IRON DEFICIENCY ANEMIA [facility] 01/28/2024 Ambulatory VENOFER IRON DEFICIENCY ANEMIA V[facility]OF[facility] IRON DEFICIENCY ANEMIA [facility] 01/21/2024 Ambulatory VENOFER IRON DEFICIENCY ANEMIA VENOFER IRON DEFICIENCY ANEMIA [facility] 01/14/2024 Ambulatory VENOFER IRON DEFICIENCY ANEMIA VENOFER IRON DEFICIENCY ANEMIA [facility] 01/07/2024 Ambulatory VENOFER IRON DEFICIENCY ANEMIA VENOFER IRON DEFICIENCY ANEMIA [facility] 12/31/[address] [facility] 12/17/2023 Ambulatory Follow-up Follow-up [facility] 11/27/[address] [facility] 11/09/[address] [facility] 09/25/[address] [facility]. 08/17/2023 Ambulatory UPPER DOUBLE BALLOON/CPT 69106/ICD10 D50.9 [facility] 07/06/2023 Ambulatory Encounter for preprocedural cardiovascular examination Encounter for preprocedural cardiovascular examination [facility] 06/18/[address] [facility] 06/15/2023 Ambulatory [facility]. 05/31/2023 Ambulatory Chronic migraine without aura, not intractable, with status migrainosus Chronic migraine without aura, not intractable, with status migrainosus [facility] 05/09/2023 Ambulatory pre E [facility] 04/24/2023 Ambulatory Iron deficiency anemia, unspecified Iron deficiency anemia, unspecified [facility] 04/06/[address] [facility] 2023 Ambulatory [facility] 2023 Ambulatory [facility] 2023 Ambulatory Chronic migraine without aura, not intractable, with status migrainosus Chronic migraine without aura, not intractable, with status migrainosus [facility] 02/06/2023 Ambulatory Type 2 diabetes mellitus without complications Type 2 diabetes mellitus without complications [facility] 01/26/2023 Ambulatory Iron deficiency anemia, unspecified Iron deficiency anemia, unspecified [facility] 01/19/[address] [facility] 01/08/2023 Ambulatory Iron deficiency anemia, unspecified Iron deficiency anemia, unspecified [facility] 12/28/2022 Ambulatory Iron deficiency anemia, unspecified [facility] 12/28/2022 Ambulatory Contact with and (suspected) exposure to covid-19 [facility] 09/19/2022 Ambulatory Iron deficiency anemia, unspecified [facility] 04/08/2021 Ambulatory Iron deficiency anemia, unspecified [facility] 03/29/2021 Care Team Organization Name Specialty Phone Email Start Date End Da te [facility] Maurilio Burgess MD Primary Care 10/03/2024 [facility] Maurilio Burgess MD Primary Care 10/01/2024 [facility] 09/21/202310/09 [facility] [employer] 08/14/2023 11/11/2023 [facility] 07/05/202306/12 [facility] provided,No Primary Care 07/01/2023 04/27/2024 [facility] 05/31/2023 04/27/2024 [facility] provided No Primary Care 05/31/2023 04/27/2024 [facility] No provided Primary Care 05/31/2023 023 [facility] 04/25/2023 [facility] 04/24[facility]2023 [facility] 04/17/2023 11/21/2024 [facility] QUAN RIOJASANCHI Primary Care 02/20/202302/20 [facility] Steffi Escalera Primary Care 02/06/2023 08/27/20[facility] 01/19/2023 11/08/2024 [facility] Steffi Escalera Primary Care 01/19/2023 01/19/2023 [facility] provided No Primary Care 01/08/2023 01/28/2024 [facility] No provided Primary Care 01/08/2023 023 [facility] QUAN MUHAMMAD Primary Care 12/28/202208/27 [facility] 12/02/2022 [facility] Primary Care 0 11/01/2022 11/01/2022 [facility] Luis Carlos Reddy Primary Care 04/08/2021 08/27/2024 [facility] LUIS CARLOS REDDY Primary Care 03/29/2021 04/08/2021
--- NOTE | 2024-12-19 10:58 | A.OFFVIS_ITS ---
Vital Signs 12/19/24 11:10 Height 5 ft 3 in Weight 145 lb 1.027 oz BMI 25.7 BP 115/60 Blood Pressure Location Lt brachial Position Sitting Pulse 78 Pulse Source Pulse Oximeter Pulse Oximetry (%) 98 Oxygen Delivery Method Room Air Intake Visit Reasons: Rheumatoid arthritis/New Patient Intake Note: Patient presents for RA. Patient stated she feels pain on her bones, muscles and joints pretty much all over her body. Patient has been having pain all over her body for 35 to 40 years. Patient takes Tramadol and Pregabalin at the same time in the am and at night. Patient stated it decreases the pain but it doesn't take it away. Patient also stated she started Skyrizi auto injector pen on 12/18/24. Allergies clopidogrel (From Plavix) Allergy (Severe, Verified 12/19/24 11:08) Rash milnacipran (From Savella) Adverse Reaction (Severe, Verified 12/19/24 11:08) tachycardia promethazine (From Phenergan) Adverse Reaction (Severe, Verified 12/19/24 11:08) tachycardia Medication List - Last Reconciled 12/19/24 by Brook Whipple MD acetaminophen ER (Tylenol 8 Hour) 650 mg PO Q12H PRN 90 days aspirin 81 mg PO DAILY 90 days cetirizine (Zyrtec) 10 mg PO DAILY PRN 90 days cholecalciferol (vitamin D3) 50 mcg PO DAILY 90 days fluticasone propionate 50 mcg/actuation 1 spray intranasal DAILY PRN 90 days lifitegrast 5% (Xiidra) drps ophthalmic (eye) memantine 10 mg PO BID 90 days metformin 500 mg PO BID 90 days nateglinide 120 mg PO TID 90 days nortriptyline 10 mg PO BEDTIME 90 days pantoprazole 40 mg PO DAILY 90 days pravastatin 40 mg PO DAILY 90 days pregabalin 75 mg PO BID 30 days rimegepant (Nurtec ODT) 75 mg PO Q OTHER DAY PRN 30 days risankizumab-rzaa (Skyrizi) 150 mg subcut Q12W simethicone (Gas Relief (simethicone)) 125 mg PO BID-QID PRN 90 days tizanidine 4 mg PO BID PRN topiramate 100 mg PO BID 90 days tramadol 50 mg PO BID PRN MDD yes HPI Comments Details: Patient is a 64-year-old female with dementia 2/2 brain tumors s/p surgeries, M PALLAVI c/b chronic anemia, GERD, hyperlipidemia, diabetes, psoriasis and psoriatic arthritis here today to establish care Diagnosed with PsO in her 40s Patient was in [place] at that time Started on medications (patient unsure of what those were), finally ended up on Otezla and was doing well. Also had some joint complaints which was attributed to PsA. Was in remission until 3-4 months ago when she noted worsening psoriasis involving in the elbows, legs and genital area. Saw dermatology and was switched to Skyrizi 1 week ago with improvement Today, Main complaint is back pain with sciatica on the right No dactylitis or AM stiffness [facility] Medical History (Updated 12/19/24 @ 11:22 by Brook Whipple MD) Psoriatic arthritis Vitamin D deficiency Psoriasis Migraine Brain aneurysm Chronic anemia Overweight (BMI 25.0-29.9) Chronic pain Allergic rhinitis GERD without esophagitis Diabetes mellitus Pure hypercholesterolemia Cardiac murmur Surgical History History of hysterectomy History of abdominoplasty S/P brachioplasty History of appendectomy History of cholecystectomy History of colon resection History of reduction mammoplasty History of rotator cuff surgery History of gastric bypass History of carpal tunnel surgery of right wrist History of carpal tunnel surgery of left wrist Hx of brain surgery Family History Sister Breast cancer Other Diabetes Schizophrenia Social History Housing: Apartment Patient Tobacco Use Status: Former Tobacco user e-Cigarette/Vaping Use: Never Used Second Hand Smoke Exposure: No service: No Current occupational status: retired Current occupational exposures/hazards: No Cognitive needs: No Hearing needs: No Vision needs: No Female Reproductive History Menstrual Age of Menarche: 14 Review of Systems Const Details: Review of Systems Constitutional: Denies fever, chills, weight loss ENT: Denies vision changes, eye pain or eye redness, dental caries, dry mouth GI: Denies nausea, vomiting, diarrhea, abdominal pain, change in BM Pulm: Denies SOB, DOSS, hemoptysis, wheezing Cards: Denies chest pain, palpitations Skin: Denies Raynaud's, photosensitivity, PURIFICATION DIRECTOR: Denies headaches, weakness, paresthesias, recurrent falls MSK: as per HPI All other systems reviewed and are unremarkable except noted above Physical Exam Vital Signs: Last Vital Signs Pulse 78 12/19/24 11:10 BP 115/60 12/19/24 11:10 Pulse Ox 98 12/19/24 11:10 Oxygen Delivery Method Room Air 12/19/24 11:10 BMI result Body Mass Index 25.7 Vital signs reviewed Physical Examination CONSTITUITIONAL Patient alert and cooperative. Well appearing and in no apparent painful distress HEENT Conjunctiva and sclera clear. No lymphadenopathy. CHEST/RESPIRATORY SYSTEM Normal respiratory effort and able to speak in complete sentences. Clear to auscultation bilaterally. No crackles, rales, rhonchi, wheezes heard. CARDIAC SYSTEM Regular rate and rhythm. S1 and S2 heard no murmurs. Radial pulses intact bilaterally MSK Hands * Right Hand: Able to make a fist. No swelling or tenderness to palpation of these joints. * Left Hand: Able to make a fist. No swelling or tenderness to palpation of these joints. * Herbedens nodes and Bouchards noted bilaterally Wrists * Right Wrist: Full ROM. 70 degrees of wrist flexion, 80 degrees of wrist extension. No swelling or TTP * Left Wrist: Full ROM. 70 degrees of wrist flexion, 80 degrees of wrist extension. No swelling or TTP Elbows * Right Elbow: Full ROM. No swelling or TTP. No TTP of the medial and lateral epicondyles * Left Elbow: Full ROM. No swelling or TTP. No TTP of the medial and lateral epicondyles Shoulders * Right shoulder: Full ROM. No swelling noted. No TTP of the AC joint, subacromial bursa or posterior shoulder * Left shoulder: Full ROM. No swelling noted. No TTP of the AC joint, subacromial bursa or posterior shoulder Knees * Right knee: Full ROM. No swelling noted. No TTP of the knee joint lie or pes anserine bursa * Left knee: Full ROM. No swelling noted. No TTP of the knee joint lie or pes anserine bursa. * Crepitations felt bilaterally Ankles * Right ankle: Good ankle dorsiflexion and plantar flexion. No swelling. No TTP of the ankle joint * Left ankle: Good ankle dorsiflexion and plantar flexion. No swelling. No TTP of the ankle joint Feet * Right foot: Negative squeeze test * Left foot: Negative squeeze test Tender points? * No tenderness to palpation of the bilateral trapezius, supraspinatus, anterior costochondral junctions, bilateral suboccipital muscle insertions SKIN PsO to the elbows, right posterior thigh Results Reviewed Results Reviewed: Laboratory Tests 10/06/24 12/01/24 11:30 11:05 WBC 9.2 RBC 4.29 Hgb 12.7 Plt Count 277 ESR 12 Sodium 141 Potassium 3.9 Chloride 107 Carbon Dioxide 23 BUN 11 Creatinine 0.65 AST 82 H ALT 68 H C-Reactive Protein < 0.10 25-OH Vitamin D Total 15.1 L Assessment & Plan Assessment & Plan (1) Psoriatic arthritis: Code(s): L40.50 - Arthropathic psoriasis, unspecified Plan: #PsO/PsA Patient is a 64-year-old female with a previous diagnosis of psoriasis complicated by psoriatic arthritis here today to establish care. Currently in a flare of her psoriasis and under the management of Dermatology with recent change of her Otezla to Skyrizi. She has only been on Skyrizi for 1 week and has noticed some improvement in her psoriasis. Denies any dactylitis or any active psoriatic arthritis-type symptoms. Then there is no evidence of synovitis on examination today. Plan - Continue Skyrizi as per derm - No additional immunosuppression needed at this time - RTC 1 year or sooner (2) Polyarticular osteoarthritis: Code(s): M15.9 - Polyosteoarthritis, unspecified Plan: #Polyarticular OA Patient with polyarticular osteoarthritis as evidenced by her Heberden and Joshua uchard's nodes of her hands as well as crepitations noted to her knees. Patient can continue taking Tylenol extended release as needed for pain (3) Sciatica of right side: Code(s): M54.31 - Sciatica, right side Plan: #Sciatica on the right side Refer to pain management (4) penitentiary current use of risankizumab: Code(s): Z79.620 - penitentiary (current) use of immunosuppressive biologic Plan: #Long-term IL 23 Inhibitors: Guselkumab (Tremfya)/ Risankizumab (Skyrizi) Risks and benefits of IL 23 inhibitors in the management of psoriatic arthritis and psoriasis discussed with the patient Benefits include improved psoriasis and psoriatic arthritis Risks include GI upset, injection site reactions, increased risk of fungal infections and other serious infections Plan I spent 45 minutes reviewing the record and labs, taking a history, examining the patient, discussing the treatment plan, ordering diagnostic work up and documenting in the medical record Orders: Referrals Pain Management Referral M54.31 - Sciatica, right side Coding Level of Care Code New Pt Level 4 (36531) Complex EM visit Add On G2211 Diagnoses Psoriatic arthritis L40.50 Polyarticular osteoarthritis M15.9 Sciatica of right side 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
[2024-12-19 11:10] VITALS: BP 115/60; PULSE 78; O2SAT 98; BMI 25.7
== END 2024-12-19 11:49 | disposition home or self-care (01) ==
LOC: HO.RHE 10:25
PROVIDERS: PCP Internal Medicine; Visit Provider Student in an Organized Health Care Education/Training Program
DX: L40.50 Arthropathic psoriasis, unspecified (principal); M15.9 Polyosteoarthritis, unspecified; M54.31 Sciatica, right side; Z79.620 Long term (current) use of immunosuppressive biologic
CPT/HCPCS: 99204; G2211

== ENCOUNTER 2025-01-05 15:33 | Outpatient (AMB) | payer MEDICARE, MEDICAID, SELFPAY ==
--- NOTE | 2025-01-05 15:34 | A.OFFVIS_ITS ---
Vital Signs 01/05/25 15:39 Height 5 ft 3 in Weight 148 lb 8 oz BMI 26.3 BP 120/58 L Blood Pressure Location Rt brachial Position Sitting Pulse 105 H Pulse Source Pulse Oximeter Pulse Oximetry (%) 100 Oxygen Delivery Method Room Air Intake Visit Reasons: Sciatica Intake Note: Pain today 11/18 Collection Systems Modeler Required: No Accompanied by: Self / Same As Patient Allergies clopidogrel (From Plavix) Allergy (Severe, Verified 01/05/25 15:38) Rash milnacipran (From Savella) Adverse Reaction (Severe, Verified 01/05/25 15:38) tachycardia promethazine (From Phenergan) Adverse Reaction (Severe, Verified 01/05/25 15:38) tachycardia HPI Comments Details: The patient is a 64-year-old female presenting with chronic low back pain with right-sided sciatica. She reports that the pain has been present for 35 years, with episodes of exacerbation and remission. The pain is described as constant, stabbing, tugging, pulling, tight, and squeezing, with a severity of more than 9 out of 10 at night and 4 to 5 out of 10 at noon. The patient has a history of a brain aneurysm treated approximately 10 years ago in [place], [place]. Post-surgery, she experienced memory loss and was lost for about three years before partial memory recovery. A second aneurysm is currently being monitored, with a Neurosurgical evaluation scheduled for next month. She also has a history of fibromyalgia and rheumatoid arthritis, contributing to her chronic pain. The patient is on permanent disability due to these conditions. Prior to this, she was working as registered nurse. Her surgical history is extensive, including gastric bypass, abdomenoplasty, brachioplasty, hysterectomy, cholecystectomy, colon resection, reduction mammoplasty, rotator cuff surgery, and bilateral carpal tunnel release. She reports a history of diabetes with well controlled A1C (most recent less than 6), heart disease and scoliosis. The patient uses Nurtec for migraine headaches and reports using ibuprofen occasionally but usually avoids due to previous bariatric surgery and brain aneurysm. She has not engaged in physical therapy recently due to financial constraints and significant low back pain but has tried lidocaine patches, oral medications and topical creams for pain relief. She drinks coffee four to five times a day and uses marijuana recreational, provided by her son. - Onset: 35 years ago - Quality: Constant, stabbing, tugging, pulling, tight, squeezing, radiating - Severity: More than 9/10 at night, 4-5/10 at noon - Location: Lower back with radiation to right leg; widespread body pain - Exacerbating factors: Movement, pressure, weather changes - Relieving factors: Lidocaine patch, topical cream, Tylenol, pregabalin, tramadol, tizanidine - Affect: Pain impacts daily activities and sleep, causing significant discomfort. - Analgesia: Uses Nurtec for migraines, ibuprofen occasionally, prescribed medications, lidocaine patches, and topical creams for pain relief. - Adverse Effects: None reported from current medications. - Activities of Daily Living: Pain limits physical activity and affects sleep quality. - Aberrant Drug Related Behaviors: None reported. COUNT INCLUDES THE [facility] Medical History (Updated 01/05/25 @ 17:42 by Dennis Ayala MD) Psoriatic arthritis Vitamin D deficiency Psoriasis Migraine Brain aneurysm Chronic anemia Overweight (BMI 25.0-29.9) Chronic pain Allergic rhinitis GERD without esophagitis Diabetes mellitus Pure hypercholesterolemia Cardiac murmur Surgical History History of hysterectomy History of abdominoplasty S/P brachioplasty History of appendectomy History of cholecystectomy History of colon resection History of reduction mammoplasty History of rotator cuff surgery History of gastric bypass History of carpal tunnel surgery of right wrist History of carpal tunnel surgery of left wrist Hx of brain surgery Family History Sister Breast cancer Other Diabetes Schizophrenia Social History Housing: Apartment Patient Tobacco Use Status: Former Tobacco user e-Cigarette/Vaping Use: Never Used Second Hand Smoke Exposure: No service: No Current occupational status: retired Current occupational exposures/hazards: No Cognitive needs: No Hearing needs: No Vision needs: No Female Reproductive History Menstrual Age of Menarche: 14 Review of Systems Const Details: - Musculoskeletal: Reports chronic low back pain, right-sided sciatica, and joint pain. - Neurological: Reports memory loss post-brain surgery, imbalance when walking. Denies bladder or bowel dysfunction or saddle anesthesia. All systems reviewed & are unremarkable except as noted in HPI and below Physical Exam Vital Signs: Last Vital Signs Pulse 105 H 01/05/25 15:39 BP 120/58 L 01/05/25 15:39 Pulse Ox 100 01/05/25 15:39 Oxygen Delivery Method Room Air 01/05/25 15:39 BMI result Body Mass Index 26.3 General: Appears afebrile. Alert and oriented. Mood and affect appropriate. Follows and participates in conversation appropriately. Respiratory effort is unlabored. No cough. Able to transition from sit to stand unassisted. Reports imbalance with walking. Ambulates with bilaterally normal heel strike and toe off, right buttock pain with toe standing. General: Yes no CVA tenderness Back/Spine/Pelvis Other: Limited lumbar ROM due to pain. Lumbar extension reproduces moderate pain, lumbar flexion and limited bending reproduces mild to moderate pain. Demonstrates 5/5 strength of quadriceps bilaterally as well as flexion/dorsiflexion of bilateral feet against resistance. 2+ pedal pulses bilaterally. Straight leg rise with dorsiflexion negative bilaterally. +2 patellar and achilles reflexes bilaterally. Facet loading test positive bilaterally. Mahnaz sign, Chris?s, Gaenslen, Pelvic compression and Stin chfield tests are positive bilaterally, left>right. No groin pain with I/E hip rotations. +TTP bilateral lateral hips/GTB. Valsalva maneuver negative. Back: no CVA tenderness Cervical Spine: cervical ROM normal, cervical muscular tenderness and No Cervical spine tenderness Thoracic/Lumbar Spine: thoracic and lumbar spine normal to inspection, No Thoracic/lumbar spine scar(s), Lasegue's sign negative, straight leg raise negative bilaterally, pain with thoraco-lumbar ROM, paraspinal muscle tenderness, thoraco-lumbar ROM limited, No thoracic spinal tenderness and lumbar spinal tenderness at L4 and at L5 Pelvis: buttock tenderness bilaterally Sacroiliac joints: bilaterally tender to palpation Results Reviewed Results Reviewed: XR lumbar spine 4V min 01/05/25 TECHNIQUE: AP, lateral, lateral spot, bilateral oblique view x-rays of the lumbar spine. INDICATION: M47.816 - Spondylosis without myelopathy or radiculopathy, lumbar region FINDINGS: Right upper quadrant clips are likely from cholecystectomy. Moderate calcification is visible in the abdominal aorta. There are 5 non-rib bearing lumbar segments. Vertebral body height and alignment is preserved. T12-L1: There is minimal disc space narrowing. L1-L2: There is mild disc space narrowing and minimal endplate sclerosis involving L2. L2-L3: There is subtle retrolisthesis and mild disc space narrowing with osteophytes involving L3, very small. L3-L4: There is subtle retrolisthesis, mild disc space narrowing, and anterior osteophytes. There is mild facet sclerosis L4-L5: There is subtle retrolisthesis and mild disc space narrowing. L5-S1: Unremarkable. Oblique views demonstrate no pars interarticularis defects. IMPRESSION: Mild degenerative disc disease. XR BILATERAL HIPS WITH AP PELVIS 01/05/25 CLINICAL INFORMATION: M25.551 - Pain in right hip COMPARISON: None available. TECHNIQUE: AP and frog-leg lateral views of each hip and an AP view of the pelvis. FINDINGS: Portable view of the pelvis shows symmetrical hip and SI joints with minimal osteophyte formation along the inferior left. No abnormal soft tissue calcifications are identified. Right hip demonstrates small acetabular roof osteophytes. There are also peripheral tibial osteophytes. Left hip joint demonstrates roof osteophytes. IMPRESSION: Mild/early changes of osteoarthritis involving bilateral hips and left SI joint. Assessment & Plan Assessment & Plan (1) Bilateral hip pain: Code(s): M25.551 - Pain in right hip; M25.552 - Pain in left hip Category: Medical (2) Chronic low back pain: Code(s): M54.50 - Low back pain, unspecified; G89.29 - Other chronic pain Category: Medical (3) Lumbar spondylosis: Code(s): M47.816 - Spondylosis without myelopathy or radiculopathy, lumbar region Category: Medical (4) Sacroiliac joint pain: Code(s): M53.3 - Sacrococcygeal disorders, not elsewhere classified Category: Medical Plan Given the patient's significant pain and pending Neurosurgical evaluation for a new brain aneurysm, physical therapy will be deferred at this time. Bilateral hips and SI joint xray imaging was conducted after today's visit, consistent with patient's back exam for low back and SI joint pain. She reports hip pain without radiation into her groin. We discussed interventional treatments, including diagnostic vs therapeutic SI joint and diagnostic lumbar medial branch blocks for potential RFA procedure. Patient is hesitant towards injections but might consider injections under light sedation. All questions and concerns have been answered and patient agreed with the plan. Follow up as needed. Patient was informed and verbally consented to the use of an ambient scribe for clinic note documentation during this visit. Orders: Orders XR hip BI w PEL1V Today M25.551 - Pain in right hip, M25.552 - Pain in left hip, M53.3 - Sacrococcygeal disorders, not elsewhere classified XR lumbar spine 4V min Today G89.29 - Other chronic pain, M47.816 - Spondylosis without myelopathy or radiculopathy, lumbar region, M53.3 - Sacrococcygeal disorders, not elsewhere classified, M54.50 - Low back pain, unspecified Coding Level of Care Code New Pt Level 4 (91295) Diagnoses Bilateral hip pain M25.551; M25.552 Chronic low back pain M54.50; G89.29 Lumbar spondylosis M47.816 Sacroiliac joint pain M53.3
[2025-01-05 15:39] VITALS: BP 120/58; PULSE 105; O2SAT 100; BMI 26.3
--- OUTSIDE RECORDS SUMMARY | 2025-01-05 15:52 | XMS_ITS | Encounter Summary ---
Author Organization [facility] Address [address] [place] [address] Care Team Providers Care Healthcare Analyst Name Role Phone Sabrina Redd Primary Care Provider [phone] Encounter Details Date Type Department Care Team (Late st Contact Info) Description 04/09/2019 Abstract [facility] [address] [place] [address] Antoni Patricio MD [address] [place] [id number] Social History Tobacco Use Types Packs/Day Years [...] filedocumented in this encounter Care Teams Healthcare Analyst Relationship Specialty Start Date End Date Sabrina Redd PA [address] [place] [id number] PCP - General 07/12/22 documented as of this encounter
--- OUTSIDE RECORDS SUMMARY | 2025-01-05 15:52 | XMS_ITS | Clinical Summary ---
Author Organization [facility] Address [address] [place] [address] Care Team Providers Care Sensory Scientist Name Role Phone Lucas Wen APRN Primary Care Provider Sina lopez Allergies Active Allergy Reactions Criticality Noted Date Comments Milnacipran Palpitations,Other ( See Comments) Medium 02/12/2019 Tachycardia Clopidogrel Rash Low 11/01/2022 Promethazine Palpitations,Other ( See Comments) Medium 04/10/2012 Tachycardia 180/min - she had to be taken to ER. Medications Medication Sig Dispensed Refills Start Date End Date Status [id number] Cmp-C-Biot (INTEGRA PLUS) CAPS Take 1 tablet [...] long-term current use of insulin ([facility]) Test one to two times [...] records for review Pt was followed by [facility] in [place], will need f/u care here also Overview: Last Assessment & Plan: Continue oral iron Need old records for review Pt was followed by [facility] in [place], will need f/u care here also Last Assessment & Plan: Continue oral iron Need old records for review Pt was followed by [facility] in [place], will need f/u care here also Last Assessment & Plan: Continue oral iron Need old records for review Pt was followed by [facility] in [place], will need f/u care here also Hematemesis [...] discussed the minimal potential risk with termite control representative PPI use. Based on AGA expert review the quality of evidence behind snf kidney disease, dementia, bone fractures, and infection with PPI use is low. The current data suggests that termite control representative PPI use does not require routine screening [...] low. The current data suggests that termite control representative PPI use does not require routine screening [...] aneurysm s/p trapping/bypass by Dr. Colin in [place] in 04/2015 Chronic migraine without aur a [...] Advance Directives For more information, please contact: [phone] Latest Code Status on File Code Status [...] 7:25 PM 01/06/2020 7:55 PM Care Teams Sensory Scientist Relationship Specialty Start Date End Date Lucas Wen APRN PCP - General Cardiology 11/01/22
--- OUTSIDE RECORDS SUMMARY | 2025-01-05 15:52 | XMS_ITS | Encounter Summary ---
Author Organization [facility] Address [address] [place] [id number] Care Team Providers Care Combination Machine Tool Operator Name Role Phone Steffi Escalera APRN Primary Care Provider Myesha Hwang MD Unavailable Encounter Details Date Type Department Care Team (Late st Contact Info) Description 02/06/2023 Scanned Document [facility] [address] [phone] [place] [address] Social History Tobacco Use Types [...] on filedocumented in this encounter Care Teams Combination Machine Tool Operator Relationship Specialty Start Date End Date Steffi Escalera APRN [address] [address] PCP - General 01/15/23 Myesha Hwang MD [address] [place] [address] Gastroenterology 04/09/23 documented as of this encounter
--- OUTSIDE RECORDS SUMMARY | 2025-01-05 15:52 | XMS_ITS | Clinical Summary ---
Author Organization [facility] Address [address] [place] [address] Phone Care Team Providers Care After School Program Coordinator Name Role Phone Maurilio Burgess MD Primary [...] SYMPTONS. Active blood-glucose meter (OneTouch Ultra2 Meter) [facility] [place] 0 Active OneTouch Ultra Test test strip [...] 05, [address] Gilberto Knox in [place]. 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 She has chronic left eye vision loss and balance difficulty, chronic headaches and memory problems, patient states this has been since her craniotomy. She was seeing Dr. Patricio in neurosurgery at [place], [place]. She has since moved to [place], is looking to get follow-up CTA of [...] prescription glasses, but has not seen an credit card specialist. All questions answered, will call with any additional questions or concerns. Surgical History Surgery Date Site/Laterality Comments CEREBRAL ANEURYSM REPAIR 02/2016 :Dr. Knox at [facility] GASTRIC BYPASS 08/30/2009 OTHER SURGICAL HISTORY EXCESSIVE THIGH / HIP / BUTTOCK / FLANK SKIN EXCISION;COMMENT:following gastric bypass COLONOSCOPY 2016 COLONOSCOPY 2014 tubular adenoma HYSTERECTOMY 12/16/2010 UPPER GASTROINTESTINAL ENDOSCOPY 01/02/2018 Dr. Santacruz ([place]) OPEN ANTERIOR SHOULDER RECONSTRUCTION 04/14/2013 left shoulder reconstruction, Dr. Chisholm ([place]) SECTION UPPER GASTROINTESTINAL ENDOSCOPY 05/11/2020 N/A UPPER ENDOSCOPY-EGD; Surgeon: Pito Diaz MD; Location: [facility]; Service: Gastroenterology; Laterality: N/A; COLONOSCOPY 05/12/2020 N/A Surgeon: Tino Lang MD; Location: [facility]; Service: Gastroenterology; Laterality: N/A; UPPER GASTROINTESTINAL ENDOSCOPY 09/13/2020 N/A EGD Surgeon: Maynor Rojas MD; Location: [facility]; Service: Gastroenterology; Laterality: N/A; BREAST SURGERY REDUCTION MAMMAPLASTY;:with lift/ implants COLONOSCOPY 02/02/2021 N/A Surgeon: Tino Lang MD; Location: [facility]; Service: Gastroenterology; Laterality: N/A; OTHER SURGICAL HISTORY Patient reports history of colon resection required after gastric bypass, bladder surgery and appendectomy CARPAL TUNNEL RELEASE Bilateral Medical History Medical History Date Comments Aneurysm ([facility] V24) 2014 GI bleed Tubular adenoma of colon 2014 Syncope completed cardia c work up (tilt table, echo, stress jason, holter) Psoriasis Mild dementia ([facility] V24, [facility] V28) occasional memory loss Steatosis of liver 12/03/2017 fatty liver s een on US per past records. History of Papanicolaou smear of cervix 10/2017 History of mammogram 01/25/2018 negative Ovarian cyst Fibromyalgia, primary Anemia Anxiety GERD (gastroesophageal reflux disease) Depression Arthritis Migraine headache Visual impairment Obesity s/p GBP Diabetes ([facility] V24, [facility] V28) Hyperlipidemia Asthma Acid reflux Rheumatoid arthritis ([facility]/ C V24, [facility] V28) Family History Medical [...] Mother Heart disease Mother No Known Problems Michele Rios Relation Name Status Comments Father Half-Brother 1 [...] Care Team (Late st Contact Info) Description 01/27/2025 12:00 PM EDT Office Visit Neurosurgery [address] [place] [address] Saleem Quigley MD [address] [place] [address] Health Maintenance Due Date Last Done Comments DTaP,Tdap,and Td Vaccines (1 - Tdap) 1981 Cervical Cancer Screening: Pap Smear 1983 Pneumococcal Vaccine: 50+ Years (1 of 1 - PCV) 02/20/2012 Zoster Vaccines (1 of 2) 02/20/2012 Breast Cancer Screening 05/13/2022 05/13/2020 Colorectal Cancer Screening: Colonoscopy 05/14/2022 HIV Screening 05/14/2022 Hepatitis C Screening 05/14/2022 Lung Cancer Screening (Low Dose CT) 05/14/2022 Medicare Annual Wellness Visit 05/14/2022 Social Influencers of Health Screening 05/14/2022 COVID-19 Vaccine ( season) 2024 08/01/2023, 05/31/2021, 11/05/2020, Additional history exists Depression Screening 06/11/2024 Influenza Vaccine (#1) 2025 RSV Immunization Adult [...] Procedure Name Priority Date/Time Associated Diagnosis Comments MAMMOGRAM SCREENING BILATERAL 3D NICOLLE WITH CAD Routine 05/13/2020 12:24 PM EST Encounter for screening mammogram for malignant neoplasm of breast from Last 3 Months or Most Recently Relevant to Health Maintenance Results * MAMMOGRAM SCREENING BILATERAL 3D NICOLLE WITH [...] language report , as required by [place] State bill [id number]. Session: Separate session. Report reviewed and signed by : Dr. Matthew Serrato MD on 05/13/2020 4:27 PM. Workstation Name - [id number] Procedure Note Matthew Serrato MD - 06/02/2022 [...] plain language report , as required by [place] [id number]. Session: Separate session. Report reviewed and signed by : Dr. Matthew Serrato MD on 05/13/2020 4:27 PM.Workstation Name - [id number] Moise Palomino MD IMG BI PROCEDURES Final Resul t from Last 3 Months or Most Recently Relevant to Health Maintenance Insurance [employer] MEDICARE ADVANTAGE MEDICAID - [place] MEDICAID [facility] Care Teams After School Program Coordinator Relationship Specialty Start Date End Date Maurilio Burgess MD [address] [place] [address] Dr Cassandra Elkins [place] PCP - General Internal Medicine 06/17/24
--- OUTSIDE RECORDS SUMMARY | 2025-01-05 15:52 | XMS_ITS | Patient Health Record ---
Author Organization [facility] Address [address] [place], [place] [id number] Care Team Providers Care Hand Meat Salter Name Role Phone NO, PCP Primary Care Provider Ebony Reyes Unavailable Reason For Referral No Information Social History Sex Assigned At : Social History Observation Description Sex Assigned At Female Encounters Encounter Location Date Provider Diagnosis [facility] [address] [place] [address] [id number] 01/08/2024 Ebony Reyes [facility] [address] [place] [address] [phone] 01/28/2024 Ebony Reyes [facility] [address] [place] [address] [id number] 02/04/2024 Ebony Collins-Bobo [facility] [address] [place] [address] [id number] 03/04/2024 Ebony Reyes [facility] [address] [place] [address] [id number] 03/25/2024 Ebony Reyes [facility] [address] [place] [phone] 04/17/2024 Eb[facility] Reyes [facility] [address] [place] [address] [phone] 05/27/2024 Eb[facility] Reyes [facility] [address] [place] [address] [phone] 05/30/2024 Ebony Reyes Plan Of Treatment No Information Insurance Providers Payer Name Payer Address Payer Phone Subscriber Number Group Number Insured Name Patient Relationship to Insured Coverage Start Date Coverage End Date [place] Medicare Part [place] [employer] [facility] [address] BHUPENDRA Gomez [id number] Graciela Jazmine andres Self - patient is the insured 4 [facility] [address] [address] [place], [place] [id number] Jazmine Schulz Self - patient is the insured 4
== END 2025-01-05 16:07 | disposition home or self-care (01) ==
LOC: HO.PMC 15:33
PROVIDERS: PCP Internal Medicine; Visit Provider Nurse Practitioner Family
DX: M25.551 Pain in right hip (principal); M25.552 Pain in left hip; M54.50 Low back pain, unspecified; G89.29 Other chronic pain; M47.816 Spondylosis without myelopathy or radiculopathy, lumbar region; M53.3 Sacrococcygeal disorders, not elsewhere classified
CPT/HCPCS: 99204

== ENCOUNTER 2025-01-05 15:33 | Outpatient (REF) | payer MEDICARE, MEDICAID, SELFPAY ==
--- NOTE | ~2025-01-05 | XR_ITS ---
EXAMINATION: XR BILATERAL HIPS WITH AP PELVIS CLINICAL INFORMATION: M25.551 - Pain in right hip COMPARISON: None available. TECHNIQUE: AP and frog-leg lateral views of each hip and an AP view of the pelvis. FINDINGS: Portable view of the pelvis shows symmetrical hip and SI joints with minimal osteophyte formation along the inferior left. No abnormal soft tissue calcifications are identified. Right hip demonstrates small acetabular roof osteophytes. There are also peripheral tibial osteophytes. Left hip joint demonstrates roof osteophytes. 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 Electronically signed by: Elier Brenner MD 01/05/2025 04:43 PM EDT
--- NOTE | ~2025-01-05 | XR_ITS ---
Exam: Five-view lumbar spine TECHNIQUE: AP, lateral, lateral spot, bilateral oblique view x-rays of the lumbar spine. INDICATION: M47.816 - Spondylosis without myelopathy or radiculopathy, lumbar region FINDINGS: Right upper quadrant clips are likely from cholecystectomy. Moderate calcification is visible in the abdominal aorta. There are 5 non-rib bearing lumbar segments. Vertebral body height and alignment is preserved. T12-L1: There is minimal disc space narrowing. L1-L2: There is mild disc space narrowing and minimal endplate sclerosis involving L2. L2-L3: There is subtle retrolisthesis and mild disc space narrowing with osteophytes involving L3, very small. L3-L4: There is subtle retrolisthesis, mild disc space narrowing, and anterior osteophytes. There is mild facet sclerosis L4-L5: There is subtle retrolisthesis and mild disc space narrowing. L5-S1: Unremarkable. Oblique views demonstrate no pars interarticularis defects. XR/XR lumbar spine 4V min IMPRESSION: Mild degenerative disc disease. Electronically signed by: Elier Brenner MD 01/05/2025 04:46 PM EDT
== END 2025-01-05 15:34 | disposition home or self-care (01) ==
LOC: HO.XRAY 15:33
PROVIDERS: PCP Internal Medicine; Visit Provider Nurse Practitioner Family
DX: M47.816 Spondylosis without myelopathy or radiculopathy, lumbar region (principal); M54.50 Low back pain, unspecified; G89.29 Other chronic pain; M53.3 Sacrococcygeal disorders, not elsewhere classified; M25.551 Pain in right hip; M25.552 Pain in left hip
CPT/HCPCS: 72110; 73521; 99202

== ENCOUNTER → 2025-01-05 16:20 | Outpatient (BNV) | payer MEDICARE, MEDICAID, SELFPAY | PROVIDERS: PCP Internal Medicine; Visit Provider Radiology Diagnostic Radiology | DX: M47.816 Spondylosis without myelopathy or radiculopathy, lumbar region (principal); M25.551 Pain in right hip | CPT/HCPCS: 72110; 73521 ==

== ENCOUNTER 2025-02-23 09:11 | Outpatient (REF) | payer MEDICARE, SELFPAY ==
--- OUTSIDE RECORDS SUMMARY | 2024-08-12 06:00 | XMS_ITS ---
Author Organization [facility] Address [address] [place] [address] Care Team Providers Care Senior Telecommunications Specialist Name Role Phone NO, PCP Primary Care Provider Ebony Reyes Unavailable [phone] REASON FOR VISIT housing Social History Sex Assigned At : Social History Observation Description Sex Assigned At Female Encounters Encounter Location Date Provider Diagnosis [facility] [address] [place], [place] [phone] 08/12/2024 Ebony Reyes Plan Of Treatment No Information Progress Notes * Jazmine CALDERADOB:[birth year] (65 yo F)Acc No.[id number]:08/12/2024 Case Management Patient: Jazmine ROUSSEAU Provider: Ly Reyes :1960 A ge:64 Y S ex:Female Date:08/12/2024 Address:[facility] [address] [facility] Pcp:PCP NO Subjective: * Chief Complaints: * 1 . Housing. * Medical History: Objective: Assessment: Plan: * Treatment: * Images: Billing Information: * Visit Code: * Procedure Codes: Care Plan Details* * Electronic signature of Jeffrey Reyes on 02/23/2025 at 10:50 AM EDT Sign off status: Pending * Provider: Ly Reyes Date: 0 08/12/2024 Generated for Printi ng/Faxing/eTransmitting on: 0 02/23/2025 10:50 AM EDT
--- OUTSIDE RECORDS SUMMARY | 2024-08-19 05:00 | XMS_ITS ---
Author Organization [facility] Address [address] [place] [address] Care Team Providers Care Microfilm Operator Name Role Phone NO, PCP Primary Care Provider Ebony Reyes Unavailable [phone] REASON FOR VISIT housing application/rc appt Social History Sex Assigned At : Social History Observation Description Sex Assigned At Female Encounters Encounter Location Date Provider Diagnosis [facility] [address] [place] [phone] 08/19/2024 Ebony Reyes Plan Of Treatment No Information Progress Notes * Jazmine CALDERADOB:[birth year] (65 yo F)Acc No.[id number]:08/19/2024 Case Management Patient: Jazmine ROUSSEAU Provider: Ly Reyes :1960 A ge:64 Y S ex:Female Date:08/19/2024 Address:[facility] [address] [facility] Pcp:PCP NO Subjective: * Chief Complaints: * 1 . Housing application/cr appt. * Medical History: Objective: Assessment: Plan: * Treatment: * Images: Billing Information: * Visit Code: * Procedure Codes: Care Plan Details* * Electronic signature of Jeffrey Reyes on 02/23/2025 at 10:51 AM EDT Sign off status: Pending * Provider: Ly Reyes Date: 0 08/19/2024 Generated for Printi ng/Faxing/eTransmitting on: 0 02/23/2025 10:51 AM EDT
--- NOTE | ~2025-02-23 | MM_ITS ---
EXAMINATION(S): MM DIAGNOSTIC DIGITAL BREAST TOMOSYNTHESIS, BILATERAL CLINICAL INFORMATION: This is a 6-month follow-up from prior bilateral diagnostic mammogram on July 30, 2024 for the following findings: Right: Focal asymmetry in the upper central slightly outer breast without sonographic correlate. Left: Focal asymmetry in the upper outer quadrant and lower breast on the MLO view without sonographic correlate. COMPARISON: July 30, 2024 and August 27, 2024 TECHNIQUE: Digital breast tomosynthesis is performed in both the mediolateral oblique and craniocaudal views along with computer-aided detection (CAD). Synthesized 2D images are generated from the tomosynthesis. Spot compression tomosynthesis were obtained. FINDINGS: BREAST COMPOSITION: The breasts are heterogeneously dense, which may obscure small masses (ACR BI-RADS breast composition Category c). RIGHT BREAST: Previously suggested focal asymmetry in the upper central slightly outer breast is not significantly changed since July 2024. No new masses, suspicious calcifications or other abnormalities are seen. LEFT BREAST: Focal asymmetry in the upper outer quadrant and asymmetry in the lower breast on the MLO view are not significantly changed since July 2024. No new masses, suspicious calcifications or other abnormalities are seen. MM/MM tomosynthesis diagnostic BI IMPRESSION: RIGHT BREAST: Focal asymmetry in the upper central slightly outer breast, not significantly changed since July 2024. Probably benign. A 6-month follow-up mammogram is recommended. LEFT BREAST: Focal asymmetry in the upper outer quadrant and asymmetry in the lower breast on the MLO view, not significantly changed since July 2024. Probably benign. A 6-month follow-up mammogram is recommended. ASSESSMENT: BI-RADS 3 - Probably benign finding(s) - 6 month follow-up suggested RECOMMENDATION: 6 Month F/U Results were provided to the patient at time of visit by the technologist. This patient's information was entered into a reminder system with a target due date for their next mammogram. Electronically signed by: Alireza Frost MD 02/23/2025 05:02 PM EDT
[2025-02-23 09:41] LABS: Hematocrit 36.6 % (37.0-47.0); Hemoglobin 11.5 g/dl (12.0-16.0); Mean Corpuscular HGB Conc 31.4 g/dl (31.0-35.0); Mean Corpuscular Hemoglobin 28.9 pg (27.0-33.0); Mean Corpuscular Volume 92.0 fL (80.0-98.0); NRBC Abs Auto 0.000 X10*3/uL (0.0-0.012); NRBC Pct Auto 0.0 /100WBC (0.0-0.2); Platelet Count 249 X10*3/uL (160-400); Red Blood Count 3.98 X10*6/uL (4.20-5.50); White Blood Count 8.3 X10*3/uL (4.8-10.8)
[2025-02-23 09:55] LABS: Hemoglobin A1C 136.0606 umol/L
[2025-02-23 10:18] LABS: Alanine Aminotransferase 18 U/L (0-31); Albumin Level 4.6 g/dL (3.5-5.0); Alkaline Phosphatase 72 U/L (39-117); Anion Gap 12 (12-20); Aspartate Amino Transferase 31 U/L (5-31); Blood Urea Nitrogen 13 mg/dL (9-16); Calcium 9.6 mg/dL (8.4-10.2); Carbon Dioxide 24 mmol/L (22-29); Chloride 112 mmol/L (96-108); Cholesterol 170 mg/dL (<200); Estimated Glomerular Filt Rate > 60; HDL Cholesterol 64 mg/dL (>40); Potassium 4.0 mmol/L (3.3-5.1); Sodium 144 mmol/L (135-145); Total Protein 7.2 g/dL (6.5-8.0); Triglycerides 125 mg/dL (<150)
[2025-02-23 10:36] LABS: Ferritin 15 ng/mL (10-250)
--- OUTSIDE RECORDS SUMMARY | 2025-02-23 10:51 | XMS_ITS | Encounter Summary ---
Author Organization [facility] Address [address] [place] [address] Care Team Providers Care Plumber Gasfitter Name Role Phone Marina Reddy TURNER Primary Care Provider [phone] Lucas Wen APRN Primary Care Provider + Steffi Escalera APRN Primary Care Provider Myesha Hwang MD Unavailable [phone] Encounter Details Date Type Department Care Team (Late st Contact Info) Description 09/29/2022 Scanned Document [facility] - [address] [place] [id number] Chris Sood MD [address] [place] [address] [address] [place], [place] [id number] Social History Tobacco Use Types Packs/Day Years [...] on filedocumented in this encounter Care Teams Plumber Gasfitter Relationship Specialty Start Date End Date Marina Reddy APRN [address] [facility] 13 [place] [address] PCP - General Adult Health - PA/APNP/DIRECTOR SALES/PRINT DECORATOR 03/03/19 10/19/22 Lucas Wen APRN [address] [place] [address] [address] [place] [address] PCP - General Adult Health - PA/APNP/DIRECTOR SALES/PRINT DECORATOR 10/20/22 01/14/23 Steffi Escalera APRN [address] [place] [id number] PCP - General 01/15/23 Myesha Hwang MD [address] [place] [address] Gastroenterology 04/09/23 documented as of this encounter
--- OUTSIDE RECORDS SUMMARY | 2025-02-23 10:51 | XMS_ITS | Encounter Summary ---
Author Organization [facility] Address [address] [place] [address] Care Team Providers Care Commercial Parts Professional Name Role Phone Steffi Escalera APRN Primary Care Provider Myesha Hwang MD Unavailable Encounter Details Date Type Department Care Team (Late st Contact Info) Description 02/06/2023 Scanned Document [facility] [address] [address] [place] [address] Social History Tobacco Use Types [...] on filedocumented in this encounter Care Teams Commercial Parts Professional Relationship Specialty Start Date End Date Steffi Escalera APRN [address] [address] PCP - General 01/15/23 Myesha Hwang MD [address] [place] [address] Gastroenterology 04/09/23 documented as of this encounter
--- OUTSIDE RECORDS SUMMARY | 2025-02-23 10:51 | XMS_ITS | Encounter Summary ---
Author Organization [facility] Address [address] [place] [address] Care Team Providers Care Surveyor Mine Name Role Phone Sabrina Redd Primary Care Provider [phone] Encounter Details Date Type Department Care Team (Late st Contact Info) Description 06/27/2019 Scanned Document [facility] [address] [place] [address] Antoni Patricio MD [address] [place] [phone] Social History Tobacco Use Types Packs/Day Years [...] on filedocumented in this encounter Care Teams Surveyor Mine Relationship Specialty Start Date End Date Sabrina Redd PA [address] [place] [address] PCP - General 07/12/22 documented as of this encounter
--- OUTSIDE RECORDS SUMMARY | 2025-02-23 10:51 | XMS_ITS | Encounter Summary ---
Author Organization [facility] Address [address] [place] [address] Care Team Providers Care Jig Bore Operator Name Role Phone Steffi Escalera APRN Primary Care Provider Myesha Hwang MD Unavailable [phone] Encounter Details Date Type Department Care Team (Late st Contact Info) Description 05/22/2024 Telephone [facility] [address] [place] [address] Rafiq Rice [address] [place], [place] [id number] Social History Tobacco Use Types Packs/Day Years [...] on filedocumented in this encounter Care Teams Jig Bore Operator Relationship Specialty Start Date End Date Steffi Escalera APRN [address] [address] PCP - General 01/15/23 Myesha Hwang MD [address] [place] [address] Gastroenterology 04/09/23 documented as of this encounter
--- OUTSIDE RECORDS SUMMARY | 2025-02-23 10:51 | XMS_ITS | Encounter Summary ---
Author Organization [facility] Address [address] [place] [address] Care Team Providers Care Welt Trimming Machine Operator Name Role Phone Steffi Escalera APRN Primary Care Provider Myesha Hwang MD Unavailable [phone] Encounter Details Date Type Department Care Team (Late st Contact Info) Description 07/16/2023 Telephone [facility] [address] [facility] [address] [place] [address] Tino Lang MD [address] [facility] 100 [place] [address] Social History Tobacco Use Types Packs/Day Years [...] that time frame. Please contact Jazmine at [phone] documented in this encounter Plan of Treatment Not on file documented as of this encounter Visit Diagnoses Not on filedocumented in this encounter Care Teams Welt Trimming Machine Operator Relationship Specialty Start Date End Date Steffi Escalera APRN [address] [address] PCP - General 01/15/23 Myesha Hwang MD [address] [place] [address] Gastroenterology 04/09/23 documented as of this encounter
--- OUTSIDE RECORDS SUMMARY | 2025-02-23 10:51 | XMS_ITS | Encounter Summary ---
Author Organization [facility] Address [address] [place] [address] Care Team Providers Care Crushing Machine Operator Name Role Phone Sabrina Redd Primary Care Provider [phone] Encounter Details Date Type Department Care Team (Late st Contact Info) Description 04/09/2019 Abstract [facility] [address] [facility] [address] [facility] [place] [address] Antoni Patricio MD [address] [place] [phone] Social History Tobacco Use Types Packs/Day Years [...] on filedocumented in this encounter Care Teams Crushing Machine Operator Relationship Specialty Start Date End Date Sabrina Redd PA [address] [place] [address] PCP - General 07/12/22 documented as of this encounter
--- OUTSIDE RECORDS SUMMARY | 2025-02-23 10:51 | XMS_ITS | Clinical Summary ---
Author Organization [facility] 1 [employer] Address [address] [place] [address] Care Team Providers Care Counter Tacker Name Role Phone Sabrina Redd Primary Care Provider [phone] Allergies Active Allergy Reactions Criticality Noted Date [...] Follow up in 3 months Psoriatic arthritis (HC Code) 12/25/2019 Moderate persistent asthma with acute exacerbati [...] 05/2023 Last Assessment & Plan: Colon 02/2022 ([place]) - no polyps noted Would due recall [...] aneurysm s/p trapping/bypass by Dr. Colin in [place] in 04/2015 Cobalamin deficiency 10/26/2018 History of GI bleed 10/26/2018 Tubular adenoma of colon 10/26/2018 Overview (07/20/2023): colonoscopy in 2014: Hyperplastic polyps COLON POLYPS -2009 : ADENOMATOUS POLYP .. History of syncope [...] post clipping. No additional aneurysms of the [place] of [place] identified. 2. Post surgcal changes [...] discussed the minimal potential risk with termite exterminator helper PPI use. Based on AGA expert review [...] discussed the minimal potential risk with termite exterminator helper PPI use. Based on AGA expert review the quality of evidence behind termite exterminator helper kidney disease, dementia, bone fractures, and infection with PPI use is low. The current data suggests that termite exterminator helper PPI use does not require routine [...] review the quality of evidence behind termite exterminator helper kidney disease, dementia, bone fractures, and [...] discussed the minimal potential risk with termite exterminator helper PPI use. Based on AGA expert review the quality of evidence behind termite exterminator helper kidney disease, dementia, bone fractures, and infection with PPI use is low. The current data suggests that termite exterminator helper PPI use does not require routine [...] the bed 6 to 12 inches. EGD : MILD GASTRITIS 2010 EGD : DR [...] Work up here in 2020, then in [place] with unremarkable EGD/Colon 02/2022 Repeat capsule done [...] Will have patient see Dr. Hwang in [place] for double balloon enteroscopy- this was recommended after 2021 capsule in [place] and recent capsule also suggests that best [...] 07/29/2017 Overview (07/20/2023): GASTRITIS S-P GASTRIC BYPASS Mcintosh EGD NL , H PYELORI NEG, ANASTAMOSIS NL. Uncontrolled type 2 diabetes mellitus 07/29/2017 Inflammatory polyarthropathy (HC Code) 8 07/20/2023 Leukocytosis 07/29/2017 07/20/2023 Overview (07/20/2023): CHR [...] KARLA RA ANTI SM ANTI SSA ANTI NURSING HOME SOCIAL WORKER AB NEG SR / CRP NL ( ) DR HERNANDEZ. History of hysterectomy 12/16/2010 Pain in pelvis 09/11/2007 07/20/2023 Diabetes mellitus (HC Code) 08/29/2007 02/02/2024 Cerebral aneurysm, nonruptured Overview (05/26/2019): unruptured left SCA aneurysm s/p trapping/bypass by Dr. Colin in [place] in 04/2015 Family History Medical History Relation [...] 96 07/20/2023 1:37 PM EST Temperature 36.4 C (97.6 F) 07/20/2023 1:37 PM EST Respiratory Rate - - Oxygen Saturation 97% [...] history exists Covid-19 vaccine series ( - 2024- season) 2025 11/05/2020, 10/08/2020 Influenza vaccine 02/09/2025 Colon cancer screening, Colonoscopy 02/02/2031 02/02/2021, 05/12/2020 Meningococcal B Vaccine Aged Out No l onger eligible based on patient's age to complete this topic Meningococcal Vaccine Aged Out No chaya wesley eligible based on patient's age to complete this topic Insurance [place]ICA[place] [address] [place] [id number] [address] [facility] MGD MEDICAID [place] [facility] [place] [facility] Care Teams Counter Tacker Relationship Specialty Start Date End Date Sabrina Redd PA [address] [facility] [place] [address] PCP - General 07/12/22
--- OUTSIDE RECORDS SUMMARY | 2025-02-23 10:51 | XMS_ITS | Encounter Summary ---
Author Organization [facility] Address [address] [place] [address] Care Team Providers Care Auth Specialist Name Role Phone Sabrina Redd Primary Care Provider [phone] Encounter Details Date Type Department Care Team (Late st Contact Info) Description 07/13/2019 Abstract [facility] [address] [place] [address] Antoni Patricio MD [address] [place] [phone] Social History Tobacco Use Types Packs/Day Years [...] on filedocumented in this encounter Care Teams Auth Specialist Relationship Specialty Start Date End Date Sabrina Redd PA [address] [place] [address] PCP - General 07/12/22 documented as of this encounter
--- OUTSIDE RECORDS SUMMARY | 2025-02-23 10:51 | XMS_ITS | Clinical Summary ---
Author Organization [facility] Address [address] [place] [address] Care Team Providers Care Car Carder Name Role Phone Steffi Escalera APRN Primary Care Provider Myesha Hwang MD Unavailable [phone] Allergies Active Allergy Reactions Criticality Noted [...] low. The current data suggests that manager intermediate PPI use does not require routine [...] low. The current data suggests that manager intermediate PPI use does not require routine [...] review the quality of evidence behind manager intermediate kidney disease, dementia, bone fractures, and infection with PPI use is low. The current data suggests that manager intermediate PPI use does not require routine screening or monitoring of bone density, kidney function, magnesium, or vitamin B levels. There is no clinical evidence to suggest routine intake of calcium, vitamin b12 or magnesium, with PPI use, beyond recommended dietary allowance. Follow clinically. Personal history of colonic polyps 04/15/2019 Assessment & Plan (04/06/2023 10:29 AM EDT): Colon 02/2022 ([place]) - no polyps noted Would due recall exam in 2026 given prior hx of polyps Assessment & Plan (12/28/2022 12:44 PM EDT): Colon 02/2022 ([place]) - no polyps noted Assessment & Plan [...] Work up here in 2020, then in [place] with unremarkable EGD/Colon 02/2022 Repeat capsule done [...] Will have patient see Dr. Hwang in [place] for double balloon enteroscopy- this was recommended [...] up here in 2020, then recently in [place] with unremarkable EGD/Colon 02/2022 - unclear what [...] review Pt was followed by [facility]ago in [place], will need f/u care here also Family [...] 88 11/27/2023 3:09 PM EDT Temperature 36.1 C (97 F) 04/06/2023 10:00 AM EDT Respiratory Rate 14 [...] 60-74 years 1-dose series) 2022 Influenza Vaccine 01/09/2025 COVID-19 Vaccine (2024- season) 2025 08/01/2023, 05/31/2021, 11/05/2020, Additional history exists Colonoscopy [...] Most Recently Relevant to Health Maintenance [place] [address] [place] [address] [facility] [place]IC[place] [address] MEDICARE [facility] MGD MEDICARE Care Teams Car Carder Relationship Specialty Start Date End Date Steffi Escalera APRN [address] [facility] [address] [place] [address] PCP - General 01/15/23 Myesha Hwang MD [address] [place] [address] Gastroenterology 04/09/23
--- OUTSIDE RECORDS SUMMARY | 2025-02-23 10:51 | XMS_ITS | Encounter Summary ---
Author Organization [facility] Address [address] [place] [address] Care Team Providers Care Bill Sorter Name Role Phone Sabrina Redd Primary Care Provider Reason for Referral * Imaging (Routine) - Closed Specialty Diagnoses / Procedures Referred By Contac t Referred To Contact Diagnostic Radiology Procedures CTA Head w and/or wo IV Contrast Antoni Patricio MD [address] [place] [address] Phone: tel: fax: Referral ID Status Reason Start Date Expiration Date Visits Re quested Visits Authorized [id number] Closed 07/11/2023 07/10/2024 1 1 Encounter Details Date Type Department Care Team (Late st Contact Info) Description 07/11/2023 Scanned Document [facility] SCHEDULING [address] [place], [place] [address] Antoni Patricio MD [address] [place] [address] Social History Tobacco Use Types [...] on filedocumented in this encounter Care Teams Bill Sorter Relationship Specialty Start Date End Date Sabrina Redd PA [address] [place] [address] PCP - General 07/12/22 documented as of this encounter
--- OUTSIDE RECORDS SUMMARY | 2025-02-23 10:51 | XMS_ITS | Encounter Summary ---
Author Organization [facility] Address [address] [place] [address] Care Team Providers Care Glue Clamp Operator Name Role Phone Steffi Escalear APRN Primary Care Provider Myesha Hwang MD Unavailable [phone] Encounter Details Date Type Department Care Team (Late st Contact Info) Description 08/23/2023 Scanned Document [facility] Neurology, Scan Social History Tobacco [...] on filedocumented in this encounter Care Teams Glue Clamp Operator Relationship Specialty Start Date End Date Steffi Escalera APRN [address] [address] PCP - General 01/15/23 Myesha Hwang MD [address] [place] [address] Gastroenterology 04/09/23 documented as of this encounter
--- OUTSIDE RECORDS SUMMARY | 2025-02-23 10:51 | XMS_ITS | Encounter Summary ---
Author Organization [facility] Address [address] [place] [address] Care Team Providers Care Peoplesoft Hcm Developer Name Role Phone Sabrina Redd Primary Care Provider [phone] Encounter Details Date Type Department Care Team (Late st Contact Info) Description 06/17/2019 Scanned Document [facility] [address] [place] [address] Provider, [facility] [...] on filedocumented in this encounter Care Teams Peoplesoft Hcm Developer Relationship Specialty Start Date End Date Sabrina Redd PA [address] [place] [address] PCP - General 07/12/22 documented as of this encounter
--- OUTSIDE RECORDS SUMMARY | 2025-02-23 10:51 | XMS_ITS | Encounter Summary ---
Author Organization [facility] Address [address] [place] [address] Care Team Providers Care Malt House Supervisor Name Role Phone Sabrina Redd Primary Care Provider [phone] Encounter Details Date Type Department Care Team (Late st Contact Info) Description 07/02/2019 Scanned Document [facility] [address] [place] [address] Antoni Patricio MD [address] [place] [phone] Social History Tobacco Use Types Packs/Day Years [...] on filedocumented in this encounter Care Teams Malt House Supervisor Relationship Specialty Start Date End Date Sabrina Redd PA [address] [place] [address] PCP - General 07/12/22 documented as of this encounter
--- OUTSIDE RECORDS SUMMARY | 2025-02-23 10:51 | XMS_ITS | Encounter Summary ---
Author Organization [facility] Address [address] [place] [address] Care Team Providers Care Supervisor Stave Cutting Name Role Phone Lucas Wen APRN Primary Care Provider + Steffi Escalera APRN Primary Care Provider Myesha Hwang MD Unavailable [phone] Encounter Details Date Type Department Care Team (Late st Contact Info) Description 10/26/2022 Scanned Document [facility] - [address] [phone] Chris Sood MD [address] [place], [place] [phone] Social History Tobacco Use Types Packs/Day Years [...] on filedocumented in this encounter Care Teams Supervisor Stave Cutting Relationship Specialty Start Date End Date Lucas Wen APRN PCP - General Adult Health - PA/APNP/IRONWORKER WIRE FENCE ERECTOR/DEMAND PLANNING ANALYST 10/20/22 01/14/23 Steffi Escalera APRN [address] [address] PCP - General 01/15/23 Myesha Hwang MD [address] [place] [address] Gastroenterology 04/09/23 documented as of this encounter
--- OUTSIDE RECORDS SUMMARY | 2025-02-23 10:51 | XMS_ITS | Encounter Summary ---
Author Organization [facility] Address [address] [place] [address] Care Team Providers Care Emergency Department Aide Name Role Phone Sabrina Redd Primary Care Provider [phone] Encounter Details Date Type Department Care Team (Late st Contact Info) Description 07/14/2019 Scanned Document [facility] [address] [facility] [address] [place] [address] Provider, Historical . Social History Tobacco Use [...] on filedocumented in this encounter Care Teams Emergency Department Aide Relationship Specialty Start Date End Date Sabrina Redd PA [address] [place] [address] PCP - General 07/12/22 documented as of this encounter
--- OUTSIDE RECORDS SUMMARY | 2025-02-23 10:51 | XMS_ITS | Patient Health Record ---
Author Organization [facility] Address [address] [place] [address] Care Team Providers Care Property Appraiser Name Role Phone NO, PCP Primary Care Provider Ebony Reyes Unavailable Reason For Referral No Information Social History Sex Assigned At : Social History Observation Description Sex Assigned At Female Encounters Encounter Location Date Provider Diagnosis [facility] [address] [place] [id number] 03/04/2024 Ebony Reyes [facility] [address] [place] [address] [id number] 03/25/2024 Ebony Reyes [facility] [address] [place] [address] [id number] 04/17/2024 Ebony Reyes [facility] [address] [place] [id number] 05/27/2024 Ebony Reyes [facility] [address] [place] [address] [phone] 05/30/2024 Ebony Reyes Plan Of Treatment No Information Insurance Providers Payer Name Payer Address Payer Phone Subscriber Number Group Number Insured Name Patient Relationship to Insured Coverage Start Date Coverage End Date [place] Medicare [place] [employer] [facility] [address] [facility] [place] [phone] [id number] Jazmine Schulz Self - patient is the insured 4 [employer] [address] [address] [place], [place] [id number] Jazmine Schulz Self - patient is the insured 4
--- OUTSIDE RECORDS SUMMARY | 2025-02-23 10:51 | XMS_ITS | Encounter Summary ---
Author Organization [facility] Address [address] [place] [address] Care Team Providers Care Nitrating Acid Mixer Name Role Phone Marina Reddy APRN Primary Care Provider [phone] Lucas Wen APRN Primary Care Provider + Steffi Escalera APRN Primary Care Provider Myesha Hwang MD Unavailable [phone] Reason for Visit * Reason Comments Medication Refill Encounter Details Date Type Department Care Team (Late st Contact Info) Description 10/06/2020 Refill [facility] [address] [address] Dominic Narvaez MD [address] [place] [address] Social History Tobacco Use Types Packs/Day Years [...] on filedocumented in this encounter Care Teams Nitrating Acid Mixer Relationship Specialty Start Date End Date Barry, Marina, MOTHER TESTER 15 [facility] [address] [place] [address] PCP - General Adult Health - PA/APNP/POWERHOUSE HELPER/MOTHER TESTER 03/03/19 10/19/22 Lucas Wen APRN 15 [facility] 13 [place] [address] PCP - General Adult Health - PA/APNP/POWERHOUSE HELPER/MOTHER TESTER 10/20/22 01/14/23 Steffi Escalera APRN [address] [address] PCP - General 01/15/23 Myesha Hwang MD [address] [place] [address] Gastroenterology 04/09/23 documented as of this encounter
--- OUTSIDE RECORDS SUMMARY | 2025-02-23 10:51 | XMS_ITS | Encounter Summary ---
Author Organization [facility] Address [address] [place] [address] Care Team Providers Care Cover Machine Operator Name Role Phone Steffi Escalera APRN Primary Care Provider Myesha Hwang MD Unavailable [phone] Encounter Details Date Type Department Care Team (Late st Contact Info) Description 02/06/2023 Scanned Document [facility] [address] [address] [place] [address] Social History Tobacco Use Types [...] still 0 02/06/2023 3:00 PM EDT Amanda Peral MA Becoming easily annoyed or irritable 0 [...] on filedocumented in this encounter Care Teams Cover Machine Operator Relationship Specialty Start Date End Date Steffi Escalera APRN [address] [address] PCP - General 01/15/23 Myesha Hwang MD [address] [place] [address] Gastroenterology 04/09/23 documented as of this encounter
--- OUTSIDE RECORDS SUMMARY | 2025-02-23 10:51 | XMS_ITS | Encounter Summary ---
Author Organization [facility] Address [address] [place] [address] Care Team Providers Care Building Engineer Name Role Phone Sabrina Redd Primary Care Provider [phone] Encounter Details Date Type Department Care Team (Late st Contact Info) Description 07/12/2020 Scanned Document [facility] [address] [address] Antoni Patricio MD [address] [place] [address] Social History Tobacco Use Types [...] on filedocumented in this encounter Care Teams Building Engineer Relationship Specialty Start Date End Date Sabrina Redd PA [address] [place] [address] PCP - General 07/12/22 documented as of this encounter
--- OUTSIDE RECORDS SUMMARY | 2025-02-23 10:51 | XMS_ITS | Clinical Summary ---
Author Organization [facility] Address [address] [place] [address] Phone Care Team Providers Care Rn Midwife Name Role Phone Maurilio Burgess MD Primary [...] SYMPTONS. Active blood-glucose meter (OneTouch Ultra2 Meter) [facility] 0 Active OneTouch Ultra Test test strip [...] 05, [address] Gilberto Knox in [place]. 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 She has chronic left eye vision loss and balance difficulty, chronic headaches and memory problems, patient states this has been since her craniotomy. She was seeing Dr. Patricio in neurosurgery at [place], [place]. She has since moved to [place], is looking to get follow-up CTA of [...] prescription glasses, but has not seen an corporate logistics manager. All questions answered, will call with any additional questions or concerns. Surgical History Surgery Date Site/Laterality Comments CEREBRAL ANEURYSM REPAIR 02/2016 :Dr. Knox at [facility] GASTRIC BYPASS 08/30/2009 OTHER SURGICAL HISTORY EXCESSIVE THIGH / HIP / BUTTOCK / FLANK SKIN EXCISION;COMMENT:following gastric bypass COLONOSCOPY 2016 COLONOSCOPY 2014 tubular adenoma HYSTERECTOMY 12/16/2010 UPPER GASTROINTESTINAL ENDOSCOPY 01/02/2018 Dr. Santacruz ([place]) OPEN ANTERIOR SHOULDER RECONSTRUCTION 04/14/2013 left shoulder reconstruction, Dr. Chisholm ([place]) SECTION UPPER GASTROINTESTINAL ENDOSCOPY 05/11/2020 N/A UPPER ENDOSCOPY-EGD; Surgeon: Pito Diaz MD; Location: [facility]; Service: Gastroenterology; Laterality: N/A; COLONOSCOPY 05/12/2020 N/A Surgeon: Tino Lang MD; Location: [facility]; Service: Gastroenterology; Laterality: N/A; UPPER GASTROINTESTINAL ENDOSCOPY 09/13/2020 N/A EGD Surgeon: Maynor Rojas MD; Location: [facility]; Service: Gastroenterology; Laterality: N/A; BREAST SURGERY REDUCTION MAMMAPLASTY;:with lift/ implants COLONOSCOPY 02/02/2021 N/A Surgeon: Tino Lang MD; Location: [facility]; Service: Gastroenterology; Laterality: N/A; OTHER SURGICAL HISTORY Patient reports history of colon resection required after gastric bypass, bladder surgery and appendectomy CARPAL TUNNEL RELEASE Bilateral Medical History Medical History Date Comments Aneurysm ([facility] V24) 2014 GI bleed Tubular adenoma of colon 2014 Syncope completed cardia c work up (tilt table, echo, stress jason, holter) Psoriasis Mild dementia ([facility] V24, [facility] V28) occasional memory loss Steatosis of liver 12/03/2017 fatty liver s een on US per past records. History of Papanicolaou smear of cervix 10/2017 History of mammogram 01/25/2018 negative Ovarian cyst Fibromyalgia, primary Anemia Anxiety GERD (gastroesophageal reflux disease) Depression Arthritis Migraine headache Visual impairment Obesity s/p GBP Diabetes ([facility] V24, [facility] V28) Hyperlipidemia Asthma Acid reflux Rheumatoid arthritis ([facility]/ C V24, [facility] V28) Family History Medical History Relation Name [...] 05/14/2022 Social Influencers of Health Screening 05/14/2022 Depression Screening 06/11/2024 COVID-19 Vaccine ( season) 2025 08/01/2023, 05/31/2021, 11/05/2020, Additional history exists Influenza [...] plain language report , as required by [place] [address]. Session: Separate session. Report reviewed and signed by : Dr. Matthew Serrato MD on 05/13/2020 4:27 PM. Workstation Name - [id number] Procedure Note Matthew Serrato MD - 06/02/2022 [...] plain language report , as required by [place] [id number]. Session: Separate session. Report reviewed and signed by : Dr. Matthew Serrato MD on 05/13/2020 4:27 PM.Workstation Name - [id number] Moise Palomino MD IMG BI PROCEDURES Final Resul t from Last 3 Months or Most Recently Relevant to Health Maintenance Insurance [employer] MEDICARE ADVANTAGE [place] Care Teams Rn Midwife Relationship Specialty Start Date End Date Maurilio Burgess MD [address] [place] [address] [address] PCP - General Internal Medicine 06/17/24
--- OUTSIDE RECORDS SUMMARY | 2025-02-23 10:51 | XMS_ITS | Encounter Summary ---
Author Organization [facility] Address [address] [place] [address] Care Team Providers Care Manager Leasing Name Role Phone Steffi Escalera APRN Primary Care Provider Myesha Hwang MD Unavailable [phone] Encounter Details Date Type Department Care Team ([facility] st Contact Info) Description 02/01/2023 Scanned Document [facility] [address] [facility] [address] [place] [phone] Marina Davis PA 113 [facility] [address] [place] [address] Social History Tobacco Use Types Packs/Day Years [...] filedocumented in this encounter Care Teams Manager Leasing Relationship Specialty Start Date End Date Steffi Escalera APRN [address] [facility] [address] [place] [address] PCP - General 01/15/23 Myesha Hwang MD [address] [place] [address] Gastroenterology 04/09/23 documented as of this encounter
--- OUTSIDE RECORDS SUMMARY | 2025-02-23 10:51 | XMS_ITS | Encounter Summary ---
Author Organization [facility] Address [address] [place] [address] Care Team Providers Care Advertising Agent Name Role Phone Marina Reddy APRN Primary Care Provider [phone] Lucas Wen APRN Primary Care Provider + Steffi Escalera APRN Primary Care Provider Myesha Hwang MD Unavailable [phone] Reason for Visit * Reason Comments Medication Refill Encounter Details Date Type Department Care Team (Late st Contact Info) Description 08/25/2020 Refill [facility] [address] [address] Dominic Narvaez MD [address] [place] [address] Social History Tobacco Use Types Packs/Day Years [...] on filedocumented in this encounter Care Teams Advertising Agent Relationship Specialty Start Date End Date Barry, Marina, BAKERY WORKER CONVEYOR LINE 15 [facility] [address] [place] [address] PCP - General Adult Health - PA/APNP/HAND FUNNEL COATER/BAKERY WORKER CONVEYOR LINE 03/03/19 10/19/22 Lucas Wen APRN 15 [facility] [address] [place] [address] PCP - General Adult Health - PA/APNP/HAND FUNNEL COATER/BAKERY WORKER CONVEYOR LINE 10/20/22 01/14/23 Steffi Escalera APRN [address] [address] PCP - General 01/15/23 Myesha Hwang MD [address] [place] [address] Gastroenterology 04/09/23 documented as of this encounter
--- OUTSIDE RECORDS SUMMARY | 2025-02-23 10:51 | XMS_ITS | Encounter Summary ---
Author Organization [facility] Address [address] [place] [address] Care Team Providers Care Automatic Spinning Lathe Operator Name Role Phone Sabrina Redd Primary Care Provider [phone] Encounter Details Date Type Department Care Team (Late st Contact Info) Description 06/20/2019 Scanned Document [facility] [address] [place] [address] Antoni Patricio MD [address] [place] [phone] Social History Tobacco Use Types Packs/Day Years [...] on filedocumented in this encounter Care Teams Automatic Spinning Lathe Operator Relationship Specialty Start Date End Date Sabrina Redd PA [address] [place] [address] PCP - General 07/12/22 documented as of this encounter
--- OUTSIDE RECORDS SUMMARY | 2025-02-23 10:51 | XMS_ITS | Encounter Summary ---
Author Organization [facility] and [facility] Address [address] [place] [address] Care Team Providers Care Disc Pad Plate Filler Name Role Phone Sabrina Redd Primary Care Provider [phone] Encounter Details Date Type Department Care Team (Late st Contact Info) Description 04/11/2019 Scanned Document [facility] 800 [facility] 800 [facility] [place] [address] Provider, Historical . Social History Tobacco Use [...] on filedocumented in this encounter Care Teams Disc Pad Plate Filler Relationship Specialty Start Date End Date Sabrina Redd PA [address] [place] [address] PCP - General 07/12/22 documented as of this encounter
--- OUTSIDE RECORDS SUMMARY | 2025-02-23 10:51 | XMS_ITS | Clinical Summary ---
Author Organization [facility] Address [address] [place] [address] Care Team Providers Care Order Management Specialist Name Role Phone Lucas Wen APRN Primary Care Provider Sina lopez Allergies Active Allergy Reactions Criticality Noted Date Comments Milnacipran Palpitations,Other ( See Comments) Medium 02/12/2019 Tachycardia Clopidogrel Rash Low 11/01/2022 Promethazine Palpitations,Other ( See Comments) Medium 04/10/2012 Tachycardia 180/min - she had to be taken to ER. Medications Medication Sig Dispensed Refills Start Date End Date Status SxEuz-[id number] Cmp-C-Biot (INTEGRA PLUS) CAPS Take 1 tablet [...] long-term current use of insulin ([facility]) Test one to two times daily [...] records for review Pt was followed by [facility] in [place], will need f/u care here [...] [place], will need f/u care here also Hematemesis [...] We discussed the minimal potential risk with petroleum terminal plant operator PPI use. Based on AGA expert review the quality of evidence behind petroleum terminal plant operator kidney disease, dementia, bone fractures, and infection with PPI use is low. The current data suggests that retirement PPI use does not require routine screening [...] We discussed the minimal potential risk with retirement PPI use. Based on AGA expert review the quality of evidence behind retirement kidney disease, dementia, bone fractures, and infection with PPI use is low. The current data suggests that petroleum terminal plant operator PPI use does not require routine [...] We discussed the minimal potential risk with petroleum terminal plant operator PPI use. Based on AGA expert review the quality of evidence behind retirement kidney disease, dementia, bone fractures, and infection with PPI use is low. The current data suggests that petroleum terminal plant operator PPI use does not require routine [...] aneurysm s/p trapping/bypass by Dr. Colin in [place] in 04/2015 Chronic migraine without aur a [...] (Colonoscopy) 02/03/2024 02/02/2021, 07/30/2014 COVID-19 Vaccine ( - 2024- season) 2025 11/05/2020, 10/08/2020 Influenza Vaccine (#1) 2025 DTap [...] Advance Directives For more information, please contact: [phone] Latest Code Status on File Code Status [...] 7:25 PM 01/06/2020 7:55 PM Care Teams Order Management Specialist Relationship Specialty Start Date End Date Lucas Wen APRN PCP - General Cardiology 11/01/22
[2025-02-23 12:16] LABS: Appearance Urine Clear; Glucose Urine UA Negative (Negative); PH 7.0 (5.0-9.0); Specific Gravity - Urine 1.020 (1.005-1.025)
== END 2025-02-23 09:12 | disposition home or self-care (01) ==
LOC: HO.MAMMO 09:11
PROVIDERS: Internal Medicine; Absent Provider Internal Medicine; PCP Internal Medicine; Visit Provider Surgery
DX: R92.8 Other abnormal and inconclusive findings on diagnostic imaging of breast (principal); D64.9 Anemia, unspecified; E78.00 Pure hypercholesterolemia, unspecified; R30.0 Dysuria; E11.9 Type 2 diabetes mellitus without complications; L40.9 Psoriasis, unspecified; M06.9 Rheumatoid arthritis, unspecified; G43.909 Migraine, unspecified, not intractable, without status migrainosus; I67.1 Cerebral aneurysm, nonruptured; K92.2 Gastrointestinal hemorrhage, unspecified; K21.9 Gastro-esophageal reflux disease without esophagitis; J30.9 Allergic rhinitis, unspecified; E55.9 Vitamin D deficiency, unspecified; G89.29 Other chronic pain; E66.3 Overweight; Z68.26 Body mass index [BMI] 26.0-26.9, adult; Z71.3 Dietary counseling and surveillance; Z87.891 Personal history of nicotine dependence
CPT/HCPCS: 36415; 77062; 77066; 80053; 80061; 81003; 82306; 82570; 82728; 83036; 84443; 85027; 99212

== ENCOUNTER 2025-02-23 09:39 | Outpatient (AMB) | payer MEDICARE, SELFPAY ==
[2025-02-23 10:18] VITALS: BP 128/68; PULSE 75; O2SAT 99; BMI 26.3
--- NOTE | 2025-02-23 10:18 | A.OFFPC_ITS ---
Vital Signs 02/23/25 10:18 Height 5 ft 3 in Weight 148 lb 8 oz BMI 26.3 BP 128/68 Blood Pressure Location Lt brachial Position Sitting Pulse 75 Pulse Source Pulse Oximeter Pulse Oximetry (%) 99 Oxygen Delivery Method Room Air Intake Visit Reasons: Follow Up Lockstitch Lining Maker Required: No Accompanied by: Self / Same As Patient Allergies clopidogrel (From Plavix) Allergy (Severe, Verified 02/23/25 11:21) Rash milnacipran (From Savella) Adverse Reaction (Severe, Verified 02/23/25 11:21) tachycardia promethazine (From Phenergan) Adverse Reaction (Severe, Verified 02/23/25 11:21) tachycardia Medication List - Last Reconciled 02/23/25 by Maurilio Burgess MD acetaminophen ER (Tylenol 8 Hour) 650 mg PO Q12H PRN 90 days aspirin 81 mg PO DAILY 90 days cetirizine (Zyrtec) 10 mg PO DAILY PRN 90 days cholecalciferol (vitamin D3) 50 mcg PO DAILY 90 days fluticasone propionate 50 mcg/actuation 1 spray intranasal DAILY PRN 90 days lifitegrast 5% (Xiidra) 5 drps ophthalmic (eye) DAILY memantine 10 mg PO BID 90 days metformin 500 mg PO BID 90 days nateglinide 120 mg PO TID 90 days nortriptyline 10 mg PO BEDTIME 90 days pantoprazole 40 mg PO DAILY 90 days pravastatin 40 mg PO DAILY 90 days pregabalin 75 mg PO BID 30 days rimegepant (Nurtec ODT) 75 mg PO Q OTHER DAY PRN 30 days risankizumab-rzaa (Skyrizi) 600 mg IV Q4W risankizumab-rzaa (Skyrizi) 150 mg subcut Q12W simethicone (Gas Relief (simethicone)) 125 mg PO BID-QID PRN 90 days tizanidine 4 mg PO BID PRN topiramate 100 mg PO BID 90 days tramadol 50 mg PO BID PRN MDD yes Tobacco use date assessed: 02/23/25 Dental Screening Dental Screen Date: 02/23/25 Did you have a dental visit in the last 12 months?: No Did you have a dental problem in the last 6 months where you did not have access to dental care?: No Was dental information given to patient?: No HPI Follow Up HPI Details Patient comes in today for her follow up visit States that she feels okay Denies any dizziness but states that she has been experiencing some recurrence of her migraine headaches lately - she is still taking all of her prescribed Rx Relates that she used to see neurology in [place] for her migraine but as she is no longer living in [place], has not gone back to see them lately She was referred to [facility] neurology here earlier this year but she has not been seen yet and there are no appointments scheduled with them so far Denies any chest pains, no increased SOB No nausea/vomiting, no abdominal pain No change in bowel habits noted She had her follow up labs done earlier this morning - to discuss her results COUNTS INCLUDE 234 BEDS AT THE [facility] Medical History Psoriatic arthritis Vitamin D deficiency Psoriasis Migraine Brain aneurysm Chronic anemia Overweight (BMI 25.0-29.9) Chronic pain Allergic rhinitis GERD without esophagitis Diabetes mellitus Pure hypercholesterolemia Cardiac murmur Surgical History History of hysterectomy History of abdominoplasty S/P brachioplasty History of appendectomy History of cholecystectomy History of colon resection History of reduction mammoplasty History of rotator cuff surgery History of gastric bypass History of carpal tunnel surgery of right wrist History of carpal tunnel surgery of left wrist Hx of brain surgery Family History Sister Breast cancer Other Diabetes Schizophrenia Social History Housing: Apartment Patient Tobacco Use Status: Former Tobacco user e-Cigarette/Vaping Use: Never Used Second Hand Smoke Exposure: No service: No Current occupational status: retired Current occupational exposures/hazards: No Cognitive needs: No Hearing needs: No Vision needs: No Female Reproductive History Menstrual Age of Menarche: 14 Questionnaire PHQ-9 Over the last 2 weeks, how often have you been bothered by any of the following problems? Depression Screening Interpretation: Positive Depression Screening Follow-up: Existing condition and In treatment Depression Screening Done: Yes Source: Developed by Drs. Johan Espino, Marlen River, Cory De Jesus and colleagues, with an educational corona from [employer]. Thrive Questionnaire Date Thrive assessed: 10/07/24 I am a: Patient What is your living situation today?: I have a steady place to live Within the past 12 months, did the food you bought not last and you didn't have the money to get more?: Sometimes True Within the past 12 months, did you worry whether your food would run out before you got money to buy more?: Sometimes True Do you have trouble paying for medicines?: No Do you have trouble getting transportation to medical appointments?: No Do you have trouble paying your heating and electricity bill?: No Do you have trouble taking care of your child, family member or friend?: No Do you have trouble with day-to-day activities such as bathing, preparing meals, shopping, managing finances, etc.?: No Are you currently unemployed and looking for a job?: No Are you interested in more education?: No Please select the resources that you would like help with: None Currently or been in a relationship where the following occur: No concerns reported THRIVE Score: 2 AUDIT C Alcohol Use Questionnaire (AUDIT-C) 1. How often do you have a drink containing alcohol?: Never 3. How often do you have six or more drinks on one occasion?: Never Total Score: 0 Score Reviewed/Action Taken: Yes CHANA-7 AMB Questionnaire CHANA-7 Date CHANA - 7 assessed: 10/07/24 Source: Developed by Drs. Johan Espino, Marlen River, Cory De Jesus and colleagues, with an educational corona from [employer]. Review of Systems Const Denies chills, Reports fatigue, Denies fever(s) and Reports headache(s) (recurrent lately) ENT Denies dysphagia, Denies dizziness, Denies otalgia, Reports headache(s) (recurrent lately), Denies neck pain, Denies odynophagia and Denies sore throat Card Denies chest pain, Denies palpitations and Denies dyspnea Resp Denies chest congestion, Denies cough and Denies dyspnea GI Denies abdominal pain, Denies constipation, Denies dysphagia, Denies heartburn, Denies diarrhea, Denies nausea, Denies odynophagia and Denies vomiting Denies difficulty voiding, Denies nocturia, Denies dysuria and Denies urinary urgency Musc Denies abnormal gait, Reports arthralgias and Denies neck pain Skin/Breast Reports rash ((+) on and off rash over both forearms) Neuro Denies abnormal gait, Denies dizziness and Reports headache(s) (recurrent lately) Endo Reports fatigue and Denies palpitations Physical exam (Primary Care) Vital Signs: Last Vital Signs Pulse 75 02/23/25 10:18 BP 128/68 02/23/25 10:18 Pulse Ox 99 02/23/25 10:18 Oxygen Delivery Method Room Air 02/23/25 10:18 BMI result Body Mass Index 26.3 Tobacco/Smoking Status: Tobacco use Status Tobacco use date assessed 02/23/25 02/23/25 10:23 Patient Tobacco Use Status Former Tobacco user 02/23/25 10:23 e-Cigarette/Vaping Use Never Used 02/23/25 10:23 Depression Screening Interpretation: Positive Depression Screening Follow-up: Existing condition and In treatment Thrive Assessment: Date of Thrive Assessment Date Thrive assessed 10/07/24 02/23/25 10:23 Currently or been in a relationship where the following occur: No concerns reported Const General: no acute distress and alert HENMT Ears: TM's normal bilaterally and EAC's normal Throat: Yes posterior oropharynx normal and Yes tonsils normal (no TP congestion) Neck Neck: Yes supple and No lymphadenopathy Thyroid: Thyroid normal Resp Auscultation: clear to auscultation bilaterally, no rales and no wheezes Cardio Rate: regular rate Rhythm: regular rhythm Heart sounds: Murmur heart sound present GI Palpation (GI): Soft to palpation and nontender Auscultation: normal bowel sounds General: Yes no CVA tenderness Back/Spine/Pelvis Back: no CVA tenderness Thoracic/Lumbar Spine: No lumbar spinal tenderness Skin Other: (+) few scattered scaling rash over the extensor surface of both forearms Extrem General: Yes no clubbing, cyanosis or edema Results Reviewed Results Reviewed: Laboratory Tests 02/23/25 09:34 WBC 8.3 Hgb 11.5 L Hct 36.6 L Plt Count 249 Sodium 144 Potassium 4.0 Creatinine 0.66 Estimated GFR > 60 Fasting Glucose 135 H Hemoglobin A1c % 6.3 H Calcium 9.6 AST 31 ALT 18 Triglycerides 125 Cholesterol 170 LDL Cholesterol, Calc 81 HDL Cholesterol 64 25-OH Vitamin D Total 34.0 TSH 0.76 Coding Level of Care Code Est Pt Level 4 (89097) Diagnoses Pure hypercholesterolemia E78.00 Type 2 diabetes mellitus without complication, without long-term current use of insulin E11.9 Diabetes mellitus type: type 2 Diabetes mellitus watermelon harvesting supervisor insulin use: without watermelon harvesting supervisor use Diabetes mellitus complication status: without complication Psoriasis L40.9 Rheumatoid arthritis, involving unspecified site, unspecified whether rheumatoid factor present M06.9 Rheumatoid arthritis location: unspecified site Rheumatoid factor presence: unspecified presence Migraine without status migrainosus, not intractable, unspecified migraine type G43.909 Migraine type: unspecified Status migrainosus presence: without status migrainosus Intractability: not intractable Brain aneurysm I67.1 Chronic anemia D64.9 Small intestinal hemorrhage K92.2 GERD without esophagitis K21.9 Allergic rhinitis, unspecified seasonality, unspecified trigger J30.9 Allergic rhinitis trigger: unspecified Allergic rhinitis seasonality: unspecified Vitamin D deficiency E55.9 Other chronic pain G89.29 Chronic pain type: other chronic pain Overweight (BMI 25.0-29.9) E66.3 Assessment & Plan Assessment & Plan (1) Pure hypercholesterolemia: Code(s): E78.00 - Pure hypercholesterolemia, unspecified Category: Medical Plan: Results of her labs done earlier today reviewed and discussed with patient Reinforced low cholesterol diet Continue Pravastatin 40 mg QD Will recheck her labs and fasting lipids in 4 months for follow up (2) Diabetes mellitus: Code(s): E11.9 - Type 2 diabetes mellitus without complications Category: Medical Qualifiers: Diabetes mellitus type: type 2 Diabetes mellitus [facility] insulin use: without watermelon harvesting supervisor use Diabetes mellitus complication status: without complication Qualified Code(s): E11.9 - Type 2 diabetes mellitus without complications Plan: Her HgbA1c is at 6.3% on her labs done earlier this morning (was previously at 5.4% a few months ago) - goal is at least <7.0% Reinforced diabetic diet Continue Nateglinide 120 mg TID and Metformin 500 mg BID (3) Psoriasis: Code(s): L40.9 - Psoriasis, unspecified Category: Medical Plan: Continue Otezla 30 mg BID Follow up with dermatology as scheduled for continuing management of her psoriasis (4) Rheumatoid arthritis: Code(s): M06.9 - Rheumatoid arthritis, unspecified Category: Medical Qualifiers: Rheumatoid arthritis location: unspecified site Rheumatoid factor presence: unspecified presence Qualified Code(s): M06.9 - Rheumatoid arthritis, unspecified Plan: Follow up with rheumatology as scheduled (5) Migraine: Code(s): G43.909 - Migraine, unspecified, not intractable, without status migrainosus Category: Medical Qualifiers: Migraine type: unspecified Status migrainosus presence: without status migrainosus Intractability: not intractable Qualified Code(s): G43.909 - Migraine, unspecified, not intractable, without status migrainosus Plan: Reinforced avoidance of any potential migraine triggers Continue Topiramate 100 mg BID, Nortriptyline 10 mg Q HS and Nurtec ODT 75 mg every other day She has been referred to [facility] Neurology earlier this year but still has not been seen and has no upcoming appt scheduled She used to see neurology in [place] but as she is no longer living in [place], has not been back to see them lately Will place new referral to [facility] Neurology again today (6) Brain aneurysm: Comment: s/p surgical repair in 2014 in [place], [place] Code(s): I67.1 - Cerebral aneurysm, nonruptured Category: Medical Plan: Patient currently has another aneurysm of about 8 mm in size that was being monitored closely by a Dr. [place] until she moved here to [facility] Follow up with neurosurgery as scheduled for continuing surveillance and management - she is now seeing neurosurgery at [facility] [address] Patient has had some cognitive impairment ever since her brain surgery in 2014 Continue Memantine 10 mg BID (7) Chronic anemia: Code(s): D64.9 - Anemia, unspecified Category: Medical Plan: Her H/H was at 11.5/36.6 on her labs done earlier today - will continue to monitor her CBC regularly Follow up with hematology as scheduled for continuing management (8) Small intestinal hemorrhage: Code(s): K92.2 - Gastrointestinal hemorrhage, unspecified Category: Medical Plan: Patient reportedly had a slow bleed in her small intestines that comes and goes for a while now States that there was an attempt to localize and cauterize the bleeding a couple of years ago wherein she was under anesthesia and intubated but no active bleeding was detected at the time of the procedure Follow up [facility] GI as scheduled (9) GERD without esophagitis: Code(s): K21.9 - Gastro-esophageal reflux disease without esophagitis Category: Medical Plan: Dietary restrictions reinforced Continue Pantoprazole 40 mg QD (10) Allergic rhinitis: Code(s): J30.9 - Allergic rhinitis, unspecified Category: Medical Qualifiers: Allergic rhinitis trigger: unspecified Allergic rhinitis seasonality: unspecified Qualified Code(s): J30.9 - Allergic rhinitis, unspecified Plan: Continue Cetirizine 10 mg QD PRN and Fluticasons 50 mcg nasal spray QD PRN (11) Vitamin D deficiency: Code(s): E55.9 - Vitamin D deficiency, unspecified Category: Medical Plan: Continue Vitamin D3 2000 units QD (12) Chronic pain: Code(s): G89.29 - Other chronic pain Category: Medical Qualifiers: Chronic pain type: other chronic pain Qualified Code(s): G89.29 - Other chronic pain Plan: Continue Pregabalin 75 mg BID, Tramadol 50 mg TID PRN and Tizanidine 4 mg BID PRN (13) Overweight (BMI 25.0-29.9): Code(s): E66.3 - Overweight Category: Medical Plan: Reinforced diet/exercise as tolerated/lose weight Plan Follow up in 4 months Orders: Orders Complete Blood Count Auto Diff 4 Months D64.9 - Anemia, unspecified Comprehensive [place]. Panel Fast 4 Months E78.00 - Pure hypercholesterolemia, unspecified TSH reflex Free T4 4 Months E78.00 - Pure hypercholesterolemia, unspecified UA CC w/rflx Micro + Cult 4 Months R30.0 - Dysuria Vitamin B12 and Folate 4 Months E53.8 - Deficiency of other specified B group vitamins Hemoglobin A1c 4 Months E11.9 - Type 2 diabetes mellitus without complications Lipid Panel 4 Months E78.00 - Pure hypercholesterolemia, unspecified Microalbumin, Random (w Creat) 4 Months E11.9 - Type 2 diabetes mellitus without complications Vitamin D 25-OH Total 4 Months E55.9 - Vitamin D deficiency, unspecified Referrals Neurology Referral G43.909 - Migraine, unspecified, not intractable, without status migrainosus
== END 2025-02-23 11:34 | disposition home or self-care (01) ==
LOC: HO.HMCH 09:40
PROVIDERS: PCP Internal Medicine; Visit Provider Internal Medicine
DX: E78.00 Pure hypercholesterolemia, unspecified (principal); E11.9 Type 2 diabetes mellitus without complications; L40.9 Psoriasis, unspecified; M06.9 Rheumatoid arthritis, unspecified; G43.909 Migraine, unspecified, not intractable, without status migrainosus; I67.1 Cerebral aneurysm, nonruptured; D64.9 Anemia, unspecified; K92.2 Gastrointestinal hemorrhage, unspecified; K21.9 Gastro-esophageal reflux disease without esophagitis; J30.9 Allergic rhinitis, unspecified; E55.9 Vitamin D deficiency, unspecified; G89.29 Other chronic pain; E66.3 Overweight

== ENCOUNTER → 2025-02-23 12:30 | Outpatient (BNV) | payer MEDICARE, MEDICAID, SELFPAY | PROVIDERS: Absent Provider Internal Medicine; PCP Internal Medicine; Visit Provider Radiology Body Imaging | DX: R92.8 Other abnormal and inconclusive findings on diagnostic imaging of breast (principal) | CPT/HCPCS: 77066; G0279 ==

== ENCOUNTER 2025-04-16 09:27 | Outpatient (AMB) | payer MEDICARE, SELFPAY ==
--- OUTSIDE RECORDS SUMMARY | 2024-08-12 05:00 | XMS_ITS ---
Author Organization [facility] Address [address] [place] [address] Care Team Providers Care Antique Clock Repairer Name Role Phone NO, PCP Primary Care Provider [phone] Ebony Reyes Unavailable REASON FOR VISIT housing Social History Sex Assigned At : Social History Observation Description Sex Assigned At Female Encounters Encounter Location Date Provider Diagnosis [facility] [address] [place], [place] [phone] 08/12/2024 Ebony Reyes Plan Of Treatment No Information Progress Notes * Jazmine CALDERADOB:[birth year] (65 yo F)Acc No.[id number]:08/12/2024 Case Management Patient: Jazmine ROUSSEAU Provider: Ly Reyes :1960 A ge:64 Y S ex:Female Date:08/12/2024 Address:[facility] [address] [place], [place] [address] Pcp:PCP NO Subjective: * Chief Complaints: * 1 . Housing. * Medical History: Objective: Assessment: Plan: * Treatment: * Images: Billing Information: * Visit Code: * Procedure Codes: Care Plan Details* * Electronic signature of Jeffrey Reyes on 04/16/2025 at 10:37 AM EST Sign off status: Pending * Provider: Ly Reyes Date: 0 08/12/2024 Generated for Feri mariaelena/Timothy/eTransmitting on: 1 06/16/2024 10:37 AM EST
--- OUTSIDE RECORDS SUMMARY | 2024-08-19 04:00 | XMS_ITS ---
Author Organization [facility] Address [address] [place] [address] Care Team Providers Care Red Cross Worker Name Role Phone NO, PCP Primary Care Provider Ebony Reyes Unavailable REASON FOR VISIT housing application/rc appt Social History Sex Assigned At : Social History Observation Description Sex Assigned At Female Encounters Encounter Location Date Provider Diagnosis [facility] [address] [place] [phone] 08/19/2024 Ebony Reyes Plan Of Treatment No Information Progress Notes * Jazmine CALDERADOB:[birth year] (65 yo F)Acc No.[id number]:08/19/2024 Case Management Patient: Jazmine ROUSSEAU Provider: Ly Reyes :1960 A ge:64 Y S ex:Female Date:08/19/2024 Address:[facility] [address] [place], [place] [id number] Pcp:PCP NO Subjective: * Chief Complaints: * 1 . Housing application/rc appt. * Medical History: Objective: Assessment: Plan: * Treatment: * Images: Billing Information: * Visit Code: * Procedure Codes: Care Plan Details* * Electronic signature of Jeffrey Reyes on 04/16/2025 at 10:37 AM EST Sign off status: Pending * Provider: Ly Reyes Date: 0 08/19/2024 Generated for Printi ng/Faxing/eTransmitting on: 1 06/16/2024 10:37 AM EST
--- NOTE | 2025-04-16 09:40 | A.OFFVIS_ITS ---
Vital Signs 04/16/25 09:50 Height 5 ft 3 in Weight 150 lb BMI 26.6 BP 118/59 L Blood Pressure Location Lt brachial Position Sitting Pulse 87 Intake Visit Reasons: 6 month follow up breast exam Intake Note: Patient is seen in office for 6 month follow up visit, breast exam. Pt c/o: admits to lump all over both breast, denies redness, swelling, discharge, or any other concerns mm:02/23/25 Log Operations Coordinator Required: No Accompanied by: Self / Same As Patient Allergies clopidogrel (From Plavix) Allergy (Severe, Verified 04/16/25 09:49) Rash milnacipran (From Savella) Adverse Reaction (Severe, Verified 04/16/25 09:49) tachycardia promethazine (From Phenergan) Adverse Reaction (Severe, Verified 04/16/25 09:49) tachycardia HPI HPI 6 month follow up breast exam: Details: 65 year old female patient presenting following a recent diagnostic mammogram performed on 02/23/2025. She had initially presented following a diagnostic mammogram performed in 07/2024 along with a left breast ultrasound which revealed a left breast solid oval circumscribed mass in the 03:00 o'clock location ap proximately 5 cm from the nipple. The lesion measured 6 x 5 x 7 mm by ultrasound. Lesion was felt to be suspicious for malignancy an ultrasound- guided core biopsy is recommended. She underwent the ultrasound-guided core biopsy on 08/27/2024 and pathology revealed benign cyst with hyalinized fibrosis and scant benign breast tissue. This was felt to be concordant with the radiologic studies and a six-month follow-up mammogram recommended for follow-up of bilateral breast asymmetries. She previously underwent a bilateral breast reduction following gastric bypass surgery. Her family history is significant for a sister with breast cancer at the age of 53; she the following year of the disease. The patient denies any palpable mass but did recently no discharge from the nipples. Her menarche was age 14, she is with 1 miscarriage. Her 1st child was born when she was 42. She denied hormone replacement therapy. She denies any previous breast biopsies. Her breast density score was C. The patient denies any ongoing breast symptoms. Repeat diagnostic mammogram on 02/23/25 revealed focal asymmetry in the upper central slightly outer right breast, not significantly changed, probably benign and focal asymmetry in the upper outer quadrant and asymmetry in the lower left breast not significantly changed, probably benign (BI-RADS 3). A 6-month follow-up mammogram is recommended. REPLACED BY [facility] Medical History Psoriatic arthritis Vitamin D deficiency Psoriasis Migraine Brain aneurysm Chronic anemia Overweight (BMI 25.0-29.9) Chronic pain Allergic rhinitis GERD without esophagitis Diabetes mellitus Pure hypercholesterolemia Cardiac murmur Surgical History History of hysterectomy History of abdominoplasty S/P brachioplasty History of appendectomy History of cholecystectomy History of colon resection History of reduction mammoplasty History of rotator cuff surgery History of gastric bypass History of carpal tunnel surgery of right wrist History of carpal tunnel surgery of left wrist Hx of brain surgery Family History Sister Breast cancer Other Diabetes Schizophrenia Social History Housing: Apartment Patient Tobacco Use Status: Former Tobacco user e-Cigarette/Vaping Use: Never Used Second Hand Smoke Exposure: No service: No Current occupational status: retired Current occupational exposures/hazards: No Cognitive needs: No Hearing needs: No Vision needs: No Female Reproductive History Menstrual Age of Menarche: 14 Review of Systems Const Denies chills and Denies fever(s) ENT Denies dizziness Card Denies dyspnea Resp Denies dyspnea GI Denies abdominal pain, Denies nausea and Denies vomiting Skin/Breast Denies breast skin changes, Denies breast pain, Denies breast mass, Denies rash and Denies jaundice Neuro Denies dizziness Physical Exam Vital Signs: Last Vital Signs Pulse 87 04/16/25 09:50 BP 118/59 L 04/16/25 09:50 BMI result Body Mass Index 26.6 Const General: comfortable, no acute distress and alert Orientation/consciousness: patient oriented x3 HEENT Head: Yes other (Left side craniotomy incision) Chest Other: Left breast: No skin change, no nipple retraction, no nipple discharge, no palpable mass, no enlarged lymph nodes Right breast: No skin change, no nipple retraction, no nipple discharge, no palpable mass, no enlarged lymph nodes Resp Effort & Inspection: normal respiratory effort Skin Other: warm and dry Neuro General: patient oriented x3 and moves all extremities Assessment & Plan Assessment & Plan (1) Abnormal mammogram of both breasts: Code(s): R92.8 - Other abnormal and inconclusive findings on diagnostic imaging of breast Category: Medical Plan 64-year-old female patient presenting with a history of abnormal mammogram, ultrasound-guided core biopsy on 08/27/2024 which revealed benign cyst with hyalinized fibrosis and scant benign breast tissue. Follow-up mammogram on 02/23/25 revealed focal asymmetry in the upper central slightly outer right breast, not significantly changed, probably benign and focal asymmetry in the upper outer quadrant and asymmetry in the lower left breast not significantly changed, probably benign (BI-RADS 3). Her exam today does not show any suspicious findings. Recommended follow up exam and mammogram in 6 months. She can return sooner if she develops concerns. Orders: Orders MM tomosynthesis diagnostic BI 4 Months R92.8 - Other abnormal and inconclusive findings on diagnostic imaging of breast Coding Level of Care Code Est Pt Level 3 (91527) Diagnoses Abnormal mammogram of both breasts R92.8
[2025-04-16 09:50] VITALS: BP 118/59; PULSE 87; BMI 26.6
--- OUTSIDE RECORDS SUMMARY | 2025-04-16 10:36 | XMS_ITS | Encounter Summary ---
Author Organization [facility] Address [address] [place] [address] Care Team Providers Care Rn Lpn Cna Name Role Phone Sabrina Redd Primary Care Provider [phone] Encounter Details Date Type Department Care Team (Late st Contact Info) Description 04/11/2019 Scanned Document [facility] [address] [facility] [address] [facility] [place] [address] Provider, Historical . Social History Tobacco Use [...] filedocumented in this encounter Care Teams Rn Lpn Cna Relationship Specialty Start Date End Date Sabrina Redd PA [address] [place] [address] PCP - General 07/12/22 documented as of this encounter
--- OUTSIDE RECORDS SUMMARY | 2025-04-16 10:36 | XMS_ITS | Encounter Summary ---
Author Organization [facility] Address [address] [place] [address] Care Team Providers Care Warehouse Handler Name Role Phone Steffi Escalera APRN Primary Care Provider Myesha Hwang MD Unavailable [phone] Encounter Details Date Type Department Care Team (Late st Contact Info) Description 02/06/2023 Scanned Document [facility] [facility] [address] [address] [place] [address] Social History Tobacco Use Types [...] * Question Answer Date of Assessment Author PHQ-2 Total Score 4 02/06/2023 9:00 AM EDT Florian Beebe MD Little interest or pleasure in doing things More than half the days 02/06/2023 9:00 AM Florian Damon MD Feeling down, depressed, or hopeless More [...] difficult 02/06/2023 9:00 AM Florian Damon MD PHQ-9 Total Score 10 02/06/2023 9:00 AM Florian Damon MD documented as of this encounter Plan of Treatment Not on file documented as of this encounter Visit Diagnoses Not on filedocumented in this encounter Care Teams Warehouse Handler Relationship Specialty Start Date End Date Steffi Escalera APRN 12 [facility] [address] [place] [address] PCP - General 01/15/23 Myesha Hwang MD [address] [place] [address] Gastroenterology 04/09/23 documented as of this encounter
--- OUTSIDE RECORDS SUMMARY | 2025-04-16 10:36 | XMS_ITS | Patient Health Record ---
Author Organization [facility] Address [address] [place] [address] Care Team Providers Care Grease Worker Name Role Phone NO, PCP Primary Care Provider [phone] Ebony Reyes Unavailable Reason For Referral No Information Social History Sex Assigned At : Social History Observation Description Sex Assigned At Female Encounters Encounter Location Date Provider Diagnosis [facility] [address] [place] [id number] 04/17/2024 Ebony Reyes [facility] [address] [place] [id number] 05/27/2024 Ebony Reyes [facility] [address] [place] [phone] 05/30/2024 Ebony Reyes Plan Of Treatment No Information Insurance Providers Payer Name Payer Address Payer Phone Subscriber Number Group Number Insured Name Patient Relationship to Insured Coverage Start Date Coverage End Date [place] Medicare Part A [employer] [facility] [address] [place] [address] [id number] Jazmine Schulz Self - patient is the insured 4 [employer] [address] [address] [place], [place] [id number] Jazmine Schulz Self - patient is the insured 4
--- OUTSIDE RECORDS SUMMARY | 2025-04-16 10:36 | XMS_ITS | Encounter Summary ---
Author Organization [facility] and [facility] Address [address] [place] [address] Care Team Providers Care First Grade Teacher Name Role Phone Sabrina Redd Primary Care Provider [phone] Encounter Details Date Type Department Care Team (Late st Contact Info) Description 04/09/2019 Abstract [facility] 800 [facility] [place] [address] Antoni Patricio MD [address] [place] [phone] Social History Tobacco Use Types Packs/Day Years [...] on filedocumented in this encounter Care Teams First Grade Teacher Relationship Specialty Start Date End Date Sabrina Redd PA [address] [place] [address] PCP - General 07/12/22 documented as of this encounter
--- OUTSIDE RECORDS SUMMARY | 2025-04-16 10:36 | XMS_ITS | Encounter Summary ---
Author Organization [facility] Address [address] [place] [address] Care Team Providers Care Market Research Assistant Name Role Phone Steffi Escalera APRN Primary Care Provider Myesha Hwang MD Unavailable [phone] Encounter Details Date Type Department Care Team (Late st Contact Info) Description 02/06/2023 Scanned Document [facility] [address] [address] [place] [address] Social History Tobacco Use Types [...] on filedocumented in this encounter Care Teams Market Research Assistant Relationship Specialty Start Date End Date Steffi Escalera APRN 12 [facility] [address] [place] [address] PCP - General 01/15/23 Myesha Hwang MD [address] [place] [address] Gastroenterology 04/09/23 documented as of this encounter
--- OUTSIDE RECORDS SUMMARY | 2025-04-16 10:37 | XMS_ITS | Encounter Summary ---
Author Organization [facility] and [facility] Address [address] [place] [address] Care Team Providers Care Varnishing Unit Operator Name Role Phone Sabrina Redd Primary Care Provider [phone] Encounter Details Date Type Department Care Team (Late st Contact Info) Description 07/02/2019 Scanned Document [facility] [address] [place] [address] Antoni Patricio MD [address] [place] [phone] Social History Tobacco Use Types Packs/Day Years [...] on filedocumented in this encounter Care Teams Varnishing Unit Operator Relationship Specialty Start Date End Date Sabrina Redd PA [address] [place] [address] PCP - General 07/12/22 documented as of this encounter
--- OUTSIDE RECORDS SUMMARY | 2025-04-16 10:37 | XMS_ITS | Encounter Summary ---
Author Organization [facility] Address [address] [place] [address] Care Team Providers Care Billing Collections Specialist Name Role Phone Steffi Escalera APRN Primary Care Provider Myesha Hwang MD Unavailable [phone] Encounter Details Date Type Department Care Team ([facility] st Contact Info) Description 02/01/2023 Scanned Document [facility] 113 [facility] [address] [place] [phone] Marina Davis PA 113 [facility] [address] [place] [address] Social History Tobacco Use Types Packs/Day Years [...] on filedocumented in this encounter Care Teams Billing Collections Specialist Relationship Specialty Start Date End Date Steffi Escalera APRN 12 [address] [facility] [address] [place] [address] PCP - General 01/15/23 Myesha Hwang MD [address] [place] [address] Gastroenterology 04/09/23 documented as of this encounter
--- OUTSIDE RECORDS SUMMARY | 2025-04-16 10:37 | XMS_ITS | Clinical Summary ---
Author Organization [address] [facility] Address [address] [place] [address] Phone Care Team Providers Care Container Shop Welder Name Role Phone Maurilio Burgess MD Primary [...] SYMPTONS. Active blood-glucose meter (OneTouch Ultra2 Meter) [facility] 0 Active OneTouch Ultra Test test strip [...] [address] Gilberto Knox in [place]. 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 She has chronic left eye vision loss and balance difficulty, chronic headaches and memory problems, patient states this has been since her craniotomy. She was seeing Dr. Patricio in neurosurgery at [place], [place]. She has since moved to [place], is looking to get follow-up CTA of [...] prescription glasses, but has not seen an lawn care technician. All questions answered, will call with any additional questions or concerns. Encounters Date Type Department Care Team Description 02/23/2025 Telephone Neurosurgery - [place] [address] [facility] [address] [place] [address] Saleem Quigley MD from Last 3 Months Surgical History Surgery Date Site/Laterality Comments CEREBRAL ANEURYSM REPAIR 02/2016 :Dr. Knox at [facility] GASTRIC BYPASS 08/30/2009 OTHER SURGICAL HISTORY EXCESSIVE THIGH / HIP / BUTTOCK / FLANK SKIN EXCISION;COMMENT:following gastric bypass COLONOSCOPY 2016 COLONOSCOPY 2014 tubular adenoma HYSTERECTOMY 12/16/2010 UPPER GASTROINTESTINAL ENDOSCOPY 01/02/2018 Dr. Santacruz ([place]) OPEN ANTERIOR SHOULDER RECONSTRUCTION 04/14/2013 left shoulder reconstruction, Dr. Chisholm ([place]) SECTION UPPER GASTROINTESTINAL ENDOSCOPY 05/11/2020 N/A UPPER ENDOSCOPY-EGD; Surgeon: Pito Diaz MD; Location: [facility]; Service: Gastroenterology; Laterality: N/A; COLONOSCOPY 05/12/2020 N/A Surgeon: Tino Lang MD; Location: [facility]; Service: Gastroenterology; Laterality: N/A; UPPER GASTROINTESTINAL ENDOSCOPY 09/13/2020 N/A EGD Surgeon: Maynor Rojas MD; Location: [facility]; Service: Gastroenterology; Laterality: N/A; BREAST SURGERY REDUCTION MAMMAPLASTY;:with lift/ implants COLONOSCOPY 02/02/2021 N/A Surgeon: Tino Lang MD; Location: [facility]; Service: Gastroenterology; Laterality: N/A; OTHER SURGICAL HISTORY Patient reports history of colon resection required after gastric bypass, bladder surgery and appendectomy CARPAL TUNNEL RELEASE Bilateral Medical History Medical History Date Comments Aneurysm ([facility] V24) 2014 GI bleed Tubular adenoma of colon 2014 Syncope completed cardia c work up (tilt table, echo, stress jason, holter) Psoriasis Mild dementia ([facility] V24, CMS/[facility] V28) occasional memory loss Steatosis of liver 12/03/2017 fatty liver s een on US per past records. History of Papanicolaou smear of cervix 10/2017 History of mammogram 01/25/2018 negative Ovarian cyst Fibromyalgia, primary Anemia Anxiety GERD (gastroesophageal reflux disease) Depression Arthritis Migraine headache Visual impairment Obesity s/p GBP Diabetes (CMS/HCC V24, [facility] V28) Hyperlipidemia Asthma Acid reflux Rheumatoid arthritis (CMS/ C V24, [facility] V28) Family History Medical History Relation Name [...] Safety Answer Date Record ed Physical Abuse Unrecognized value 10/01/2024 Verbal Abuse Unrecognized value 10/01/2024 Comments Unknown Sex and Gender Information [...] Health Maintenance Due Date Last Done Comments Colorectal Cancer Screening: Colonoscopy 1962 DTaP,Tdap,and Td Vaccines (1 - Tdap) 1981 Cervical Cancer Screening: Pap Smear 1983 Pneumococcal Vaccine: 50+ Years (1 of 1 - PCV) 02/20/2012 Zoster Vaccines (1 of 2) 02/20/2012 Breast Cancer Screening 05/13/2022 05/13/2020 HIV Screening 05/14/2022 Hepatitis C Screening 05/14/2022 [...] , as required by [facility] bill 485. Session: Separate session. Report reviewed and signed by : Dr. Matthew Serrato MD on 05/13/2020 4:27 PM. Workstation Name - [id number] Procedure Note Matthew Serrato MD - 06/02/2022 [...] report , as required by [place] [address]. Session: Separate session. Report reviewed and signed by : Dr. Matthew Serrato MD on 05/13/2020 4:27 PM.Workstation Name - [id number] Moise Palomino MD IMG BI PROCEDURES Final Resul t from Last 3 Months or Most Recently Relevant to Health Maintenance Insurance [employer] MEDICARE ADVANTAGE MED[place]ID - [place] MEDICA[place] Care Teams Container Shop Welder Relationship Specialty Start Date End Date Maurilio Burgess MD [address] [place] [address] [address] KIMMIE Elkins PCP - General Internal Medicine 06/17/24
--- OUTSIDE RECORDS SUMMARY | 2025-04-16 10:37 | XMS_ITS | Encounter Summary ---
Author Organization [facility] Address [address] [place] [address] Care Team Providers Care Continuous Churn Buttermaker Name Role Phone Sabrina Redd Primary Care Provider Encounter Details Date Type Department Care Team (Late st Contact Info) Description 06/27/2019 Scanned Document [facility] [address] [place] [address] Antoni Patricio MD [address] [place] [phone] Social History Tobacco Use Types Packs/Day Years [...] on filedocumented in this encounter Care Teams Continuous Churn Buttermaker Relationship Specialty Start Date End Date Sabrina Redd PA [address] [place] [address] PCP - General 07/12/22 documented as of this encounter
--- OUTSIDE RECORDS SUMMARY | 2025-04-16 10:37 | XMS_ITS | Clinical Summary ---
Author Organization [facility] Address [address] [place] [address] Care Team Providers Care Word Processing Supervisor Name Role Phone Lucas Wen APRN Primary Care Provider Sina lopez Allergies Active Allergy Reactions Criticality Noted Date Comments Milnacipran Palpitations,Other ( See Comments) Medium 02/12/2019 Tachycardia Clopidogrel Rash Low 11/01/2022 Promethazine Palpitations,Other ( See Comments) Medium 04/10/2012 Tachycardia 180/min - she had to be taken to ER. Medications Medication Sig Dispensed Refills Start Date End Date Status FnYpc-LeNzzr-PV-B Cmp-C-Biot (INTEGRA PLUS) CAPS Take 1 tablet [...] long-term current use of insulin ([facility]) Test one to two times [...] records for review Pt was followed by [facility] in [place], will need f/u care here also Overview: Last Assessment & Plan: Continue oral iron Need old records for review Pt was followed by [facility] in [place], will need f/u care here also Last Assessment & Plan: Continue oral iron Need old records for review Pt was followed by heme in [place], will need f/u care here also Last Assessment & Plan: Continue oral iron Need old records for review Pt was followed by heme in [place], will need f/u care here also Hematemesis [...] We discussed the minimal potential risk with mail technician PPI use. Based on AGA expert review the quality of evidence behind mail technician kidney disease, dementia, bone fractures, and [...] expert review the quality of evidence behind mail technician kidney disease, dementia, bone fractures, and infection with PPI use is low. The current data suggests that mail technician PPI use does not require routine [...] expert review the quality of evidence behind mail technician kidney disease, dementia, bone fractures, and [...] aneurysm s/p trapping/bypass by Dr. Colin in [place] in 04/2015 Chronic migraine without aur a [...] Advance Directives For more information, please contact: [phone] Latest Code Status on File Code Status [...] 7:25 PM 01/06/2020 7:55 PM Care Teams Word Processing Supervisor Relationship Specialty Start Date End Date Lucas Wen APRN PCP - General Cardiology 11/01/22
--- OUTSIDE RECORDS SUMMARY | 2025-04-16 10:37 | XMS_ITS | Encounter Summary ---
Author Organization [facility] Address [address] [place] [address] Care Team Providers Care Miscellaneous Machine Operator Name Role Phone Sabrina Redd Primary Care Provider [phone] Encounter Details Date Type Department Care Team (Late st Contact Info) Description 07/13/2019 Abstract [facility] [address] [place] [address] Antoni Patricio MD [address] [place] [phone] Social History Tobacco Use Types Packs/Day Years [...] on filedocumented in this encounter Care Teams Miscellaneous Machine Operator Relationship Specialty Start Date End Date Sabrina Redd PA [address] [place] [address] PCP - General 07/12/22 documented as of this encounter
--- OUTSIDE RECORDS SUMMARY | 2025-04-16 10:37 | XMS_ITS | Encounter Summary ---
Author Organization [facility] Address [address] [place] [address] Care Team Providers Care Accounting Supervisor Name Role Phone Sabrina Redd Primary Care Provider [phone] Encounter Details Date Type Department Care Team (Late st Contact Info) Description 07/14/2019 Scanned Document [facility] at [address] [facility] [address] [place] [address] Provider, Historical . Social History Tobacco Use [...] on filedocumented in this encounter Care Teams Accounting Supervisor Relationship Specialty Start Date End Date Sabrina Redd PA [address] [place] [address] PCP - General 07/12/22 documented as of this encounter
--- OUTSIDE RECORDS SUMMARY | 2025-04-16 10:37 | XMS_ITS | Encounter Summary ---
Author Organization [facility] Address [address] [place] [address] Care Team Providers Care Resizer Operator Name Role Phone Marina Reddy TURNER Primary Care Provider [phone] Lucas Wen APRN Primary Care Provider + Steffi Escalera APRN Primary Care Provider Myesha Hwang MD Unavailable [phone] Encounter Details Date Type Department Care Team (Late st Contact Info) Description 09/29/2022 Scanned Document [facility] Center - [address] [place] [address] Chris Sood MD [address] [place] [address] [address] [place], [place] [id number] Social History Tobacco Use Types Packs/Day Years [...] on filedocumented in this encounter Care Teams Resizer Operator Relationship Specialty Start Date End Date Marina Reddy APRN PCP - General Adult Health - PA/APNP/DEPUTY SHERIFF/INVESTIGATOR/ORE BRIDGE OPERATOR 03/03/19 10/19/22 Lucas Wen APRN PCP - General Adult Health - PA/APNP/DEPUTY SHERIFF/INVESTIGATOR/ORE BRIDGE OPERATOR 10/20/22 01/14/23 Steffi Escalera APRN [address] [address] PCP - General 01/15/23 Myesha Hwang MD [address] [place] [address] Gastroenterology 04/09/23 documented as of this encounter
--- OUTSIDE RECORDS SUMMARY | 2025-04-16 10:37 | XMS_ITS | Encounter Summary ---
Author Organization [facility] Address [address] [place] [address] Care Team Providers Care Educational Assistant Name Role Phone Sabrina Redd Primary Care Provider [phone] Encounter Details Date Type Department Care Team (Late st Contact Info) Description 06/20/2019 Scanned Document [facility] at [address] [place] [address] Antoni Patricio MD [address] [place] [phone] Social History Tobacco Use Types Packs/Day Years [...] on filedocumented in this encounter Care Teams Educational Assistant Relationship Specialty Start Date End Date Sabrina Redd PA [address] [place] [address] PCP - General 07/12/22 documented as of this encounter
--- OUTSIDE RECORDS SUMMARY | 2025-04-16 10:37 | XMS_ITS | Encounter Summary ---
Author Organization [facility] Address [address] [place] [address] Care Team Providers Care Senior Research Executive Name Role Phone Lucas Wen APRN Primary Care Provider + Steffi Escalera APRN Primary Care Provider Myesha Hwang MD Unavailable [phone] Encounter Details Date Type Department Care Team (Late st Contact Info) Description 10/26/2022 Scanned Document [facility] Center - [address] [phone] Chris Sood MD [address] [place], [place] [phone] Social History Tobacco Use Types Packs/Day Years [...] filedocumented in this encounter Care Teams Senior Research Executive Relationship Specialty Start Date End Date Lucas Wen APRN PCP - General Adult Health - PA/APNP/SENIOR TECHNICAL SUPPORT ANALYST/CYLINDER CHECKER 10/20/22 01/14/23 Steffi Escalera APRN [address] [address] PCP - General 01/15/23 Myesha Hwang MD [address] [place] [address] Gastroenterology 04/09/23 documented as of this encounter
--- OUTSIDE RECORDS SUMMARY | 2025-04-16 10:37 | XMS_ITS | Encounter Summary ---
Author Organization [facility] Address [address] [place] [address] Care Team Providers Care New Home Sales Consultant Name Role Phone Sabrina Redd Primary Care Provider [phone] Encounter Details Date Type Department Care Team (Late st Contact Info) Description 07/12/2020 Scanned Document [facility] at [address] [address] Antoni Patricio MD [address] [place] [address] Social History Tobacco Use Types [...] on filedocumented in this encounter Care Teams New Home Sales Consultant Relationship Specialty Start Date End Date Sabrina Redd PA [address] [place] [address] PCP - General 07/12/22 documented as of this encounter
--- OUTSIDE RECORDS SUMMARY | 2025-04-16 10:37 | XMS_ITS | Encounter Summary ---
Author Organization [facility] Address [address] [place] [address] Care Team Providers Care Dry Cell Battery Assembler Name Role Phone Sabrina Redd Primary Care Provider [phone] Reason for Referral * Imaging (Routine) - Closed Specialty Diagnoses / Procedures Referred By Contac t Referred To Contact Diagnostic Radiology Procedures CTA Head w and/or wo IV Contrast Antoni Patricio MD [address] [place] [address] Phone: tel: fax: Referral ID Status Reason Start Date Expiration Date Visits Re quested Visits Authorized [id number] Closed 07/11/2023 07/10/2024 1 1 Encounter Details Date Type Department Care Team (Late st Contact Info) Description 07/11/2023 Scanned Document [facility] SCHEDULING [address] [place], [place] [address] Antoni Patricio MD [address] [place] [address] Social History Tobacco Use Types [...] on filedocumented in this encounter Care Teams Dry Cell Battery Assembler Relationship Specialty Start Date End Date Sabrina Redd PA [address] [place] [address] PCP - General 07/12/22 documented as of this encounter
--- OUTSIDE RECORDS SUMMARY | 2025-04-16 10:37 | XMS_ITS | Encounter Summary ---
Author Organization [facility] Address [address] [place] [address] Care Team Providers Care Machine Tool Rebuilder Name Role Phone Sabrina Redd Primary Care Provider [phone] Encounter Details Date Type Department Care Team (Late st Contact Info) Description 06/17/2019 Scanned Document [facility] at [address] [place] [address] Provider, [facility]3] . Social History Tobacco Use Types Packs/Day [...] on filedocumented in this encounter Care Teams Machine Tool Rebuilder Relationship Specialty Start Date End Date Sabrina Redd PA [address] [place] [place] [address] PCP - General 07/12/22 documented as of this encounter
--- OUTSIDE RECORDS SUMMARY | 2025-04-16 10:38 | XMS_ITS | Clinical Summary ---
Author Organization [facility] Address [address] [place] [address] Care Team Providers Care Roll Repairer Name Role Phone Steffi Escalera APRN Primary Care Provider Myesha Hwang MD Unavailable [phone] Allergies Active Allergy Reactions Criticality Noted [...] We discussed the minimal potential risk with residential PPI use. Based on AGA expert review the quality of evidence behind residential kidney disease, dementia, bone fractures, and infection with PPI use is low. The current data suggests that residential PPI use does not require routine screening [...] We discussed the minimal potential risk with residential PPI use. Based on AGA expert review the quality of evidence behind terminal clerk kidney disease, dementia, bone fractures, and infection with PPI use is low. The current data suggests that terminal clerk PPI use does not require routine screening [...] discussed the minimal potential risk with terminal clerk PPI use. Based on AGA expert review the quality of evidence behind residential kidney disease, dementia, bone fractures, and infection with PPI use is low. The current data suggests that terminal clerk PPI use does not require routine screening or monitoring of bone density, kidney function, magnesium, or vitamin B levels. There is no clinical evidence to suggest routine intake of calcium, vitamin b12 or magnesium, with PPI use, beyond recommended dietary allowance. Follow clinically. Personal history of colonic polyps 04/15/2019 Assessment & Plan (04/06/2023 10:29 AM EDT): Colon 02/2022 ([place]) - no polyps noted Would due recall exam in 2026 given prior hx of polyps Assessment & Plan (12/28/2022 12:44 PM EDT): Colon 02/2022 ([place]) - no polyps noted Assessment & Plan [...] Will have patient see Dr. Hwang in [place] for double balloon enteroscopy- this was recommended [...] up here in 2020, then recently in [place] with unremarkable EGD/Colon 02/2022 - unclear what [...] [place], will need f/u care here also Family [...] (Ages 21-65) 1983 Mammogram 2002 RSV Vaccine 50 years and older and Patients (1 - Risk 50-74 years 1-dose series) 02/20/2012 Influenza Vaccine 01/09/2025 COVID-19 Vaccine (2024- season) 2025 08/01/2023, 05/31/2021, 11/05/2020, Additional history exists Colonoscopy 02/02/2031 02/02/2021, 04/0 10/2020, 05/12/2020 Hemoglobin A1C Discontinued 01/26/2023, 0312/2022, 09/09/2020, Additional history exists Hepatitis B Vaccines [...] Most Recently Relevant to Health Maintenance [place] [address] [place] [address] [facility] [place]IC[place] [address] [place] [place] [address] AET[employer] MGD MEDICARE Care Teams Roll Repairer Relationship Specialty Start Date End Date Steffi Escalera APRN [address] [facility] [address] [place], [place] [phone] PCP - General 01/15/23 Myesha Hwang MD [address] [place] [address] Gastroenterology 04/09/23
--- OUTSIDE RECORDS SUMMARY | 2025-04-16 10:38 | XMS_ITS | Clinical Summary ---
Author Organization [facility] Address [address] [place] [address] Care Team Providers Care B Operator Name Role Phone Sabrina Redd Primary Care Provider [phone] Allergies Active Allergy Reactions Criticality Noted Date [...] 05/2023 Last Assessment & Plan: Colon 02/2022 ([place]) - no polyps noted Would due recall [...] aneurysm s/p trapping/bypass by Dr. Colin in [place] in 04/2015 Cobalamin deficiency 10/26/2018 History of [...] CTA CEREBRAL IN FEB 2016 (DR BROWNING, [facility]) Proximal left superior cerebellar artery aneurysm decrease in size from prior exam status post clipping. No additional aneurysms of the [place] identified. 2. Post surgcal changes [...] expert review the quality of evidence behind [facility] kidney disease, dementia, bone fractures, and infection [...] We discussed the minimal potential risk with [facility] PPI use. Based on AGA expert review [...] We discussed the minimal potential risk with [facility] PPI use. Based on AGA expert review the quality of evidence behind terminal operations supervisor kidney disease, dementia, bone fractures, and infection with PPI use is low. The current data suggests that [facility] PPI use does not require routine screening [...] is low. The current data suggests that [facility] PPI use does not require routine screening [...] We discussed the minimal potential risk with [facility] PPI use. Based on AGA expert review [...] expert review the quality of evidence behind [facility] kidney disease, dementia, bone fractures, and infection with PPI use is low. The current data suggests that [facility] PPI use does not require routine screening [...] review Pt was followed by heme in [place], will need f/u care here also Last Assessment & Plan: Continue oral iron Need old records for review Pt was followed by heme in [place], will need f/u care here also Last [...] review Pt was followed by heme in [place], will need f/u care here also Overview: Last Assessment & Plan: Continue oral iron Need old records for review Pt was followed by heme in [place], will need f/u care here also Last Assessment & Plan: Continue oral iron Need old records for review Pt was followed by heme in [place], will need f/u care here also Last Assessment & Plan: Continue oral iron Need old records for review Pt was followed by heme in [place], will need f/u care here also Last Assessment & Plan: Longstanding AYAKA in setting of gastric bypass No overt GI bleeding, has needed multiple transfusions as well as iron infusions Work up here in 2020, then in [place] with unremarkable EGD/Colon 02/2022 Repeat capsule done [...] Will have patient see Dr. Hwang in [place] for double balloon enteroscopy- this was recommended after 2021 capsule in [place] and recent capsule also suggests that best [...] 07/29/2017 Overview (07/20/2023): GASTRITIS S-P GASTRIC BYPASS [place] EGD NL , H PYELORI NEG, ANASTAMOSIS [...] KARLA RA ANTI SM ANTI SSA ANTI DISPENSING OPTICIAN AB NEG SR / CRP NL ( ) DR HERNANDEZ. History of hysterectomy 12/16/2010 Pain in pelvis 09/11/2007 07/20/2023 Diabetes mellitus 08/29/2007 07/20/2023 Cerebral aneurysm, nonruptured Overview (05/26/2019): unruptured left SCA aneurysm s/p trapping/bypass by Dr. Colin in [place] in 04/2015 Family History Medical History Relation [...] 10,TDAP once) 1982 Cervical cancer screening 1983 RSV Immunization (1 - Risk 50-74 years 1-dose series) 02/20/2012 Shingles vaccine (Shingrix) (1 of 2 - Shingrix (RZV) 2 Dose Standard Series) 02/20/2012 Diabetic foot exam 04/01/2019 04/01/2018, 04/01/2018 Breast cancer screening 05/13/2022 05/13/2020 Hemoglobin A1C 07/29/2023 01/26/2023, 08/09, 12/27/2020, Additional history exists Influenza vaccine 01/09/2025 Covid-19 vaccine series ( season) 2025 11/05/2020, 10/08/2020 Colon cancer screening, Colonoscopy 02/02/2031 02/02/2021, 05/12/2020 Meningococcal B Vaccine Aged Out No l onger eligible based on patient's age to complete this topic Meningococcal Vaccine Aged Out No chaya wesley eligible based on patient's age to complete this topic Insurance [place] [place] [facility] MED[place]ID [place] [facility] Care Teams B Operator Relationship Specialty Start Date End Date Sabrina Redd PA [address] [facility] [place] [address] PCP - General 07/12/22
--- OUTSIDE RECORDS SUMMARY | 2025-04-16 10:38 | XMS_ITS | Encounter Summary ---
Author Organization [facility] Address [address] [place] [address] Care Team Providers Care Medical Transcriber Name Role Phone Steffi Escalera APRN Primary Care Provider Myesha Hwang MD Unavailable [phone] Encounter Details Date Type Department Care Team (Late st Contact Info) Description 08/23/2023 Scanned Document [facility]AN Neurology, Scan Social History Tobacco [...] filedocumented in this encounter Care Teams Medical Transcriber Relationship Specialty Start Date End Date Steffi Escalera APRN [address] [address] PCP - General 01/15/23 Myesha Hwang MD [address] [place] [address] Gastroenterology 04/09/23 documented as of this encounter
== END 2025-04-16 10:04 | disposition home or self-care (01) ==
LOC: HO.HGS 09:28
PROVIDERS: PCP Internal Medicine; Visit Provider Physician Assistant Surgical
DX: R92.8 Other abnormal and inconclusive findings on diagnostic imaging of breast (principal)
CPT/HCPCS: 99213

== ENCOUNTER → 2025-04-16 09:27 | Outpatient (BNVA) | payer MEDICARE, SELFPAY | PROVIDERS: PCP Internal Medicine; Visit Provider Physician Assistant Surgical | DX: Z71.2 Person consulting for explanation of examination or test findings (principal); N63.21 Unspecified lump in the left breast, upper outer quadrant; R92.8 Other abnormal and inconclusive findings on diagnostic imaging of breast | CPT/HCPCS: 99212 ==

== ENCOUNTER 2025-05-04 09:37 | Outpatient (AMB) | payer MEDICARE, MEDICAID, SELFPAY ==
--- NOTE | 2025-05-04 09:45 | A.OFFVIS_ITS ---
Vital Signs 05/04/25 09:48 Height 5 ft 3 in Weight 150 lb BMI 26.6 BP 126/74 Blood Pressure Location Lt brachial Position Sitting Pulse 82 Intake Visit Reasons: 3 f/u Anemia r/s 02/23/25 Intake Note: Patient follow up for Anemia. Patient cc: tiredness/alway sleepy, with a good appetite. Precision Dyer Required: No Accompanied by: Self / Same As Patient Allergies clopidogrel (From Plavix) Allergy (Severe, Verified 05/04/25 09:45) Rash milnacipran (From Savella) Adverse Reaction (Severe, Verified 05/04/25 09:45) tachycardia promethazine (From Phenergan) Adverse Reaction (Severe, Verified 05/04/25 09:45) tachycardia HPI Comments Details: 64 y.o F with PMH of RYGB 2000, RA and psoraisis on otezla, hx of small bowel bleeding, intracranial aneurysm (Dr Michael Valenzuela), DM, migraines, who is here for iron deficiency. Pt used to get her care in [place] and moved to [facility] in late 2023. Pt reports longstanding hx of intermittent small bowel bleed. Based on hx has had multiple EGD/colo and VCE x3. Appears was also referred for DBE at one point but they were not able to localize a bleed at that time. Energy Specialist was Dr Lang in [place]. Most recent EGD/colo was done in 2022 in [place]. [facility] when she was admitted for Hb of 5. Reports never has any overt bleeding but would just have symptomatic anemia. Currently reports intermittent nausea and vomiting due to intermittent issues with gastric bypass. Stools are black since takes PO iron. No blood in stool or emesis. No unintentional weight loss. 12/01/24: Here for tele visit. Reviewed labs which look reassuring. In the absence of ongoing bleed no indication for repeat endoscopy at this time. Will cont to watch the numbers every 3 months and if stable x 2 will space out to q4m. 05/04/25: Here for follow up. No acute GI concerns. She tells me she is closely following with her NSG now since the aneurysm has demonstrated growth on most recent imaging. Labs reviewed, stable CBC and iron studies. Cont on PO iron. Was on IV iron in Spring 2024. [facility] Medical History Psoriatic arthritis Vitamin D deficiency Psoriasis Migraine Brain aneurysm Chronic anemia Overweight (BMI 25.0-29.9) Chronic pain Allergic rhinitis GERD without esophagitis Diabetes mellitus Pure hypercholesterolemia Cardiac murmur Surgical History History of hysterectomy History of abdominoplasty S/P brachioplasty History of appendectomy History of cholecystectomy History of colon resection History of reduction mammoplasty History of rotator cuff surgery History of gastric bypass History of carpal tunnel surgery of right wrist History of carpal tunnel surgery of left wrist Hx of brain surgery Family History Sister Breast cancer Other Diabetes Schizophrenia Social History Housing: Apartment Patient Tobacco Use Status: Former Tobacco user e-Cigarette/Vaping Use: Never Used Second Hand Smoke Exposure: No service: No Current occupational status: retired Current occupational exposures/hazards: No Cognitive needs: No Hearing needs: No Vision needs: No Female Reproductive History Menstrual Age of Menarche: 14 Review of Systems Const All systems reviewed & are unremarkable except as noted in HPI and below Physical Exam Exam Exam: No apparent distress Nonicteric Abdomen soft, nondistended Alert and oriented x3, normal gait Vital Signs: Last Vital Signs Pulse 82 05/04/25 09:48 BP 126/74 05/04/25 09:48 BMI result Body Mass Index 26.6 Assessment & Plan Assessment & Plan (1) GIB (gastrointestinal bleeding): Code(s): K92.2 - Gastrointestinal hemorrhage, unspecified Category: Medical (2) Iron deficiency anemia: Code(s): D50.9 - Iron deficiency anemia, unspecified Category: Medical Plan Based on patient's report, has history of intermittent, occult mid gut bleeding. Has undergone multiple bidirectional endoscopy, as well as capsule endoscopy at least 3 times. Per her report, also seems that she has had double balloon enteroscopy, but they were not able to localize the bleed at that time. Plan is to pro-actively monitor CBC and iron studies q3 months. If blood count drops precipitously, we will book for urgent video capsule endoscopy to try to capture the bleed. Otherwise if CBC remains stable over 6 months, will space out labs to q4m. Also checking iron panel to see if needs further IV iron. Follow up 4 months Orders: Orders Complete Blood Count no Diff Today K92.2 - Gastrointestinal hemorrhage, unspe cified Vitamin B12 and Folate Today K92.2 - Gastrointestinal hemorrhage, unspecified IRON PROFILE Today K92.2 - Gastrointestinal hemorrhage, unspecified Ferritin Today K92.2 - Gastrointestinal hemorrhage, unspecified Coding Level of Care Code Est Pt Level 4 (10851) Diagnoses GIB (gastrointestinal bleeding) K92.2 Iron deficiency anemia D50.9
[2025-05-04 09:48] VITALS: BP 126/74; PULSE 82; BMI 26.6
--- OUTSIDE RECORDS SUMMARY | 2025-05-04 11:14 | XMS_ITS | Encounter Summary ---
Author Organization [facility] Address [address] [place] [address] Care Team Providers Care Nut Blanker Operator Name Role Phone Sabrina Redd Primary Care Provider [phone] Reason for Referral * Imaging (Routine) - Closed Specialty Diagnoses / Procedures Referred By Contac t Referred To Contact Diagnostic Radiology Procedures CTA Head w and/or wo IV Contrast Antoni Patricio MD [address] [place] [address] Phone: tel: fax: Referral ID Status Reason Start Date Expiration Date Visits Re quested Visits Authorized [id number] Closed 07/11/2023 07/10/2024 1 1 Encounter Details Date Type Department Care Team (Late st Contact Info) Description 07/11/2023 Scanned Document [facility] SCHEDULING [address] [place], [place] [address] Antoni Patricio MD [address] [place] [address] Social History Tobacco Use Types [...] on filedocumented in this encounter Care Teams Nut Blanker Operator Relationship Specialty Start Date End Date Sabrina Redd PA [address] [place] [address] PCP - General 07/12/22 documented as of this encounter
--- OUTSIDE RECORDS SUMMARY | 2025-05-04 11:14 | XMS_ITS | Encounter Summary ---
Author Organization [facility] Address [address] [place] [address] Care Team Providers Care Partner Cco Name Role Phone Steffi Escalera APRN Primary Care Provider Myesha Hwang MD Unavailable [phone] Encounter Details Date Type Department Care Team (Late st Contact Info) Description 02/06/2023 Scanned Document [facility] [address] [address] [place] [address] Social History Tobacco Use Types [...] on filedocumented in this encounter Care Teams Partner Cco Relationship Specialty Start Date End Date Steffi Escalera APRN 12 [facility] [address] [place] [address] PCP - General 01/15/23 Myesha Hwang MD [address] [place] [address] Gastroenterology 04/09/23 documented as of this encounter
--- OUTSIDE RECORDS SUMMARY | 2025-05-04 11:14 | XMS_ITS | Encounter Summary ---
Author Organization [facility] Address [address] [place] [address] Care Team Providers Care Pantograph Transferrer Name Role Phone Lucas Wen APRN Primary Care Provider + Steffi Escalera APRN Primary Care Provider Myesha Hwang MD Unavailable [phone] Encounter Details Date Type Department Care Team (Late st Contact Info) Description 10/26/2022 Scanned Document [facility] [address] [phone] Chris Sood MD [address] [place], [place] [id number] Social History Tobacco Use Types Packs/Day Years [...] on filedocumented in this encounter Care Teams Pantograph Transferrer Relationship Specialty Start Date End Date Lucas Wen APRN PCP - General Adult Health - PA/APNP/VETERINARY RADIOLOGIST/INK MAKER 10/20/22 01/14/23 Steffi Escalera APRN [address] [address] PCP - General 01/15/23 Myesha Hwang MD [address] [place] [address] Gastroenterology 04/09/23 documented as of this encounter
--- OUTSIDE RECORDS SUMMARY | 2025-05-04 11:14 | XMS_ITS | Encounter Summary ---
Author Organization [facility] Address [address] [place] [address] Care Team Providers Care Broach Operator Name Role Phone Sabrina Redd Primary Care Provider [phone] Encounter Details Date Type Department Care Team (Late st Contact Info) Description 06/20/2019 Scanned Document [facility] [address] [place] [address] Antoni Patricio MD [address] [place] [address] Social History Tobacco Use Types Packs/Day Years [...] on filedocumented in this encounter Care Teams Broach Operator Relationship Specialty Start Date End Date Sabrina Redd PA [address] [place] [address] PCP - General 07/12/22 documented as of this encounter
--- OUTSIDE RECORDS SUMMARY | 2025-05-04 11:14 | XMS_ITS | Encounter Summary ---
Author Organization [facility] Address [address] [place] [address] Care Team Providers Care Wet Chemistry Analyst Name Role Phone Sabrina Redd Primary Care Provider [phone] Encounter Details Date Type Department Care Team (Late st Contact Info) Description 06/17/2019 Scanned Document [facility] [address] [place] [address] Provider, [facility] . Social History Tobacco Use [...] on filedocumented in this encounter Care Teams Wet Chemistry Analyst Relationship Specialty Start Date End Date Sabrina Redd PA [address] [place] [address] PCP - General 07/12/22 documented as of this encounter
--- OUTSIDE RECORDS SUMMARY | 2025-05-04 11:14 | XMS_ITS | Encounter Summary ---
Author Organization [facility] Address [address] [place] [address] Care Team Providers Care Chain Carrier Name Role Phone Steffi Escalera APRN Primary Care Provider Myesha Hwang MD Unavailable [phone] Encounter Details Date Type Department Care Team (Late st Contact Info) Description 02/06/2023 Scanned Document [facility] [address] [address] [place] [address] Social History Tobacco Use Types [...] on filedocumented in this encounter Care Teams Chain Carrier Relationship Specialty Start Date End Date Steffi Escalera APRN 12 [facility] [address] [place] [address] PCP - General 01/15/23 Myesha Hwang MD [address] [place] [address] Gastroenterology 04/09/23 documented as of this encounter
--- OUTSIDE RECORDS SUMMARY | 2025-05-04 11:14 | XMS_ITS | Encounter Summary ---
Author Organization [facility] Address [address] [place] [address] Care Team Providers Care Entry Level Recruiter Name Role Phone Sabrina Redd Primary Care Provider [phone] Encounter Details Date Type Department Care Team (Late st Contact Info) Description 04/09/2019 Abstract [facility] [address] [facility] [address] [facility] [address] [place] [address] nAtoni Patricio MD [address] [place] [phone] Social History Tobacco Use Types Packs/Day Years [...] in this encounter Care Teams Entry Level Recruiter Relationship Specialty Start Date End Date Sabrina Redd PA [address] [place] [address] PCP - General 07/12/22 documented as of this encounter
--- OUTSIDE RECORDS SUMMARY | 2025-05-04 11:14 | XMS_ITS | Encounter Summary ---
Author Organization [facility] Address [address] [place] [address] Care Team Providers Care Grit Removal Operator Name Role Phone Steffi Escalera APRN Primary Care Provider Myesha Hwang MD Unavailable Encounter Details Date Type Department Care Team ([facility] st Contact Info) Description 02/01/2023 Scanned Document [facility] 113 [facility] [address] [place] [phone] Marina Davis PA 113 [facility] 301 [place] [address] Social History Tobacco Use Types Packs/Day Years [...] on filedocumented in this encounter Care Teams Grit Removal Operator Relationship Specialty Start Date End Date Steffi Escalera APRN 12 [address] [facility] 110 [place] [address] PCP - General 01/15/23 Myesha Hwang MD [address] [place] [address] Gastroenterology 04/09/23 documented as of this encounter
--- OUTSIDE RECORDS SUMMARY | 2025-05-04 11:14 | XMS_ITS | Clinical Summary ---
Author Organization [facility] Address [address] [place] [address] Care Team Providers Care Slab Lifting Supervisor Name Role Phone Lucas Wen APRN Primary Care Provider Sina lopez Allergies Active Allergy Reactions Criticality Noted Date Comments Milnacipran Palpitations,Other ( See Comments) Medium 02/12/2019 Tachycardia Clopidogrel Rash Low 11/01/2022 Promethazine Palpitations,Other ( See Comments) Medium 04/10/2012 Tachycardia 180/min - she had to be taken to ER. Medications Medication Sig Dispensed Refills Start Date End Date Status [id number]-B Cmp-C-Biot (INTEGRA PLUS) CAPS Take 1 tablet [...] complication, without long-term current use of insulin ([facility]) Test one to two times daily [...] records for review Pt was followed by [facility] [place], will need f/u care here [...] aneurysm s/p trapping/bypass by Dr. Colin in [place] in 04/2015 Chronic migraine without aur a [...] Advance Directives For more information, please contact: [phone] Latest Code Status on File Code Status [...] 7:25 PM 01/06/2020 7:55 PM Care Teams Slab Lifting Supervisor Relationship Specialty Start Date End Date Lucas Wen APRN PCP - General Cardiology 11/01/22
--- OUTSIDE RECORDS SUMMARY | 2025-05-04 11:14 | XMS_ITS | Clinical Summary ---
Author Organization [facility] Address [address] [place] [address] Phone Care Team Providers Care Career Counselor Name Role Phone Maurilio Burgess MD Primary [...] SYMPTONS. Active blood-glucose meter (OneTouch Ultra2 Meter) [facility] 0 Active OneTouch Ultra Test test strip [...] 05, [address] Gilberto Knox in [place]. 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 She has chronic left eye vision loss and balance difficulty, chronic headaches and memory problems, patient states this has been since her craniotomy. She was seeing Dr. Patricio in neurosurgery at [place], [place]. She has since moved to [place], is looking to get follow-up CTA of [...] prescription glasses, but has not seen an health care legal assistant. All questions answered, will call with any additional questions or concerns. Encounters Date Type Department Care Team Description 02/23/2025 Telephone Neurosurgery - [place] [address] [facility] [address] [place] [address] Saleem Quigley MD from Last 3 Months Surgical History Surgery Date Site/Laterality Comments CEREBRAL ANEURYSM REPAIR 02/2016 :Dr. Knox at [facility] GASTRIC BYPASS 08/30/2009 OTHER SURGICAL HISTORY EXCESSIVE THIGH / HIP / BUTTOCK / FLANK SKIN EXCISION;COMMENT:following gastric bypass COLONOSCOPY 2016 COLONOSCOPY 2014 tubular adenoma HYSTERECTOMY 12/16/2010 UPPER GASTROINTESTINAL ENDOSCOPY 01/02/2018 Dr. Santacruz ([place]) OPEN ANTERIOR SHOULDER RECONSTRUCTION 04/14/2013 left shoulder reconstruction, Dr. Chisholm ([place]) SECTION UPPER GASTROINTESTINAL ENDOSCOPY 05/11/2020 N/A UPPER ENDOSCOPY-EGD; Surgeon: Pito Diaz MD; Location: [facility]; Service: Gastroenterology; Laterality: N/A; COLONOSCOPY 05/12/2020 N/A Surgeon: Tino Lang MD; Location: [facility]; Service: Gastroenterology; Laterality: N/A; UPPER GASTROINTESTINAL ENDOSCOPY 09/13/2020 N/A EGD Surgeon: Maynor Rojas MD; Location: [facility]; Service: Gastroenterology; Laterality: N/A; BREAST SURGERY REDUCTION MAMMAPLASTY;:with lift/ implants COLONOSCOPY 02/02/2021 N/A Surgeon: Tino Lang MD; Location: [facility]; Service: Gastroenterology; Laterality: N/A; OTHER SURGICAL HISTORY Patient reports history of colon resection required after gastric bypass, bladder surgery and appendectomy CARPAL TUNNEL RELEASE Bilateral Medical History Medical History Date Comments Aneurysm ([facility] V24) 2014 GI bleed Tubular adenoma of colon 2014 Syncope completed cardia c work up (tilt table, echo, stress jason, holter) Psoriasis Mild dementia ([facility] V24, [facility] V28) occasional memory loss Steatosis of liver 12/03/2017 fatty liver s een on US per past records. History of Papanicolaou smear of cervix 10/2017 History of mammogram 01/25/2018 negative Ovarian cyst Fibromyalgia, primary Anemia Anxiety GERD (gastroesophageal reflux disease) Depression Arthritis Migraine headache Visual impairment Obesity s/p GBP Diabetes (CMS/HCC V24, [facility] V28) Hyperlipidemia Asthma Acid reflux Rheumatoid arthritis (CMS/ C V24, [facility] V28) Family History Medical History Relation [...] plain language report , as required by [facility] bill 485. Session: Separate session. Report reviewed and signed by : Dr. Matthew Serrato MD on 05/13/2020 4:27 PM. Workstation Name - [id number] Procedure Note Matthew Serrato MD - 06/02/2022 [...] plain language report , as required by [place] [id number]. Session: Separate session. Report reviewed and signed by : Dr. Matthew Serrato MD on 05/13/2020 4:27 PM.Workstation Name - [id number] Moise Palomino MD IMG BI PROCEDURES Final Resul t from Last 3 Months or Most Recently Relevant to Health Maintenance Insurance [employer] MEDICARE ADVANTAGE [place]ICAID [place] Care Teams Career Counselor Relationship Specialty Start Date End Date Maurilio Burgess MD [address] [place] [address] [address] KIMMIE Elkins PCP - General Internal Medicine 06/17/24
--- OUTSIDE RECORDS SUMMARY | 2025-05-04 11:14 | XMS_ITS | Encounter Summary ---
Author Organization [facility] Address [address] [place] [address] Care Team Providers Care Collection Officer Name Role Phone Sabrina Redd Primary Care Provider [phone] Encounter Details Date Type Department Care Team (Late st Contact Info) Description 07/14/2019 Scanned Document [facility] [address] [facility] [address] [place] [address] Provider, Historical . Social History Tobacco Use [...] on filedocumented in this encounter Care Teams Collection Officer Relationship Specialty Start Date End Date Sabrina Redd PA [address] [place] [address] PCP - General 07/12/22 documented as of this encounter
--- OUTSIDE RECORDS SUMMARY | 2025-05-04 11:14 | XMS_ITS | Encounter Summary ---
Author Organization [facility] Address [address] [place] [address] Care Team Providers Care Health Care Analyst Name Role Phone Marina Reddy TURNER Primary Care Provider [phone] Lucas Wen APRN Primary Care Provider + Steffi Escalera APRN Primary Care Provider Myesha Hwang MD Unavailable [phone] Encounter Details Date Type Department Care Team (Late st Contact Info) Description 09/29/2022 Scanned Document [facility] - [address] [place] [address] Chris Sood MD [address] [place] [address] [address] [place], [place] [id number] Social History Tobacco Use Types Packs/Day Years [...] filedocumented in this encounter Care Teams Health Care Analyst Relationship Specialty Start Date End Date Marina Reddy APRN PCP - General Adult Health - PA/APNP/SUPERVISOR LAST MODEL DEPARTMENT/PRECISION STRUCTURAL METAL FITTER 03/03/19 10/19/22 Lucas Wen APRN PCP - General Adult Health - PA/APNP/SUPERVISOR LAST MODEL DEPARTMENT/PRECISION STRUCTURAL METAL FITTER 10/20/22 01/14/23 Steffi Escalera APRN [address] [address] PCP - General 01/15/23 Myesha Hwang MD [address] [place] [address] Gastroenterology 04/09/23 documented as of this encounter
--- OUTSIDE RECORDS SUMMARY | 2025-05-04 11:14 | XMS_ITS | Encounter Summary ---
Author Organization [facility] Address [address] [place] [address] Care Team Providers Care Continuous Crusher Operator Name Role Phone Sabrina Redd Primary Care Provider [phone] Encounter Details Date Type Department Care Team (Late st Contact Info) Description 04/11/2019 Scanned Document [facility] [address] [facility] [address] [facility] [place] [address] Provider, Historical . Social History Tobacco Use [...] filedocumented in this encounter Care Teams Continuous Crusher Operator Relationship Specialty Start Date End Date Sabrina Redd PA [address] [place] [address] PCP - General 07/12/22 documented as of this encounter
--- OUTSIDE RECORDS SUMMARY | 2025-05-04 11:14 | XMS_ITS | Encounter Summary ---
Author Organization [facility] and [facility] Address [address] [place] [address] Care Team Providers Care Deep Submergence Vehicle Operator Name Role Phone Sabrina Redd Primary Care Provider [phone] Encounter Details Date Type Department Care Team (Late st Contact Info) Description 07/13/2019 Abstract [facility] [address] [place] [address] Antoni Patricio MD [address] [place] [address] Social History Tobacco Use Types Packs/Day Years [...] on filedocumented in this encounter Care Teams Deep Submergence Vehicle Operator Relationship Specialty Start Date End Date Sabrina Redd PA [address] [place] [address] PCP - General 07/12/22 documented as of this encounter
--- OUTSIDE RECORDS SUMMARY | 2025-05-04 11:14 | XMS_ITS | Encounter Summary ---
Author Organization [facility] and [facility] Address [address] [place] [address] Care Team Providers Care Investigation Lieutenant Name Role Phone Sabrina Redd Primary Care Provider [phone] Encounter Details Date Type Department Care Team (Late st Contact Info) Description 07/02/2019 Scanned Document [facility] [address] [place] [address] Antoni Patricio MD [address] [place] [address] Social History Tobacco Use Types Packs/Day Years [...] on filedocumented in this encounter Care Teams Investigation Lieutenant Relationship Specialty Start Date End Date Sabrina Redd PA [address] [place] [address] PCP - General 07/12/22 documented as of this encounter
--- OUTSIDE RECORDS SUMMARY | 2025-05-04 11:14 | XMS_ITS | Encounter Summary ---
Author Organization [facility] and [facility] Address [address] [place] [address] Care Team Providers Care Customer Specialist Name Role Phone Sabrina Redd Primary Care Provider [phone] Encounter Details Date Type Department Care Team (Late st Contact Info) Description 06/27/2019 Scanned Document [facility] [address] [place] [address] Antoni Patricio MD [address] [place] [phone] Social History Tobacco Use Types Packs/Day Years [...] on filedocumented in this encounter Care Teams Customer Specialist Relationship Specialty Start Date End Date Sabrina Redd PA [address] [place] [address] PCP - General 07/12/22 documented as of this encounter
--- OUTSIDE RECORDS SUMMARY | 2025-05-04 11:14 | XMS_ITS | Encounter Summary ---
Author Organization [facility] and [facility] Address [address] [place] [address] Care Team Providers Care Regional Sales Engineer Name Role Phone Sabrina Redd Primary Care Provider [phone] Encounter Details Date Type Department Care Team (Late st Contact Info) Description 07/12/2020 Scanned Document [facility] at [address] [address] Antoni Patricio MD [address] [place] [address] Social History Tobacco Use Types [...] on filedocumented in this encounter Care Teams Regional Sales Engineer Relationship Specialty Start Date End Date Sabrina Redd PA [address] [place] [address] PCP - General 07/12/22 documented as of this encounter
--- OUTSIDE RECORDS SUMMARY | 2025-05-04 11:15 | XMS_ITS | Encounter Summary ---
Author Organization [facility] Address [address] [place] [address] Care Team Providers Care Twine Reeling Machine Operator Name Role Phone Steffi Escalera APRN Primary Care Provider Myesha Hwang MD Unavailable [phone] Encounter Details Date Type Department Care Team (Late st Contact Info) Description 08/23/2023 Scanned Document [facility] NEUROLOGY SCAN Neurology, Scan Social History [...] on filedocumented in this encounter Care Teams Twine Reeling Machine Operator Relationship Specialty Start Date End Date Steffi Escalera APRN [address] [address] PCP - General 01/15/23 Myesha Hwang MD [address] [place] [address] Gastroenterology 04/09/23 documented as of this encounter
--- OUTSIDE RECORDS SUMMARY | 2025-05-04 11:15 | XMS_ITS | Clinical Summary ---
Author Organization [facility] [employer] Address [address] [place] [address] Care Team Providers Care Tractor Trailer Truck Driver Name Role Phone Sabrina Redd Primary Care Provider Allergies Active Allergy Reactions [...] aneurysm s/p trapping/bypass by Dr. 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 No additional aneurysms of the [place] identified. 2. Post surgcal changes [...] review the quality of evidence behind termite control servicer kidney disease, dementia, bone fractures, and infection with PPI use is low. The current data suggests that termite control servicer PPI use does not require routine screening [...] the minimal potential risk with termite control servicer PPI use. Based on AGA expert review the quality of evidence behind termite control servicer kidney disease, dementia, bone fractures, and infection with PPI use is low. The current data suggests that termite control servicer PPI use does not require routine screening [...] review the quality of evidence behind termite control servicer kidney disease, dementia, bone fractures, and infection [...] the minimal potential risk with termite control servicer PPI use. Based on AGA expert review the quality of evidence behind usp kidney disease, dementia, bone fractures, and infection with PPI use is low. The current data suggests that termite control servicer PPI use does not require routine screening [...] the minimal potential risk with termite control servicer PPI use. Based on AGA expert review [...] the minimal potential risk with termite control servicer PPI use. Based on AGA expert review the quality of evidence behind termite control servicer kidney disease, dementia, bone fractures, and infection with PPI use is low. The current data suggests that termite control servicer PPI use does not require routine screening [...] Will have patient see Dr. Hwang in [place] for double balloon enteroscopy- this was recommended after 2021 capsule in [place] and recent capsule also suggests that best [...] 07/29/2017 Overview (07/20/2023): GASTRITIS S-P GASTRIC BYPASS Pierce EGD NL , H PYELORI NEG, ANASTAMOSIS [...] KARLA RA ANTI SM ANTI SSA ANTI DAIRY TRUCK DRIVER AB NEG SR / CRP NL ( ) DR HERNANDEZ. History of hysterectomy 12/16/2010 Pain in pelvis 09/11/2007 07/20/2023 Diabetes mellitus 08/29/2007 07/20/2023 Cerebral aneurysm, nonruptured Overview (05/26/2019): unruptured left SCA aneurysm s/p trapping/bypass by Dr. Colin in [place] in 04/2015 Family History Medical History Relation [...] age to complete this topic Insurance MEDICAID [place] [facility] MEDICAID [place] [facility] [place]ID [place] [facility] Care Teams Tractor Trailer Truck Driver Relationship Specialty Start Date End Date Sabrina Redd PA [address] [place] [address] PCP - General 07/12/22
--- OUTSIDE RECORDS SUMMARY | 2025-05-04 11:15 | XMS_ITS | Clinical Summary ---
Author Organization [facility] Address [address] [place] [address] Care Team Providers Care Tip Printer Name Role Phone Steffi Escalera APRN Primary Care Provider Myesha Hwang MD Unavailable [phone] Allergies Active Allergy Reactions Criticality Noted Date [...] discussed the minimal potential risk with senior living PPI use. Based on AGA expert review the quality of evidence behind position clerk kidney disease, dementia, bone fractures, and infection with PPI use is low. The current data suggests that position clerk PPI use does not require routine [...] discussed the minimal potential risk with senior living PPI use. Based on AGA expert review the quality of evidence behind senior living kidney disease, dementia, bone fractures, and infection with PPI use is low. The current data suggests that senior living PPI use does not require routine screening [...] We discussed the minimal potential risk with position clerk PPI use. Based on AGA expert review the quality of evidence behind senior living kidney disease, dementia, bone fractures, and infection with PPI use is low. The current data suggests that senior living PPI use does not require routine screening [...] have patient see Dr. Hwang in [place] for double balloon enteroscopy- this was recommended [...] [place], will need f/u care here also Family [...] Most Recently Relevant to Health Maintenance Insurance [place] [address] [facility] [place] [address] [place] [address] [place] [place] [address] [employer] MEDICARE Care Teams Tip Printer Relationship Specialty Start Date End Date Steffi Escalera APRN 12 [address] [facility] [address] [place], [place] [id number] PCP - General 01/15/23 Myesha Hwang MD [address] [place] [address] Gastroenterology 04/09/23
== END 2025-05-04 10:26 | disposition home or self-care (01) ==
LOC: HO.HGI 09:38
PROVIDERS: PCP Internal Medicine; Visit Provider Internal Medicine
DX: K92.2 Gastrointestinal hemorrhage, unspecified (principal); D50.9 Iron deficiency anemia, unspecified
CPT/HCPCS: 99214

== ENCOUNTER → 2025-05-04 09:37 | Outpatient (BNVA) | payer MEDICARE, MEDICAID, SELFPAY | PROVIDERS: PCP Internal Medicine; Visit Provider Internal Medicine | DX: D50.9 Iron deficiency anemia, unspecified (principal); K92.2 Gastrointestinal hemorrhage, unspecified; Z87.891 Personal history of nicotine dependence | CPT/HCPCS: 99212 ==

== ENCOUNTER 2025-06-01 10:03 | Outpatient (REF) | payer MEDICARE, MEDICAID, SELFPAY ==
--- OUTSIDE RECORDS SUMMARY | 2024-08-12 05:00 | XMS_ITS ---
Author Organization [facility] Address [address] [place] [address] Care Team Providers Care Group Cio Name Role Phone NO, PCP Primary Care Provider [phone] Ebony Reyes Unavailable [phone] REASON FOR VISIT housing Social History Sex Assigned At : Social History Observation Description Sex Assigned At Female Encounters Encounter Location Date Provider Diagnosis [facility] [address], [place] [phone] 08/12/2024 Ebony Reyes Plan Of Treatment No Information Progress Notes * Jazmine CALDERADOB:[birth year] (65 yo F)Acc No.[id number]:08/12/2024 Case Management Patient: Jazmine ROUSSEAU Provider: Ly Reyes :1960 A ge:64 Y S ex:Female Date:08/12/2024 Address:[facility] [address], [facility] Pcp:PCP NO Subjective: * Chief Complaints: * 1 . Housing. * Medical History: Objective: Assessment: Plan: * Treatment: * Images: Billing Information: * Visit Code: * Procedure Codes: Care Plan Details* * Electronic signature of Jeffrey Reyes on 06/01/2025 at 12:08 PM EST Sign off status: Pending * Provider: Ly Reyes Date: 0 08/12/2024 Generated for Feri ng/Fadixong/eTransmitting on: 1 08/02/2024 12:08 PM EST
--- OUTSIDE RECORDS SUMMARY | 2024-08-19 04:00 | XMS_ITS ---
Author Organization [facility] Address [address] [place] [address] Care Team Providers Care Public Speaking Professor Name Role Phone NO, PCP Primary Care Provider [phone] Ebony Reyes Unavailable [phone] REASON FOR VISIT housing application/rc appt Social History Sex Assigned At : Social History Observation Description Sex Assigned At Female Encounters Encounter Location Date Provider Diagnosis [facility] [address] [place] [phone] 08/19/2024 Ebony Reyes Plan Of Treatment No Information Progress Notes * Jazmine CALDERADOB:[birth year] (65 yo F)Acc No.[id number]:08/19/2024 Case Management Patient: Jazmine ROUSSEAU Provider: Ly Reyes :1960 A ge:64 Y S ex:Female Date:08/19/2024 Address:[facility] [address] [place], [place] [address] Pcp:PCP NO Subjective: * Chief Complaints: * 1 . Housing application/rc appt. * Medical History: Objective: Assessment: Plan: * Treatment: * Images: Billing Information: * Visit Code: * Procedure Codes: Care Plan Details* * Electronic signature of Jeffrey Reyes on 06/01/2025 at 12:08 PM EST Sign off status: Pending * Provider: Ly Reyes Date: 0 08/19/2024 Generated for Printi ng/Faxing/eTransmitting on: 1 08/02/2024 12:08 PM EST
[2025-06-01 10:45] LABS: Hematocrit 40.2 % (37.0-47.0); Hemoglobin 12.5 g/dl (12.0-16.0); Mean Corpuscular HGB Conc 31.1 g/dl (31.0-35.0); Mean Corpuscular Hemoglobin 28.6 pg (27.0-33.0); Mean Corpuscular Volume 92.0 fL (80.0-98.0); NRBC Abs Auto 0.000 X10*3/uL (0.0-0.012); NRBC Pct Auto 0.0 /100WBC (0.0-0.2); Platelet Count 246 X10*3/uL (160-400); Red Blood Count 4.37 X10*6/uL (4.20-5.50); White Blood Count 9.0 X10*3/uL (4.8-10.8)
[2025-06-01 11:17] LABS: Iron 132 mcg/dL (30-160); Percent Iron Saturation 39 % (15-50); Total Iron Binding Capacity 339 mcg/dL (228-428); Unsaturated Iron Binding 207 ug/dL
[2025-06-01 11:34] LABS: Ferritin 10 ng/mL (10-250)
[2025-06-01 11:44] LABS: Folate 13.2 ng/mL (> or = 4.0); Vitamin B12 548 pg/mL (200-900)
--- OUTSIDE RECORDS SUMMARY | 2025-06-01 12:07 | XMS_ITS | Patient Health Record ---
Author Organization [facility] Address [address] [place] [address] Care Team Providers Care Territory Account Executive Name Role Phone NO, PCP Primary Care Provider Ebony Reyes Unavailable Reason For Referral No Information Social History Sex Assigned At : Social History Observation Description Sex Assigned At Female Plan Of Treatment No Information Insurance Providers Payer Name Payer Address Payer Phone Subscriber Number Group Number Insured Name Patient Relationship to Insured Coverage Start Date Coverage End Date [place] Medicare Part A [employer] [facility] [address] [place] [address] [id number] Jazmine Schulz Self - patient is the insured 4 [employer] [address] [address] [place], [place] [id number] Jazmine Schulz Self - patient is the insured 4
--- OUTSIDE RECORDS SUMMARY | 2025-06-01 12:08 | XMS_ITS | Encounter Summary ---
Author Organization [facility] Address [address] [place] [address] Care Team Providers Care International Trade Specialist Name Role Phone Steffi Escalera APRN Primary Care Provider Myesha Hwang MD Unavailable [phone] Encounter Details Date Type Department Care Team (Late st Contact Info) Description 08/23/2023 Scanned Document [facility] NEUROLOGY SCAN Neurology, Scan Social History [...] on filedocumented in this encounter Care Teams International Trade Specialist Relationship Specialty Start Date End Date Steffi Escalera APRN [address] [address] PCP - General 01/15/23 Myesha Hwang MD [address] [place] [address] Gastroenterology 04/09/23 documented as of this encounter
--- OUTSIDE RECORDS SUMMARY | 2025-06-01 12:08 | XMS_ITS | Encounter Summary ---
Author Organization [facility] Address [address] [place] [address] Care Team Providers Care Marketing Summer Intern Name Role Phone Steffi Escalera APRN Primary Care Provider Myesha Hwang MD Unavailable [phone] Encounter Details Date Type Department Care Team (Late st Contact Info) Description 02/06/2023 Scanned Document [facility] Center [address] [address] [place] [address] Social History Tobacco Use Types [...] filedocumented in this encounter Care Teams Marketing Summer Intern Relationship Specialty Start Date End Date Steffi Escalera APRN 12 [facility] [address] [place] [address] PCP - General 01/15/23 Myesha Hwang MD [address] [place] [address] Gastroenterology 04/09/23 documented as of this encounter
--- OUTSIDE RECORDS SUMMARY | 2025-06-01 12:08 | XMS_ITS | Encounter Summary ---
Author Organization [facility] Address [address] [place] [address] Care Team Providers Care Brick Offbearer Name Role Phone Sabrina Redd Primary Care Provider [phone] Encounter Details Date Type Department Care Team (Late st Contact Info) Description 07/13/2019 Abstract [facility] [address] [place] [address] Antoni Patricio MD [address] [place] [phone] Social History Tobacco Use Types Packs/Day Years [...] on filedocumented in this encounter Care Teams Brick Offbearer Relationship Specialty Start Date End Date Sabrina Redd PA [address] [place] [address] PCP - General 07/12/22 documented as of this encounter
--- OUTSIDE RECORDS SUMMARY | 2025-06-01 12:08 | XMS_ITS | Encounter Summary ---
Author Organization [facility] Address [address] [place] [address] Care Team Providers Care Millinery Blocker Name Role Phone Marina Reddy TURNER Primary Care Provider [phone] Lucas Wen APRN Primary Care Provider + Steffi Escalera APRN Primary Care Provider Meysha Hwang MD Unavailable [phone] Encounter Details Date Type Department Care Team (Late st Contact Info) Description 09/29/2022 Scanned Document [facility] - [address] [place] [address] Chris Sood MD [address] [place] [address] [address] [place], [place] [phone] Social History Tobacco Use Types Packs/Day Years [...] on filedocumented in this encounter Care Teams Millinery Blocker Relationship Specialty Start Date End Date Marina Reddy APRN PCP - General Adult Health - PA/APNP/PHARMACOGENETICIST/RESEARCH HOME ECONOMIST 03/03/19 10/19/22 Lucas Wen APRN PCP - General Adult Health - PA/APNP/PHARMACOGENETICIST/RESEARCH HOME ECONOMIST 10/20/22 01/14/23 Steffi Escalera APRN [address] [address] PCP - General 01/15/23 Myesha Hawng MD [address] [place] [address] Gastroenterology 04/09/23 documented as of this encounter
--- OUTSIDE RECORDS SUMMARY | 2025-06-01 12:08 | XMS_ITS | Clinical Summary ---
Author Organization [facility] Address [address] [place] [address] Phone Care Team Providers Care Senior Group Manager Name Role Phone Maurilio Burgess MD Primary [...] Active blood-glucose meter (OneTouch Ultra2 Meter) [facility] 0 Active OneTouch Ultra Test test strip [...] 05, [address] Gilberto Knox in [place]. 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 She has chronic left eye vision loss and balance difficulty, chronic headaches and memory problems, patient states this has been since her craniotomy. She was seeing Dr. Patricio in neurosurgery at [place], [place]. She has since moved to [place], is looking to get follow-up CTA of [...] prescription glasses, but has not seen an housing relocation. All questions answered, will call with any additional questions or concerns. Surgical History Surgery Date Site/Laterality Comments CEREBRAL ANEURYSM REPAIR 02/2016 :Dr. Knox at [facility] GASTRIC BYPASS 08/30/2009 OTHER SURGICAL HISTORY EXCESSIVE THIGH / HIP / BUTTOCK / FLANK SKIN EXCISION;COMMENT:following gastric bypass COLONOSCOPY 2016 COLONOSCOPY 2014 tubular adenoma HYSTERECTOMY 12/16/2010 UPPER GASTROINTESTINAL ENDOSCOPY 01/02/2018 Dr. Santacruz ([place]) OPEN ANTERIOR SHOULDER RECONSTRUCTION 04/14/2013 left shoulder reconstruction, Dr. Chisholm ([place]) SECTION UPPER GASTROINTESTINAL ENDOSCOPY 05/11/2020 N/A UPPER ENDOSCOPY-EGD; Surgeon: Pito Diaz MD; Location: [facility]; Service: Gastroenterology; Laterality: N/A; COLONOSCOPY 05/12/2020 N/A Surgeon: Tino Lang MD; Location: [facility]; Service: Gastroenterology; Laterality: N/A; UPPER GASTROINTESTINAL ENDOSCOPY 09/13/2020 N/A EGD Surgeon: Maynor Rojas MD; Location: [facility]; Service: Gastroenterology; Laterality: N/A; BREAST SURGERY REDUCTION MAMMAPLASTY;:with lift/ implants COLONOSCOPY 02/02/2021 N/A Surgeon: Tino Lang MD; Location: [facility]; Service: Gastroenterology; Laterality: N/A; OTHER SURGICAL HISTORY Patient reports history of colon resection required after gastric bypass, bladder surgery and appendectomy CARPAL TUNNEL RELEASE Bilateral Medical History Medical History Date Comments Aneurysm ([facility] V24) 2014 GI bleed Tubular adenoma of colon 2014 Syncope completed cardia c work up (tilt table, echo, stress jason, holter) Psoriasis Mild dementia ([facility] V24, [facility] V28) occasional memory loss Steatosis of liver 12/03/2017 fatty liver s een on US per past records. History of Papanicolaou smear of cervix 10/2017 History of mammogram 01/25/2018 negative Ovarian cyst Fibromyalgia, primary Anemia Anxiety GERD (gastroesophageal reflux disease) Depression Arthritis Migraine headache Visual impairment Obesity s/p GBP Diabetes ([facility] V24, [facility] V28) Hyperlipidemia Asthma Acid reflux Rheumatoid arthritis ([facility] V[facility], [facility] V28) Family History Medical History Relation Name [...] Orientation Straight 07/10/2024 9: 49 AM EST Last Filed Vital Signs Vital Sign Reading [...] plain language report , as required by [place] [id number]. Session: Separate session. Report reviewed and signed by : Dr. Matthew Serrato MD on 05/13/2020 4:27 PM. Workstation Name - [id number] Procedure Note Matthew Serrato MD - 06/02/2022 [...] plain language report , as required by [place] [id number]. Session: Separate session. Report reviewed and signed by : Dr. Matthew Serrato MD on 05/13/2020 4:27 PM.Workstation Name - [id number] Moise Palomino MD IMG BI PROCEDURES Final Resul t from Last 3 Months or Most Recently Relevant to Health Maintenance Insurance [employer] MEDICARE ADVANTAGE [place] Care Teams Senior Group Manager Relationship Specialty Start Date End Date Maurilio Burgess MD [address] [place] [address] [address] KIMMIE Elkins PCP - General Internal Medicine 06/17/24
--- OUTSIDE RECORDS SUMMARY | 2025-06-01 12:08 | XMS_ITS | Clinical Summary ---
Author Organization [facility] Prior to 11/08/24 Address [address] [place] [address] Care Team Providers Care Application Integration Specialist Name Role Phone Lucas Wen APRN Primary Care Provider U john Allergies Active Allergy Reactions Criticality Noted Date Comments Milnacipran Palpitations,Other ( See Comments) Medium 02/12/2019 Tachycardia Clopidogrel Rash Low 11/01/2022 Promethazine Palpitations,Other ( See Comments) Medium 04/10/2012 Tachycardia 180/min - she had to be taken to ER. Medications Medication Sig Dispensed Refills Start Date End Date Status MhIwu-CwZoti-OV-B Cmp-C-Biot (INTEGRA PLUS) CAPS Take 1 tablet [...] is low. The current data suggests that correction PPI use does not require routine screening [...] is low. The current data suggests that correction PPI use does not require routine screening [...] We discussed the minimal potential risk with correction PPI use. Based on AGA expert review the quality of evidence behind termite exterminator helper kidney disease, dementia, bone fractures, and infection with PPI use is low. The current data suggests that correction PPI use does not require routine screening [...] aneurysm s/p trapping/bypass by Dr. Colin in [place] in 04/2015 Chronic migraine without aur a [...] Smoking Tobacco: Former Cigarettes 1 18 1 979 2012 Smokeless Tobacco: Never Alcohol Use Standard [...] Screening (Colonoscopy) 02/03/2024 02/02/2021, 07/30/2014 COVID-19 Vaccine (2024- season) 2025 11/05/2020, 10/08/2020 Influenza Vaccine (#1) [...] Advance Directives For more information, please contact: [phone] Latest Code Status on File Code Status [...] 7:25 PM 01/06/2020 7:55 PM Care Teams Application Integration Specialist Relationship Specialty Start Date End Date Lucas Wen APRN PCP - General Cardiology 11/01/22
--- OUTSIDE RECORDS SUMMARY | 2025-06-01 12:08 | XMS_ITS | Encounter Summary ---
Author Organization [facility] Address [address] [place] [address] Care Team Providers Care Automobile Mechanic Radiator Name Role Phone Sabrina Redd Primary Care Provider [phone] Encounter Details Date Type Department Care Team (Late st Contact Info) Description 04/11/2019 Scanned Document [facility] [address] [facility] [address] [facility] [place] [address] Provider, Historical . Social History Tobacco Use [...] on filedocumented in this encounter Care Teams Automobile Mechanic Radiator Relationship Specialty Start Date End Date Sabrina Redd PA [address] [place] [address] PCP - General 07/12/22 documented as of this encounter
--- OUTSIDE RECORDS SUMMARY | 2025-06-01 12:08 | XMS_ITS | Encounter Summary ---
Author Organization [facility] and [facility] Address [address] [place] [address] Care Team Providers Care Senior Qa Engineer Name Role Phone Sabrina Redd Primary Care Provider Encounter Details Date Type Department Care Team (Late st Contact Info) Description 07/12/2020 Scanned Document [facility] at [address] [address] Antoni Patricio MD [address] [place] [address] Social History Tobacco Use Types [...] filedocumented in this encounter Care Teams Senior Qa Engineer Relationship Specialty Start Date End Date Sabrina Redd PA [address] [place] [address] PCP - General 07/12/22 documented as of this encounter
--- OUTSIDE RECORDS SUMMARY | 2025-06-01 12:08 | XMS_ITS | Encounter Summary ---
Author Organization [facility] Address [address] [place] [address] Care Team Providers Care Childhood Development Teacher Name Role Phone Sabrina Redd Primary Care Provider [phone] Encounter Details Date Type Department Care Team (Late st Contact Info) Description 07/02/2019 Scanned Document [facility] at [address] [place] [address] Antoni Patricio MD [address] [place] [address] Social History Tobacco Use Types Packs/Day Years [...] on filedocumented in this encounter Care Teams Childhood Development Teacher Relationship Specialty Start Date End Date Sabrina Redd PA [address] [place] [address] PCP - General 07/12/22 documented as of this encounter
--- OUTSIDE RECORDS SUMMARY | 2025-06-01 12:08 | XMS_ITS | Encounter Summary ---
Author Organization [facility] Address [address] [place] [address] Care Team Providers Care Resolution Analyst Name Role Phone Steffi Escalera APRN Primary Care Provider Myesha Hwang MD Unavailable [phone] Encounter Details Date Type Department Care Team ([facility] st Contact Info) Description 02/01/2023 Scanned Document [facility] [address] [facility] [address] [place] [phone] Marina Davis PA [address] [facility] [address] [place] [address] Social History Tobacco Use Types Packs/Day Years [...] on filedocumented in this encounter Care Teams Resolution Analyst Relationship Specialty Start Date End Date Steffi Escalera APRN [address] [facility] [address] [place] [address] PCP - General 01/15/23 Myesha Hwang MD [address] [place] [address] Gastroenterology 04/09/23 documented as of this encounter
--- OUTSIDE RECORDS SUMMARY | 2025-06-01 12:08 | XMS_ITS | Clinical Summary ---
Author Organization [facility] Address [address] [place] [address] Care Team Providers Care Business Functional Analyst Name Role Phone Steffi Escalera APRN Primary Care Provider Myesha Hwang MD Unavailable [phone] Allergies Active Allergy Reactions Criticality Noted Date [...] expert review the quality of evidence behind termination clerk kidney disease, dementia, bone fractures, and infection with PPI use is low. The current data suggests that termination clerk PPI use does not require routine [...] We discussed the minimal potential risk with termination clerk PPI use. Based on AGA expert [...] Plan (04/06/2023 10:29 AM EDT): Colon 02/2022 ([place]) - no polyps noted Would due recall exam in 2026 given prior hx of polyps Assessment & Plan (12/28/2022 12:44 PM EDT): Colon 02/2022 ([place]) - no polyps noted Assessment & Plan [...] Work up here in 2020, then in [place] with unremarkable EGD/Colon 02/2022 Repeat capsule done [...] Will have patient see Dr. Hwang in [place] for double balloon enteroscopy- this was recommended after 2021 capsule in [place] and recent capsule also suggests that best [...] up here in 2020, then recently in [place] with unremarkable EGD/Colon 02/2022 - unclear what [...] review Pt was followed by [facility] in [place], will need f/u care here also Family [...] Most Recently Relevant to Health Maintenance [place] [address] [place] [address] [facility] [place] [place] [address] [place] [address] [place] [address] [employer] MEDICARE Care Teams Business Functional Analyst Relationship Specialty Start Date End Date Steffi Escalera APRN [address] [facility] [address] [place], [place] [phone] PCP - General 01/15/23 Myesha Hwang MD [address] [place] [address] Gastroenterology 04/09/23
--- OUTSIDE RECORDS SUMMARY | 2025-06-01 12:08 | XMS_ITS | Encounter Summary ---
Author Organization [facility] Address [address] [place] [address] Care Team Providers Care Infirmary Attendant Name Role Phone Sabrina Redd Primary Care Provider [phone] Encounter Details Date Type Department Care Team (Late st Contact Info) Description 06/27/2019 Scanned Document [facility] [address] [place] [address] Antoni Patricio MD [address] [place] [phone] Social History Tobacco Use Types Packs/Day Years [...] on filedocumented in this encounter Care Teams Infirmary Attendant Relationship Specialty Start Date End Date Sabrina Redd PA [address] [place] [address] PCP - General 07/12/22 documented as of this encounter
--- OUTSIDE RECORDS SUMMARY | 2025-06-01 12:08 | XMS_ITS | Encounter Summary ---
Author Organization [facility] Address [address] [place] [address] Care Team Providers Care Nascar Racer Name Role Phone Lucas Wen APRN Primary Care Provider + Steffi Escalera APRN Primary Care Provider Myesha Hwang MD Unavailable [phone] Encounter Details Date Type Department Care Team (Late st Contact Info) Description 10/26/[address] [facility] [address] [phone] Chris Sood MD [address] [place], [place] [phone] Social History Tobacco Use Types Packs/Day Years [...] on filedocumented in this encounter Care Teams Nascar Racer Relationship Specialty Start Date End Date Lucas Wen APRN PCP - General Adult Health - PA/APNP/MORTUARY TECHNICIAN/SUSTAINABLE COMMUNITIES DESIGNER 10/20/22 01/14/23 Steffi Escalera APRN [address] [address] PCP - General 01/15/23 Myesha Hwang MD [address] [place] [address] Gastroenterology 04/09/23 documented as of this encounter
--- OUTSIDE RECORDS SUMMARY | 2025-06-01 12:08 | XMS_ITS | Encounter Summary ---
Author Organization [facility] Address [address] [place] [address] Care Team Providers Care Regional Facilities Manager Name Role Phone Steffi Escalera APRN Primary Care Provider Myesha Hwang MD Unavailable [phone] Encounter Details Date Type Department Care Team (Late st Contact Info) Description 02/06/2023 Scanned Document [facility] [address] [address] [place] [address] Social History Tobacco Use Types [...] filedocumented in this encounter Care Teams Regional Facilities Manager Relationship Specialty Start Date End Date Steffi Escalera APRN 12 [facility] [address] [place] [address] PCP - General 01/15/23 Myesha Hwang MD [address] [place] [address] Gastroenterology 04/09/23 documented as of this encounter
--- OUTSIDE RECORDS SUMMARY | 2025-06-01 12:08 | XMS_ITS | Encounter Summary ---
Author Organization [facility] Address [address] [place] [address] Care Team Providers Care General Farm Manager Name Role Phone Sabrina Redd Primary Care Provider [phone] Encounter Details Date Type Department Care Team (Late st Contact Info) Description 06/20/2019 Scanned Document [facility] at [address] [place] [address] Antoni Patricio MD [address] [place] [phone] Social History Tobacco Use Types Packs/Day Years [...] on filedocumented in this encounter Care Teams General Farm Manager Relationship Specialty Start Date End Date Sabrina Redd PA [address] [place] [address] PCP - General 07/12/22 documented as of this encounter
--- OUTSIDE RECORDS SUMMARY | 2025-06-01 12:08 | XMS_ITS | Clinical Summary ---
Author Organization [facility] [address] [employer] Address [address] [place] [address] Care Team Providers Care Stenotype Machine Operator Name Role Phone Sabrina Redd [...] 05/2023 Last Assessment & Plan: Colon 02/2022 ([place]) - no polyps noted Would due recall [...] aneurysm s/p trapping/bypass by Dr. 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 No additional aneurysms of the [place] identified. 2. Post surgcal changes [...] expert review the quality of evidence behind adjunct faculty for medical terminology kidney disease, dementia, bone fractures, and infection with PPI use is low. The current data suggests that adjunct faculty for medical terminology PPI use does not require routine screening [...] We discussed the minimal potential risk with adjunct faculty for medical terminology PPI use. Based on AGA expert review the quality of evidence behind adjunct faculty for medical terminology kidney disease, dementia, bone fractures, and infection with PPI use is low. The current data suggests that adjunct faculty for medical terminology PPI use does not require routine screening [...] expert review the quality of evidence behind adjunct faculty for medical terminology kidney disease, dementia, bone fractures, and infection [...] We discussed the minimal potential risk with adjunct faculty for medical terminology PPI use. Based on AGA expert review the quality of evidence behind fdc kidney disease, dementia, bone fractures, and infection with PPI use is low. The current data suggests that adjunct faculty for medical terminology PPI use does not require routine screening [...] We discussed the minimal potential risk with adjunct faculty for medical terminology PPI use. Based on AGA expert review [...] We discussed the minimal potential risk with adjunct faculty for medical terminology PPI use. Based on AGA expert review the quality of evidence behind adjunct faculty for medical terminology kidney disease, dementia, bone fractures, and infection with PPI use is low. The current data suggests that adjunct faculty for medical terminology PPI use does not require routine screening [...] review Pt was followed by heme in [place], will need f/u care here also Last Assessment & Plan: Continue oral iron Need old records for review Pt was followed by heme in [place], will need f/u care here also Last [...] review Pt was followed by heme in [place], will need f/u care here also Overview: Last Assessment & Plan: Continue oral iron Need old records for review Pt was followed by heme in [place], will need f/u care here also Last Assessment & Plan: Continue oral iron Need old records for review Pt was followed by heme in [place], will need f/u care here also Last Assessment & Plan: Continue oral iron Need old records for review Pt was followed by heme in [place], will need f/u care here also Last Assessment & Plan: 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 History of hysterectomy 12/16/2010 Pain in pelvis 09/11/2007 07/20/2023 Diabetes mellitus 08/29/2007 07/20/2023 Cerebral aneurysm, nonruptured Overview (05/26/2019): unruptured left SCA aneurysm s/p trapping/bypass by Dr. Colin in [place] in 04/2015 Family History Medical History Relation [...] age to complete this topic Insurance [facility] [place] [facility] Care Teams Stenotype Machine Operator Relationship Specialty Start Date End Date Sabrina Redd PA [address] [facility] [place] [address] PCP - General 07/12/22
--- OUTSIDE RECORDS SUMMARY | 2025-06-01 12:08 | XMS_ITS | Encounter Summary ---
Author Organization [facility] Address [address] [place] [address] Care Team Providers Care Pouncer Machine Name Role Phone Sabrina Redd Primary Care Provider [phone] Encounter Details Date Type Department Care Team (Late st Contact Info) Description 06/17/2019 Scanned Document [facility] at [address] [place] [address] Provider, [facility] . Social History Tobacco Use Types [...] on filedocumented in this encounter Care Teams Pouncer Machine Relationship Specialty Start Date End Date Sabrina Redd PA [address] [place] [address] PCP - General 07/12/22 documented as of this encounter
--- OUTSIDE RECORDS SUMMARY | 2025-06-01 12:08 | XMS_ITS | Encounter Summary ---
Author Organization [facility] Address [address] [place] [address] Care Team Providers Care Display Manager Name Role Phone Sabrina Redd Primary Care Provider [phone] Encounter Details Date Type Department Care Team (Late st Contact Info) Description 07/14/2019 Scanned Document [facility] [address] [facility] [address] [place] [address] Provider, Historical . Social History Tobacco Use [...] on filedocumented in this encounter Care Teams Display Manager Relationship Specialty Start Date End Date Sabrina Redd PA [address] [place] [address] PCP - General 07/12/22 documented as of this encounter
--- OUTSIDE RECORDS SUMMARY | 2025-06-01 12:08 | XMS_ITS | Encounter Summary ---
Author Organization [facility] Address [address] [place] [address] Care Team Providers Care Machine Set Up Technician Name Role Phone Sabrina Redd Primary Care Provider [phone] Reason for Referral * Imaging (Routine) - Closed Specialty Diagnoses / Procedures Referred By Contac t Referred To Contact Diagnostic Radiology Procedures CTA Head w and/or wo IV Contrast Antoni Patricio MD [address] [place] [address] Phone: tel: fax: Referral ID Status Reason Start Date Expiration Date Visits Re quested Visits Authorized [id number] Closed 07/11/2023 07/10/2024 1 1 Encounter Details Date Type Department Care Team (Late st Contact Info) Description 07/11/2023 Scanned Document [facility] SCHEDULING [address] [place], [place] [address] Antoni Patricio MD [address] [place] [address] Social History Tobacco Use Types [...] filedocumented in this encounter Care Teams Machine Set Up Technician Relationship Specialty Start Date End Date Sabrina Redd PA [address] [place] [address] PCP - General 07/12/22 documented as of this encounter
--- OUTSIDE RECORDS SUMMARY | 2025-06-01 12:08 | XMS_ITS | Encounter Summary ---
Author Organization [facility] Address [address] [place] [address] Care Team Providers Care Outside Repairer Special Name Role Phone Sabrina Redd Primary Care Provider [phone] Encounter Details Date Type Department Care Team (Late st Contact Info) Description 04/09/2019 Abstract [facility] [address] [facility] [address] [facility] [place] [address] Antoni Patricio MD [address] [place] [phone] Social History Tobacco Use Types Packs/Day Years [...] on filedocumented in this encounter Care Teams Outside Repairer Special Relationship Specialty Start Date End Date Sabrina Redd PA [address] [place] [address] PCP - General 07/12/22 documented as of this encounter
== END 2025-06-01 10:04 | disposition home or self-care (01) ==
LOC: HO.LAB 10:03
PROVIDERS: PCP Internal Medicine; Visit Provider Internal Medicine
DX: K92.2 Gastrointestinal hemorrhage, unspecified (principal)
CPT/HCPCS: 36415; 82607; 82728; 82746; 83540; 85027